=== PATIENT | female | born 1965 | race African-American/Black ===

== ENCOUNTER 2018-06-30 19:05 | Inpatient (IN) | payer MEDICARE, MEDICAID ==
[~2018-06-30] VITALS: Ht 162.6 cm; Wt 69.1 kg
[~2018-06-30 19:05] MED LIST: ADVAIR 250-501 EACH INH; ASPIR 8181 MG PO; BUPROPION XL300 MG PO; DIAZEPAM10 MG PO; DOCUSATE SODIU100 MG PO; FERROUS SULFAT325 MG ORAL; GABAPENTIN300 MG PO; LISINOPRIL10 MG ORAL; MILK OF MA400 MG/51 ORAL; NAPROXEN CR500 MG PO; PERCOCET 5-3251 EACH ORAL; PROAIR HFA8.5 GM INH; PROTONIX40 MG PO; QUETIAPINE FUM400 MG ORAL; RANITIDINE50 MG/2 ML IV; SAPHRIS5 MG SL; VICODIN ES 7.51 EACH ORAL
[2018-06-30] MEDS ORDERED: Solu-MEDROL 125mg Inj IVP ONE (19:30)
[2018-06-30] MEDS ORDERED: LAMOTRIGINE OD200 MG PO (19:34)
[2018-06-30] MEDS ORDERED: FOLIC ACID1 MG ORAL (19:34)
--- NOTE | 2018-06-30 19:38 | NUR ---
ED Nurse Note: PT WALKED IN TO ER TODAY FROM HOME. AOX4. PT C/O GENERALIZED WEAKNESS, LOSS OF APPETITE AND INTERMITTENT FACIAL SWELLING THAT STARTED AROUND EYES AND SPREADING DOWN FACE X 3 DAYS AGO. PT'S FACE DOES NOT APPEAR SWOLLEN ON ASSESSMENT. RR16 WITH O2SAT 100%. PT'S PERRLA. PT DOES NOT THINK IT IS AN ALLERGIC RXN. SHE STATES SHE HAS NOT DONE ANYTHING OUTSIDE NORMAL ROUTINE.
[2018-06-30 19:40] VITALS: BP 151/97
--- NOTE | 2018-06-30 19:47 | NUR ---
ED Nurse Note: REPORT GIVEN TO ARIANA LEE.
[2018-06-30 19:51] LABS: BASOPHILS % (AUTO) 2.1 % (0.0-2.0); EOSINOPHILS % (AUTO) 5.5 % (0.0-3.0); HEMATOCRIT 40.5 % (37.0-47.0); HEMOGLOBIN 13.1 G/DL (12.0-16.0); LYMPHOCYTES % (AUTO) 26.6 % (20.0-45.0); MEAN CORPUSCULAR VOLUME 91 FL (80-99); NEUTROPHILS % (AUTO) 57.9 % (45.0-75.0); PLATELET COUNT 313 K/UL (150-450); RED BLOOD COUNT 4.47 M/UL (4.20-5.40); RED CELL DISTRIBUTION WIDTH 11.4 % (11.6-14.8); WHITE BLOOD COUNT 8.5 K/UL (4.8-10.8)
--- NOTE | 2018-06-30 19:52 | Emergency Room Report ---
History of Present Illness General Chief Complaint: General Complaint Source: Patient Present Illness HPI 53-year-old female with history of asthma she is presenting with shortness of breath, cough, generalized weakness. Also says that she has not been eating for the last few days. Feels very dehydrated. Has been having body aches. No fever or chills. Says that she's also had dark urine, no dysuria. No chest pain. Allergies: Coded Allergies: PENICILLINS (Verified Allergy, Unknown, 10/09/12) Patient History Past Medical History: see triage record Past Surgical History: none Pertinent Family History: none Now: No Reviewed Nursing Documentation: PMH: Agreed; PSxH: Agreed Nursing Documentation-PMH Past Medical History: No History, Except For Hx Cardiac Problems: No - sickle cell , HTN Hx Hypertension: Yes Hx Pacemaker: No Hx Asthma: Yes Hx COPD: Yes Hx Diabetes: No Hx Cancer: No Hx Gastrointestinal Problems: No Hx Dialysis: No History Of Psychiatric Problem: Yes - Anxiety Hx Neurological Problems: No Hx Cerebrovascular Accident: No Hx Encephalitis: No Hx Seizures: No Review of Systems All Other Systems: negative except mentioned in HPI Physical Exam Vital Signs Date Time Temp Pulse Resp B/P (MAP) Pulse Ox O2 Delivery O2 Flow Rate FiO2 06/30/18 19:13 98.8 109 20 169/102 97 Room Air Sp02 EP Interpretation: reviewed, normal General Appearance: alert, GCS 15, non-toxic, mild distress Head: normocephalic, atraumatic Eyes: bilateral eye normal inspection, bilateral eye PERRL, bilateral eye EOMI ENT: normal ENT inspection, normal pharynx, normal voice, moist mucus membranes Neck: normal inspection, full range of motion, supple Respiratory: respiratory distress, speaking full sentences, wheezing Cardiovascular #1: normal inspection, regular rate, rhythm, no edema, normal capillary refill Cardiovascular #2: 2+ radial (R), 2+ radial (L) Gastrointestinal: normal inspection, non tender, soft, non-distended, no guarding Musculoskeletal: normal inspection, back normal, normal range of motion, non- tender Neurologic: normal inspection, alert, oriented x3, responsive, motor strength/ tone normal, sensory intact, normal gait, speech normal Psychiatric: normal inspection, judgement/insight normal, memory normal Skin: normal inspection, normal color, no rash, warm/dry, well hydrated, normal turgor Procedures Critical Care Time Critical Care Time 40 minutes of critical care time performed in order to assess and manage the high probability of imminent of lifethreatening deterioration secondary to resp function excludes all billable procedures Medical Decision Making Diagnostic Impression: Primary Impression: Asthma exacerbation Additional Impression: Dehydration ER Course 53-year-old female with history of asthma p/w SOB, generalized weakness DDX: Asthma exacerbation, pneumonia, upper respiratory infection/viral syndrome UTI Plan: Labs, Combivent nebulizer treatment x 3, steroids, EKG, CXR ER course: Patient given nebs and steroids nebs x 6 still wheezing also given fluid for dehydration Disposition: Patient is to be admitted DW Dr King Please note that this Emergency Department Report was dictated using [employer] 3Dta[employer] cutting machine operator technology software, occasionally this can lead to erroneous entry secondary to interpretation by the dictation equipment EKG Diagnostic Results EP Interpretation: Yes Rate: normal Rhythm: NSR ST Segments: No acute changes ASA given to patient: No Rhythm Strip EP Interpretation: Yes Rate: 70 Rhythm: NSR, no PVCs, no ectopy Chest X-ray CXR: Ordered: Yes 1 view Indication: Chest pain EP interpretation: Yes Interpretation: No consolidation, no effusion, no PTX, no acute cardiopulmonary disease Impression: No acute disease Electronically signed by Rock Raygoza MD Laboratory Tests Test 06/30/18 19:40 06/30/18 20:19 White Blood Count 8.5 K/UL (4.8-10.8) Red Blood Count 4.47 M/UL (4.20-5.40) Hemoglobin 13.1 G/DL (12.0-16.0) Hematocrit 40.5 % (37.0-47.0) Mean Corpuscular Volume 91 FL (80-99) Mean Corpuscular Hemoglobin 29.3 PG (27.0-31.0) Mean Corpuscular Hemoglobin Concent 32.4 G/DL (32.0-36.0) Red Cell Distribution Width 11.4 % (11.6-14.8) L Platelet Count 313 K/UL (150-450) Mean Platelet Volume 5.0 FL (6.5-10.1) L Neutrophils (%) (Auto) 57.9 % (45.0-75.0) Lymphocytes (%) (Auto) 26.6 % (20.0-45.0) Monocytes (%) (Auto) 8.0 % (1.0-10.0) Eosinophils (%) (Auto) 5.5 % (0.0-3.0) H Basophils (%) (Auto) 2.1 % (0.0-2.0) H Sodium Level 143 MMOL/L (136-145) Potassium Level 3.5 MMOL/L (3.5-5.1) Chloride Level 106 MMOL/L (98-107) Carbon Dioxide Level 29 MMOL/L (21-32) Anion Gap 8 mmol/L (5-15) Blood Urea Nitrogen 13 mg/dL (7-18) Creatinine 1.1 MG/DL (0.55-1.30) Estimate Glomerular Filtration Rate > 60 mL/min (>60) Glucose Level 77 MG/DL (74-106) Calcium Level 9.0 MG/DL (8.5-10.1) Total Bilirubin 0.1 MG/DL (0.2-1.0) L Aspartate Amino Transferase (AST) 18 U/L (15-37) Alanine Aminotransferase (ALT) 21 U/L (12-78) Alkaline Phosphatase 106 U/L (46-116) Troponin I 0.010 ng/mL (0.000-0.056) Pro-B-Type Natriuretic Peptide 37 pg/mL (0-125) Total Protein 6.8 G/DL (6.4-8.2) Albumin 3.5 G/DL (3.4-5.0) Globulin 3.3 g/dL Albumin/Globulin Ratio 1.1 (1.0-2.7) Urine Color Pale yellow Urine Appearance Clear Urine pH 6.5 (4.5-8.0) Urine Specific [place] 1.005 (1.005-1.035) Urine Protein Negative (NEGATIVE) Urine Glucose (UA) Negative (NEGATIVE) Urine Ketones Negative (NEGATIVE) Urine Blood Negative (NEGATIVE) Urine Nitrite Negative (NEGATIVE) Urine Bilirubin Negative (NEGATIVE) Urine Urobilinogen Normal MG/DL (0.0-1.0) Urine Leukocyte Esterase Negative (NEGATIVE) Microbiology Date/Time Source Procedure Growth Status 06/30/18 19:40 Nasal Nares Influenza Types A,B Antigen (ZACH) - Final Complete Last Vital Signs Date Time Temp Pulse Resp B/P (MAP) Pulse Ox O2 Delivery O2 Flow Rate FiO2 06/30/18 19:13 98.8 109 20 169/102 97 Room Air Scripts Nebulizer (Compact Compressor Nebulizer) 1 Each Each [facility], #1 Prov: Rock Raygoza M.D. 06/30/18 Albuterol Sulfate* (ALBUTEROL SULFATE HHN*) 2.5 Mg/3 Ml Vial.neb 2.5 MG HHN Q4H PRN for Shortness of Breath, #25 VIAL Prov: Rock Raygoza M.D. 06/30/18 Prednisone* (PREDNISONE*) 20 Mg Tablet 40 MG ORAL DAILY for 5 Days, #10 TAB Prov: Rock Raygoza M.D. 06/30/18 Rock Raygoza M.D. Jun 30, 2018 19:52
[2018-06-30] MEDS: Albuterol/Ipratropium 3ml neb HHN SCH ×5 (20:09→20:32)
[2018-06-30 20:18] LABS: ANION GAP 8 mmol/L (5-15); BLOOD UREA NITROGEN 13 mg/dL (7-18); CARBON DIOXIDE 29 MMOL/L (21-32); CHLORIDE 106 MMOL/L (98-107); CREATININE 1.1 MG/DL (0.55-1.30); POTASSIUM 3.5 MMOL/L (3.5-5.1); SODIUM 143 MMOL/L (136-145)
[2018-06-30 20:29] LABS: ALANINE AMINOTRANSFERASE 21 U/L (12-78); ALBUMIN 3.5 G/DL (3.4-5.0); ALBUMIN/GLOBULIN RATIO 1.1 (1.0-2.7); ALKALINE PHOSPHATASE 106 U/L (46-116); ASPARTATE AMINO TRANSFERASE 18 U/L (15-37); BILIRUBIN,TOTAL 0.1 MG/DL (0.2-1.0)
[2018-06-30 20:41] LABS: APPEARANCE,URINE CLEAR; BILIRUBIN, URINE NEGATIVE (NEGATIVE); COLOR,URINE PALE YELLOW; GLUCOSE, URINE (UA) NEGATIVE (NEGATIVE); KETONES,URINE NEGATIVE (NEGATIVE); LEUKOCYTE ESTERASE ,URINE NEGATIVE (NEGATIVE); NITRITE,URINE NEGATIVE (NEGATIVE); PH,URINE 6.5 (4.5-8.0); PROTEIN,URINE NEGATIVE (NEGATIVE); UROBILINOGEN,URINE NORMAL MG/DL (0.0-1.0)
[2018-06-30] MEDS ORDERED: COMPACT COMPRE1 EACH MC (20:46)
[2018-06-30] MEDS ORDERED: PREDNISONE20 MG ORAL (20:46)
[2018-06-30] MEDS ORDERED: ALBUTEROL2.5 MG/3 M HHN (20:46)
[2018-06-30] MEDS: Albuterol ud Inhalation HHN SCH ×4 (21:15→23:45)
[2018-06-30 21:30] VITALS: BP 140/95
[2018-06-30 22:56] VITALS: BP 139/91
--- NOTE | 2018-06-30 23:11 | NUR ---
ED Nurse Note: PT is transfered to MED SURG with RN BLADIMIR. pt status, condition and vital signs reported to receving RN and ERMD prior to DC. pt has been transfered with all belongings. pt is stable for transfer.
[2018-06-30 23:30] VITALS: BP 154/89
--- NOTE | 2018-06-30 23:49 | NUR ---
NURSE NOTES: Received telephone report from ARIANA Castillo. Patient brought to unit by tech. Belongings checked and validated. Patient on room air, no signs of distress. IV intact, patent, and saline locked. Charge nurse received orders from . Will continue to monitor patient.
--- NOTE | 2018-06-30 23:58 | Consultation ---
History of Present Illness General Chief Complaint: General Complaint Present Illness HPI 53-year-old female complaining of shortness of breath, coughing , weakness, and decreased appetite. the pt is bizarre and stated that she drank her urine. the pt was anxious and paranoid. the pt takes antipsychotics however stated that she was unsure of her mental disorder. Allergies: Coded Allergies: PENICILLINS (Verified Allergy, Unknown, 10/09/12) Medication History Scheduled Docusate Sodium* (Docusate Sodium*), 100 MG PO BID, (Reported) Ferrous Sulfate* (Ferrous Sulfate*), 325 MG ORAL DAILY, (Reported) Folic Acid* (Folic Acid*), 1 MG ORAL DAILY, (Reported) Gabapentin* (Gabapentin*), 300 MG PO TID, (Reported) Pantoprazole* (Protonix*), 40 MG PO DAILY Ranitidine Hcl* (Ranitidine Hcl*), 150 MG IV BID, (Reported) Discontinued Medications Albuterol Sulfate* (Proair Hfa*), 1 PUFF INH Q6H, (Reported) Discontinued Reason: MD discontinued med Albuterol Sulfate* (Albuterol Sulfate Hhn*), 2.5 MG HHN Q4H PRN for Shortness of Breath Discontinued Reason: MD discontinued med Asenapine Maleate (Saphris), 5 MG SL, (Reported) Discontinued Reason: MD discontinued med Aspirin* (Aspir 81*), 81 MG PO, (Reported) Discontinued Reason: MD discontinued med Bupropion Hcl* (Wellbutrin*), 300 MG PO DAILY, (Reported) Discontinued Reason: MD discontinued med Diazepam* (Diazepam*), 10 MG PO TID PRN, (Reported) Discontinued Reason: MD discontinued med Fluticasone/Salmeterol (Advair 250-50 Diskus), 1 PUFF INH EVERY 12 HOURS, ( Reported) Discontinued Reason: MD discontinued med Hydrocodone/Acetaminophen 7.5-750 (Vicodin Es 7.5-750), 1 TAB ORAL Q6H, ( Reported) Discontinued Reason: MD discontinued med Lamotrigine (Lamotrigine Odt), 200 MG PO, (Reported) Discontinued Reason: MD discontinued med Lisinopril* (Lisinopril*), 10 MG ORAL DAILY, (Reported) Discontinued Reason: MD discontinued med Magnesium Hydroxide* (Milk Of Magnesia*), 30 ML ORAL DAILY Discontinued Reason: MD discontinued med Naproxen Sodium (Naproxen Cr), 500 MG PO Q12HR Discontinued Reason: discontinued med Nebulizer (Compact Compressor Nebulizer), JANET KIM, (DME) Discontinued Reason: MD discontinued med Oxycodone/Acetaminophen 5-325* (Percocet 5-325 Mg Tablet*), 1 TAB ORAL Q6H PRN for For Pain Discontinued Reason: MD discontinued med Prednisone* (Prednisone*), 40 MG ORAL DAILY Discontinued Reason: MD discontinued med Quetiapine Fumarate* (Quetiapine Fumarate*), 400 MG ORAL DAILY, (Reported) Discontinued Reason: MD discontinued med Patient History History Provided By: Patient, Medical Record, PMD Healthcare decision maker Resuscitation status Advanced Directive on File Past Medical/Surgical History Past Medical/Surgical History: (1) Fibroid (2) Constipation (3) Pulmonary edema (4) Purulent bronchitis (5) Dehydration (6) Sickle cell disease (7) Anxiety (8) Edema (9) Rhabdomyolysis (10) Lumbar spondylosis (11) Left ankle swelling (12) COPD exacerbation (13) COPD exacerbation (14) Chronic back pain (15) Earache, right (16) Left ankle effusion (17) Edema of right lower extremity (18) Pain (19) Tachycardia with hypertension (20) Asthma exacerbation Review of Systems Psychiatric: Reports: prior hx, anxiety, depressed feelings, emotional problems Physical Exam General Appearance: no apparent distress, alert Neurologic: oriented x 3, responsive, depressed affect Last 24 Hour Vital Signs Date Time Temp Pulse Resp B/P (MAP) Pulse Ox O2 Delivery O2 Flow Rate FiO2 06/30/18 23:45 115 06/30/18 23:30 98.3 120 20 154/89 (110) 98 06/30/18 23:09 98.6 88 16 139/91 100 Room Air 21 06/30/18 22:56 98.6 88 16 139/91 100 Room Air 06/30/18 22:28 118 18 97 Room Air 06/30/18 22:18 118 20 95 Room Air 21 06/30/18 21:30 98.6 90 16 140/95 100 Room Air 06/30/18 20:50 110 20 100 Room Air 06/30/18 20:40 108 18 100 Room Air 21 06/30/18 20:40 102 18 100 Room Air 21 06/30/18 20:30 98 18 100 Room Air 21 06/30/18 20:30 98 18 100 Room Air 21 06/30/18 20:23 96 18 100 Room Air 21 06/30/18 20:23 94 20 100 Room Air 21 06/30/18 20:15 96 20 100 Room Air 21 06/30/18 20:15 94 20 100 Room Air 21 06/30/18 20:07 99 20 98 Room Air 21 06/30/18 20:06 99 20 Room Air 21 06/30/18 19:40 100 16 Room Air 06/30/18 19:40 98.6 100 16 151/97 100 Room Air 06/30/18 19:13 98.8 109 20 169/102 97 Room Air Laboratory Tests Test 06/30/18 19:40 06/30/18 20:19 White Blood Count 8.5 K/UL (4.8-10.8) Red Blood Count 4.47 M/UL (4.20-5.40) Hemoglobin 13.1 G/DL (12.0-16.0) Hematocrit 40.5 % (37.0-47.0) Mean Corpuscular Volume 91 FL (80-99) Mean Corpuscular Hemoglobin 29.3 PG (27.0-31.0) Mean Corpuscular Hemoglobin Concent 32.4 G/DL (32.0-36.0) Red Cell Distribution Width 11.4 % (11.6-14.8) L Platelet Count 313 K/UL (150-450) Mean Platelet Volume 5.0 FL (6.5-10.1) L Neutrophils (%) (Auto) 57.9 % (45.0-75.0) Lymphocytes (%) (Auto) 26.6 % (20.0-45.0) Monocytes (%) (Auto) 8.0 % (1.0-10.0) Eosinophils (%) (Auto) 5.5 % (0.0-3.0) H Basophils (%) (Auto) 2.1 % (0.0-2.0) H Sodium Level 143 MMOL/L (136-145) Potassium Level 3.5 MMOL/L (3.5-5.1) Chloride Level 106 MMOL/L (98-107) Carbon Dioxide Level 29 MMOL/L (21-32) Anion Gap 8 mmol/L (5-15) Blood Urea Nitrogen 13 mg/dL (7-18) Creatinine 1.1 MG/DL (0.55-1.30) Estimat Glomerular Filtration Rate > 60 mL/min (>60) Glucose Level 77 MG/DL (74-106) Calcium Level 9.0 MG/DL (8.5-10.1) Total Bilirubin 0.1 MG/DL (0.2-1.0) L Aspartate Amino Transf (AST/SGOT) 18 U/L (15-37) Alanine Aminotransferase (ALT/SGPT) 21 U/L (12-78) Alkaline Phosphatase 106 U/L (46-116) Troponin I 0.010 ng/mL (0.000-0.056) Pro-B-Type Natriuretic Peptide 37 pg/mL (0-125) Total Protein 6.8 G/DL (6.4-8.2) Albumin 3.5 G/DL (3.4-5.0) Globulin 3.3 g/dL Albumin/Globulin Ratio 1.1 (1.0-2.7) Urine Color Pale yellow Urine Appearance Clear Urine pH 6.5 (4.5-8.0) Urine Specific [place] 1.005 (1.005-1.035) Urine Protein Negative (NEGATIVE) Urine Glucose (UA) Negative (NEGATIVE) Urine Ketones Negative (NEGATIVE) Urine Blood Negative (NEGATIVE) Urine Nitrite Negative (NEGATIVE) Urine Bilirubin Negative (NEGATIVE) Urine Urobilinogen Normal MG/DL (0.0-1.0) Urine Leukocyte Esterase Negative (NEGATIVE) Microbiology Date/Time Source Procedure Growth Status 06/30/18 19:40 Nasal Nares Influenza Types A,B Antigen (ZACH) - Final Complete Height (Feet): 5 Height (Inches): 4.00 Weight (Pounds): 140 Medications Current Medications Medications (Trade) Dose Ordered Sig/Yadira Route PRN Reason Start Time Stop Time Status Last Admin Dose Admin Albuterol Sulfate (Proventil) 2.5 mg Q8HR HHN 06/30/18 23:45 07/05/18 23:44 Assessment/Plan Problem List: (1) Anxiety ICD Codes: F41.9 - Anxiety disorder, unspecified SNOMED: [id number] Assessment/Plan seroquel 400mg qhs welbutrin 150mg qam provided /Rolo Johnson MD Jun 30, 2018 23:58
[2018-07-01] MEDS ORDERED: Albuterol/Ipratropium 3ml neb HHN PRN (00:30)
[2018-07-01] MEDS: Norco 5mg/325mg tab ORAL PRN ×3 (00:34→08:50)
--- NOTE | 2018-07-01 00:46 | NUR ---
NURSE NOTES: Patient has fluctuating HR between 115-120s. Left voicemail for tower watchman concerning matter.
[2018-07-01] MEDS: dilTIAZem HCl 30mg tab ORAL SCH ×4 (01:13→17:12)
[2018-07-01] MEDS: Albuterol/Ipratropium 3ml neb HHN SCH ×6 (02:30→23:00)
[2018-07-01 04:00] VITALS: BP 143/74
--- NOTE | 2018-07-01 07:41 | NUR ---
NURSE NOTES: Patine alert x4, in room air, no sign of shortness of breath, no sign of distress and chest pain. Skin intact. IV RFA salin lock, flushes well. Patient had tachy ede last shift and connected to pulse sockes, will keep monitoring heart rate. Side rails up x2, bed at lowest position, breaks engaged. Will give pain med as order. 2Decho schedules for today, will follow up on that. Call light within reach. Will keep monitoring.
[2018-07-01] MEDS: Albuterol ud Inhalation HHN SCH (07:46)
[2018-07-01 08:00] VITALS: BP 105/69
[2018-07-01 08:06] LABS: HEMATOCRIT 36.2 % (37.0-47.0); HEMOGLOBIN 11.7 G/DL (12.0-16.0); MEAN CORPUSCULAR VOLUME 90 FL (80-99); PLATELET COUNT 328 K/UL (150-450); RED CELL DISTRIBUTION WIDTH 11.8 % (11.6-14.8); WHITE BLOOD COUNT 11.3 K/UL (4.8-10.8)
[2018-07-01 08:30] LABS: ALANINE AMINOTRANSFERASE 19 U/L (12-78); ALBUMIN 3.2 G/DL (3.4-5.0); ALKALINE PHOSPHATASE 96 U/L (46-116); ANION GAP 9 mmol/L (5-15); ASPARTATE AMINO TRANSFERASE 15 U/L (15-37); BILIRUBIN,TOTAL < 0.1 MG/DL (0.2-1.0); BLOOD UREA NITROGEN 13 mg/dL (7-18); CALCIUM 9.1 MG/DL (8.5-10.1); CARBON DIOXIDE 28 MMOL/L (21-32); CHLORIDE 107 MMOL/L (98-107); POTASSIUM 3.3 MMOL/L (3.5-5.1); SODIUM 144 MMOL/L (136-145)
--- NOTE | 2018-07-01 08:39 | NUR ---
HAND-OFF: Report given to ARIANA Marsh.
--- NOTE | 2018-07-01 08:48 | Consultation ---
History of Present Illness General Date patient seen: Jul 01, 2018 Time patient seen: 07:45 - am Chief Complaint: Body pain Referring physician: Dr. King Reason for Consultation: Pain Management consultation Present Illness HPI Patient was admitted to hospital under the care of due to asthma exacerbation. She has chronic lower back pain and right hip pain with h/o THR with SS disease. Was admitted on [place] 5/325mg tabs and at home has been in [place] 10/325mg tabs, at this time stating pain is severe and not tolerated we were consulted so patient has adequate pain control while here in the hospital. Allergies: Coded Allergies: PENICILLINS (Verified Allergy, Unknown, 10/09/12) Medication History Scheduled Docusate Sodium* (Docusate Sodium*), 100 MG PO BID, (Reported) Ferrous Sulfate* (Ferrous Sulfate*), 325 MG ORAL DAILY, (Reported) Folic Acid* (Folic Acid*), 1 MG ORAL DAILY, (Reported) Gabapentin* (Gabapentin*), 300 MG PO TID, (Reported) Pantoprazole* (Protonix*), 40 MG PO DAILY Ranitidine Hcl* (Ranitidine Hcl*), 150 MG IV BID, (Reported) Discontinued Medications Albuterol Sulfate* (Proair Hfa*), 1 PUFF INH Q6H, (Reported) Discontinued Reason: MD discontinued med Albuterol Sulfate* (Albuterol Sulfate Hhn*), 2.5 MG HHN Q4H PRN for Shortness of Breath Discontinued Reason: MD discontinued med Asenapine Maleate (Saphris), 5 MG SL, (Reported) Discontinued Reason: MD discontinued med Aspirin* (Aspir 81*), 81 MG PO, (Reported) Discontinued Reason: MD discontinued med Bupropion Hcl* (Wellbutrin*), 300 MG PO DAILY, (Reported) Discontinued Reason: MD discontinued med Diazepam* (Diazepam*), 10 MG PO TID PRN, (Reported) Discontinued Reason: MD discontinued med Fluticasone/Salmeterol (Advair 250-50 Diskus), 1 PUFF INH EVERY 12 HOURS, ( Reported) Discontinued Reason: MD discontinued med Hydrocodone/Acetaminophen 7.5-750 (Vicodin Es 7.5-750), 1 TAB ORAL Q6H, ( Reported) Discontinued Reason: MD discontinued med Lamotrigine (Lamotrigine Odt), 200 MG PO, (Reported) Discontinued Reason: MD discontinued med Lisinopril* (Lisinopril*), 10 MG ORAL DAILY, (Reported) Discontinued Reason: MD discontinued med Magnesium Hydroxide* (Milk Of Magnesia*), 30 ML ORAL DAILY Discontinued Reason: MD discontinued med Naproxen Sodium (Naproxen Cr), 500 MG PO Q12HR Discontinued Reason: MD discontinued med Nebulizer (Compact Compressor Nebulizer), JANET , (DME) Discontinued Reason: MD discontinued med Oxycodone/Acetaminophen 5-325* (Percocet 5-325 Mg Tablet*), 1 TAB ORAL Q6H PRN for For Pain Discontinued Reason: MD discontinued med Prednisone* (Prednisone*), 40 MG ORAL DAILY Discontinued Reason: MD discontinued med Quetiapine Fumarate* (Quetiapine Fumarate*), 400 MG ORAL DAILY, (Reported) Discontinued Reason: MD discontinued med Patient History Healthcare decision maker Resuscitation status Full Code Advanced Directive on File No Patient History Narrative Past Medical History: Hx Cardiac Problems: Yes - sickle cell , HTN Hx Hypertension: Yes Hx Asthma: Yes Hx COPD: Yes History Of Psychiatric Problem: Yes - Anxiety Review of Systems Constitutional: Reports: weakness Eye: Reports: no symptoms ENT: Reports: no symptoms Respiratory: Reports: shortness of breath Cardiovascular: Reports: no symptoms Gastrointestinal: Reports: no symptoms Genitourinary: Reports: no symptoms Musculoskeletal: Reports: back pain, joint pain Skin: Reports: no symptoms Psychiatric: Reports: no symptoms Neurological: Reports: no symptoms Endocrine: Reports: no symptoms Hematologic/Lymphatic: Reports: no symptoms Physical Exam General Appearance: no apparent distress, alert HEENT: PERRL, EOMI Neck: non-tender, normal alignment, supple Respiratory/Chest: decreased breath sounds Cardiovascular/Chest: normal rate, regular rhythm Abdomen: non tender, soft Extremities: non-tender Skin Exam: warm/dry Neurologic: alert, oriented x 3, responsive Last 24 Hour Vital Signs Date Time Temp Pulse Resp B/P (MAP) Pulse Ox O2 Delivery O2 Flow Rate FiO2 07/01/18 08:00 98.2 95 18 105/69 (81) 99 07/01/18 07:54 99 20 100 Room Air 21 07/01/18 07:46 94 18 99 Room Air 21 07/01/18 04:00 98.1 111 18 143/74 (97) 93 07/01/18 02:33 Room Air 07/01/18 02:31 Room Air 07/01/18 01:13 121 149/85 06/30/18 23:45 115 06/30/18 23:34 Room Air 06/30/18 23:30 98.3 120 20 154/89 (110) 98 06/30/18 23:09 98.6 88 16 139/91 100 Room Air 21 06/30/18 22:56 98.6 88 16 139/91 100 Room Air 06/30/18 22:30 120 18 98 Room Air 21 06/30/18 22:28 118 18 97 Room Air 21 06/30/18 22:18 118 20 95 Room Air 21 06/30/18 21:30 98.6 90 16 140/95 100 Room Air 06/30/18 20:50 110 20 100 Room Air 21 06/30/18 20:40 108 18 100 Room Air 21 06/30/18 20:40 102 18 100 Room Air 21 06/30/18 20:30 98 18 100 Room Air 21 06/30/18 20:30 98 18 100 Room Air 21 06/30/18 20:23 96 18 100 Room Air 21 06/30/18 20:23 94 20 100 Room Air 21 06/30/18 20:15 96 20 100 Room Air 21 06/30/18 20:15 94 20 100 Room Air 21 06/30/18 20:07 99 20 98 Room Air 21 06/30/18 20:06 99 20 Room Air 21 06/30/18 19:40 100 16 Room Air 06/30/18 19:40 98.6 100 16 151/97 100 Room Air 06/30/18 19:13 98.8 109 20 169/102 97 Room Air Laboratory Tests Test 06/30/18 19:40 06/30/18 20:19 07/01/18 07:38 White Blood Count 8.5 K/UL (4.8-10.8) 11.3 K/UL (4.8-10.8) H Red Blood Count 4.47 M/UL (4.20-5.40) 4.00 M/UL (4.20-5.40) L Hemoglobin 13.1 G/DL (12.0-16.0) 11.7 G/DL (12.0-16.0) L Hematocrit 40.5 % (37.0-47.0) 36.2 % (37.0-47.0) L Mean Corpuscular Volume 91 FL (80-99) 90 FL (80-99) Mean Corpuscular Hemoglobin 29.3 PG (27.0-31.0) 29.2 PG (27.0-31.0) Mean Corpuscular Hemoglobin Concent 32.4 G/DL (32.0-36.0) 32.3 G/DL (32.0-36.0) Red Cell Distribution Width 11.4 % (11.6-14.8) L 11.8 % (11.6-14.8) Platelet Count 313 K/UL (150-450) 328 K/UL (150-450) Mean Platelet Volume 5.0 FL (6.5-10.1) L 5.4 FL (6.5-10.1) L Neutrophils (%) (Auto) 57.9 % (45.0-75.0) % (45.0-75.0) Lymphocytes (%) (Auto) 26.6 % (20.0-45.0) % (20.0-45.0) Monocytes (%) (Auto) 8.0 % (1.0-10.0) % (1.0-10.0) Eosinophils (%) (Auto) 5.5 % (0.0-3.0) H % (0.0-3.0) Basophils (%) (Auto) 2.1 % (0.0-2.0) H % (0.0-2.0) Sodium Level 143 MMOL/L (136-145) 144 MMOL/L (136-145) Potassium Level 3.5 MMOL/L (3.5-5.1) 3.3 MMOL/L (3.5-5.1) L Chloride Level 106 MMOL/L (98-107) 107 MMOL/L (98-107) Carbon Dioxide Level 29 MMOL/L (21-32) 28 MMOL/L (21-32) Anion Gap 8 mmol/L (5-15) 9 mmol/L (5-15) Blood Urea Nitrogen 13 mg/dL (7-18) 13 mg/dL (7-18) Creatinine 1.1 MG/DL (0.55-1.30) 1.0 MG/DL (0.55-1.30) Estimat Glomerular Filtration Rate > 60 mL/min (>60) > 60 mL/min (>60) Glucose Level 77 MG/DL (74-106) 124 MG/DL (74-106) H Calcium Level 9.0 MG/DL (8.5-10.1) 9.1 MG/DL (8.5-10.1) Total Bilirubin 0.1 MG/DL (0.2-1.0) L < 0.1 MG/DL (0.2-1.0) L Aspartate Amino Transf (AST/SGOT) 18 U/L (15-37) 15 U/L (15-37) Alanine Aminotransferase (ALT/SGPT) 21 U/L (12-78) 19 U/L (12-78) Alkaline Phosphatase 106 U/L (46-116) 96 U/L (46-116) Troponin I 0.010 ng/mL (0.000-0.056) Pro-B-Type Natriuretic Peptide 37 pg/mL (0-125) Total Protein 6.8 G/DL (6.4-8.2) 6.5 G/DL (6.4-8.2) Albumin 3.5 G/DL (3.4-5.0) 3.2 G/DL (3.4-5.0) L Globulin 3.3 g/dL 3.3 g/dL Albumin/Globulin Ratio 1.1 (1.0-2.7) 1.0 (1.0-2.7) Urine Color Pale yellow Urine Appearance Clear Urine pH 6.5 (4.5-8.0) Urine Specific [place] 1.005 (1.005-1.035) Urine Protein Negative (NEGATIVE) Urine Glucose (UA) Negative (NEGATIVE) Urine Ketones Negative (NEGATIVE) Urine Blood Negative (NEGATIVE) Urine Nitrite Negative (NEGATIVE) Urine Bilirubin Negative (NEGATIVE) Urine Urobilinogen Normal MG/DL (0.0-1.0) Urine Leukocyte Esterase Negative (NEGATIVE) Neutrophils % (Manual) Pending Lymphocytes % (Manual) Pending Platelet Estimate Pending Platelet Morphology Pending Microbiology Date/Time Source Procedure Growth Status 06/30/18 19:40 Nasal Nares Influenza Types A,B Antigen (AZCH) - Final Complete Height (Feet): 5 Height (Inches): 4.00 Weight (Pounds): 152 Medications Current Medications Medications (Trade) Dose Ordered Sig/Yadira Route PRN Reason Start Time Stop Time Status Last Admin Dose Admin Acetaminophen (Tylenol) 650 mg Q4H PRN ORAL For Pain Level <=5 07/01/18 00:15 07/31/18 00:14 Acetaminophen/ Hydrocodone Bitart ([place] 5/325) 1 tab Q4H PRN ORAL Severe Pain (Pain Scale 7-10) 07/01/18 00:15 07/08/18 00:14 07/01/18 04:14 Albuterol Sulfate (Proventil) 2.5 mg Q8HR HHN 06/30/18 23:45 07/05/18 23:44 07/01/18 07:46 Albuterol/ Ipratropium (Albuterol/ Ipratropium) 3 ml Q4H PRN HHN shortness of breath/wheezing 07/01/18 00:30 07/06/18 00:29 Albuterol/ Ipratropium (Albuterol/ Ipratropium) 3 ml Q4HRT HHN 07/01/18 03:00 07/06/18 02:59 07/01/18 07:46 Bupropion HCl (Wellbutrin XL) 150 mg DAILY ORAL 07/01/18 09:00 07/31/18 08:59 Clonidine HCl (Catapres Tab) 0.1 mg EVERY 6 HOURS PRN ORAL For High Blood Pressure 07/01/18 00:15 07/31/18 00:14 Diltiazem HCl (Cardizem) 30 mg TID ORAL 07/01/18 01:00 07/31/18 00:59 07/01/18 01:13 Docusate Sodium (Colace) 100 mg BID ORAL 07/01/18 09:00 07/31/18 08:59 Ferrous Sulfate (Feosol) 325 mg DAILY ORAL 07/01/18 09:00 07/31/18 08:59 Folic Acid (Folate) 1 mg DAILY ORAL 07/01/18 09:00 07/31/18 08:59 Gabapentin (Neurontin) 300 mg TID ORAL 07/01/18 09:00 07/31/18 08:59 Pantoprazole (Protonix) 40 mg ACBREAKFAST ORAL 07/01/18 06:30 07/31/18 06:29 07/01/18 06:23 Quetiapine Fumarate (SEROquel) 400 mg BEDTIME ORAL 07/01/18 21:00 07/31/18 20:59 Assessment/Plan Assessment/Plan (1) Right hip pain (2) H/o Right THR (3) Right hip OA (4) Sickle cell disease (5) Lumbar DDD (6) Lumbar Spondylosis Patient will be increased to [place] 10/325mg PO 1 tab Q4H PRN D/w Dr. Hui and he concurred Thank you for the courtesy of this consultation Jose Martin Viramontes Jul 01, 2018 08:48
[2018-07-01] MEDS: BuPROPion XL 150mg tab ORAL SCH (08:49)
[2018-07-01] MEDS: Docusate 100mg cap ORAL SCH ×2 (08:49→17:12)
--- NOTE | 2018-07-01 10:39 | Diagnostic Imaging Report ---
Indication: Dyspnea Comparison: 02/17/2015 A single view chest radiograph was obtained. Findings: Cardiomediastinal appearance is within normal limits for age. The lungs are clear. Pulmonary vascularity is appropriate. The diaphragmatic contour is smooth and costophrenic angles are sharp. No pleural effusions are identified. The bones are unremarkable. Impression: No acute findings
[2018-07-01 12:00] VITALS: BP 121/77
[2018-07-01] MEDS: HYDROcodone/Acetamin 10/325 tab ORAL PRN ×3 (12:49→21:14)
--- NOTE | 2018-07-01 14:29 | Consultation ---
History of Present Illness General Date patient seen: Jul 01, 2018 Time patient seen: 14:20 Chief Complaint: Shortness of breath Referring physician: Dr. Jade Reason for Consultation: Asthma exacerbation Present Illness HPI 53 y/o w/ hx sickle cell trait, asthma with several weeks of increasing shortness of breath, cough, wheezing, tachycardia. Noted facial swelling. No discernable exposures. Has asthma which she does not use Advair due to cost. Smokes one cigarette a day. Noted feeling some fevers. Cough is dry. Given nebs and steroids in Ed. Feeling better. Feels heart rate comes down with breathing treatments. Allergies: Coded Allergies: PENICILLINS (Verified Allergy, Unknown, 10/09/12) Medication History Scheduled Docusate Sodium* (Docusate Sodium*), 100 MG PO BID, (Reported) Ferrous Sulfate* (Ferrous Sulfate*), 325 MG ORAL DAILY, (Reported) Folic Acid* (Folic Acid*), 1 MG ORAL DAILY, (Reported) Gabapentin* (Gabapentin*), 300 MG PO TID, (Reported) Pantoprazole* (Protonix*), 40 MG PO DAILY Ranitidine Hcl* (Ranitidine Hcl*), 150 MG IV BID, (Reported) Discontinued Medications Albuterol Sulfate* (Proair Hfa*), 1 PUFF INH Q6H, (Reported) Discontinued Reason: MD discontinued med Albuterol Sulfate* (Albuterol Sulfate Hhn*), 2.5 MG HHN Q4H PRN for Shortness of Breath Discontinued Reason: MD discontinued med Asenapine Maleate (Saphris), 5 MG SL, (Reported) Discontinued Reason: MD discontinued med Aspirin* (Aspir 81*), 81 MG PO, (Reported) Discontinued Reason: MD discontinued med Bupropion Hcl* (Wellbutrin*), 300 MG PO DAILY, (Reported) Discontinued Reason: MD discontinued med Diazepam* (Diazepam*), 10 MG PO TID PRN, (Reported) Discontinued Reason: MD discontinued med Fluticasone/Salmeterol (Advair 250-50 Diskus), 1 PUFF INH EVERY 12 HOURS, ( Reported) Discontinued Reason: MD discontinued med Hydrocodone/Acetaminophen 7.5-750 (Vicodin Es 7.5-750), 1 TAB ORAL Q6H, ( Reported) Discontinued Reason: MD discontinued med Lamotrigine (Lamotrigine Odt), 200 MG PO, (Reported) Discontinued Reason: MD discontinued med Lisinopril* (Lisinopril*), 10 MG ORAL DAILY, (Reported) Discontinued Reason: MD discontinued med Magnesium Hydroxide* (Milk Of Magnesia*), 30 ML ORAL DAILY Discontinued Reason: MD discontinued med Naproxen Sodium (Naproxen Cr), 500 MG PO Q12HR Discontinued Reason: MD discontinued med Nebulizer (Compact Compressor Nebulizer), EA , (DME) Discontinued Reason: MD discontinued med Oxycodone/Acetaminophen 5-325* (Percocet 5-325 Mg Tablet*), 1 TAB ORAL Q6H PRN for For Pain Discontinued Reason: MD discontinued med Prednisone* (Prednisone*), 40 MG ORAL DAILY Discontinued Reason: MD discontinued med Quetiapine Fumarate* (Quetiapine Fumarate*), 400 MG ORAL DAILY, (Reported) Discontinued Reason: MD discontinued med Patient History Healthcare decision maker Resuscitation status Full Code Advanced Directive on File No Past Medical/Surgical History Past Medical/Surgical History: (1) Asthma exacerbation Review of Systems Constitutional: Reports: chills, fever Eye: Reports: other - swelling ENT: Reports: nose congestion Respiratory: Reports: cough, shortness of breath, wheezing Cardiovascular: Reports: palpitations Genitourinary: Reports: no symptoms Musculoskeletal: Reports: no symptoms Skin: Reports: no symptoms Physical Exam General Appearance: no apparent distress Neck: supple Respiratory/Chest: expiratory wheezing Cardiovascular/Chest: tachycardia Abdomen: non tender, soft Extremities: no edema 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 grossly normal Last 24 Hour Vital Signs Date Time Temp Pulse Resp B/P (MAP) Pulse Ox O2 Delivery O2 Flow Rate FiO2 07/01/18 13:19 98.6 07/01/18 12:49 114 121/77 07/01/18 12:00 98.6 114 18 121/77 (92) 99 07/01/18 11:12 98 20 100 Room Air 21 07/01/18 11:01 93 18 97 Room Air 21 07/01/18 09:00 Room Air 07/01/18 08:49 95 105/69 07/01/18 08:00 98.2 95 18 105/69 (81) 99 07/01/18 07:54 99 20 100 Room Air 21 07/01/18 07:46 94 18 99 Room Air 21 07/01/18 04:00 98.1 111 18 143/74 (97) 93 07/01/18 02:33 Room Air 07/01/18 02:31 Room Air 07/01/18 01:13 121 149/85 06/30/18 23:45 115 06/30/18 23:34 Room Air 06/30/18 23:30 98.3 120 20 154/89 (110) 98 06/30/18 23:09 98.6 88 16 139/91 100 Room Air 21 06/30/18 22:56 98.6 88 16 139/91 100 Room Air 06/30/18 22:30 120 18 98 Room Air 21 06/30/18 22:28 118 18 97 Room Air 21 06/30/18 22:18 118 20 95 Room Air 21 06/30/18 21:30 98.6 90 16 140/95 100 Room Air 06/30/18 20:50 110 20 100 Room Air 21 06/30/18 20:40 108 18 100 Room Air 21 06/30/18 20:40 102 18 100 Room Air 21 06/30/18 20:30 98 18 100 Room Air 21 06/30/18 20:30 98 18 100 Room Air 21 06/30/18 20:23 96 18 100 Room Air 21 06/30/18 20:23 94 20 100 Room Air 21 06/30/18 20:15 96 20 100 Room Air 21 06/30/18 20:15 94 20 100 Room Air 21 06/30/18 20:07 99 20 98 Room Air 21 06/30/18 20:06 99 20 Room Air 21 06/30/18 19:40 100 16 Room Air 06/30/18 19:40 98.6 100 16 151/97 100 Room Air 06/30/18 19:13 98.8 109 20 169/102 97 Room Air Laboratory Tests Test 06/30/18 19:40 06/30/18 20:19 07/01/18 07:38 White Blood Count 8.5 K/UL (4.8-10.8) 11.3 K/UL (4.8-10.8) H Red Blood Count 4.47 M/UL (4.20-5.40) 4.00 M/UL (4.20-5.40) L Hemoglobin 13.1 G/DL (12.0-16.0) 11.7 G/DL (12.0-16.0) L Hematocrit 40.5 % (37.0-47.0) 36.2 % (37.0-47.0) L Mean Corpuscular Volume 91 FL (80-99) 90 FL (80-99) Mean Corpuscular Hemoglobin 29.3 PG (27.0-31.0) 29.2 PG (27.0-31.0) Mean Corpuscular Hemoglobin Concent 32.4 G/DL (32.0-36.0) 32.3 G/DL (32.0-36.0) Red Cell Distribution Width 11.4 % (11.6-14.8) L 11.8 % (11.6-14.8) Platelet Count 313 K/UL (150-450) 328 K/UL (150-450) Mean Platelet Volume 5.0 FL (6.5-10.1) L 5.4 FL (6.5-10.1) L Neutrophils (%) (Auto) 57.9 % (45.0-75.0) % (45.0-75.0) Lymphocytes (%) (Auto) 26.6 % (20.0-45.0) % (20.0-45.0) Monocytes (%) (Auto) 8.0 % (1.0-10.0) % (1.0-10.0) Eosinophils (%) (Auto) 5.5 % (0.0-3.0) H % (0.0-3.0) Basophils (%) (Auto) 2.1 % (0.0-2.0) H % (0.0-2.0) Sodium Level 143 MMOL/L (136-145) 144 MMOL/L (136-145) Potassium Level 3.5 MMOL/L (3.5-5.1) 3.3 MMOL/L (3.5-5.1) L Chloride Level 106 MMOL/L (98-107) 107 MMOL/L (98-107) Carbon Dioxide Level 29 MMOL/L (21-32) 28 MMOL/L (21-32) Anion Gap 8 mmol/L (5-15) 9 mmol/L (5-15) Blood Urea Nitrogen 13 mg/dL (7-18) 13 mg/dL (7-18) Creatinine 1.1 MG/DL (0.55-1.30) 1.0 MG/DL (0.55-1.30) Estimat Glomerular Filtration Rate > 60 mL/min (>60) > 60 mL/min (>60) Glucose Level 77 MG/DL (74-106) 124 MG/DL (74-106) H Calcium Level 9.0 MG/DL (8.5-10.1) 9.1 MG/DL (8.5-10.1) Total Bilirubin 0.1 MG/DL (0.2-1.0) L < 0.1 MG/DL (0.2-1.0) L Aspartate Amino Transf (AST/SGOT) 18 U/L (15-37) 15 U/L (15-37) Alanine Aminotransferase (ALT/SGPT) 21 U/L (12-78) 19 U/L (12-78) Alkaline Phosphatase 106 U/L (46-116) 96 U/L (46-116) Troponin I 0.010 ng/mL (0.000-0.056) Pro-B-Type Natriuretic Peptide 37 pg/mL (0-125) Total Protein 6.8 G/DL (6.4-8.2) 6.5 G/DL (6.4-8.2) Albumin 3.5 G/DL (3.4-5.0) 3.2 G/DL (3.4-5.0) L Globulin 3.3 g/dL 3.3 g/dL Albumin/Globulin Ratio 1.1 (1.0-2.7) 1.0 (1.0-2.7) Urine Color Pale yellow Urine Appearance Clear Urine pH 6.5 (4.5-8.0) Urine Specific [place] 1.005 (1.005-1.035) Urine Protein Negative (NEGATIVE) Urine Glucose (UA) Negative (NEGATIVE) Urine Ketones Negative (NEGATIVE) Urine Blood Negative (NEGATIVE) Urine Nitrite Negative (NEGATIVE) Urine Bilirubin Negative (NEGATIVE) Urine Urobilinogen Normal MG/DL (0.0-1.0) Urine Leukocyte Esterase Negative (NEGATIVE) Differential Total Cells Counted 100 Neutrophils % (Manual) 89 % (45-75) H Lymphocytes % (Manual) 7 % (20-45) L Monocytes % (Manual) 4 % (1-10) Eosinophils % (Manual) 0 % (0-3) Basophils % (Manual) 0 % (0-2) Band Neutrophils 0 % (0-8) Platelet Estimate Adequate Platelet Morphology Normal Red Blood Cell Morphology Normal Microbiology Date/Time Source Procedure Growth Status 06/30/18 19:40 Nasal Nares Influenza Types A,B Antigen (ZACH) - Final Complete Height (Feet): 5 Height (Inches): 4.00 Weight (Pounds): 152 Medications Current Medications Medications (Trade) Dose Ordered Sig/Yadira Route PRN Reason Start Time Stop Time Status Last Admin Dose Admin Acetaminophen (Tylenol) 650 mg Q4H PRN ORAL For Pain Level <=5 07/01/18 00:15 07/31/18 00:14 Acetaminophen/ Hydrocodone Bitart ([place] 10/325) 1 tab Q4H PRN ORAL Severe Pain (Pain Scale 7-10) 07/01/18 09:15 07/08/18 09:14 07/01/18 12:49 Albuterol Sulfate (Proventil) 2.5 mg Q8HR N 06/30/18 23:45 07/05/18 23:44 07/01/18 07:46 Albuterol/ Ipratropium (Albuterol/ Ipratropium) 3 ml Q4H PRN N shortness of breath/wheezing 07/01/18 00:30 07/06/18 00:29 Albuterol/ Ipratropium (Albuterol/ Ipratropium) 3 ml Q4HRT N 07/01/18 03:00 07/06/18 02:59 07/01/18 11:01 Bupropion HCl (Wellbutrin XL) 150 mg DAILY ORAL 07/01/18 09:00 07/31/18 08:59 07/01/18 08:49 Clonidine HCl (Catapres Tab) 0.1 mg EVERY 6 HOURS PRN ORAL For High Blood Pressure 07/01/18 00:15 07/31/18 00:14 Diltiazem HCl (Cardizem) 30 mg TID ORAL 07/01/18 01:00 07/31/18 00:59 07/01/18 12:49 Docusate Sodium (Colace) 100 mg BID ORAL 07/01/18 09:00 07/31/18 08:59 07/01/18 08:49 Ferrous Sulfate (Feosol) 325 mg DAILY ORAL 07/01/18 09:00 07/31/18 08:59 07/01/18 08:49 Folic Acid (Folate) 1 mg DAILY ORAL 07/01/18 09:00 07/31/18 08:59 07/01/18 08:49 Gabapentin (Neurontin) 300 mg TID ORAL 07/01/18 09:00 07/31/18 08:59 07/01/18 12:48 Pantoprazole (Protonix) 40 mg ACBREAKFAST ORAL 07/01/18 06:30 07/31/18 06:29 07/01/18 06:23 Quetiapine Fumarate (SEROquel) 400 mg BEDTIME ORAL 07/01/18 21:00 07/31/18 20:59 Objective Narrative CXR - clear lung watts Assessment/Plan Assessment/Plan 53 y/o female w/ asthma exacerbation, likely viral. Problem List: 1. Acute asthma exacerbation 2. Viral tracheobronchitis 3. Tachycardia 4. Sickle cell trait 5. Intermittent facial swelling Plan: -solumedrol 60 mg IV qday -HHN q4 -monitor tachycardia -monitor labs Riccardo Gonzalez MD Jul 01, 2018 14:29
[2018-07-01] MEDS ORDERED: Solu-MEDROL 125mg Inj IVP SCH (14:30)
[2018-07-01] MEDS ORDERED: Levofloxacin 500mg tab ORAL SCH (15:00)
--- NOTE | 2018-07-01 15:23 | NUR ---
CASE MANAGEMENT: REVIEW 53/F BIBA FROM HOME CC: SOB SI: ASTHMA EXACERBATION T 98.8 HR 109 RR 20 BP 169/102 SAT 97% ROOM AIR EOS 5.5 BASO 2.1 IS: NS IVF BOLUS X1 SOLU MEDROL IV X1 ALBUTEROL HHN X1 INTERQUAL CRITERIA MET: PATIENT ADMITTED TO MED/SURG UNIT 06/30/2018 DCP: PATIENT IS FROM HOME CASE MANAGEMENT: REVIEW SI: ASTHMA EXACERBATION T 98.6 HR 114 RR 18 BP 121/77 SAT 99% ROOM AIR WBC 11.3 H/H 11.7/36.2 IS: SOLU MEDROL IV QD LEVAQUIN PO QD CARDIZEM PO TID ALBUTEROL HHN Q8HR MED/SURG STATUS DCP: PATIENT IS FROM HOME
--- NOTE | 2018-07-01 15:50 | NUR ---
INSURANCE ALL CLINICALS AND REVIEW FAXED TO [facility] REPORTED TO: January#: PND LAB SCIENTIST: ROQUE F#: [phone] Addendum: 07/02/18 at 1020 by INA ELIZABETH CM SUSANA# [id number]
--- NOTE | 2018-07-01 15:59 | Cardiology Report ---
APPROVED REPORT EXAM: Two-dimensional and M-mode echocardiogram with Doppler and color Doppler. INDICATION Tachycardia M-Mode DIMENSIONS IVSd0.8 (0.7-1.1cm)Left Atrium (MM)3.1 (1.6-4.0cm) LVDd4.3 (3.5-5.6cm)Aortic Root3.4 (2.0-3.7cm) PWd1.2 (0.7-1.1cm)Aortic Cusp Exc.2.0 (1.5-2.0cm) LVDs2.7 (2.5-4.0cm) PWs1.2 cm Normal left ventricular chamber size, systolic function and wall motion. Left ventricular ejection fraction estimated to be 65-70 %. Mild left ventricular hypertrophy by 2-D. No evidence of pericardial effusion. All other cardiac chamber sizes are within normal limits. Mild focal aortic valve sclerosis with adequate cusp excursion. Mildly thickened mitral valve leaflets with normal excursion. Mild mitral annulus and aortic root calcification. Pulmonic valve not well visualized. Normal tricuspid valve structure. IVC at normal size with physiologic collapse. A color flow and spectral Doppler study was performed and revealed: Trace mitral regurgitation. Mitral diastolic velocities suggest reduced left ventricular relaxation c/w mild LV diastolic dysfunction (Grade I). Trace to mild tricuspid regurgitation. Tricuspid systolic velocities suggests peak right ventricular systolic pressure of 46 mmHg, consistent with borderline moderate pulmonary hypertension.
[2018-07-01 16:00] VITALS: BP 123/76
--- NOTE | 2018-07-01 16:14 | Cardiology Report ---
APPROVED REPORT EKG Measurement Heart [id number] Normal sinus rhythm Normal ECG
--- NOTE | 2018-07-01 17:00 | Consultation ---
DATE OF CONSULTATION: 07/01/2018 INFECTIOUS DISEASE CONSULTATION CONSULTING PHYSICIAN: Emeka Macario M.D. PRIMARY ATTENDING PHYSICIAN: Nahum King M.D. REASON FOR CONSULT: Asthma and COPD exacerbation. HISTORY OF PRESENT ILLNESS: The patient is a 53-year-old female admitted last night from home complaining of shortness of breath, coughing, weakness, and decreased appetite in the past few days. She has feeling of chest tightness. PAST MEDICAL HISTORY: Significant for asthma, likely COPD, anxiety, and hypertension. The patient has also sickle trait. PAST SURGICAL HISTORY: She has history of hip replacement. ALLERGIES: Allergic to penicillin. MEDICATIONS: Seroquel, methylprednisone, [place], Wellbutrin, Colace, ferrous sulfate, folate, gabapentin, Protonix, DuoNeb inhaler, Cardizem, Tylenol, clonidine, and albuterol. SOCIAL HISTORY: Single, has five kids. Smoker. The last time she smoked was three days ago. Denies alcohol abuse and drug abuse. VACCINATION HISTORY: no pneumonia and flu vaccination. REVIEW OF SYSTEMS: No fever. No chills. Some shortness of breath and chest tightness. No significant coughing. Has palpitation. States does have some facial swelling. No nausea. No vomiting. No problem passing urine. PHYSICAL EXAMINATION: VITAL SIGNS: Temperature 98.6, pulse 114, and blood pressure 121/77. GENERAL APPEARANCE: No acute distress. Seems to have normal weight. HEAD AND NECK: [place] conjunctivae. No oral lesion. HEART: S1, S2. Tachycardic. LUNGS: Prolonged expiration and wheezing on deep breathing. ABDOMEN: Soft, nontender. EXTREMITIES: No edema. NEUROLOGIC: She is awake, alert, and oriented. Somewhat anxious. LABORATORY AND DIAGNOSTIC DATA: Sodium 144, potassium 3.3, chloride 107, bicarbonate 28, BUN 13, and creatinine 1. Glucose is 124. WBC 11.3, hemoglobin 11.7, hematocrit 36.2, and platelets 328,000. UA was negative. Chest x-ray also showed no infiltrate. IMPRESSION: Chronic obstructive pulmonary disease and asthma exacerbation, tachycardia, anxiety, hypertension, and penicillin allergy. RECOMMENDATION: The patient may benefit from Levaquin for few days. At the end of my exam, I thank Dr. King for involving me in the care of this patient. Emeka Macario M.D. DR: NALLELY JOB#: [id number] CC: TARUN
--- NOTE | 2018-07-01 17:29 | NUR ---
NURSE NOTES: Ordered sandwich for patient, waiting for delivery.
--- NOTE | 2018-07-01 17:33 | NUR ---
NURSE NOTES: Oxygen delivered today by Fredi, from [facility]. Patient said, her career specialist wont be available tonight. Fredi, from [facility] wanna come and teach the care give when patient is ready for discharge. His contact number is [phone]. The delivered Oxygen is at patient's room, Charge nurse, Amaris is aware. I communicated Dr Francis regarding the delivered oxygen and patients refusal to be discharge today. Waiting for order.
--- NOTE | 2018-07-01 18:46 | NUR ---
NURSE NOTES: I communicated Dr King regarding patient's potassium, K 3.3. Also I ask Dr King, if he wanna discontinue one of the breathing treatments, Proventil Albuterol or Albuterol/Ipratropium. Waiting for order.
--- NOTE | 2018-07-01 19:34 | NUR ---
NURSE NOTES: I received order from Dr King, to continue with Doune Q4H PRN and to DC Albuterol UD Inhalation. Regarding the patient's potassium, Dr King refereed me to communicate Dr Hernandez, I left a voice message to Dr Hernandez. Waiting for order.
--- NOTE | 2018-07-01 19:38 | NUR ---
HAND-OFF: Report given to ARIANA Everett.
--- NOTE | 2018-07-01 19:45 | NUR ---
NURSE NOTES: Received pt lying in bed, A&OX4, denies pain at this time, no distress noted. Pt on continuous pulse ox O2 sat 94% on room air. Bed in low position and locked, side rails up x 2, call light within reach. Will continue to monitor.
[2018-07-01 20:00] VITALS: BP 144/85
--- NOTE | 2018-07-01 21:07 | General Progress Note ---
Assessment/Plan Problem List: (1) Anxiety ICD Codes: F41.9 - Anxiety disorder, unspecified SNOMED: 47731321 Status: stable, progressing Assessment/Plan seroquel 400mg qhs welbutrin 150mg qam provided ro/st Subjective Neurologic/Psychiatric: Reports: anxiety, depressed, emotional problems Allergies: Coded Allergies: PENICILLINS (Verified Allergy, Unknown, 10/09/12) Objective Last 24 Hour Vital Signs Date Time Temp Pulse Resp B/P (MAP) Pulse Ox O2 Delivery O2 Flow Rate FiO2 07/01/18 17:43 98.0 07/01/18 17:12 110 123/76 07/01/18 16:00 98.0 110 18 123/76 (92) 92 07/01/18 15:06 98 20 100 Room Air 21 07/01/18 14:56 91 18 98 Room Air 21 07/01/18 12:49 114 121/77 07/01/18 12:00 98.6 114 18 121/77 (92) 99 07/01/18 11:12 98 20 100 Room Air 21 07/01/18 11:01 93 18 97 Room Air 21 07/01/18 09:00 Room Air 07/01/18 08:49 95 105/69 07/01/18 08:00 98.2 95 18 105/69 (81) 99 07/01/18 07:54 99 20 100 Room Air 21 07/01/18 07:46 94 18 99 Room Air 21 07/01/18 04:00 98.1 111 18 143/74 (97) 93 07/01/18 02:33 Room Air 07/01/18 02:31 Room Air 07/01/18 01:13 121 149/85 06/30/18 23:45 115 06/30/18 23:34 Room Air 06/30/18 23:30 98.3 120 20 154/89 (110) 98 06/30/18 23:09 98.6 88 16 139/91 100 Room Air 21 06/30/18 22:56 98.6 88 16 139/91 100 Room Air 06/30/18 22:30 120 18 98 Room Air 21 06/30/18 22:28 118 18 97 Room Air 21 06/30/18 22:18 118 20 95 Room Air 21 06/30/18 21:30 98.6 90 16 140/95 100 Room Air Intake and Output 1/15/19 1/16/19 19:00 07:00 # Voids 2 Laboratory Tests 07/01/18 07:38: White Blood Count 11.3H, Red Blood Count 4.00L, Hemoglobin 11.7L, Hematocrit 36.2L, Mean Corpuscular Volume 90, Mean Corpuscular Hemoglobin 29.2, Mean Corpuscular Hemoglobin Concent 32.3, Red Cell Distribution Width 11.8, Platelet Count 328, Mean Platelet Volume 5.4L, Neutrophils (%) (Auto) , Lymphocytes (%) ( Auto) , Monocytes (%) (Auto) , Eosinophils (%) (Auto) , Basophils (%) (Auto) , Differential Total Cells Counted 100, Neutrophils % (Manual) 89H, Lymphocytes % (Manual) 7L, Monocytes % (Manual) 4, Eosinophils % (Manual) 0, Basophils % ( Manual) 0, Band Neutrophils 0, Platelet Estimate Adequate, Platelet Morphology Normal, Red Blood Cell Morphology Normal, Sodium Level 144, Potassium Level 3.3L , Chloride Level 107, Carbon Dioxide Level 28, Anion Gap 9, Blood Urea Nitrogen 13, Creatinine 1.0, Estimat Glomerular Filtration Rate > 60, Glucose Level 124H , Calcium Level 9.1, Total Bilirubin < 0.1L, Aspartate Amino Transf (AST/SGOT) 15, Alanine Aminotransferase (ALT/SGPT) 19, Alkaline Phosphatase 96, Total Protein 6.5, Albumin 3.2L, Globulin 3.3, Albumin/Globulin Ratio 1.0 Height (Feet): 5 Height (Inches): 4.00 Weight (Pounds): 152 General Appearance: no apparent distress, alert Neurologic: oriented x 3, responsive, depressed affect Rolo Hamilton MD Jul 01, 2018 21:07
[2018-07-02] VITALS: BP 118/72
[2018-07-02] MEDS: HYDROcodone/Acetamin 10/325 tab ORAL PRN ×6 (01:34→22:28)
[2018-07-02] MEDS: Albuterol/Ipratropium 3ml neb HHN SCH ×6 (03:11→23:14)
[2018-07-02 04:00] VITALS: BP 140/75
--- NOTE | 2018-07-02 07:31 | NUR ---
HAND-OFF: Report given to ARIANA Bustillo. pt in stable condition.
--- NOTE | 2018-07-02 07:48 | NUR ---
NURSE NOTES: Received report from Karlos Sadler RN. Rounding done with outgoing nurse. Patient a/o x4. Denies any pain at this time. No respiratory discomfort noted. Bed in lowest position and call light within reach. Will continue to monitor.
[2018-07-02 08:00] VITALS: BP 137/86
[2018-07-02] MEDS: Levofloxacin 500mg tab ORAL SCH (08:44)
[2018-07-02] MEDS: BuPROPion XL 150mg tab ORAL SCH (08:44)
[2018-07-02] MEDS: Docusate 100mg cap ORAL SCH ×2 (08:45→17:36)
[2018-07-02] MEDS: dilTIAZem HCl 30mg tab ORAL SCH ×3 (08:45→17:37)
[2018-07-02] MEDS: Solu-MEDROL 125mg Inj IVP SCH (08:45)
--- NOTE | 2018-07-02 09:59 | General Progress Note ---
Assessment/Plan Assessment/Plan (1) Right hip pain (2) H/o Right THR (3) Right hip OA (4) Sickle cell disease (5) Lumbar DDD (6) Lumbar Spondylosis Patient will be increased to [place] D/w Dr. Hui and he concurred Subjective Date patient seen: Jul 02, 2018 Time patient seen: 07:30 - am Constitutional: Reports: no symptoms HEENT: Reports: no symptoms Cardiovascular: Reports: no symptoms Respiratory: Reports: no symptoms Gastrointestinal/Abdominal: Reports: no symptoms Genitourinary: Reports: no symptoms Neurologic/Psychiatric: Reports: no symptoms Endocrine: Reports: no symptoms Hematologic/Lymphatic: Reports: no symptoms Allergies: Coded Allergies: PENICILLINS (Verified Allergy, Unknown, 10/09/12) Subjective Patient reports that she doing better pain is tolerated well on the 5 doses in the last 24h of [place] increase. She has no new complaints at this time. Objective Last 24 Hour Vital Signs Date Time Temp Pulse Resp B/P (MAP) Pulse Ox O2 Delivery O2 Flow Rate FiO2 07/02/18 08:45 97 137/86 07/02/18 08:02 79 18 99 Room Air 21 07/02/18 08:00 98.3 97 18 137/86 (103) 96 07/02/18 07:52 85 18 94 Room Air 21 07/02/18 04:00 97.9 98 18 140/75 (96) 94 07/02/18 03:20 85 20 99 Room Air 21 07/02/18 03:07 89 20 94 Room Air 21 07/02/18 00:00 98.6 102 18 118/72 (87) 96 07/02/18 00:00 Room Air 07/01/18 23:59 Room Air 07/01/18 21:30 109 20 99 Room Air 21 07/01/18 21:23 109 20 95 Room Air 21 07/01/18 21:00 Room Air 07/01/18 20:00 99.0 106 18 144/85 (104) 96 07/01/18 17:43 98.0 07/01/18 17:12 110 123/76 07/01/18 16:00 98.0 110 18 123/76 (92) 92 07/01/18 15:06 98 20 100 Room Air 21 07/01/18 14:56 91 18 98 Room Air 07/01/18 12:49 114 121/77 07/01/18 12:00 98.6 114 18 121/77 (92) 99 07/01/18 11:12 98 20 100 Room Air 21 07/01/18 11:01 93 18 97 Room Air 21 Intake and Output 07/01/18 07/02/18 18:59 06:59 Intake Total 1500 ml 400 ml Balance 1500 ml 400 ml Intake Oral 1500 ml 400 ml # Voids 3 2 Laboratory Tests 07/02/18 07:55: Magnesium Level 2.1 Height (Feet): 5 Height (Inches): 4.00 Weight (Pounds): 152 General Appearance: no apparent distress, alert EENT: PERRL/EOMI Neck: non-tender, normal alignment Cardiovascular: normal rate, regular rhythm Respiratory/Chest: decreased breath sounds Abdomen: non tender, soft Extremities: non-tender Edema: trace edema Neurologic: alert, oriented x 3 Skin: warm/dry Jose Martin Viramontes Jul 02, 2018 09:59
--- NOTE | 2018-07-02 11:06 | NUR ---
CASE MANAGEMENT: REVIEW SI: ASTHMA EXACERBATION T 98.3 HR 97 RR 18 BP 137/86 SAT 94% ROOM AIR IS: SOLU MEDROL IV QD LEVAQUIN PO QD CARDIZEM PO TID ALBUTEROL HHN Q8HR MED/SURG STATUS DCP: PATIENT IS FROM HOME
--- NOTE | 2018-07-02 11:16 | NUR ---
INSURANCE ALL CLINICALS AND REVIEW FAXED TO [facility] REJECT [employer]ENER AND FILLER: PND F#: [phone] TRK# [id number]
--- NOTE | 2018-07-02 11:30 | History and Physical Report ---
DATE OF ADMISSION: 06/30/2018 HISTORY OF PRESENT ILLNESS: The patient is admitted for asthma exacerbations. Also, has multiple from psychiatric medications. The patient reports wheezing, shortness of breath, and dry cough for one week. The patient denies history of asthma. So admitted for asthma exacerbation. Also has history of sickle cell. Denies nausea, vomiting, or diarrhea. Denies fever or chills. Denies cough. Denies leg edema. appears weak. PAST MEDICAL HISTORY: Significant for asthma, iron deficiency anemia, neuropathy, chronic pain syndrome, GERD, history of asthma, sickle cell, and anxiety. PAST SURGICAL HISTORY: Right total hip replacement and hernia repair. ALLERGIES: Penicillin. SOCIAL HISTORY: History of alcohol abuse. History of smoking and history of marijuana abuse. MEDICATIONS: for anxiety. FAMILY HISTORY: Noncontributory. REVIEW OF SYSTEMS: HEENT: Denies headaches. RESPIRATORY: Denies shortness of breath. palpitation for a week. CARDIOVASCULAR: Postop history of one week. . GASTROINTESTINAL: No nausea, vomiting, or diarrhea. EXTREMITIES: pain in the lower extremities. pain, which is chronic. NEUROLOGICAL: Denies change in speech pattern. Feels weak. PHYSICAL EXAMINATION: VITAL SIGNS: Temperature is 99, pulse is 106, and blood pressure 144/85. HEENT: PERRLA. NECK: Supple. No lymphadenopathy. CHEST: Has wheezing. CARDIOVASCULAR: Tachycardia . GASTROINTESTINAL: Abdomen is soft. Nontender and nondistended. No organomegaly. EXTREMITIES: No edema. Moves all four extremities. SENSORY: Intact to light touch. Reflexes are equal on both sides. Moves all four extremities. LABORATORY DATA: WBC 8.5, hemoglobin 13, and platelets of 330. Sodium 143, potassium 3.5, BUN of 13, and creatinine 1.1. ASSESSMENT AND PLAN: . I have asked Dr. Hui, Dr. Hamilton, Dr. Whyte, Dr. Emeka Macario, and Dr. Frias to see the patient to rule out bronchitis as well as . The patient also has borderline low potassium. Ali Antonietta King DR: ANGEL LUIS JOB#: [id number] CC:
[2018-07-02 12:00] VITALS: BP 150/85
--- NOTE | 2018-07-02 12:44 | Infectious Diseases Prog Note ---
Assessment/Plan Assessment/Plan A: Chronic obstructive pulmonary disease and asthma exacerbation, tachycardia resolving anxiety, hypertension, penicillin allergy. Sickle cell trait P: Continue Levaquin Subjective ROS Limited/Unobtainable: No Respiratory: Reports: dry cough Cardiovascular: Reports: palpitations Gastrointestinal/Abdominal: Reports: no symptoms Psychiatric: Reports: anxiety Allergies: Coded Allergies: PENICILLINS (Verified Allergy, Unknown, 10/09/12) Objective Vital Signs Last 24 Hour Vital Signs Date Time Temp Pulse Resp B/P (MAP) Pulse Ox O2 Delivery O2 Flow Rate FiO2 07/02/18 12:00 99.2 97 18 150/85 (106) 95 07/02/18 11:40 92 16 99 Room Air 21 07/02/18 11:23 94 20 95 Room Air 21 07/02/18 09:00 Room Air 07/02/18 08:45 97 137/86 07/02/18 08:02 79 18 99 Room Air 21 07/02/18 08:00 98.3 97 18 137/86 (103) 96 07/02/18 07:52 85 18 94 Room Air 21 07/02/18 04:00 97.9 98 18 140/75 (96) 94 07/02/18 03:20 85 20 99 Room Air 21 07/02/18 03:07 89 20 94 Room Air 21 07/02/18 00:00 98.6 102 18 118/72 (87) 96 07/02/18 00:00 Room Air 07/01/18 23:59 Room Air 07/01/18 21:30 109 20 99 Room Air 21 07/01/18 21:23 109 20 95 Room Air 21 07/01/18 21:00 Room Air 07/01/18 20:00 99.0 106 18 144/85 (104) 96 07/01/18 17:43 98.0 07/01/18 17:12 110 123/76 07/01/18 16:00 98.0 110 18 123/76 (92) 92 07/01/18 15:06 98 20 100 Room Air 21 07/01/18 14:56 91 18 98 Room Air 21 07/01/18 12:49 114 121/77 Height (Feet): 5 Height (Inches): 4.00 Weight (Pounds): 152 General Appearance: no acute distress HEENT: mucous membranes moist Respiratory/Chest: other - coarse sounds Cardiovascular: normal rate Abdomen: soft, non tender Extremities: no edema Neurologic/Psychiatric: alert, oriented x 3, responsive Microbiology Date/Time Source Procedure Growth Status 06/30/18 19:40 Nasal Nares Influenza Types A,B Antigen (ZACH) - Final Complete Laboratory Tests Test 07/02/18 07:55 Magnesium Level 2.1 MG/DL (1.8-2.4) Current Medications Medications (Trade) Dose Ordered Sig/Yadira Route PRN Reason Start Time Stop Time Status Last Admin Dose Admin Acetaminophen (Tylenol) 650 mg Q4H PRN ORAL For Pain Level <=5 07/01/18 00:15 07/31/18 00:14 Acetaminophen/ Hydrocodone Bitart ([place] 10/325) 1 tab Q4H PRN ORAL Severe Pain (Pain Scale 7-10) 07/01/18 09:15 07/08/18 09:14 07/02/18 09:58 Albuterol/ Ipratropium (Albuterol/ Ipratropium) 3 ml Q4H PRN HHN shortness of breath/wheezing 07/01/18 00:30 07/06/18 00:29 Albuterol/ Ipratropium (Albuterol/ Ipratropium) 3 ml Q4HRT HHN 07/01/18 03:00 07/06/18 02:59 07/02/18 11:23 Bupropion HCl (Wellbutrin XL) 150 mg DAILY ORAL 07/01/18 09:00 07/31/18 08:59 07/02/18 08:44 Clonidine HCl (Catapres Tab) 0.1 mg EVERY 6 HOURS PRN ORAL For High Blood Pressure 07/01/18 00:15 07/31/18 00:14 Diltiazem HCl (Cardizem) 30 mg TID ORAL 07/01/18 01:00 07/31/18 00:59 07/02/18 08:45 Docusate Sodium (Colace) 100 mg BID ORAL 07/01/18 09:00 07/31/18 08:59 07/02/18 08:45 Ferrous Sulfate (Feosol) 325 mg DAILY ORAL 07/01/18 09:00 07/31/18 08:59 07/02/18 08:44 Folic Acid (Folate) 1 mg DAILY ORAL 07/01/18 09:00 07/31/18 08:59 07/02/18 08:45 Gabapentin (Neurontin) 300 mg TID ORAL 07/01/18 09:00 07/31/18 08:59 07/02/18 08:44 Levofloxacin (Levaquin) 500 mg DAILY ORAL 07/02/18 09:00 07/09/18 08:59 07/02/18 08:44 Methylprednisolone Sodium Succinate (Solu-MEDROL) 60 mg DAILY IVP 07/02/18 09:00 08/01/18 08:59 07/02/18 08:45 Pantoprazole (Protonix) 40 mg ACBREAKFAST ORAL 07/01/18 06:30 07/31/18 06:29 07/02/18 05:42 Quetiapine Fumarate (SEROquel) 400 mg QHS ORAL 07/01/18 21:00 07/31/18 20:59 07/01/18 20:57 Emeka Macario MD Jul 02, 2018 12:44
--- NOTE | 2018-07-02 15:17 | Pulmonology Progress Note ---
Assessment/Plan Assessment/Plan 53 y/o female w/ asthma exacerbation, likely viral. Problem List: 1. Acute asthma exacerbation 2. Viral tracheobronchitis 3. Tachycardia 4. Sickle cell trait 5. Intermittent facial swelling Plan: -solumedrol 60 mg IV qday for now, drop to prednisone soon -abx per ID -HHN q4 -monitor tachycardia -monitor labs Subjective ROS Limited/Unobtainable: No Interval Events: Feels she is opening up but breathing still difficult Constitutional: Reports: no symptoms Respiratory: Reports: dry cough, shortness of breath, dyspnea at rest, wheezing Cardiovascular: Reports: no symptoms Gastrointestinal/Abdominal: Reports: no symptoms Genitourinary: Reports: no symptoms Neurologic: Reports: no symptoms Psychiatric: Reports: anxiety Allergies: Coded Allergies: PENICILLINS (Verified Allergy, Unknown, 10/09/12) Objective Last 24 Hour Vital Signs Date Time Temp Pulse Resp B/P (MAP) Pulse Ox O2 Delivery O2 Flow Rate FiO2 07/02/18 12:58 97 150/85 07/02/18 12:00 99.2 97 18 150/85 (106) 95 07/02/18 11:40 92 16 99 Room Air 21 07/02/18 11:23 94 20 95 Room Air 21 07/02/18 09:00 Room Air 07/02/18 08:45 97 137/86 07/02/18 08:02 79 18 99 Room Air 21 07/02/18 08:00 98.3 97 18 137/86 (103) 96 07/02/18 07:52 85 18 94 Room Air 21 07/02/18 04:00 97.9 98 18 140/75 (96) 94 07/02/18 03:20 85 20 99 Room Air 21 07/02/18 03:07 89 20 94 Room Air 21 07/02/18 00:00 98.6 102 18 118/72 (87) 96 07/02/18 00:00 Room Air 07/01/18 23:59 Room Air 07/01/18 21:30 109 20 99 Room Air 21 07/01/18 21:23 109 20 95 Room Air 21 07/01/18 21:00 Room Air 07/01/18 20:00 99.0 106 18 144/85 (104) 96 07/01/18 17:43 98.0 1/16/19 17:12 110 123/76 07/01/18 16:00 98.0 110 18 123/76 (92) 92 Intake and Output 07/01/18 07/02/18 19:00 07:00 Intake Total 1500 ml 400 ml Balance 1500 ml 400 ml Intake Oral 1500 ml 400 ml # Voids 3 2 General Appearance: no acute distress HEENT: normocephalic, atraumatic, anicteric Respiratory/Chest: other - Coarse expiratory wheeze, improved air movement Cardiovascular: normal rate, regular rhythm Abdomen: soft, non tender Extremities: no edema Microbiology Date/Time Source Procedure Growth Status 06/30/18 19:40 Nasal Nares Influenza Types A,B Antigen (ZACH) - Final Complete Laboratory Tests 07/02/18 07:55: Magnesium Level 2.1 Current Medications Medications (Trade) Dose Ordered Sig/Yadira Route PRN Reason Start Time Stop Time Status Last Admin Dose Admin Acetaminophen (Tylenol) 650 mg Q4H PRN ORAL For Pain Level <=5 07/01/18 00:15 07/31/18 00:14 Acetaminophen/ Hydrocodone Bitart ([place] 10/325) 1 tab Q4H PRN ORAL Severe Pain (Pain Scale 7-10) 07/01/18 09:15 07/08/18 09:14 07/02/18 14:20 Albuterol/ Ipratropium (Albuterol/ Ipratropium) 3 ml Q4H PRN HHN shortness of breath/wheezing 07/01/18 00:30 07/06/18 00:29 Albuterol/ Ipratropium (Albuterol/ Ipratropium) 3 ml Q4HRT HHN 07/01/18 03:00 07/06/18 02:59 07/02/18 11:23 Bupropion HCl (Wellbutrin XL) 150 mg DAILY ORAL 07/01/18 09:00 07/31/18 08:59 07/02/18 08:44 Clonidine HCl (Catapres Tab) 0.1 mg EVERY 6 HOURS PRN ORAL For High Blood Pressure 07/01/18 00:15 07/31/18 00:14 Diltiazem HCl (Cardizem) 30 mg TID ORAL 07/01/18 01:00 07/31/18 00:59 07/02/18 12:58 Docusate Sodium (Colace) 100 mg BID ORAL 07/01/18 09:00 07/31/18 08:59 07/02/18 08:45 Ferrous Sulfate (Feosol) 325 mg DAILY ORAL 07/01/18 09:00 07/31/18 08:59 07/02/18 08:44 Folic Acid (Folate) 1 mg DAILY ORAL 07/01/18 09:00 07/31/18 08:59 07/02/18 08:45 Gabapentin (Neurontin) 300 mg TID ORAL 07/01/18 09:00 07/31/18 08:59 07/02/18 12:58 Levofloxacin (Levaquin) 500 mg DAILY ORAL 07/02/18 09:00 07/09/18 08:59 07/02/18 08:44 Methylprednisolone Sodium Succinate (Solu-MEDROL) 60 mg DAILY IVP 07/02/18 09:00 08/01/18 08:59 07/02/18 08:45 Pantoprazole (Protonix) 40 mg ACBREAKFAST ORAL 07/01/18 06:30 07/31/18 06:29 07/02/18 05:42 Quetiapine Fumarate (SEROquel) 400 mg QHS ORAL 07/01/18 21:00 07/31/18 20:59 07/01/18 20:57 Riccardo Gonzalez MD Jul 02, 2018 15:17
[2018-07-02 16:00] VITALS: BP 150/83
--- NOTE | 2018-07-02 19:31 | NUR ---
HAND-OFF: Report given to Karlos Sadler RN.
--- NOTE | 2018-07-02 19:50 | NUR ---
NURSE NOTES: Received report from ARIANA Bustillo. Received pt lying in bed, A&OX4, talking on the phone, pain level 5/10 ache, pain medication not yet due, denies SOB, no distress noted. Bed in lowest position and locked, side rails up x 2, call light within reach. Will continue to monitor.
[2018-07-02 20:00] VITALS: BP 132/85
--- NOTE | 2018-07-02 20:47 | General Progress Note ---
Assessment/Plan Problem List: (1) Edema ICD Codes: R60.9 - Edema SNOMED: 054960265 (2) Dehydration ICD Codes: E86.0 - Dehydration SNOMED: 10429189 (3) Sickle cell disease ICD Codes: D57.1 - Sickle cell disease SNOMED: 800434875 (4) Asthma exacerbation ICD Codes: J45.901 - Unspecified asthma with (acute) exacerbation SNOMED: 251404653 (5) Constipation ICD Codes: K59.00 - Constipation, unspecified SNOMED: 41782003 (6) Pain ICD Codes: R52 - Pain SNOMED: 23038037 (7) COPD exacerbation ICD Codes: J44.1 - COPD exacerbation SNOMED: 968237387 Status: progressing Assessment/Plan asthma exacerbation is improving no wheezing no fever continue breathing treatments Subjective Respiratory: Reports: shortness of breath Gastrointestinal/Abdominal: Reports: no symptoms Allergies: Coded Allergies: PENICILLINS (Verified Allergy, Unknown, 10/09/12) Objective Last 24 Hour Vital Signs Date Time Temp Pulse Resp B/P (MAP) Pulse Ox O2 Delivery O2 Flow Rate FiO2 07/02/18 20:06 95 18 100 Room Air 21 07/02/18 20:00 98.7 94 18 132/85 (101) 94 07/02/18 19:56 96 18 97 Room Air 21 07/02/18 17:37 103 150/83 07/02/18 16:00 98.9 103 19 150/83 (105) 97 07/02/18 15:45 104 16 100 Room Air 21 07/02/18 15:31 104 18 94 Room Air 21 07/02/18 12:58 97 150/85 07/02/18 12:00 99.2 97 18 150/85 (106) 95 07/02/18 11:40 92 16 99 Room Air 21 07/02/18 11:23 94 20 95 Room Air 21 07/02/18 09:00 Room Air 07/02/18 08:45 97 137/86 07/02/18 08:02 79 18 99 Room Air 21 07/02/18 08:00 98.3 97 18 137/86 (103) 96 07/02/18 07:52 85 18 94 Room Air 21 07/02/18 04:00 97.9 98 18 140/75 (96) 94 07/02/18 03:20 85 20 99 Room Air 21 07/02/18 03:07 89 20 94 Room Air 21 07/02/18 00:00 98.6 102 18 118/72 (87) 96 07/02/18 00:00 Room Air 07/01/18 23:59 Room Air 07/01/18 21:30 109 20 99 Room Air 21 07/01/18 21:23 109 20 95 Room Air 21 07/01/18 21:00 Room Air Intake and Output 07/01/18 07/02/18 19:00 07:00 Intake Total 1500 ml 400 ml Balance 1500 ml 400 ml Intake Oral 1500 ml 400 ml # Voids 3 2 Laboratory Tests 07/02/18 07:55: Magnesium Level 2.1 Height (Feet): 5 Height (Inches): 4.00 Weight (Pounds): 152 Cardiovascular: normal rate Respiratory/Chest: lungs clear Abdomen: soft Nahum King MD Jul 02, 2018 20:47
--- NOTE | 2018-07-02 23:44 | Cardiology Progress Note ---
Assessment/Plan Assessment/Plan The patient is seen and examined, full consult note is dictated. Objective Last 24 Hour Vital Signs Date Time Temp Pulse Resp B/P (MAP) Pulse Ox O2 Delivery O2 Flow Rate FiO2 07/02/18 23:24 108 18 100 Room Air 21 07/02/18 23:14 98 18 97 Room Air 21 07/02/18 21:00 Room Air 07/02/18 20:06 95 18 100 Room Air 21 07/02/18 20:00 98.7 94 18 132/85 (101) 94 07/02/18 19:56 96 18 97 Room Air 21 07/02/18 17:37 103 150/83 07/02/18 16:00 98.9 103 19 150/83 (105) 97 07/02/18 15:45 104 16 100 Room Air 21 07/02/18 15:31 104 18 94 Room Air 21 07/02/18 12:58 97 150/85 07/02/18 12:00 99.2 97 18 150/85 (106) 95 07/02/18 11:40 92 16 99 Room Air 21 07/02/18 11:23 94 20 95 Room Air 21 07/02/18 09:00 Room Air 07/02/18 08:45 97 137/86 07/02/18 08:02 79 18 99 Room Air 21 07/02/18 08:00 98.3 97 18 137/86 (103) 96 07/02/18 07:52 85 18 94 Room Air 21 07/02/18 04:00 97.9 98 18 140/75 (96) 94 07/02/18 03:20 85 20 99 Room Air 21 07/02/18 03:07 89 20 94 Room Air 21 07/02/18 00:00 98.6 102 18 118/72 (87) 96 07/02/18 00:00 Room Air 07/01/18 23:59 Room Air Intake and Output 07/01/18 07/02/18 19:00 07:00 Intake Total 1500 ml 400 ml Balance 1500 ml 400 ml Intake Oral 1500 ml 400 ml # Voids 3 2 Laboratory Tests Test 07/02/18 07:55 Magnesium Level 2.1 MG/DL (1.8-2.4) Microbiology Date/Time Source Procedure Growth Status 06/30/18 19:40 Nasal Nares Influenza Types A,B Antigen (ZACH) - Final Complete Jase,Isac MD Jul 02, 2018 23:43
[2018-07-03] VITALS: BP 129/66
--- NOTE | 2018-07-03 00:12 | General Progress Note ---
Assessment/Plan Problem List: (1) Anxiety ICD Codes: F41.9 - Anxiety disorder, unspecified SNOMED: 97500293 Assessment/Plan seroquel 400mg qhs welbutrin 150mg qam provided ro/st Subjective Date patient seen: Jul 02, 2018 Neurologic/Psychiatric: Reports: anxiety, depressed, emotional problems Allergies: Coded Allergies: PENICILLINS (Verified Allergy, Unknown, 10/09/12) Objective Last 24 Hour Vital Signs Date Time Temp Pulse Resp B/P (MAP) Pulse Ox O2 Delivery O2 Flow Rate FiO2 07/02/18 23:24 108 18 100 Room Air 21 07/02/18 23:14 98 18 97 Room Air 21 07/02/18 21:00 Room Air 07/02/18 20:06 95 18 100 Room Air 21 07/02/18 20:00 98.7 94 18 132/85 (101) 94 07/02/18 19:56 96 18 97 Room Air 21 07/02/18 17:37 103 150/83 07/02/18 16:00 98.9 103 19 150/83 (105) 97 07/02/18 15:45 104 16 100 Room Air 21 07/02/18 15:31 104 18 94 Room Air 21 07/02/18 12:58 97 150/85 07/02/18 12:00 99.2 97 18 150/85 (106) 95 07/02/18 11:40 92 16 99 Room Air 21 07/02/18 11:23 94 20 95 Room Air 21 07/02/18 09:00 Room Air 07/02/18 08:45 97 137/86 07/02/18 08:02 79 18 99 Room Air 21 07/02/18 08:00 98.3 97 18 137/86 (103) 96 07/02/18 07:52 85 18 94 Room Air 21 07/02/18 04:00 97.9 98 18 140/75 (96) 94 07/02/18 03:20 85 20 99 Room Air 21 07/02/18 03:07 89 20 94 Room Air 21 Intake and Output 07/02/18 07/03/18 19:00 07:00 Intake Total 1400 ml Balance 1400 ml Intake Oral 1400 ml # Voids 4 Laboratory Tests 07/02/18 07:55: Magnesium Level 2.1 Height (Feet): 5 Height (Inches): 4.00 Weight (Pounds): 152 General Appearance: no apparent distress, alert Neurologic: oriented x 3, depressed affect Rolo Hamilton MD Jul 03, 2018 00:12
--- NOTE | 2018-07-03 01:30 | Consultation ---
DATE OF CONSULTATION: 07/02/2018 CARDIOLOGY CONSULTATION: CONSULTING PHYSICIAN: Isac Laguna M.D. REFERRING PHYSICIAN: Nahum King M.D. REASON FOR CONSULTATION: Management shortness of breath. HISTORY OF PRESENT ILLNESS: The patient is a very unfortunate 53-year-old female with past medical history of hypertension, asthma, sickle cell who presents to the hospital with complains of shortness of breath, cough, generalized weakness. The patient states that as a result of the above, she has not been able to eat for the past few days and feeling very dry and dehydrated. The patient also complains of generalized body weakness. Denies any fever or chills or chest pain. At the time of arrival to the hospital, blood pressure was 169/102, heart rate was 109, respirations 20. Initial workup in the emergency department showed normal chest x-ray. White count was within normal limits. Chemistry was significant for BUN and creatinine of 13 and 1.1 respectively. Troponin I was 0.01 and proBNP of 37. The patient was admitted to the hospital for further evaluation and management. Cardiology consultation was made at the request of Dr. King for evaluation of shortness of breath and tachycardia. Of note, 12-lead electrocardiogram at the time of arrival to the hospital shown sinus rhythm at a rate of [address] and T-wave abnormalities. QT interval was borderline at 464 milliseconds. ALLERGIES: Penicillin. PAST MEDICAL HISTORY: Asthma, hypertension, sickle cell anemia, anxiety. PAST SURGICAL HISTORY: None. FAMILY HISTORY: No premature coronary artery disease or arrhythmogenic in the first-degree relative. SOCIAL HISTORY: Denies any tobacco, alcohol, or illicit drug use. MEDICATIONS: List of medications at home Colace 100 mg p.o. twice daily, ferrous sulfate 325 mg p.o. daily, folic acid 1 mg p.o. daily, gabapentin 300 mg three times a day, Protonix 40 mg p.o. daily, and ranitidine 150 mg twice daily. REVIEW OF SYSTEMS: HEENT: Denies any headache, diplopia, or blurred vision. CONSTITUTIONAL: Denies any fever, chills, night sweats, weight loss. The patient also had some generalized weakness. CARDIOVASCULAR: Denies any chest pain, but she had some shortness of breath. No PND, orthopnea, or leg swelling. PULMONARY: Productive cough with shortness of breath. No hemoptysis. GASTROINTESTINAL: Denies any nausea, vomiting, diarrhea, constipation, or abdominal pain; however she has lost her appetite. GENITOURINARY: Denies any hematuria, dysuria, or incontinence. Complaining of dark urine. NEUROLOGY: Denies any motor dysfunction, sensory deficit, or altered speech. PHYSICAL EXAMINATION: VITAL SIGNS: Blood pressure is 169/102, pulse of 109, respirations 20, temperature 98.2 degrees Fahrenheit, and O2 saturation 97% on room air. GENERAL: This is a very pleasant 53-year-old lady, in no apparent respiratory distress. Alert and oriented x4. HEENT: Atraumatic, normocephalic. Anicteric. Pupils are equal, round, and reactive to light and accommodation. Extraocular muscles intact. NECK: JVP less than 5 cm. No carotid bruit. Carotid upstroke is 2+ bilaterally. CARDIOVASCULAR: Normal S1, S2. Tachycardic. No murmurs, gallops, or rubs. PMI is at fourth intercostal space at the midclavicular line. LUNGS: Bilateral rhonchi with prolonged expiratory phase. ABDOMEN: Soft, nontender, and nondistended. No hepatosplenomegaly. Positive bowel sounds. EXTREMITIES: No evidence of edema, clubbing, or cyanosis. LABORATORY FINDINGS: WBC is 8.5, hemoglobin 13.1, hematocrit 40.5%, and platelet count 313. Sodium 143, potassium is 3.5, chloride 102, bicarbonate 29, BUN was 13, creatinine 1.1, glucose 77, and calcium 9.0. Troponin I is 0.01. ProBNP of 37. DIAGNOSTIC DATA: Chest x-ray showed no acute cardiopulmonary disease. 2D echocardiography was significant for normal LV systolic function with LVEF was 65 to 70%, mild LVH, grade 1 LV diastolic dysfunction, and right ventricular systolic pressure measured at 46 mmHg consistent with moderate pulmonary hypertension. ASSESSMENT AND PLAN: 1. Dyspnea, most likely secondary to acute exacerbation of asthma. Pulmonary consultation, breathing treatment, pulmonary toilet, and possibly steroids are the mainstay of treatment. 2D echocardiography showed normal LV systolic function with LVEF estimated at 65 to 70%. 2. Moderate pulmonary hypertension. 3. History of asthma. 4. History of hypertension. 5. History of sickle cell trait. I would like to thank, Dr. King, for allowing me to participate in the care of this patient. Isac Laguna M.D. DR: DEVAN JOB#: [id number] CC:
[2018-07-03] MEDS: HYDROcodone/Acetamin 10/325 tab ORAL PRN ×6 (03:03→23:00)
[2018-07-03] MEDS: Albuterol/Ipratropium 3ml neb HHN SCH ×6 (03:09→23:31)
[2018-07-03 04:00] VITALS: BP 124/66
--- NOTE | 2018-07-03 07:26 | NUR ---
HAND-OFF: Report given to ARIANA Bustillo. Pt in stable condition.
--- NOTE | 2018-07-03 07:38 | NUR ---
NURSE NOTES: Received report from Karlos Sadler RN. Patient a/o x4 and having breakfast. Denies any pain at this time. Call light within reach and will continue to monitor.
[2018-07-03 08:00] VITALS: BP 127/85
[2018-07-03] MEDS: BuPROPion XL 150mg tab ORAL SCH (08:56)
[2018-07-03] MEDS: Levofloxacin 500mg tab ORAL SCH (08:56)
[2018-07-03] MEDS: Docusate 100mg cap ORAL SCH ×2 (08:56→18:15)
[2018-07-03] MEDS: dilTIAZem HCl 30mg tab ORAL SCH ×3 (08:57→18:15)
[2018-07-03] MEDS: Solu-MEDROL 125mg Inj IVP SCH (08:57)
--- NOTE | 2018-07-03 09:59 | General Progress Note ---
Assessment/Plan Problem List: (1) Asthma exacerbation ICD Codes: J45.901 - Unspecified asthma with (acute) exacerbation SNOMED: 643752019 (2) Sickle cell disease ICD Codes: D57.1 - Sickle cell disease SNOMED: 617925012 (3) Lumbar spondylosis ICD Codes: M47.816 - Spondylosis without myelopathy or radiculopathy, lumbar region SNOMED: 021156148 Status: doing well, stable Assessment/Plan Will continue [place]. Subjective Constitutional: Denies: no symptoms, chills, diaphoresis, fever, malaise, weakness, other HEENT: Denies: no symptoms, eye pain, blurred vision, tearing, double vision, ear pain, ear discharge, nose pain, nose congestion, throat pain, throat swelling, mouth pain, mouth swelling, other Cardiovascular: Denies: no symptoms, chest pain, edema, irregular heart rate, lightheadedness, palpitations, syncope, other Respiratory: Reports: cough, shortness of breath; Denies: no symptoms, orthopnea, SOB at rest, sputum, wheezing, other Gastrointestinal/Abdominal: Denies: no symptoms, abdomen distended, abdominal pain, black stools, tarry stools, blood in stool, constipated, diarrhea, difficulty swallowing, nausea, poor appetite, poor fluid intake, rectal bleeding , vomiting, other Genitourinary: Denies: no symptoms, burning, discharge, frequency, flank pain, hematuria, incontinence, pain, urgency, other Neurologic/Psychiatric: Denies: no symptoms, anxiety, depressed, emotional problems, headache, numbness, paresthesia, pre-existing deficit, seizure, tingling, tremors, weakness, other Allergies: Coded Allergies: PENICILLINS (Verified Allergy, Unknown, 10/09/12) Subjective Pt is stable on [place]. No complains. Objective Last 24 Hour Vital Signs Date Time Temp Pulse Resp B/P (MAP) Pulse Ox O2 Delivery O2 Flow Rate FiO2 07/03/18 08:57 97 127/85 07/03/18 08:33 97 18 100 Room Air 21 07/03/18 08:23 95 18 96 Room Air 21 07/03/18 08:00 97.9 101 18 127/85 (99) 96 07/03/18 04:00 98.0 89 18 124/66 (85) 95 07/03/18 03:19 93 18 100 Room Air 21 07/03/18 03:09 94 18 96 Room Air 21 07/03/18 00:00 98.4 97 18 129/66 (87) 96 07/02/18 23:24 108 18 100 Room Air 21 07/02/18 23:14 98 18 97 Room Air 21 07/02/18 21:00 Room Air 07/02/18 20:06 95 18 100 Room Air 21 07/02/18 20:00 98.7 94 18 132/85 (101) 94 07/02/18 19:56 96 18 97 Room Air 21 07/02/18 17:37 103 150/83 07/02/18 16:00 98.9 103 19 150/83 (105) 97 07/02/18 15:45 104 16 100 Room Air 21 07/02/18 15:31 104 18 94 Room Air 21 07/02/18 12:58 97 150/85 07/02/18 12:00 99.2 97 18 150/85 (106) 95 07/02/18 11:40 92 16 99 Room Air 21 07/02/18 11:23 94 20 95 Room Air 21 Intake and Output 07/02/18 07/03/18 19:00 07:00 Intake Total 1400 ml 480 ml Balance 1400 ml 480 ml Intake Oral 1400 ml 480 ml # Voids 4 2 Height (Feet): 5 Height (Inches): 4.00 Weight (Pounds): 152 General Appearance: WD/WN, alert EENT: PERRL/EOMI Neck: non-tender Cardiovascular: normal rate Respiratory/Chest: lungs clear Abdomen: non tender, soft Extremities: other - Tenderness at right hip Edema: no edema noted Arm (L), no edema noted Arm (R), no edema noted Leg (L), no edema noted Leg (R), no edema noted Pedal (L), no edema noted Pedal (R), no edema noted Generalized 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
--- NOTE | 2018-07-03 10:30 | Pulmonology Progress Note ---
Assessment/Plan Assessment/Plan 53 y/o female w/ asthma exacerbation, likely viral. Problem List: 1. Acute asthma exacerbation 2. Viral tracheobronchitis 3. Tachycardia 4. Sickle cell trait 5. Intermittent facial swelling Plan: -solumedrol 60 mg IV qday for now, drop to prednisone soon -abx per ID -HHN q4 -Advair 250/50 bid -mucinex 600 mg bid Subjective ROS Limited/Unobtainable: No Interval Events: still coughing and wheezing. No fevers. Clear sputum Constitutional: Reports: no symptoms HEENT: Repors: no symptoms Respiratory: Reports: productive cough, wheezing Cardiovascular: Reports: no symptoms Gastrointestinal/Abdominal: Reports: no symptoms Genitourinary: Reports: no symptoms Skin: Reports: no symptoms Endocrine: Reports: no symptoms Allergies: Coded Allergies: PENICILLINS (Verified Allergy, Unknown, 10/09/12) All Systems: reviewed and negative except above Objective Last 24 Hour Vital Signs Date Time Temp Pulse Resp B/P (MAP) Pulse Ox O2 Delivery O2 Flow Rate FiO2 07/03/18 09:00 Room Air 07/03/18 08:57 97 127/85 07/03/18 08:33 97 18 100 Room Air 21 07/03/18 08:23 95 18 96 Room Air 21 07/03/18 08:00 97.9 101 18 127/85 (99) 96 07/03/18 04:00 98.0 89 18 124/66 (85) 95 07/03/18 03:19 93 18 100 Room Air 21 07/03/18 03:09 94 18 96 Room Air 21 07/03/18 00:00 98.4 97 18 129/66 (87) 96 07/02/18 23:24 108 18 100 Room Air 21 07/02/18 23:14 98 18 97 Room Air 21 07/02/18 21:00 Room Air 07/02/18 20:06 95 18 100 Room Air 21 07/02/18 20:00 98.7 94 18 132/85 (101) 94 07/02/18 19:56 96 18 97 Room Air 21 07/02/18 17:37 103 150/83 07/02/18 16:00 98.9 103 19 150/83 (105) 97 07/02/18 15:45 104 16 100 Room Air 21 1/17/19 15:31 104 18 94 Room Air 21 07/02/18 12:58 97 150/85 07/02/18 12:00 99.2 97 18 150/85 (106) 95 07/02/18 11:40 92 16 99 Room Air 21 07/02/18 11:23 94 20 95 Room Air 21 Intake and Output 07/02/18 07/03/18 19:00 07:00 Intake Total 1400 ml 480 ml Balance 1400 ml 480 ml Intake Oral 1400 ml 480 ml # Voids 4 2 General Appearance: no acute distress HEENT: normocephalic, mucous membranes moist Respiratory/Chest: expiratory wheezing Cardiovascular: normal rate, regular rhythm Abdomen: soft, non tender Extremities: no edema Skin: no rash 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 Microbiology Date/Time Source Procedure Growth Status 06/30/18 19:40 Nasal Nares Influenza Types A,B Antigen (ZACH) - Final Complete Current Medications Medications (Trade) Dose Ordered Sig/Yadira Route PRN Reason Start Time Stop Time Status Last Admin Dose Admin Acetaminophen (Tylenol) 650 mg Q4H PRN ORAL For Pain Level <=5 07/01/18 00:15 07/31/18 00:14 Acetaminophen/ Hydrocodone Bitart ([place] 10/325) 1 tab Q4H PRN ORAL Severe Pain (Pain Scale 7-10) 07/01/18 09:15 07/08/18 09:14 07/03/18 07:13 Albuterol/ Ipratropium (Albuterol/ Ipratropium) 3 ml Q4H PRN HHN shortness of breath/wheezing 07/01/18 00:30 07/06/18 00:29 Albuterol/ Ipratropium (Albuterol/ Ipratropium) 3 ml Q4HRT HHN 07/01/18 03:00 07/06/18 02:59 07/03/18 08:23 Bupropion HCl (Wellbutrin XL) 150 mg DAILY ORAL 07/01/18 09:00 07/31/18 08:59 07/03/18 08:56 Clonidine HCl (Catapres Tab) 0.1 mg EVERY 6 HOURS PRN ORAL For High Blood Pressure 07/01/18 00:15 07/31/18 00:14 Diltiazem HCl (Cardizem) 30 mg TID ORAL 07/01/18 01:00 2/15/19 00:59 07/03/18 08:57 Docusate Sodium (Colace) 100 mg BID ORAL 07/01/18 09:00 07/31/18 08:59 07/03/18 08:56 Ferrous Sulfate (Feosol) 325 mg DAILY ORAL 07/01/18 09:00 07/31/18 08:59 07/03/18 08:56 Folic Acid (Folate) 1 mg DAILY ORAL 07/01/18 09:00 07/31/18 08:59 07/03/18 08:56 Gabapentin (Neurontin) 300 mg TID ORAL 07/01/18 09:00 07/31/18 08:59 07/03/18 08:56 Levofloxacin (Levaquin) 500 mg DAILY ORAL 07/02/18 09:00 07/09/18 08:59 07/03/18 08:56 Methylprednisolone Sodium Succinate (Solu-MEDROL) 60 mg DAILY IVP 07/02/18 09:00 08/01/18 08:59 07/03/18 08:57 Pantoprazole (Protonix) 40 mg ACBREAKFAST ORAL 07/01/18 06:30 07/31/18 06:29 07/03/18 05:47 Quetiapine Fumarate (SEROquel) 400 mg QHS ORAL 07/01/18 21:00 07/31/18 20:59 07/02/18 20:33 Riccardo Gonzalez MD Jul 03, 2018 10:30
--- NOTE | 2018-07-03 10:35 | Infectious Diseases Prog Note ---
Assessment/Plan Assessment/Plan A: Chronic obstructive pulmonary disease and asthma exacerbation, tachycardia resolving anxiety, hypertension, penicillin allergy. Sickle cell trait P: Continue Levaquin X 2 days Subjective ROS Limited/Unobtainable: No Constitutional: Reports: no symptoms, other - feels better Respiratory: Reports: dry cough Cardiovascular: Reports: no symptoms Gastrointestinal/Abdominal: Reports: no symptoms Genitourinary: Reports: no symptoms Allergies: Coded Allergies: PENICILLINS (Verified Allergy, Unknown, 10/09/12) Objective Vital Signs Last 24 Hour Vital Signs Date Time Temp Pulse Resp B/P (MAP) Pulse Ox O2 Delivery O2 Flow Rate FiO2 07/03/18 09:00 Room Air 07/03/18 08:57 97 127/85 07/03/18 08:33 97 18 100 Room Air 21 07/03/18 08:23 95 18 96 Room Air 21 07/03/18 08:00 97.9 101 18 127/85 (99) 96 07/03/18 04:00 98.0 89 18 124/66 (85) 95 07/03/18 03:19 93 18 100 Room Air 21 07/03/18 03:09 94 18 96 Room Air 21 07/03/18 00:00 98.4 97 18 129/66 (87) 96 07/02/18 23:24 108 18 100 Room Air 21 07/02/18 23:14 98 18 97 Room Air 21 07/02/18 21:00 Room Air 07/02/18 20:06 95 18 100 Room Air 21 07/02/18 20:00 98.7 94 18 132/85 (101) 94 07/02/18 19:56 96 18 97 Room Air 21 07/02/18 17:37 103 150/83 07/02/18 16:00 98.9 103 19 150/83 (105) 97 07/02/18 15:45 104 16 100 Room Air 21 07/02/18 15:31 104 18 94 Room Air 21 07/02/18 12:58 97 150/85 07/02/18 12:00 99.2 97 18 150/85 (106) 95 07/02/18 11:40 92 16 99 Room Air 21 07/02/18 11:23 94 20 95 Room Air 21 Height (Feet): 5 Height (Inches): 4.00 Weight (Pounds): 152 General Appearance: no acute distress HEENT: mucous membranes moist Respiratory/Chest: lungs clear Cardiovascular: normal rate Abdomen: soft, non tender Extremities: no edema Neurologic/Psychiatric: alert, oriented x 3, responsive Microbiology Date/Time Source Procedure Growth Status 06/30/18 19:40 Nasal Nares Influenza Types A,B Antigen (ZACH) - Final Complete Current Medications Medications (Trade) Dose Ordered Sig/Yadira Route PRN Reason Start Time Stop Time Status Last Admin Dose Admin Acetaminophen (Tylenol) 650 mg Q4H PRN ORAL For Pain Level <=5 07/01/18 00:15 07/31/18 00:14 Acetaminophen/ Hydrocodone Bitart ([place] 10/325) 1 tab Q4H PRN ORAL Severe Pain (Pain Scale 7-10) 07/01/18 09:15 07/08/18 09:14 07/03/18 07:13 Albuterol/ Ipratropium (Albuterol/ Ipratropium) 3 ml Q4H PRN HHN shortness of breath/wheezing 07/01/18 00:30 07/06/18 00:29 Albuterol/ Ipratropium (Albuterol/ Ipratropium) 3 ml Q4HRT HHN 07/01/18 03:00 07/06/18 02:59 07/03/18 08:23 Bupropion HCl (Wellbutrin XL) 150 mg DAILY ORAL 07/01/18 09:00 07/31/18 08:59 07/03/18 08:56 Clonidine HCl (Catapres Tab) 0.1 mg EVERY 6 HOURS PRN ORAL For High Blood Pressure 07/01/18 00:15 07/31/18 00:14 Diltiazem HCl (Cardizem) 30 mg TID ORAL 07/01/18 01:00 07/31/18 00:59 07/03/18 08:57 Docusate Sodium (Colace) 100 mg BID ORAL 07/01/18 09:00 07/31/18 08:59 07/03/18 08:56 Ferrous Sulfate (Feosol) 325 mg DAILY ORAL 07/01/18 09:00 07/31/18 08:59 07/03/18 08:56 Folic Acid (Folate) 1 mg DAILY ORAL 07/01/18 09:00 07/31/18 08:59 07/03/18 08:56 Gabapentin (Neurontin) 300 mg TID ORAL 07/01/18 09:00 07/31/18 08:59 07/03/18 08:56 Guaifenesin (Mucinex ER) 600 mg TWICE A DAY ORAL 07/03/18 18:00 08/02/18 17:59 Levofloxacin (Levaquin) 500 mg DAILY ORAL 07/02/18 09:00 07/09/18 08:59 07/03/18 08:56 Methylprednisolone Sodium Succinate (Solu-MEDROL) 60 mg DAILY IVP 07/02/18 09:00 08/01/18 08:59 07/03/18 08:57 Pantoprazole (Protonix) 40 mg ACBREAKFAST ORAL 07/01/18 06:30 07/31/18 06:29 07/03/18 05:47 Quetiapine Fumarate (SEROquel) 400 mg QHS ORAL 07/01/18 21:00 07/31/18 20:59 07/02/18 20:33 Salmeterol Xinafoate/ Fluticasone (Advair 250/50 Diskus) 1 puffs BID INH 07/03/18 18:00 08/02/18 17:59 Emeka Macario MD Jul 03, 2018 10:35
[2018-07-03 12:00] VITALS: BP 135/89
--- NOTE | 2018-07-03 12:57 | NUR ---
NURSE NOTES: Dr. Hamilton ordered. 1. Aspirin EC 81 mg po daily 2. Diazepam 8 mg po q8 prn for anxiety Noted and carried out.
--- NOTE | 2018-07-03 13:22 | General Progress Note ---
Assessment/Plan Problem List: (1) Anxiety ICD Codes: F41.9 - Anxiety disorder, unspecified SNOMED: 06113958 Status: stable, progressing Assessment/Plan seroquel 400mg qhs welbutrin 150mg qam provided ro/st valium prn Subjective Neurologic/Psychiatric: Reports: anxiety, depressed, emotional problems Allergies: Coded Allergies: PENICILLINS (Verified Allergy, Unknown, 10/09/12) Objective Last 24 Hour Vital Signs Date Time Temp Pulse Resp B/P (MAP) Pulse Ox O2 Delivery O2 Flow Rate FiO2 07/03/18 12:32 96 135/89 07/03/18 12:02 96 18 100 Room Air 21 07/03/18 12:00 98.5 97 20 135/89 (104) 97 07/03/18 11:52 93 18 96 Room Air 21 07/03/18 09:00 Room Air 07/03/18 08:57 97 127/85 07/03/18 08:33 97 18 100 Room Air 21 07/03/18 08:23 95 18 96 Room Air 21 07/03/18 08:00 97.9 101 18 127/85 (99) 96 07/03/18 04:00 98.0 89 18 124/66 (85) 95 07/03/18 03:19 93 18 100 Room Air 21 07/03/18 03:09 94 18 96 Room Air 21 07/03/18 00:00 98.4 97 18 129/66 (87) 96 07/02/18 23:24 108 18 100 Room Air 21 07/02/18 23:14 98 18 97 Room Air 21 07/02/18 21:00 Room Air 07/02/18 20:06 95 18 100 Room Air 21 07/02/18 20:00 98.7 94 18 132/85 (101) 94 07/02/18 19:56 96 18 97 Room Air 21 07/02/18 17:37 103 150/83 07/02/18 16:00 98.9 103 19 150/83 (105) 97 07/02/18 15:45 104 16 100 Room Air 21 07/02/18 15:31 104 18 94 Room Air 21 Intake and Output 07/02/18 07/03/18 18:59 06:59 Intake Total 1400 ml 480 ml Balance 1400 ml 480 ml Intake Oral 1400 ml 480 ml # Voids 4 2 Height (Feet): 5 Height (Inches): 4.00 Weight (Pounds): 152 General Appearance: alert Neurologic: oriented x 3, responsive, depressed affect Rolo Hamilton MD Jul 03, 2018 13:22
[2018-07-03 16:00] VITALS: BP 125/81
--- NOTE | 2018-07-03 18:00 | NUR ---
CASE MANAGEMENT: REVIEW SI: ASTHMA EXACERBATION T 97.7 HR 105 RR 20 BP 125/81 SAT 99% ROOM AIR IS: SOLU MEDROL IV QD LEVAQUIN PO QD CARDIZEM PO TID ALBUTEROL HHN Q8HR MED/SURG STATUS DCP: PATIENT IS FROM HOME
--- NOTE | 2018-07-03 18:01 | NUR ---
INSURANCE ALL CLINICALS AND REVIEW FAXED TO [facility] [employer] DRIVER: PND F#: [phone] TRK# [id number]
[2018-07-03] MEDS: guaiFENesin ER 600mg tab ORAL SCH (18:15)
--- NOTE | 2018-07-03 19:29 | NUR ---
HAND-OFF: Report given to EILEEN Hdz.
--- NOTE | 2018-07-03 19:29 | NUR ---
NURSE NOTES:Patient received A/A/AOX4 . Patient denies any pain at this time. no s/s of distress . RFA G #20 H/L Patent and intact . call light within reach . bed in low position at all times . will continue monitor.
[2018-07-03] MEDS: Advair 250/50 Inhaler - 14 dose INH SCH (19:51)
[2018-07-03 20:00] VITALS: BP 123/82
--- NOTE | 2018-07-03 21:37 | General Progress Note ---
Assessment/Plan Problem List: (1) Edema ICD Codes: R60.9 - Edema SNOMED: 492486816 (2) Dehydration ICD Codes: E86.0 - Dehydration SNOMED: 66104194 (3) Sickle cell disease ICD Codes: D57.1 - Sickle cell disease SNOMED: 177670896 (4) Asthma exacerbation ICD Codes: J45.901 - Unspecified asthma with (acute) exacerbation SNOMED: 184448207 (5) Constipation ICD Codes: K59.00 - Constipation, unspecified SNOMED: 61267298 (6) Pain ICD Codes: R52 - Pain SNOMED: 82185177 (7) COPD exacerbation ICD Codes: J44.1 - COPD exacerbation SNOMED: 260802584 Status: progressing Assessment/Plan asthma exacerbation is improving resp insuff constipation reviewed chart and labs afebrile Subjective ROS Limited/Unobtainable: Yes Allergies: Coded Allergies: PENICILLINS (Verified Allergy, Unknown, 10/09/12) Objective Last 24 Hour Vital Signs Date Time Temp Pulse Resp B/P (MAP) Pulse Ox O2 Delivery O2 Flow Rate FiO2 07/03/18 20:03 95 19 98 Room Air 21 07/03/18 20:00 98.6 102 20 123/82 (96) 99 07/03/18 19:51 96 16 98 Room Air 21 07/03/18 19:31 97.7 07/03/18 18:15 105 125/81 07/03/18 16:00 97.7 105 20 125/81 (96) 99 07/03/18 15:02 98 18 99 Room Air 21 07/03/18 14:54 96 18 97 Room Air 21 07/03/18 12:32 96 135/89 07/03/18 12:02 96 18 100 Room Air 21 07/03/18 12:00 98.5 97 20 135/89 (104) 97 07/03/18 11:52 93 18 96 Room Air 21 07/03/18 09:00 Room Air 07/03/18 08:57 97 127/85 07/03/18 08:33 97 18 100 Room Air 21 07/03/18 08:23 95 18 96 Room Air 21 07/03/18 08:00 97.9 101 18 127/85 (99) 96 07/03/18 04:00 98.0 89 18 124/66 (85) 95 07/03/18 03:19 93 18 100 Room Air 21 07/03/18 03:09 94 18 96 Room Air 21 07/03/18 00:00 98.4 97 18 129/66 (87) 96 07/02/18 23:24 108 18 100 Room Air 21 07/02/18 23:14 98 18 97 Room Air 21 Intake and Output 07/02/18 07/03/18 19:00 07:00 Intake Total 1400 ml 480 ml Balance 1400 ml 480 ml Intake Oral 1400 ml 480 ml # Voids 4 2 Height (Feet): 5 Height (Inches): 4.00 Weight (Pounds): 152 Neck: supple Cardiovascular: normal rate Respiratory/Chest: lungs clear Abdomen: soft Nahum King MD Jul 03, 2018 21:37
--- NOTE | 2018-07-03 23:53 | Cardiology Progress Note ---
Assessment/Plan Assessment/Plan 1. Dyspnea, most likely secondary to acute exacerbation of asthma. Continue IV ABx, breathing treatment, pulmonary toilet, and steroids,2D echocardiography showed normal LV systolic function with LVEF estimated at 65 to 70%. 2. Moderate pulmonary hypertension. 3. History of asthma. 4. History of hypertension. 5. History of sickle cell trait. Subjective Subjective Sinus tachycardia at rate of 105. Objective Last 24 Hour Vital Signs Date Time Temp Pulse Resp B/P (MAP) Pulse Ox O2 Delivery O2 Flow Rate FiO2 07/03/18 23:40 105 16 98 Room Air 21 07/03/18 23:31 106 18 98 Room Air 21 07/03/18 23:30 98.6 07/03/18 20:03 95 19 98 Room Air 21 07/03/18 20:00 98.6 102 20 123/82 (96) 99 07/03/18 19:51 96 16 98 Room Air 21 07/03/18 18:15 105 125/81 07/03/18 16:00 97.7 105 20 125/81 (96) 99 07/03/18 15:02 98 18 99 Room Air 21 07/03/18 14:54 96 18 97 Room Air 21 07/03/18 12:32 96 135/89 07/03/18 12:02 96 18 100 Room Air 21 07/03/18 12:00 98.5 97 20 135/89 (104) 97 07/03/18 11:52 93 18 96 Room Air 21 07/03/18 09:00 Room Air 07/03/18 08:57 97 127/85 07/03/18 08:33 97 18 100 Room Air 21 07/03/18 08:23 95 18 96 Room Air 21 07/03/18 08:00 97.9 101 18 127/85 (99) 96 07/03/18 04:00 98.0 89 18 124/66 (85) 95 07/03/18 03:19 93 18 100 Room Air 21 07/03/18 03:09 94 18 96 Room Air 21 07/03/18 00:00 98.4 97 18 129/66 (87) 96 Intake and Output 07/02/18 07/03/18 19:00 07:00 Intake Total 1400 ml 480 ml Balance 1400 ml 480 ml Intake Oral 1400 ml 480 ml # Voids 4 2 2D Echo: LVEF 65%, Mild LVH, RVSP 46 mmHg, Grade I LVDD Objective HEENT: Atraumatic, normocephalic. Anicteric. Pupils are equal, round, and reactive to light and accommodation. Extraocular muscles intact. NECK: JVP less than 5 cm. No carotid bruit. Carotid upstroke is 2+ bilaterally. CARDIOVASCULAR: Normal S1, S2. Tachycardic. No murmurs, gallops, or rubs. PMI is at fourth intercostal space at the midclavicular line. LUNGS: Bilateral rhonchi with prolonged expiratory phase. ABDOMEN: Soft, nontender, and nondistended. No hepatosplenomegaly. Positive bowel sounds. EXTREMITIES: No evidence of edema, clubbing, or cyanosis. Isac Laguna MD Jul 03, 2018 23:53
[2018-07-04] VITALS: BP 140/82
[2018-07-04] MEDS: HYDROcodone/Acetamin 10/325 tab ORAL PRN ×6 (03:07→23:28)
[2018-07-04] MEDS: Albuterol/Ipratropium 3ml neb HHN SCH ×6 (03:21→23:12)
[2018-07-04 04:00] VITALS: BP 127/82
--- NOTE | 2018-07-04 07:45 | NUR ---
NURSE NOTES: Received patient in bed,awake, alert and oriented x4. Not in respiratory/cardiac distress. SCD's on and IV intact, no s/s of infiltration.Bed is in lowest position and locked. Call light within reach.Will continue plan of care.
[2018-07-04 08:00] VITALS: BP 141/82
[2018-07-04] MEDS: Advair 250/50 Inhaler - 14 dose INH SCH ×2 (09:26→20:08)
[2018-07-04] MEDS: Docusate 100mg cap ORAL SCH ×2 (09:36→17:48)
[2018-07-04] MEDS: Levofloxacin 500mg tab ORAL SCH (09:36)
[2018-07-04] MEDS: BuPROPion XL 150mg tab ORAL SCH (09:36)
[2018-07-04] MEDS: Aspirin EC 81mg tab ORAL SCH (09:36)
[2018-07-04] MEDS: guaiFENesin ER 600mg tab ORAL SCH ×2 (09:36→17:49)
[2018-07-04] MEDS: Solu-MEDROL 125mg Inj IVP SCH (09:37)
[2018-07-04] MEDS: dilTIAZem HCl 30mg tab ORAL SCH ×3 (09:37→17:49)
--- NOTE | 2018-07-04 11:25 | NUR ---
CASE MANAGEMENT: REVIEW 07/04/2018 SI: ASTHMA EXACERBATION T 98.1 HR 86 RR 18 B/P 141/82 SATS 97% ON RA NO LABS TODAY IS:MUCINEX PO BID PROTONIX PO QAC ADVAIR INH BID WELLBUTRIN PO QD FEOSOL PO QD FOLATE PO QD SOLU MEDROL IV QD LEVAQUIN PO QD ASA PO QD SEROQUEL PO QHS GABAPENTIN PO TID CARDIZEM PO TID MED/SURG STATUS DCP: PATIENT IS FROM HOME
[2018-07-04 12:00] VITALS: BP 117/85
[2018-07-04 16:00] VITALS: BP 126/74
--- NOTE | 2018-07-04 17:14 | Cardiology Progress Note ---
Assessment/Plan Assessment/Plan 1. Dyspnea, most likely secondary to acute exacerbation of asthma. Continue IV ABx, breathing treatment, pulmonary toilet, and steroids,2D echocardiography showed normal LV systolic function with LVEF estimated at 65 to 70%. 2. Moderate pulmonary hypertension. 3. History of asthma. 4. History of hypertension. Subjective Subjective Sinus rhythm at rate of 91. Objective Last 24 Hour Vital Signs Date Time Temp Pulse Resp B/P (MAP) Pulse Ox O2 Delivery O2 Flow Rate FiO2 07/04/18 16:00 98.6 91 18 126/74 (91) 97 07/04/18 15:17 100 16 99 Room Air 21 07/04/18 15:10 105 18 95 Room Air 21 07/04/18 13:21 101 130/79 07/04/18 12:00 98.5 103 18 117/85 (96) 97 07/04/18 10:59 98 18 98 Room Air 21 07/04/18 10:55 103 16 96 Room Air 21 07/04/18 09:37 87 141/82 07/04/18 09:27 87 20 98 Room Air 21 07/04/18 09:27 85 22 97 Room Air 21 07/04/18 09:00 Room Air 07/04/18 08:00 98.1 86 18 141/82 (101) 97 07/04/18 07:49 98.0 07/04/18 07:11 75 16 99 Room Air 21 07/04/18 07:02 78 16 97 Room Air 21 07/04/18 04:00 98.0 86 20 127/82 (97) 97 07/04/18 03:31 89 16 98 Room Air 21 07/04/18 03:21 83 16 98 Room Air 21 07/04/18 00:00 98.7 101 20 140/82 (101) 98 07/03/18 23:40 105 16 98 Room Air 21 07/03/18 23:31 106 18 98 Room Air 21 07/03/18 21:00 Room Air 07/03/18 20:03 95 19 98 Room Air 21 07/03/18 20:00 98.6 102 20 123/82 (96) 99 07/03/18 19:51 96 16 98 Room Air 21 07/03/18 18:15 105 125/81 Intake and Output 07/03/18 07/04/18 18:59 06:59 Intake Total 960 ml 720 ml Balance 960 ml 720 ml Intake Oral 960 ml 720 ml # Voids 3 3 2D Echo: LVEF 65%, Mild LVH, RVSP 46 mmHg, Grade I LVDD Objective GENERAL: This is a very pleasant 53-year-old lady, in no apparent respiratory distress. Alert and oriented x4. HEENT: Atraumatic, normocephalic. Anicteric. Pupils are equal, round, and reactive to light and accommodation. Extraocular muscles intact. NECK: JVP less than 5 cm. No carotid bruit. Carotid upstroke is 2+ bilaterally. CARDIOVASCULAR: Normal S1, S2. No murmurs, gallops, or rubs. PMI is at fourth intercostal space at the midclavicular line. LUNGS: Bilateral rhonchi with prolonged expiratory phase. ABDOMEN: Soft, nontender, and nondistended. No hepatosplenomegaly. Positive bowel sounds. EXTREMITIES: No evidence of edema, clubbing, or cyanosis. Isac Laguna MD Jul 04, 2018 17:14
--- NOTE | 2018-07-04 17:32 | Pulmonology Progress Note ---
Assessment/Plan Assessment/Plan Pulmonary Progress Note Assessment/Plan Assessment/Plan 53 y/o female w/ asthma exacerbation, likely viral. Problem List: 1. Acute asthma exacerbation 2. Viral tracheobronchitis 3. Tachycardia 4. Sickle cell trait 5. Intermittent facial swelling Plan: -solumedrol 60 mg IV qday wean as tolerated -abx per ID -HHN q4 -Advair 250/50 bid -mucinex 600 mg bid Subjective ROS Limited/Unobtainable: No Interval Events: still coughing and wheezing. No fevers. Clear sputum Constitutional: Reports: no symptoms HEENT: Repors: no symptoms Respiratory: Reports: productive cough, wheezing Cardiovascular: Reports: no symptoms Gastrointestinal/Abdominal: Reports: no symptoms Genitourinary: Reports: no symptoms Skin: Reports: no symptoms Endocrine: Reports: no symptoms Allergies: Coded Allergies: PENICILLINS (Verified Allergy, Unknown, 10/09/12) All Systems: reviewed and negative except above Objective Vital Signs Noted General Appearance: no acute distress HEENT: normocephalic, mucous membranes moist Respiratory/Chest: expiratory wheezing Cardiovascular: normal rate, regular rhythm Abdomen: soft, non tender Extremities: no edema Skin: no rash 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 II-XII grossly normal Microbiology Date/Time Source Procedure Growth Status 06/30/18 19:40 Nasal Nares Influenza Types A,B Antigen (ZACH) - Final Complete Current Medications Medications (Trade) Dose Ordered Sig/Yadira Route PRN Reason Start Time Stop Time Status Last Admin Dose Admin Acetaminophen (Tylenol) 650 mg Q4H PRN ORAL For Pain Level <=5 07/01/18 00:15 07/31/18 00:14 Acetaminophen/ Hydrocodone Bitart ([place] 10/325) 1 tab Q4H PRN ORAL Severe Pain (Pain Scale 7-10) 07/01/18 09:15 07/08/18 09:14 07/03/18 07:13 Albuterol/ Ipratropium (Albuterol/ Ipratropium) 3 ml Q4H PRN HHN shortness of breath/wheezing 07/01/18 00:30 07/06/18 00:29 Albuterol/ Ipratropium (Albuterol/ Ipratropium) 3 ml Q4HRT HHN 07/01/18 03:00 07/06/18 02:59 07/03/18 08:23 Bupropion HCl (Wellbutrin XL) 150 mg DAILY ORAL 07/01/18 09:00 07/31/18 08:59 07/03/18 08:56 Clonidine HCl (Catapres Tab) 0.1 mg EVERY 6 HOURS PRN ORAL For High Blood Pressure 07/01/18 00:15 07/31/18 00:14 Diltiazem HCl (Cardizem) 30 mg TID ORAL 07/01/18 01:00 07/31/18 00:59 07/03/18 08:57 Docusate Sodium (Colace) 100 mg BID ORAL 07/01/18 09:00 07/31/18 08:59 07/03/18 08:56 Ferrous Sulfate (Feosol) 325 mg DAILY ORAL 07/01/18 09:00 07/31/18 08:59 07/03/18 08:56 Folic Acid (Folate) 1 mg DAILY ORAL 07/01/18 09:00 07/31/18 08:59 07/03/18 08:56 Gabapentin (Neurontin) 300 mg TID ORAL 07/01/18 09:00 07/31/18 08:59 07/03/18 08:56 Levofloxacin (Levaquin) 500 mg DAILY ORAL 07/02/18 09:00 07/09/18 08:59 07/03/18 08:56 Methylprednisolone Sodium Succinate (Solu-MEDROL) 60 mg DAILY IVP 07/02/18 09:00 08/01/18 08:59 07/03/18 08:57 Pantoprazole (Protonix) 40 mg ACBREAKFAST ORAL 07/01/18 06:30 07/31/18 06:29 07/03/18 05:47 Quetiapine Fumarate (SEROquel) 400 mg QHS ORAL 07/01/18 21:00 07/31/18 20:59 07/02/18 20:33 Subjective ROS Limited/Unobtainable: No Allergies: Coded Allergies: PENICILLINS (Verified Allergy, Unknown, 10/09/12) Objective Last 24 Hour Vital Signs Date Time Temp Pulse Resp B/P (MAP) Pulse Ox O2 Delivery O2 Flow Rate FiO2 07/04/18 16:00 98.6 91 18 126/74 (91) 97 07/04/18 15:17 100 16 99 Room Air 21 07/04/18 15:10 105 18 95 Room Air 21 07/04/18 13:21 101 130/79 07/04/18 12:00 98.5 103 18 117/85 (96) 97 07/04/18 10:59 98 18 98 Room Air 21 07/04/18 10:55 103 16 96 Room Air 21 07/04/18 09:37 87 141/82 07/04/18 09:27 87 20 98 Room Air 21 07/04/18 09:27 85 22 97 Room Air 21 07/04/18 09:00 Room Air 07/04/18 08:00 98.1 86 18 141/82 (101) 97 07/04/18 07:49 98.0 07/04/18 07:11 75 16 99 Room Air 21 07/04/18 07:02 78 16 97 Room Air 21 07/04/18 04:00 98.0 86 20 127/82 (97) 97 07/04/18 03:31 89 16 98 Room Air 21 07/04/18 03:21 83 16 98 Room Air 21 07/04/18 00:00 98.7 101 20 140/82 (101) 98 07/03/18 23:40 105 16 98 Room Air 21 07/03/18 23:31 106 18 98 Room Air 21 07/03/18 21:00 Room Air 07/03/18 20:03 95 19 98 Room Air 21 07/03/18 20:00 98.6 102 20 123/82 (96) 99 07/03/18 19:51 96 16 98 Room Air 21 07/03/18 18:15 105 125/81 Intake and Output 07/03/18 07/04/18 18:59 06:59 Intake Total 960 ml 720 ml Balance 960 ml 720 ml Intake Oral 960 ml 720 ml # Voids 3 3 Current Medications Medications (Trade) Dose Ordered Sig/Yadira Route PRN Reason Start Time Stop Time Status Last Admin Dose Admin Acetaminophen (Tylenol) 650 mg Q4H PRN ORAL For Pain Level <=5 07/01/18 00:15 07/31/18 00:14 Acetaminophen/ Hydrocodone Bitart ([place] 10/325) 1 tab Q4H PRN ORAL Severe Pain (Pain Scale 7-10) 07/01/18 09:15 07/08/18 09:14 07/04/18 15:18 Albuterol/ Ipratropium (Albuterol/ Ipratropium) 3 ml Q4H PRN HHN shortness of breath/wheezing 07/01/18 00:30 07/06/18 00:29 Albuterol/ Ipratropium (Albuterol/ Ipratropium) 3 ml Q4HRT HHN 07/01/18 03:00 07/06/18 02:59 07/04/18 15:17 Aspirin (Ecotrin) 81 mg DAILY ORAL 07/04/18 09:00 08/03/18 08:59 07/04/18 09:36 Bupropion HCl (Wellbutrin XL) 150 mg DAILY ORAL 07/01/18 09:00 07/31/18 08:59 07/04/18 09:36 Clonidine HCl (Catapres Tab) 0.1 mg EVERY 6 HOURS PRN ORAL For High Blood Pressure 07/01/18 00:15 07/31/18 00:14 Diazepam (Valium) 7.5 mg Q8H PRN ORAL For Anxiety 07/03/18 13:04 07/10/18 13:03 07/04/18 13:17 Diltiazem HCl (Cardizem) 30 mg TID ORAL 07/01/18 01:00 07/31/18 00:59 07/04/18 13:21 Docusate Sodium (Colace) 100 mg BID ORAL 07/01/18 09:00 07/31/18 08:59 07/04/18 09:36 Ferrous Sulfate (Feosol) 325 mg DAILY ORAL 07/01/18 09:00 07/31/18 08:59 07/04/18 09:36 Folic Acid (Folate) 1 mg DAILY ORAL 07/01/18 09:00 07/31/18 08:59 07/04/18 09:36 Gabapentin (Neurontin) 300 mg TID ORAL 07/01/18 09:00 07/31/18 08:59 07/04/18 13:17 Guaifenesin (Mucinex ER) 600 mg TWICE A DAY ORAL 07/03/18 18:00 08/02/18 17:59 07/04/18 09:36 Levofloxacin (Levaquin) 500 mg DAILY ORAL 07/02/18 09:00 07/06/18 23:59 07/04/18 09:36 Methylprednisolone Sodium Succinate (Solu-MEDROL) 60 mg DAILY IVP 07/02/18 09:00 08/01/18 08:59 07/04/18 09:37 Pantoprazole (Protonix) 40 mg ACBREAKFAST ORAL 07/01/18 06:30 07/31/18 06:29 07/04/18 06:10 Quetiapine Fumarate (SEROquel) 400 mg QHS ORAL 07/01/18 21:00 07/31/18 20:59 07/03/18 21:05 Salmeterol Xinafoate/ Fluticasone (Advair 250/50 Diskus) 1 puffs BID INH 07/03/18 18:00 08/02/18 17:59 07/04/18 09:26 Enzo Lombardo MD Jul 04, 2018 17:32
--- NOTE | 2018-07-04 18:36 | General Progress Note ---
Assessment/Plan Problem List: (1) Edema ICD Codes: R60.9 - Edema SNOMED: 238321279 (2) Dehydration ICD Codes: E86.0 - Dehydration SNOMED: 07947335 (3) Sickle cell disease ICD Codes: D57.1 - Sickle cell disease SNOMED: 000154250 (4) Asthma exacerbation ICD Codes: J45.901 - Unspecified asthma with (acute) exacerbation SNOMED: 580434086 (5) Constipation ICD Codes: K59.00 - Constipation, unspecified SNOMED: 80140503 (6) Pain ICD Codes: R52 - Pain SNOMED: 65574379 (7) COPD exacerbation ICD Codes: J44.1 - COPD exacerbation SNOMED: 631820921 Status: progressing Assessment/Plan asthma exacerbation is improving resp insuff constipation sickle cell no wheezing afebrile reviewed chart and labs Subjective ROS Limited/Unobtainable: Yes Allergies: Coded Allergies: PENICILLINS (Verified Allergy, Unknown, 10/09/12) Objective Last 24 Hour Vital Signs Date Time Temp Pulse Resp B/P (MAP) Pulse Ox O2 Delivery O2 Flow Rate FiO2 07/04/18 17:49 103 143/84 07/04/18 16:00 98.6 91 18 126/74 (91) 97 07/04/18 15:17 100 16 99 Room Air 21 07/04/18 15:10 105 18 95 Room Air 21 07/04/18 13:21 101 130/79 07/04/18 12:00 98.5 103 18 117/85 (96) 97 07/04/18 10:59 98 18 98 Room Air 21 07/04/18 10:55 103 16 96 Room Air 21 07/04/18 09:37 87 141/82 07/04/18 09:27 87 20 98 Room Air 21 07/04/18 09:27 85 22 97 Room Air 21 07/04/18 09:00 Room Air 07/04/18 08:00 98.1 86 18 141/82 (101) 97 07/04/18 07:49 98.0 07/04/18 07:11 75 16 99 Room Air 21 07/04/18 07:02 78 16 97 Room Air 21 07/04/18 04:00 98.0 86 20 127/82 (97) 97 07/04/18 03:31 89 16 98 Room Air 21 07/04/18 03:21 83 16 98 Room Air 21 07/04/18 00:00 98.7 101 20 140/82 (101) 98 07/03/18 23:40 105 16 98 Room Air 21 07/03/18 23:31 106 18 98 Room Air 21 07/03/18 21:00 Room Air 07/03/18 20:03 95 19 98 Room Air 21 07/03/18 20:00 98.6 102 20 123/82 (96) 99 07/03/18 19:51 96 16 98 Room Air 21 Intake and Output 07/03/18 07/04/18 18:59 06:59 Intake Total 960 ml 720 ml Balance 960 ml 720 ml Intake Oral 960 ml 720 ml # Voids 3 3 Height (Feet): 5 Height (Inches): 4.00 Weight (Pounds): 152 Cardiovascular: normal rate Respiratory/Chest: lungs clear Abdomen: soft Nahum King MD Jul 04, 2018 18:36
--- NOTE | 2018-07-04 19:29 | NUR ---
HAND-OFF: Report given to Sen.
--- NOTE | 2018-07-04 19:45 | NUR ---
NURSE NOTES: Pt lying in bed w/bed in lowest position and call light within reach. Pt A&Ox4, VSS, and in no apparent respiratory distress at this time. IV site intact/asymptomatic & H/L'd and skin intact. Will continue to monitor.
--- NOTE | 2018-07-04 19:46 | NUR ---
NURSE NOTES: Received order from Dr. Lombardo to decrease solu-medrol to 40mg IVP starting tomorrow.
[2018-07-04 20:00] VITALS: BP 106/60
--- NOTE | 2018-07-04 21:32 | General Progress Note ---
Assessment/Plan Problem List: (1) Anxiety ICD Codes: F41.9 - Anxiety disorder, unspecified SNOMED: 83931725 Status: stable, progressing Assessment/Plan seroquel 400mg qhs welbutrin 150mg qam valium prn provided ro/st valium prn Subjective Neurologic/Psychiatric: Reports: anxiety, depressed, emotional problems Allergies: Coded Allergies: PENICILLINS (Verified Allergy, Unknown, 10/09/12) Objective Last 24 Hour Vital Signs Date Time Temp Pulse Resp B/P (MAP) Pulse Ox O2 Delivery O2 Flow Rate FiO2 07/04/18 20:10 104 18 98 Room Air 21 07/04/18 20:08 104 18 99 Room Air 21 07/04/18 20:07 105 18 100 Room Air 21 07/04/18 20:00 98.0 101 18 106/60 (75) 97 07/04/18 19:55 102 16 98 Room Air 21 07/04/18 17:49 103 143/84 07/04/18 16:00 98.6 91 18 126/74 (91) 97 07/04/18 15:17 100 16 99 Room Air 21 07/04/18 15:10 105 18 95 Room Air 21 07/04/18 13:21 101 130/79 07/04/18 12:00 98.5 103 18 117/85 (96) 97 07/04/18 10:59 98 18 98 Room Air 21 07/04/18 10:55 103 16 96 Room Air 21 07/04/18 09:37 87 141/82 07/04/18 09:27 87 20 98 Room Air 21 07/04/18 09:27 85 22 97 Room Air 21 07/04/18 09:00 Room Air 07/04/18 08:00 98.1 86 18 141/82 (101) 97 07/04/18 07:49 98.0 07/04/18 07:11 75 16 99 Room Air 21 07/04/18 07:02 78 16 97 Room Air 21 07/04/18 04:00 98.0 86 20 127/82 (97) 97 07/04/18 03:31 89 16 98 Room Air 21 07/04/18 03:21 83 16 98 Room Air 21 07/04/18 00:00 98.7 101 20 140/82 (101) 98 07/03/18 23:40 105 16 98 Room Air 21 07/03/18 23:31 106 18 98 Room Air 21 Intake and Output 07/03/18 07/04/18 19:00 07:00 Intake Total 960 ml 720 ml Balance 960 ml 720 ml Intake Oral 960 ml 720 ml # Voids 3 3 Height (Feet): 5 Height (Inches): 4.00 Weight (Pounds): 152 General Appearance: alert, mild distress Neurologic: oriented x 3, responsive, depressed affect Rolo Hamilton MD Jul 04, 2018 21:32
[2018-07-05] VITALS: BP 107/65
[2018-07-05] MEDS: Albuterol/Ipratropium 3ml neb HHN SCH ×6 (03:22→23:00)
[2018-07-05 04:00] VITALS: BP 129/74
[2018-07-05] MEDS: HYDROcodone/Acetamin 10/325 tab ORAL PRN ×5 (04:02→21:18)
--- NOTE | 2018-07-05 07:15 | NUR ---
HAND-OFF: Report given to ARIANA Ellis.
[2018-07-05 08:00] VITALS: BP 130/78
--- NOTE | 2018-07-05 08:00 | NUR ---
NURSE NOTES: received patient in bed, awake, patient complains of pain but pain med is not due, nurse told patient she'll give her when it's due. Patient has RFA IV access, saline locked. Call light within easy reach, siderails up and bed locked at the lowest position possible. Will continue to monitor patient and follow up with the plan of care.
[2018-07-05] MEDS: BuPROPion XL 150mg tab ORAL SCH (08:43)
[2018-07-05] MEDS: Advair 250/50 Inhaler - 14 dose INH SCH ×2 (08:43→19:04)
[2018-07-05] MEDS: Aspirin EC 81mg tab ORAL SCH (08:43)
[2018-07-05] MEDS: dilTIAZem HCl 30mg tab ORAL SCH ×3 (08:43→17:08)
[2018-07-05] MEDS: Docusate 100mg cap ORAL SCH ×2 (08:44→17:08)
[2018-07-05] MEDS: Levofloxacin 500mg tab ORAL SCH (08:44)
[2018-07-05] MEDS: guaiFENesin ER 600mg tab ORAL SCH ×2 (08:44→17:08)
[2018-07-05] MEDS ORDERED: Solu-MEDROL 40mg Inj IVP SCH ×2 (09:00)
--- NOTE | 2018-07-05 11:08 | NUR ---
CASE MANAGEMENT: REVIEW 07/05/2018 SI: ASTHMA EXACERBATION T 997.8 HR 102 RR 20 B/P 130/78 SATS 97% ON RA NO LABS TODAY IS:MUCINEX PO BID PROTONIX PO QAC ADVAIR INH BID WELLBUTRIN PO QD FEOSOL PO QD FOLATE PO QD SOLU MEDROL IV QD LEVAQUIN PO QD ASA PO QD SEROQUEL PO QHS GABAPENTIN PO TID CARDIZEM PO TID MED/SURG STATUS DCP: PATIENT IS FROM HOME
[2018-07-05 12:00] VITALS: BP 128/79
--- NOTE | 2018-07-05 13:24 | Infectious Diseases Prog Note ---
Assessment/Plan Assessment/Plan A: Chronic obstructive pulmonary disease and asthma exacerbation, tachycardia resolving anxiety, hypertension, penicillin allergy. Sickle cell trait P: Continue Levaquin until tomorrow Subjective ROS Limited/Unobtainable: No Constitutional: Reports: no symptoms Respiratory: Reports: dry cough Cardiovascular: Reports: no symptoms Gastrointestinal/Abdominal: Reports: no symptoms Genitourinary: Reports: no symptoms Allergies: Coded Allergies: PENICILLINS (Verified Allergy, Unknown, 10/09/12) Objective Vital Signs Last 24 Hour Vital Signs Date Time Temp Pulse Resp B/P (MAP) Pulse Ox O2 Delivery O2 Flow Rate FiO2 07/05/18 12:48 97 128/79 07/05/18 12:00 98.6 97 18 128/79 (95) 99 07/05/18 11:29 100 18 99 Room Air 21 07/05/18 11:20 106 18 96 Room Air 21 07/05/18 09:15 97.8 07/05/18 09:15 97.8 07/05/18 09:00 Room Air 07/05/18 08:43 99 20 97 Room Air 21 07/05/18 08:43 102 18 96 Room Air 21 07/05/18 08:43 90 130/78 07/05/18 08:00 97.8 90 18 130/78 (95) 96 07/05/18 07:28 Room Air 21 07/05/18 07:28 Room Air 21 07/05/18 04:00 97.7 82 18 129/74 (92) 96 07/05/18 03:33 91 16 99 Room Air 21 07/05/18 03:22 78 16 98 Room Air 21 07/05/18 00:00 97.9 92 18 107/65 (79) 97 07/04/18 23:22 95 16 98 Room Air 21 07/04/18 23:12 98 16 98 Room Air 21 07/04/18 21:00 Room Air 07/04/18 20:10 104 18 98 Room Air 21 07/04/18 20:08 104 18 99 Room Air 21 07/04/18 20:07 105 18 100 Room Air 21 07/04/18 20:00 98.0 101 18 106/60 (75) 97 07/04/18 19:55 102 16 98 Room Air 21 07/04/18 17:49 103 143/84 07/04/18 16:00 98.6 91 18 126/74 (91) 97 07/04/18 15:17 100 16 99 Room Air 21 07/04/18 15:10 105 18 95 Room Air 21 07/04/18 13:21 101 130/79 Height (Feet): 5 Height (Inches): 4.00 Weight (Pounds): 152 General Appearance: no acute distress HEENT: mucous membranes moist Respiratory/Chest: lungs clear Cardiovascular: normal rate Abdomen: soft, non tender Extremities: no edema Neurologic/Psychiatric: alert, oriented x 3, responsive Current Medications Medications (Trade) Dose Ordered Sig/Yadira Route PRN Reason Start Time Stop Time Status Last Admin Dose Admin Acetaminophen (Tylenol) 650 mg Q4H PRN ORAL For Pain Level <=5 07/01/18 00:15 07/31/18 00:14 Acetaminophen/ Hydrocodone Bitart ([place] 10/325) 1 tab Q4H PRN ORAL Severe Pain (Pain Scale 7-10) 07/01/18 09:15 07/08/18 09:14 07/05/18 12:48 Albuterol/ Ipratropium (Albuterol/ Ipratropium) 3 ml Q4H PRN HHN shortness of breath/wheezing 07/01/18 00:30 07/06/18 00:29 Albuterol/ Ipratropium (Albuterol/ Ipratropium) 3 ml Q4HRT HHN 07/01/18 03:00 07/06/18 02:59 07/05/18 11:31 Aspirin (Ecotrin) 81 mg DAILY ORAL 07/04/18 09:00 08/03/18 08:59 07/05/18 08:43 Bupropion HCl (Wellbutrin XL) 150 mg DAILY ORAL 07/01/18 09:00 07/31/18 08:59 07/05/18 08:43 Clonidine HCl (Catapres Tab) 0.1 mg EVERY 6 HOURS PRN ORAL For High Blood Pressure 07/01/18 00:15 07/31/18 00:14 Diazepam (Valium) 7.5 mg Q8H PRN ORAL For Anxiety 07/03/18 13:04 07/10/18 13:03 07/04/18 13:17 Diltiazem HCl (Cardizem) 30 mg TID ORAL 07/01/18 01:00 07/31/18 00:59 07/05/18 12:48 Docusate Sodium (Colace) 100 mg BID ORAL 07/01/18 09:00 07/31/18 08:59 07/05/18 08:44 Ferrous Sulfate (Feosol) 325 mg DAILY ORAL 07/01/18 09:00 07/31/18 08:59 07/05/18 08:43 Folic Acid (Folate) 1 mg DAILY ORAL 07/01/18 09:00 07/31/18 08:59 07/05/18 08:43 Gabapentin (Neurontin) 300 mg TID ORAL 07/01/18 09:00 07/31/18 08:59 07/05/18 12:48 Guaifenesin (Mucinex ER) 600 mg TWICE A DAY ORAL 07/03/18 18:00 08/02/18 17:59 07/05/18 08:44 Levofloxacin (Levaquin) 500 mg DAILY ORAL 07/02/18 09:00 07/06/18 23:59 07/05/18 08:44 Methylprednisolone Sodium Succinate (Solu-MEDROL) 40 mg DAILY IVP 07/05/18 09:00 07/06/18 00:00 07/05/18 08:45 Pantoprazole (Protonix) 40 mg ACBREAKFAST ORAL 07/01/18 06:30 07/31/18 06:29 07/05/18 06:13 Prednisone (predniSONE) 40 mg DAILY ORAL 07/06/18 09:00 08/05/18 08:59 Quetiapine Fumarate (SEROquel) 400 mg QHS ORAL 07/01/18 21:00 07/31/18 20:59 07/04/18 20:16 Salmeterol Xinafoate/ Fluticasone (Advair 250/50 Diskus) 1 puffs BID INH 07/03/18 18:00 08/02/18 17:59 07/05/18 08:43 Emeka Macario MD Jul 05, 2018 13:24
--- NOTE | 2018-07-05 15:48 | NUR ---
HAND-OFF: Report given to EILEEN Everett.
[2018-07-05 16:00] VITALS: BP 129/97
--- NOTE | 2018-07-05 16:41 | Pulmonology Progress Note ---
Assessment/Plan Assessment/Plan Pulmonary Progress Note Assessment/Plan Assessment/Plan 53 y/o female w/ asthma exacerbation, likely viral. Problem List: 1. Acute asthma exacerbation 2. Viral tracheobronchitis 3. Tachycardia 4. Sickle cell trait 5. Intermittent facial swelling Plan: -solumedrol 60 mg IV qday wean as tolerated -abx per ID -HHN q4 -Advair 250/50 bid -mucinex 600 mg bid Subjective ROS Limited/Unobtainable: No Interval Events: still coughing and wheezing. No fevers. Clear sputum Constitutional: Reports: no symptoms HEENT: Repors: no symptoms Respiratory: Reports: productive cough, wheezing Cardiovascular: Reports: no symptoms Gastrointestinal/Abdominal: Reports: no symptoms Genitourinary: Reports: no symptoms Skin: Reports: no symptoms Endocrine: Reports: no symptoms Allergies: Coded Allergies: PENICILLINS (Verified Allergy, Unknown, 10/09/12) All Systems: reviewed and negative except above Objective Vital Signs Noted General Appearance: no acute distress HEENT: normocephalic, mucous membranes moist Respiratory/Chest: expiratory wheezing Cardiovascular: normal rate, regular rhythm Abdomen: soft, non tender Extremities: no edema Skin: no rash 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 II-XII grossly normal Microbiology Date/Time Source Procedure Growth Status 06/30/18 19:40 Nasal Nares Influenza Types A,B Antigen ([facility]ACH) - Final Complete Current Medications Medications (Trade) Dose Ordered Sig/Yadira Route PRN Reason Start Time Stop Time Status Last Admin Dose Admin Acetaminophen (Tylenol) 650 mg Q4H PRN ORAL For Pain Level <=5 07/01/18 00:15 07/31/18 00:14 Acetaminophen/ Hydrocodone Bitart ([place] 10/325) 1 tab Q4H PRN ORAL Severe Pain (Pain Scale 7-10) 07/01/18 09:15 07/08/18 09:14 07/03/18 07:13 Albuterol/ Ipratropium (Albuterol/ Ipratropium) 3 ml Q4H PRN HHN shortness of breath/wheezing 07/01/18 00:30 07/06/18 00:29 Albuterol/ Ipratropium (Albuterol/ Ipratropium) 3 ml Q4HRT HHN 07/01/18 03:00 07/06/18 02:59 07/03/18 08:23 Bupropion HCl (Wellbutrin XL) 150 mg DAILY ORAL 07/01/18 09:00 07/31/18 08:59 07/03/18 08:56 Clonidine HCl (Catapres Tab) 0.1 mg EVERY 6 HOURS PRN ORAL For High Blood Pressure 07/01/18 00:15 07/31/18 00:14 Diltiazem HCl (Cardizem) 30 mg TID ORAL 07/01/18 01:00 07/31/18 00:59 07/03/18 08:57 Docusate Sodium (Colace) 100 mg BID ORAL 07/01/18 09:00 07/31/18 08:59 07/03/18 08:56 Ferrous Sulfate (Feosol) 325 mg DAILY ORAL 07/01/18 09:00 07/31/18 08:59 07/03/18 08:56 Folic Acid (Folate) 1 mg DAILY ORAL 07/01/18 09:00 07/31/18 08:59 07/03/18 08:56 Gabapentin (Neurontin) 300 mg TID ORAL 07/01/18 09:00 07/31/18 08:59 07/03/18 08:56 Levofloxacin (Levaquin) 500 mg DAILY ORAL 07/02/18 09:00 07/09/18 08:59 07/03/18 08:56 Methylprednisolone Sodium Succinate (Solu-MEDROL) 60 mg DAILY IVP 07/02/18 09:00 08/01/18 08:59 07/03/18 08:57 Pantoprazole (Protonix) 40 mg ACBREAKFAST ORAL 07/01/18 06:30 07/31/18 06:29 07/03/18 05:47 Quetiapine Fumarate (SEROquel) 400 mg QHS ORAL 07/01/18 21:00 07/31/18 20:59 07/02/18 20:33 Subjective ROS Limited/Unobtainable: No Allergies: Coded Allergies: PENICILLINS (Verified Allergy, Unknown, 10/09/12) Objective Last 24 Hour Vital Signs Date Time Temp Pulse Resp B/P (MAP) Pulse Ox O2 Delivery O2 Flow Rate FiO2 07/05/18 16:00 98.4 113 18 129/97 (108) 98 07/05/18 15:14 99 16 97 Room Air 21 07/05/18 15:04 101 20 97 Room Air 21 07/05/18 13:18 98.6 07/05/18 12:48 97 128/79 07/05/18 12:00 98.6 97 18 128/79 (95) 99 07/05/18 11:29 100 18 99 Room Air 21 07/05/18 11:20 106 18 96 Room Air 21 07/05/18 09:15 97.8 07/05/18 09:00 Room Air 07/05/18 08:43 99 20 97 Room Air 21 07/05/18 08:43 102 18 96 Room Air 21 07/05/18 08:43 90 130/78 07/05/18 08:00 97.8 90 18 130/78 (95) 96 07/05/18 07:28 Room Air 21 07/05/18 07:28 Room Air 21 07/05/18 04:00 97.7 82 18 129/74 (92) 96 07/05/18 03:33 91 16 99 Room Air 21 07/05/18 03:22 78 16 98 Room Air 21 07/05/18 00:00 97.9 92 18 107/65 (79) 97 07/04/18 23:22 95 16 98 Room Air 21 07/04/18 23:12 98 16 98 Room Air 21 07/04/18 21:00 Room Air 07/04/18 20:10 104 18 98 Room Air 21 07/04/18 20:08 104 18 99 Room Air 21 07/04/18 20:07 105 18 100 Room Air 21 07/04/18 20:00 98.0 101 18 106/60 (75) 97 07/04/18 19:55 102 16 98 Room Air 21 07/04/18 17:49 103 143/84 Intake and Output 07/04/18 07/05/18 19:00 07:00 Intake Total 320 ml 240 ml Balance 320 ml 240 ml Intake Oral 320 ml 240 ml # Voids 3 2 # Bowel Movements 1 Current Medications Medications (Trade) Dose Ordered Sig/Yadira Route PRN Reason Start Time Stop Time Status Last Admin Dose Admin Acetaminophen (Tylenol) 650 mg Q4H PRN ORAL For Pain Level <=5 07/01/18 00:15 07/31/18 00:14 Acetaminophen/ Hydrocodone Bitart ([place] 10/325) 1 tab Q4H PRN ORAL Severe Pain (Pain Scale 7-10) 07/01/18 09:15 07/08/18 09:14 07/05/18 12:48 Albuterol/ Ipratropium (Albuterol/ Ipratropium) 3 ml Q4H PRN HHN shortness of breath/wheezing 07/01/18 00:30 07/06/18 00:29 Albuterol/ Ipratropium (Albuterol/ Ipratropium) 3 ml Q4HRT HHN 07/01/18 03:00 07/06/18 02:59 07/05/18 15:11 Aspirin (Ecotrin) 81 mg DAILY ORAL 07/04/18 09:00 08/03/18 08:59 07/05/18 08:43 Bupropion HCl (Wellbutrin XL) 150 mg DAILY ORAL 07/01/18 09:00 07/31/18 08:59 07/05/18 08:43 Clonidine HCl (Catapres Tab) 0.1 mg EVERY 6 HOURS PRN ORAL For High Blood Pressure 07/01/18 00:15 07/31/18 00:14 Diazepam (Valium) 7.5 mg Q8H PRN ORAL For Anxiety 07/03/18 13:04 07/10/18 13:03 07/05/18 14:04 Diltiazem HCl (Cardizem) 30 mg TID ORAL 07/01/18 01:00 07/31/18 00:59 07/05/18 12:48 Docusate Sodium (Colace) 100 mg BID ORAL 07/01/18 09:00 07/31/18 08:59 07/05/18 08:44 Ferrous Sulfate (Feosol) 325 mg DAILY ORAL 07/01/18 09:00 07/31/18 08:59 07/05/18 08:43 Folic Acid (Folate) 1 mg DAILY ORAL 07/01/18 09:00 07/31/18 08:59 07/05/18 08:43 Gabapentin (Neurontin) 300 mg TID ORAL 07/01/18 09:00 07/31/18 08:59 07/05/18 12:48 Guaifenesin (Mucinex ER) 600 mg TWICE A DAY ORAL 07/03/18 18:00 08/02/18 17:59 07/05/18 08:44 Levofloxacin (Levaquin) 500 mg DAILY ORAL 07/02/18 09:00 07/06/18 23:59 07/05/18 08:44 Methylprednisolone Sodium Succinate (Solu-MEDROL) 40 mg DAILY IVP 07/05/18 09:00 07/06/18 00:00 07/05/18 08:45 Pantoprazole (Protonix) 40 mg ACBREAKFAST ORAL 07/01/18 06:30 07/31/18 06:29 07/05/18 06:13 Prednisone (predniSONE) 40 mg DAILY ORAL 07/06/18 09:00 08/05/18 08:59 Quetiapine Fumarate (SEROquel) 400 mg QHS ORAL 07/01/18 21:00 07/31/18 20:59 07/04/18 20:16 Salmeterol Xinafoate/ Fluticasone (Advair 250/50 Diskus) 1 puffs BID INH 07/03/18 18:00 08/02/18 17:59 07/05/18 08:43 Enzo Lombardo MD Jul 05, 2018 16:41
--- NOTE | 2018-07-05 19:07 | NUR ---
HAND-OFF: Report given to SAW.
[2018-07-05 20:00] VITALS: BP 129/74
--- NOTE | 2018-07-05 20:08 | Cardiology Progress Note ---
Assessment/Plan Assessment/Plan 1. Dyspnea, most likely secondary to acute exacerbation of asthma. Continue IV ABx, breathing treatment, pulmonary toilet, and steroids,2D echocardiography showed normal LV systolic function with LVEF estimated at 65 to 70%. 2. Moderate pulmonary hypertension. 3. History of asthma. 4. History of hypertension. Subjective Subjective Not on the telemetry unit. No cardiac events noted. Objective Last 24 Hour Vital Signs Date Time Temp Pulse Resp B/P (MAP) Pulse Ox O2 Delivery O2 Flow Rate FiO2 07/05/18 19:24 103 18 99 Room Air 21 07/05/18 19:23 103 18 99 Room Air 21 07/05/18 19:23 103 18 100 Room Air 21 07/05/18 19:05 102 22 99 Room Air 21 07/05/18 17:38 98.4 07/05/18 17:08 113 129/97 07/05/18 16:00 98.4 113 18 129/97 (108) 98 07/05/18 15:14 99 16 97 Room Air 21 07/05/18 15:04 101 20 97 Room Air 21 07/05/18 12:48 97 128/79 07/05/18 12:00 98.6 97 18 128/79 (95) 99 07/05/18 11:29 100 18 99 Room Air 21 07/05/18 11:20 106 18 96 Room Air 21 07/05/18 09:15 97.8 07/05/18 09:00 Room Air 07/05/18 08:43 99 20 97 Room Air 21 07/05/18 08:43 102 18 96 Room Air 21 07/05/18 08:43 90 130/78 07/05/18 08:00 97.8 90 18 130/78 (95) 96 07/05/18 07:28 Room Air 21 07/05/18 07:28 Room Air 21 07/05/18 04:00 97.7 82 18 129/74 (92) 96 07/05/18 03:33 91 16 99 Room Air 21 07/05/18 03:22 78 16 98 Room Air 21 07/05/18 00:00 97.9 92 18 107/65 (79) 97 07/04/18 23:22 95 16 98 Room Air 21 07/04/18 23:12 98 16 98 Room Air 21 07/04/18 21:00 Room Air 07/04/18 20:10 104 18 98 Room Air 21 Intake and Output 07/04/18 07/05/18 18:59 06:59 Intake Total 320 ml 240 ml Balance 320 ml 240 ml Intake Oral 320 ml 240 ml # Voids 3 2 # Bowel Movements 1 2D Echo: LVEF 65%, Mild LVH, RVSP 46 mmHg, Grade I LVDD Objective GENERAL: This is a very pleasant 53-year-old lady, in no apparent respiratory distress. Alert and oriented x4. HEENT: Atraumatic, normocephalic. Anicteric. Pupils are equal, round, and reactive to light and accommodation. Extraocular muscles intact. NECK: JVP less than 5 cm. No carotid bruit. Carotid upstroke is 2+ bilaterally. CARDIOVASCULAR: Normal S1, S2. No murmurs, gallops, or rubs. PMI is at fourth intercostal space at the midclavicular line. LUNGS: Bilateral rhonchi with prolonged expiratory phase. ABDOMEN: Soft, nontender, and nondistended. No hepatosplenomegaly. Positive bowel sounds. EXTREMITIES: No evidence of edema, clubbing, or cyanosis. Isac Laguna MD Jul 05, 2018 20:08
--- NOTE | 2018-07-05 20:40 | General Progress Note ---
Assessment/Plan Problem List: (1) Edema ICD Codes: R60.9 - Edema SNOMED: 299982458 (2) Dehydration ICD Codes: E86.0 - Dehydration SNOMED: 16566606 (3) Sickle cell disease ICD Codes: D57.1 - Sickle cell disease SNOMED: 382377040 (4) Asthma exacerbation ICD Codes: J45.901 - Unspecified asthma with (acute) exacerbation SNOMED: 560335137 (5) Constipation ICD Codes: K59.00 - Constipation, unspecified SNOMED: 10099626 (6) Pain ICD Codes: R52 - Pain SNOMED: 35903921 (7) COPD exacerbation ICD Codes: J44.1 - COPD exacerbation SNOMED: 125864460 Status: progressing Assessment/Plan asthma exacerbation is improving resp insuff constipation sickle cell chronic pain dehyration improving constipation Subjective ROS Limited/Unobtainable: Yes Allergies: Coded Allergies: PENICILLINS (Verified Allergy, Unknown, 10/09/12) Objective Last 24 Hour Vital Signs Date Time Temp Pulse Resp B/P (MAP) Pulse Ox O2 Delivery O2 Flow Rate FiO2 07/05/18 19:24 103 18 99 Room Air 21 07/05/18 19:23 103 18 99 Room Air 21 07/05/18 19:23 103 18 100 Room Air 21 07/05/18 19:05 102 22 99 Room Air 21 07/05/18 17:38 98.4 07/05/18 17:08 113 129/97 07/05/18 16:00 98.4 113 18 129/97 (108) 98 07/05/18 15:14 99 16 97 Room Air 21 07/05/18 15:04 101 20 97 Room Air 21 07/05/18 12:48 97 128/79 07/05/18 12:00 98.6 97 18 128/79 (95) 99 07/05/18 11:29 100 18 99 Room Air 21 07/05/18 11:20 106 18 96 Room Air 21 07/05/18 09:15 97.8 07/05/18 09:00 Room Air 07/05/18 08:43 99 20 97 Room Air 21 07/05/18 08:43 102 18 96 Room Air 21 07/05/18 08:43 90 130/78 07/05/18 08:00 97.8 90 18 130/78 (95) 96 07/05/18 07:28 Room Air 21 07/05/18 07:28 Room Air 21 07/05/18 04:00 97.7 82 18 129/74 (92) 96 07/05/18 03:33 91 16 99 Room Air 21 07/05/18 03:22 78 16 98 Room Air 21 07/05/18 00:00 97.9 92 18 107/65 (79) 97 07/04/18 23:22 95 16 98 Room Air 21 07/04/18 23:12 98 16 98 Room Air 21 07/04/18 21:00 Room Air Intake and Output 07/04/18 07/05/18 18:59 06:59 Intake Total 320 ml 240 ml Balance 320 ml 240 ml Intake Oral 320 ml 240 ml # Voids 3 2 # Bowel Movements 1 Height (Feet): 5 Height (Inches): 4.00 Weight (Pounds): 152 Neck: normal alignment Cardiovascular: normal rate Respiratory/Chest: lungs clear Abdomen: soft Nahum King MD Jul 05, 2018 20:40
--- NOTE | 2018-07-05 23:18 | Cardiology Progress Note ---
Assessment/Plan Assessment/Plan 1. Dyspnea, most likely secondary to acute exacerbation of asthma. Continue IV ABx, breathing treatment, pulmonary toilet, and steroids,2D echocardiography showed normal LV systolic function with LVEF estimated at 65 to 70%. 2. Moderate pulmonary hypertension. 3. History of asthma. 4. History of hypertension. Subjective Subjective Not on the telemetry unit. No cardiac events noted. Objective Last 24 Hour Vital Signs Date Time Temp Pulse Resp B/P (MAP) Pulse Ox O2 Delivery O2 Flow Rate FiO2 07/05/18 23:00 93 22 96 Room Air 21 07/05/18 19:24 103 18 99 Room Air 21 07/05/18 19:23 103 18 99 Room Air 21 07/05/18 19:23 103 18 100 Room Air 21 07/05/18 19:05 102 22 99 Room Air 21 07/05/18 17:38 98.4 07/05/18 17:08 113 129/97 07/05/18 16:00 98.4 113 18 129/97 (108) 98 07/05/18 15:14 99 16 97 Room Air 21 07/05/18 15:04 101 20 97 Room Air 21 07/05/18 12:48 97 128/79 07/05/18 12:00 98.6 97 18 128/79 (95) 99 07/05/18 11:29 100 18 99 Room Air 21 07/05/18 11:20 106 18 96 Room Air 21 07/05/18 09:15 97.8 07/05/18 09:00 Room Air 07/05/18 08:43 99 20 97 Room Air 21 07/05/18 08:43 102 18 96 Room Air 21 07/05/18 08:43 90 130/78 07/05/18 08:00 97.8 90 18 130/78 (95) 96 07/05/18 07:28 Room Air 21 07/05/18 07:28 Room Air 21 07/05/18 04:00 97.7 82 18 129/74 (92) 96 07/05/18 03:33 91 16 99 Room Air 21 07/05/18 03:22 78 16 98 Room Air 21 07/05/18 00:00 97.9 92 18 107/65 (79) 97 07/04/18 23:22 95 16 98 Room Air 21 Intake and Output 07/04/18 07/05/18 18:59 06:59 Intake Total 320 ml 240 ml Balance 320 ml 240 ml Intake Oral 320 ml 240 ml # Voids 3 2 # Bowel Movements 1 Objective GENERAL: This is a very pleasant 53-year-old lady, in no apparent respiratory distress. Alert and oriented x4. HEENT: Atraumatic, normocephalic. Anicteric. Pupils are equal, round, and reactive to light and accommodation. Extraocular muscles intact. NECK: JVP less than 5 cm. No carotid bruit. Carotid upstroke is 2+ bilaterally. CARDIOVASCULAR: Normal S1, S2. No murmurs, gallops, or rubs. PMI is at fourth intercostal space at the midclavicular line. LUNGS: Bilateral rhonchi with prolonged expiratory phase. ABDOMEN: Soft, nontender, and nondistended. No hepatosplenomegaly. Positive bowel sounds. EXTREMITIES: No evidence of edema, clubbing, or cyanosis. Isac Laguna MD Jul 05, 2018 23:18
[2018-07-06] VITALS (8 sets, daily range): BP systolic 103–130; BP diastolic 62–89
[2018-07-06] MEDS: HYDROcodone/Acetamin 10/325 tab ORAL PRN ×5 (02:28→20:18)
--- NOTE | 2018-07-06 07:56 | NUR ---
NURSE NOTES: AWAKE/ALERT. NO SOB. PAIN SCALE 9/10. IN NO DISTRESS.
[2018-07-06] MEDS: Aspirin EC 81mg tab ORAL SCH (08:41)
[2018-07-06] MEDS: BuPROPion XL 150mg tab ORAL SCH (08:41)
[2018-07-06] MEDS: guaiFENesin ER 600mg tab ORAL SCH ×2 (08:42→17:29)
[2018-07-06] MEDS: Docusate 100mg cap ORAL SCH ×2 (08:42→17:30)
[2018-07-06] MEDS: Levofloxacin 500mg tab ORAL SCH (08:42)
[2018-07-06] MEDS: dilTIAZem HCl 30mg tab ORAL SCH ×3 (08:42→17:30)
[2018-07-06] MEDS: Advair 250/50 Inhaler - 14 dose INH SCH ×2 (09:43→20:46)
--- NOTE | 2018-07-06 10:40 | General Progress Note ---
Assessment/Plan Problem List: (1) Asthma exacerbation ICD Codes: J45.901 - Unspecified asthma with (acute) exacerbation SNOMED: 896310741 (2) Sickle cell disease ICD Codes: D57.1 - Sickle cell disease SNOMED: 246712742 (3) Lumbar spondylosis ICD Codes: M47.816 - Spondylosis without myelopathy or radiculopathy, lumbar region SNOMED: 414362886 Status: stable Assessment/Plan Will continue [place]. Subjective ROS Limited/Unobtainable: Yes Allergies: Coded Allergies: PENICILLINS (Verified Allergy, Unknown, 10/09/12) Subjective Pt is stable on [place]. Objective Last 24 Hour Vital Signs Date Time Temp Pulse Resp B/P (MAP) Pulse Ox O2 Delivery O2 Flow Rate FiO2 07/06/18 09:43 91 15 95 Room Air 21 07/06/18 09:43 91 15 95 Room Air 21 07/06/18 09:00 Room Air 07/06/18 08:42 86 120/74 07/06/18 08:00 97.9 86 19 120/74 (89) 97 07/06/18 06:57 97.7 07/06/18 04:00 98.7 102 18 103/66 (78) 97 07/06/18 00:00 97.7 96 18 117/67 (84) 97 07/05/18 23:21 105 18 100 Room Air 21 07/05/18 23:00 93 22 96 Room Air 21 07/05/18 21:00 Room Air 07/05/18 20:00 99.1 100 19 129/74 (92) 97 07/05/18 19:24 103 18 99 Room Air 21 07/05/18 19:23 103 18 99 Room Air 21 07/05/18 19:23 103 18 100 Room Air 21 07/05/18 19:05 102 22 99 Room Air 21 07/05/18 17:08 113 129/97 07/05/18 16:00 98.4 113 18 129/97 (108) 98 07/05/18 15:14 99 16 97 Room Air 21 07/05/18 15:04 101 20 97 Room Air 21 07/05/18 12:48 97 128/79 07/05/18 12:00 98.6 97 18 128/79 (95) 99 07/05/18 11:29 100 18 99 Room Air 21 07/05/18 11:20 106 18 96 Room Air 21 Intake and Output 07/05/18 07/06/18 19:00 07:00 Intake Total 1172 ml 480 ml Balance 1172 ml 480 ml Intake Oral 1172 ml 480 ml # Voids 3 Height (Feet): 5 Height (Inches): 4.00 Weight (Pounds): 152 General Appearance: WD/WN EENT: PERRL/EOMI Cardiovascular: normal rate Respiratory/Chest: lungs clear Abdomen: soft Edema: no edema noted Arm (L), no edema noted Arm (R), no edema noted Leg (L), no edema noted Leg (R), no edema noted Pedal (L), no edema noted Pedal (R), no edema noted Generalized Cadence Hui MD Jul 06, 2018 10:40
[2018-07-06 14:49] LABS: HEMATOCRIT 37.9 % (37.0-47.0); HEMOGLOBIN 12.1 G/DL (12.0-16.0); MEAN CORPUSCULAR VOLUME 91 FL (80-99); PLATELET COUNT 351 K/UL (150-450); RED BLOOD COUNT 4.16 M/UL (4.20-5.40); RED CELL DISTRIBUTION WIDTH 11.9 % (11.6-14.8)
--- NOTE | 2018-07-06 14:50 | NUR ---
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 98.7 HR 106 RR 20 B/P 121/71 RA 97% IS: PREDNISONE PO LEVAQUIN PO SEROQUEL PO PROTONIX PO CARDIZEM PO MED/SURG STATUS
[2018-07-06 15:00] LABS: ANION GAP 9 mmol/L (5-15); BLOOD UREA NITROGEN 22 mg/dL (7-18); CALCIUM 8.9 MG/DL (8.5-10.1); CARBON DIOXIDE 28 MMOL/L (21-32); CHLORIDE 104 MMOL/L (98-107); CREATININE 1.1 MG/DL (0.55-1.30); POTASSIUM 4.7 MMOL/L (3.5-5.1); SODIUM 141 MMOL/L (136-145)
--- NOTE | 2018-07-06 15:11 | Infectious Diseases Prog Note ---
Assessment/Plan Assessment/Plan A: Chronic obstructive pulmonary disease and asthma exacerbation, tachycardia resolving anxiety, hypertension, penicillin allergy. Sickle cell trait P: discontinue Levaquin Observe off antibiotic Subjective ROS Limited/Unobtainable: No Constitutional: Reports: no symptoms Respiratory: Reports: productive cough Cardiovascular: Reports: no symptoms Gastrointestinal/Abdominal: Reports: no symptoms Genitourinary: Reports: no symptoms Allergies: Coded Allergies: PENICILLINS (Verified Allergy, Unknown, 10/09/12) Objective Vital Signs Last 24 Hour Vital Signs Date Time Temp Pulse Resp B/P (MAP) Pulse Ox O2 Delivery O2 Flow Rate FiO2 07/06/18 12:39 106 121/74 07/06/18 12:20 97.9 07/06/18 12:00 98.7 106 20 121/74 (90) 97 07/06/18 09:43 91 15 95 Room Air 21 07/06/18 09:43 91 15 95 Room Air 21 07/06/18 09:00 Room Air 07/06/18 08:42 86 120/74 07/06/18 08:00 97.9 86 19 120/74 (89) 97 07/06/18 04:00 98.7 102 18 103/66 (78) 97 07/06/18 00:00 97.7 96 18 117/67 (84) 97 07/05/18 23:21 105 18 100 Room Air 21 07/05/18 23:00 93 22 96 Room Air 21 07/05/18 21:00 Room Air 07/05/18 20:00 99.1 100 19 129/74 (92) 97 07/05/18 19:24 103 18 99 Room Air 21 07/05/18 19:23 103 18 99 Room Air 21 07/05/18 19:23 103 18 100 Room Air 21 07/05/18 19:05 102 22 99 Room Air 21 07/05/18 17:08 113 129/97 07/05/18 16:00 98.4 113 18 129/97 (108) 98 07/05/18 15:14 99 16 97 Room Air 21 Height (Feet): 5 Height (Inches): 4.00 Weight (Pounds): 152 General Appearance: no acute distress HEENT: mucous membranes moist Respiratory/Chest: lungs clear Cardiovascular: tachycardia Abdomen: soft, non tender Extremities: no edema Neurologic/Psychiatric: alert, oriented x 3, responsive Laboratory Tests Test 07/06/18 14:20 White Blood Count 12.0 K/UL (4.8-10.8) H Red Blood Count 4.16 M/UL (4.20-5.40) L Hemoglobin 12.1 G/DL (12.0-16.0) Hematocrit 37.9 % (37.0-47.0) Mean Corpuscular Volume 91 FL (80-99) Mean Corpuscular Hemoglobin 29.1 PG (27.0-31.0) Mean Corpuscular Hemoglobin Concent 31.9 G/DL (32.0-36.0) L Red Cell Distribution Width 11.9 % (11.6-14.8) Platelet Count 351 K/UL (150-450) Mean Platelet Volume 5.3 FL (6.5-10.1) L Neutrophils (%) (Auto) % (45.0-75.0) Lymphocytes (%) (Auto) % (20.0-45.0) Monocytes (%) (Auto) % (1.0-10.0) Eosinophils (%) (Auto) % (0.0-3.0) Basophils (%) (Auto) % (0.0-2.0) Neutrophils % (Manual) Pending Lymphocytes % (Manual) Pending Platelet Estimate Pending Platelet Morphology Pending Sodium Level 141 MMOL/L (136-145) Potassium Level 4.7 MMOL/L (3.5-5.1) Chloride Level 104 MMOL/L (98-107) Carbon Dioxide Level 28 MMOL/L (21-32) Anion Gap 9 mmol/L (5-15) Blood Urea Nitrogen 22 mg/dL (7-18) H Creatinine 1.1 MG/DL (0.55-1.30) Estimat Glomerular Filtration Rate > 60 mL/min (>60) Glucose Level 157 MG/DL (74-106) H Calcium Level 8.9 MG/DL (8.5-10.1) Current Medications Medications (Trade) Dose Ordered Sig/Yadira Route PRN Reason Start Time Stop Time Status Last Admin Dose Admin Acetaminophen (Tylenol) 650 mg Q4H PRN ORAL For Pain Level <=5 07/01/18 00:15 07/31/18 00:14 Acetaminophen/ Hydrocodone Bitart ([place] 10/325) 1 tab Q4H PRN ORAL Severe Pain (Pain Scale 7-10) 07/01/18 09:15 07/08/18 09:14 07/06/18 11:50 Aspirin (Ecotrin) 81 mg DAILY ORAL 07/04/18 09:00 08/03/18 08:59 07/06/18 08:41 Bupropion HCl (Wellbutrin XL) 150 mg DAILY ORAL 07/01/18 09:00 07/31/18 08:59 07/06/18 08:41 Clonidine HCl (Catapres Tab) 0.1 mg EVERY 6 HOURS PRN ORAL For High Blood Pressure 07/01/18 00:15 07/31/18 00:14 Diazepam (Valium) 7.5 mg Q8H PRN ORAL For Anxiety 07/03/18 13:04 07/10/18 13:03 07/06/18 12:45 Diltiazem HCl (Cardizem) 30 mg TID ORAL 07/01/18 01:00 07/31/18 00:59 07/06/18 12:39 Docusate Sodium (Colace) 100 mg BID ORAL 07/01/18 09:00 07/31/18 08:59 07/06/18 08:42 Ferrous Sulfate (Feosol) 325 mg DAILY ORAL 07/01/18 09:00 07/31/18 08:59 07/06/18 08:41 Folic Acid (Folate) 1 mg DAILY ORAL 07/01/18 09:00 07/31/18 08:59 07/06/18 08:42 Gabapentin (Neurontin) 300 mg TID ORAL 07/01/18 09:00 07/31/18 08:59 07/06/18 12:39 Guaifenesin (Mucinex ER) 600 mg TWICE A DAY ORAL 07/03/18 18:00 08/02/18 17:59 07/06/18 08:42 Levofloxacin (Levaquin) 500 mg DAILY ORAL 07/02/18 09:00 07/06/18 23:59 07/06/18 08:42 Pantoprazole (Protonix) 40 mg ACBREAKFAST ORAL 07/01/18 06:30 07/31/18 06:29 07/06/18 06:27 Prednisone (predniSONE) 40 mg DAILY ORAL 07/06/18 09:00 08/05/18 08:59 07/06/18 09:00 Quetiapine Fumarate (SEROquel) 400 mg QHS ORAL 07/01/18 21:00 07/31/18 20:59 07/05/18 20:15 Salmeterol Xinafoate/ Fluticasone (Advair 250/50 Diskus) 1 puffs BID INH 07/03/18 18:00 08/02/18 17:59 07/06/18 09:43 Emeka Macario MD Jul 06, 2018 15:10
--- NOTE | 2018-07-06 15:37 | Pulmonology Progress Note ---
Assessment/Plan Assessment/Plan Pulmonary Progress Note Assessment/Plan Assessment/Plan 53 y/o female w/ asthma exacerbation, likely viral. Problem List: 1. Acute asthma exacerbation 2. Viral tracheobronchitis 3. Tachycardia 4. Sickle cell trait 5. Intermittent facial swelling Plan: -solumedrol 60 mg IV qday wean as tolerated -abx per ID -HHN q4 -Advair 250/50 bid -mucinex 600 mg bid Subjective ROS Limited/Unobtainable: No Interval Events: still coughing and wheezing. No fevers. Clear sputum Constitutional: Reports: no symptoms HEENT: Repors: no symptoms Respiratory: Reports: productive cough, wheezing Cardiovascular: Reports: no symptoms Gastrointestinal/Abdominal: Reports: no symptoms Genitourinary: Reports: no symptoms Skin: Reports: no symptoms Endocrine: Reports: no symptoms Allergies: Coded Allergies: PENICILLINS (Verified Allergy, Unknown, 10/09/12) All Systems: reviewed and negative except above Objective Vital Signs Noted General Appearance: no acute distress HEENT: normocephalic, mucous membranes moist Respiratory/Chest: expiratory wheezing Cardiovascular: normal rate, regular rhythm Abdomen: soft, non tender Extremities: no edema Skin: no rash Neurologic/Psychiatric: rn patient services II-XII grossly normal Microbiology Date/Time Source Procedure Growth Status 06/30/18 19:40 Nasal Nares Influenza Types A,B Antigen (ZACH) - Final Complete Current Medications Medications (Trade) Dose Ordered Sig/Yadira Route PRN Reason Start Time Stop Time Status Last Admin Dose Admin Acetaminophen (Tylenol) 650 mg Q4H PRN ORAL For Pain Level <=5 07/01/18 00:15 07/31/18 00:14 Acetaminophen/ Hydrocodone Bitart ([place] 10/325) 1 tab Q4H PRN ORAL Severe Pain (Pain Scale 7-10) 07/01/18 09:15 07/08/18 09:14 07/03/18 07:13 Albuterol/ Ipratropium (Albuterol/ Ipratropium) 3 ml Q4H PRN HHN shortness of breath/wheezing 07/01/18 00:30 07/06/18 00:29 Albuterol/ Ipratropium (Albuterol/ Ipratropium) 3 ml Q4HRT HHN 07/01/18 03:00 07/06/18 02:59 07/03/18 08:23 Bupropion HCl (Wellbutrin XL) 150 mg DAILY ORAL 07/01/18 09:00 07/31/18 08:59 07/03/18 08:56 Clonidine HCl (Catapres Tab) 0.1 mg EVERY 6 HOURS PRN ORAL For High Blood Pressure 07/01/18 00:15 07/31/18 00:14 Diltiazem HCl (Cardizem) 30 mg TID ORAL 07/01/18 01:00 07/31/18 00:59 07/03/18 08:57 Docusate Sodium (Colace) 100 mg BID ORAL 07/01/18 09:00 07/31/18 08:59 07/03/18 08:56 Ferrous Sulfate (Feosol) 325 mg DAILY ORAL 07/01/18 09:00 07/31/18 08:59 07/03/18 08:56 Folic Acid (Folate) 1 mg DAILY ORAL 07/01/18 09:00 07/31/18 08:59 07/03/18 08:56 Gabapentin (Neurontin) 300 mg TID ORAL 07/01/18 09:00 07/31/18 08:59 07/03/18 08:56 Levofloxacin (Levaquin) 500 mg DAILY ORAL 07/02/18 09:00 07/09/18 08:59 07/03/18 08:56 Methylprednisolone Sodium Succinate (Solu-MEDROL) 60 mg DAILY IVP 07/02/18 09:00 08/01/18 08:59 07/03/18 08:57 Pantoprazole (Protonix) 40 mg ACBREAKFAST ORAL 07/01/18 06:30 07/31/18 06:29 07/03/18 05:47 Quetiapine Fumarate (SEROquel) 400 mg QHS ORAL 07/01/18 21:00 07/31/18 20:59 07/02/18 20:33 Subjective ROS Limited/Unobtainable: No Allergies: Coded Allergies: PENICILLINS (Verified Allergy, Unknown, 10/09/12) Objective Last 24 Hour Vital Signs Date Time Temp Pulse Resp B/P (MAP) Pulse Ox O2 Delivery O2 Flow Rate FiO2 07/06/18 12:39 106 121/74 07/06/18 12:20 97.9 07/06/18 12:00 98.7 106 20 121/74 (90) 97 1/21/19 09:43 91 15 95 Room Air 21 07/06/18 09:43 91 15 95 Room Air 21 07/06/18 09:00 Room Air 07/06/18 08:42 86 120/74 07/06/18 08:00 97.9 86 19 120/74 (89) 97 07/06/18 04:00 98.7 102 18 103/66 (78) 97 07/06/18 00:00 97.7 96 18 117/67 (84) 97 07/05/18 23:21 105 18 100 Room Air 21 07/05/18 23:00 93 22 96 Room Air 21 07/05/18 21:00 Room Air 07/05/18 20:00 99.1 100 19 129/74 (92) 97 07/05/18 19:24 103 18 99 Room Air 21 07/05/18 19:23 103 18 99 Room Air 21 07/05/18 19:23 103 18 100 Room Air 21 07/05/18 19:05 102 22 99 Room Air 21 07/05/18 17:08 113 129/97 07/05/18 16:00 98.4 113 18 129/97 (108) 98 Intake and Output 07/05/18 07/06/18 19:00 07:00 Intake Total 1172 ml 480 ml Balance 1172 ml 480 ml Intake Oral 1172 ml 480 ml # Voids 3 Laboratory Tests 07/06/18 14:20: White Blood Count 12.0H, Red Blood Count 4.16L, Hemoglobin 12.1, Hematocrit 37.9 , Mean Corpuscular Volume 91, Mean Corpuscular Hemoglobin 29.1, Mean Corpuscular Hemoglobin Concent 31.9L, Red Cell Distribution Width 11.9, Platelet Count 351, Mean Platelet Volume 5.3L, Neutrophils (%) (Auto) , Lymphocytes (%) (Auto) , Monocytes (%) (Auto) , Eosinophils (%) (Auto) , Basophils (%) (Auto) , Differential Total Cells Counted 100, Neutrophils % ( Manual) 85H, Lymphocytes % (Manual) 9L, Monocytes % (Manual) 3, Eosinophils % ( Manual) 0, Basophils % (Manual) 1, Band Neutrophils 2, Platelet Estimate Adequate, Platelet Morphology Normal, Red Blood Cell Morphology Normal, Sodium Level 141, Potassium Level 4.7, Chloride Level 104, Carbon Dioxide Level 28, Anion Gap 9, Blood Urea Nitrogen 22H, Creatinine 1.1, Estimat Glomerular Filtration Rate > 60, Glucose Level 157H, Calcium Level 8.9 Current Medications Medications (Trade) Dose Ordered Sig/Yadira Route PRN Reason Start Time Stop Time Status Last Admin Dose Admin Acetaminophen (Tylenol) 650 mg Q4H PRN ORAL For Pain Level <=5 07/01/18 00:15 07/31/18 00:14 Acetaminophen/ Hydrocodone Bitart ([place] 10/325) 1 tab Q4H PRN ORAL Severe Pain (Pain Scale 7-10) 07/01/18 09:15 07/08/18 09:14 07/06/18 11:50 Aspirin (Ecotrin) 81 mg DAILY ORAL 07/04/18 09:00 08/03/18 08:59 07/06/18 08:41 Bupropion HCl (Wellbutrin XL) 150 mg DAILY ORAL 07/01/18 09:00 07/31/18 08:59 07/06/18 08:41 Clonidine HCl (Catapres Tab) 0.1 mg EVERY 6 HOURS PRN ORAL For High Blood Pressure 07/01/18 00:15 07/31/18 00:14 Diazepam (Valium) 7.5 mg Q8H PRN ORAL For Anxiety 07/03/18 13:04 07/10/18 13:03 07/06/18 12:45 Diltiazem HCl (Cardizem) 30 mg TID ORAL 07/01/18 01:00 07/31/18 00:59 07/06/18 12:39 Docusate Sodium (Colace) 100 mg BID ORAL 07/01/18 09:00 07/31/18 08:59 07/06/18 08:42 Ferrous Sulfate (Feosol) 325 mg DAILY ORAL 07/01/18 09:00 07/31/18 08:59 07/06/18 08:41 Folic Acid (Folate) 1 mg DAILY ORAL 07/01/18 09:00 07/31/18 08:59 07/06/18 08:42 Gabapentin (Neurontin) 300 mg TID ORAL 07/01/18 09:00 07/31/18 08:59 07/06/18 12:39 Guaifenesin (Mucinex ER) 600 mg TWICE A DAY ORAL 07/03/18 18:00 08/02/18 17:59 07/06/18 08:42 Pantoprazole (Protonix) 40 mg ACBREAKFAST ORAL 07/01/18 06:30 07/31/18 06:29 07/06/18 06:27 Prednisone (predniSONE) 40 mg DAILY ORAL 07/06/18 09:00 08/05/18 08:59 07/06/18 09:00 Quetiapine Fumarate (SEROquel) 400 mg QHS ORAL 07/01/18 21:00 07/31/18 20:59 07/05/18 20:15 Salmeterol Xinafoate/ Fluticasone (Advair 250/50 Diskus) 1 puffs BID INH 07/03/18 18:00 08/02/18 17:59 07/06/18 09:43 Enzo Lombardo MD Jul 06, 2018 15:37
--- NOTE | 2018-07-06 18:13 | NUR ---
NURSE NOTES: SPOKE WITH ADRIENNE ESPINOSA RE :PRE AND POST PEAK FLOW READING.
--- NOTE | 2018-07-06 19:01 | NUR ---
HAND-OFF: Report given to Louisa STEINER LVN.
--- NOTE | 2018-07-06 19:01 | NUR ---
NURSE NOTES: quiet in bed. in no apparent resp distress.
--- NOTE | 2018-07-06 19:01 | NUR ---
NURSE NOTES:Patient received from Lorraine Schroeder . Patient in bed A/A/OX4 . NO sob / no n/v noted at this time RFA g# 20 H/L Patent and intact . Bilateral lower extremities SCDS in placed . call light within reach .bed in low position at all times . will continue to monitor.
--- NOTE | 2018-07-06 21:11 | General Progress Note ---
Assessment/Plan Problem List: (1) Anxiety ICD Codes: F41.9 - Anxiety disorder, unspecified SNOMED: 56262082 Assessment/Plan seroquel 400mg qhs welbutrin 150mg qam valium prn provided ro/st valium prn Subjective Neurologic/Psychiatric: Reports: anxiety, depressed, emotional problems Allergies: Coded Allergies: PENICILLINS (Verified Allergy, Unknown, 10/09/12) Objective Last 24 Hour Vital Signs Date Time Temp Pulse Resp B/P (MAP) Pulse Ox O2 Delivery O2 Flow Rate FiO2 07/06/18 20:46 100 22 98 Room Air 21 07/06/18 20:46 100 22 98 Room Air 21 07/06/18 17:30 105 130/89 07/06/18 16:45 97.9 07/06/18 16:00 98.3 105 20 130/89 (103) 97 07/06/18 12:39 106 121/74 07/06/18 12:00 98.7 106 20 121/74 (90) 97 07/06/18 09:43 91 15 95 Room Air 21 07/06/18 09:43 91 15 95 Room Air 21 07/06/18 09:00 Room Air 07/06/18 08:42 86 120/74 07/06/18 08:00 97.9 86 19 120/74 (89) 97 07/06/18 04:00 98.7 102 18 103/66 (78) 97 07/06/18 00:00 97.7 96 18 117/67 (84) 97 07/05/18 23:21 105 18 100 Room Air 21 07/05/18 23:00 93 22 96 Room Air 21 Intake and Output 07/05/18 07/06/18 18:59 06:59 Intake Total 1172 ml 480 ml Balance 1172 ml 480 ml Intake Oral 1172 ml 480 ml # Voids 3 Laboratory Tests 07/06/18 14:20: White Blood Count 12.0H, Red Blood Count 4.16L, Hemoglobin 12.1, Hematocrit 37.9 , Mean Corpuscular Volume 91, Mean Corpuscular Hemoglobin 29.1, Mean Corpuscular Hemoglobin Concent 31.9L, Red Cell Distribution Width 11.9, Platelet Count 351, Mean Platelet Volume 5.3L, Neutrophils (%) (Auto) , Lymphocytes (%) (Auto) , Monocytes (%) (Auto) , Eosinophils (%) (Auto) , Basophils (%) (Auto) , Differential Total Cells Counted 100, Neutrophils % ( Manual) 85H, Lymphocytes % (Manual) 9L, Monocytes % (Manual) 3, Eosinophils % ( Manual) 0, Basophils % (Manual) 1, Band Neutrophils 2, Platelet Estimate Adequate, Platelet Morphology Normal, Red Blood Cell Morphology Normal, Sodium Level 141, Potassium Level 4.7, Chloride Level 104, Carbon Dioxide Level 28, Anion Gap 9, Blood Urea Nitrogen 22H, Creatinine 1.1, Estimat Glomerular Filtration Rate > 60, Glucose Level 157H, Calcium Level 8.9 Height (Feet): 5 Height (Inches): 4.00 Weight (Pounds): 152 General Appearance: WD/WN, no apparent distress, alert Neurologic: oriented x 3, responsive, depressed affect Rolo Hamilton MD Jul 06, 2018 21:11
--- NOTE | 2018-07-06 21:47 | General Progress Note ---
Assessment/Plan Problem List: (1) Edema ICD Codes: R60.9 - Edema SNOMED: 571261607 (2) Dehydration ICD Codes: E86.0 - Dehydration SNOMED: 13446050 (3) Sickle cell disease ICD Codes: D57.1 - Sickle cell disease SNOMED: 625527221 (4) Asthma exacerbation ICD Codes: J45.901 - Unspecified asthma with (acute) exacerbation SNOMED: 392175532 (5) Constipation ICD Codes: K59.00 - Constipation, unspecified SNOMED: 52147988 (6) Pain ICD Codes: R52 - Pain SNOMED: 00602070 (7) COPD exacerbation ICD Codes: J44.1 - COPD exacerbation SNOMED: 076635520 Status: progressing Assessment/Plan asthma exacerbation is improving resp insuff chronic pain dehyration improving no wheezing dc in am Subjective ROS Limited/Unobtainable: Yes Allergies: Coded Allergies: PENICILLINS (Verified Allergy, Unknown, 10/09/12) Objective Last 24 Hour Vital Signs Date Time Temp Pulse Resp B/P (MAP) Pulse Ox O2 Delivery O2 Flow Rate FiO2 07/06/18 21:00 Room Air 07/06/18 20:48 97.9 07/06/18 20:46 100 22 98 Room Air 21 07/06/18 20:46 100 22 98 Room Air 21 07/06/18 17:30 105 130/89 07/06/18 16:00 98.3 105 20 130/89 (103) 97 07/06/18 12:39 106 121/74 07/06/18 12:00 98.7 106 20 121/74 (90) 97 07/06/18 09:43 91 15 95 Room Air 21 07/06/18 09:43 91 15 95 Room Air 21 07/06/18 09:00 Room Air 07/06/18 08:42 86 120/74 07/06/18 08:00 97.9 86 19 120/74 (89) 97 07/06/18 04:00 98.7 102 18 103/66 (78) 97 07/06/18 00:00 97.7 96 18 117/67 (84) 97 07/05/18 23:21 105 18 100 Room Air 21 07/05/18 23:00 93 22 96 Room Air 21 Intake and Output 07/05/18 07/06/18 18:59 06:59 Intake Total 1172 ml 480 ml Balance 1172 ml 480 ml Intake Oral 1172 ml 480 ml # Voids 3 Laboratory Tests 07/06/18 14:20: White Blood Count 12.0H, Red Blood Count 4.16L, Hemoglobin 12.1, Hematocrit 37.9 , Mean Corpuscular Volume 91, Mean Corpuscular Hemoglobin 29.1, Mean Corpuscular Hemoglobin Concent 31.9L, Red Cell Distribution Width 11.9, Platelet Count 351, Mean Platelet Volume 5.3L, Neutrophils (%) (Auto) , Lymphocytes (%) (Auto) , Monocytes (%) (Auto) , Eosinophils (%) (Auto) , Basophils (%) (Auto) , Differential Total Cells Counted 100, Neutrophils % ( Manual) 85H, Lymphocytes % (Manual) 9L, Monocytes % (Manual) 3, Eosinophils % ( Manual) 0, Basophils % (Manual) 1, Band Neutrophils 2, Platelet Estimate Adequate, Platelet Morphology Normal, Red Blood Cell Morphology Normal, Sodium Level 141, Potassium Level 4.7, Chloride Level 104, Carbon Dioxide Level 28, Anion Gap 9, Blood Urea Nitrogen 22H, Creatinine 1.1, Estimat Glomerular Filtration Rate > 60, Glucose Level 157H, Calcium Level 8.9 Height (Feet): 5 Height (Inches): 4.00 Weight (Pounds): 152 Neck: supple Cardiovascular: normal rate Respiratory/Chest: lungs clear Abdomen: soft Nahum King MD Jul 06, 2018 21:47
--- NOTE | 2018-07-06 22:47 | Cardiology Progress Note ---
Assessment/Plan Assessment/Plan 1. Dyspnea, most likely secondary to acute exacerbation of asthma. Continue IV ABx, breathing treatment, pulmonary toilet, and steroids,2D echocardiography showed normal LV systolic function with LVEF estimated at 65 to 70%. 2. Moderate pulmonary hypertension. 3. History of asthma. 4. History of hypertension. Subjective Subjective Not on the telemetry unit. No cardiac events noted. Objective Last 24 Hour Vital Signs Date Time Temp Pulse Resp B/P (MAP) Pulse Ox O2 Delivery O2 Flow Rate FiO2 07/06/18 21:00 Room Air 07/06/18 20:48 97.9 07/06/18 20:46 100 22 98 Room Air 21 07/06/18 20:46 100 22 98 Room Air 21 07/06/18 20:00 99.0 96 20 108/62 (77) 96 07/06/18 17:30 105 130/89 07/06/18 16:00 98.3 105 20 130/89 (103) 97 07/06/18 12:39 106 121/74 07/06/18 12:00 98.7 106 20 121/74 (90) 97 07/06/18 09:43 91 15 95 Room Air 21 07/06/18 09:43 91 15 95 Room Air 21 07/06/18 09:00 Room Air 07/06/18 08:42 86 120/74 07/06/18 08:00 97.9 86 19 120/74 (89) 97 07/06/18 04:00 98.7 102 18 103/66 (78) 97 07/06/18 00:00 97.7 96 18 117/67 (84) 97 07/05/18 23:21 105 18 100 Room Air 21 07/05/18 23:00 93 22 96 Room Air 21 Intake and Output 07/05/18 07/06/18 18:59 06:59 Intake Total 1172 ml 480 ml Balance 1172 ml 480 ml Intake Oral 1172 ml 480 ml # Voids 3 2D Echo: LVEF 65%, Mild LVH, RVSP 46 mmHg, Grade I LVDD Laboratory Tests Test 07/06/18 14:20 White Blood Count 12.0 K/UL (4.8-10.8) H Red Blood Count 4.16 M/UL (4.20-5.40) L Hemoglobin 12.1 G/DL (12.0-16.0) Hematocrit 37.9 % (37.0-47.0) Mean Corpuscular Volume 91 FL (80-99) Mean Corpuscular Hemoglobin 29.1 PG (27.0-31.0) Mean Corpuscular Hemoglobin Concent 31.9 G/DL (32.0-36.0) L Red Cell Distribution Width 11.9 % (11.6-14.8) Platelet Count 351 K/UL (150-450) Mean Platelet Volume 5.3 FL (6.5-10.1) L Neutrophils (%) (Auto) % (45.0-75.0) Lymphocytes (%) (Auto) % (20.0-45.0) Monocytes (%) (Auto) % (1.0-10.0) Eosinophils (%) (Auto) % (0.0-3.0) Basophils (%) (Auto) % (0.0-2.0) Differential Total Cells Counted 100 Neutrophils % (Manual) 85 % (45-75) H Lymphocytes % (Manual) 9 % (20-45) L Monocytes % (Manual) 3 % (1-10) Eosinophils % (Manual) 0 % (0-3) Basophils % (Manual) 1 % (0-2) Band Neutrophils 2 % (0-8) Platelet Estimate Adequate Platelet Morphology Normal Red Blood Cell Morphology Normal Sodium Level 141 MMOL/L (136-145) Potassium Level 4.7 MMOL/L (3.5-5.1) Chloride Level 104 MMOL/L (98-107) Carbon Dioxide Level 28 MMOL/L (21-32) Anion Gap 9 mmol/L (5-15) Blood Urea Nitrogen 22 mg/dL (7-18) H Creatinine 1.1 MG/DL (0.55-1.30) Estimat Glomerular Filtration Rate > 60 mL/min (>60) Glucose Level 157 MG/DL (74-106) H Calcium Level 8.9 MG/DL (8.5-10.1) Objective GENERAL: This is a very pleasant 53-year-old lady, in no apparent respiratory distress. Alert and oriented x4. HEENT: Atraumatic, normocephalic. Anicteric. Pupils are equal, round, and reactive to light and accommodation. Extraocular muscles intact. NECK: JVP less than 5 cm. No carotid bruit. Carotid upstroke is 2+ bilaterally. CARDIOVASCULAR: Normal S1, S2. No murmurs, gallops, or rubs. PMI is at fourth intercostal space at the midclavicular line. LUNGS: Bilateral rhonchi with prolonged expiratory phase. ABDOMEN: Soft, nontender, and nondistended. No hepatosplenomegaly. Positive bowel sounds. EXTREMITIES: No evidence of edema, clubbing, or cyanosis. Isca Laguna MD Jul 06, 2018 22:47
[2018-07-07] MEDS: HYDROcodone/Acetamin 10/325 tab ORAL PRN ×6 (00:22→20:56)
[2018-07-07 03:50] VITALS: BP 121/74
--- NOTE | 2018-07-07 07:15 | NUR ---
HAND-OFF: Report given to CADY Schroeder Patient in stable conditions.
--- NOTE | 2018-07-07 07:54 | NUR ---
NURSE NOTES: Report received from ARIANA Hdz. Pt in bed, awaking, eating breakfast, A/Ox4, talkative, complaining of 10/10 pain in back and right hip, burning feeling, relieved by repositioning, guided imagery, and medication. Gilda due at 0829, discussed pain medication schedule with pt, will bring at scheduled time, bed in lowest position, call light within reach.
[2018-07-07 08:00] VITALS: BP 111/70
[2018-07-07] MEDS: Aspirin EC 81mg tab ORAL SCH (08:33)
[2018-07-07] MEDS: BuPROPion XL 150mg tab ORAL SCH (08:33)
[2018-07-07] MEDS: guaiFENesin ER 600mg tab ORAL SCH ×2 (08:34→17:14)
[2018-07-07] MEDS: Docusate 100mg cap ORAL SCH ×2 (08:34→17:14)
[2018-07-07] MEDS: dilTIAZem HCl 30mg tab ORAL SCH ×3 (08:34→17:14)
--- NOTE | 2018-07-07 10:23 | General Progress Note ---
Assessment/Plan Problem List: (1) Asthma exacerbation ICD Codes: J45.901 - Unspecified asthma with (acute) exacerbation SNOMED: 998355501 (2) Sickle cell disease ICD Codes: D57.1 - Sickle cell disease SNOMED: 121285805 (3) Lumbar spondylosis ICD Codes: M47.816 - Spondylosis without myelopathy or radiculopathy, lumbar region SNOMED: 526645137 Status: doing well, stable Assessment/Plan Will continue Alba. Subjective Constitutional: Denies: no symptoms, chills, diaphoresis, fever, malaise, weakness, other HEENT: Denies: no symptoms, eye pain, blurred vision, tearing, double vision, ear pain, ear discharge, nose pain, nose congestion, throat pain, throat swelling, mouth pain, mouth swelling, other Cardiovascular: Denies: no symptoms, chest pain, edema, irregular heart rate, lightheadedness, palpitations, syncope, other Respiratory: Denies: no symptoms, cough, orthopnea, shortness of breath, SOB with excertion, SOB at rest, sputum, stridor, wheezing, other Gastrointestinal/Abdominal: Denies: no symptoms, abdomen distended, abdominal pain, black stools, tarry stools, blood in stool, constipated, diarrhea, difficulty swallowing, nausea, poor appetite, poor fluid intake, rectal bleeding , vomiting, other Genitourinary: Denies: no symptoms, burning, discharge, frequency, flank pain, hematuria, incontinence, pain, urgency, other Neurologic/Psychiatric: Denies: no symptoms, anxiety, depressed, emotional problems, headache, numbness, paresthesia, pre-existing deficit, seizure, tingling, tremors, weakness, other Endocrine: Denies: no symptoms, excessive sweating, flushing, intolerance to cold, intolerance to heat, increased hunger, increased thirst, increased urine, unexplained weight gain, unexplained weight loss, other Hematologic/Lymphatic: Denies: no symptoms, anemia, easy bleeding, easy bruising, other Allergies: Coded Allergies: PENICILLINS (Verified Allergy, Unknown, 10/09/12) Subjective Pt complains of back pain, right hip pain and body aching but is ok on current regimen of Alba. She doesn't inquire anything else and is stable. Objective Last 24 Hour Vital Signs Date Time Temp Pulse Resp B/P (MAP) Pulse Ox O2 Delivery O2 Flow Rate FiO2 07/07/18 09:00 Room Air 07/07/18 08:34 93 111/70 07/07/18 08:00 98.3 93 18 111/70 (84) 97 07/07/18 04:59 97.2 07/07/18 04:59 97.2 07/07/18 03:50 97.2 97 18 121/74 (90) 99 07/06/18 23:59 99.0 99 18 103/66 (78) 100 07/06/18 21:00 Room Air 07/06/18 20:46 100 22 98 Room Air 21 07/06/18 20:46 100 22 98 Room Air 21 07/06/18 20:00 99.0 96 20 108/62 (77) 96 07/06/18 17:30 105 130/89 07/06/18 16:00 98.3 105 20 130/89 (103) 97 07/06/18 12:39 106 121/74 07/06/18 12:00 98.7 106 20 121/74 (90) 97 Intake and Output 07/06/18 07/07/18 19:00 07:00 Intake Total 1190 ml 1100 ml Balance 1190 ml 1100 ml Intake Oral 1190 ml 1100 ml # Voids 6 # Bowel Movements 1 Laboratory Tests 07/06/18 14:20: White Blood Count 12.0H, Red Blood Count 4.16L, Hemoglobin 12.1, Hematocrit 37.9 , Mean Corpuscular Volume 91, Mean Corpuscular Hemoglobin 29.1, Mean Corpuscular Hemoglobin Concent 31.9L, Red Cell Distribution Width 11.9, Platelet Count 351, Mean Platelet Volume 5.3L, Neutrophils (%) (Auto) , Lymphocytes (%) (Auto) , Monocytes (%) (Auto) , Eosinophils (%) (Auto) , Basophils (%) (Auto) , Differential Total Cells Counted 100, Neutrophils % ( Manual) 85H, Lymphocytes % (Manual) 9L, Monocytes % (Manual) 3, Eosinophils % ( Manual) 0, Basophils % (Manual) 1, Band Neutrophils 2, Platelet Estimate Adequate, Platelet Morphology Normal, Red Blood Cell Morphology Normal, Sodium Level 141, Potassium Level 4.7, Chloride Level 104, Carbon Dioxide Level 28, Anion Gap 9, Blood Urea Nitrogen 22H, Creatinine 1.1, Estimat Glomerular Filtration Rate > 60, Glucose Level 157H, Calcium Level 8.9 Height (Feet): 5 Height (Inches): 4.00 Weight (Pounds): 152 General Appearance: WD/WN EENT: PERRL/EOMI Neck: non-tender Cardiovascular: normal rate Respiratory/Chest: lungs clear Abdomen: non tender, soft Edema: no edema noted Arm (L), no edema noted Arm (R), no edema noted Leg (L), no edema noted Leg (R), no edema noted Pedal (L), no edema noted Pedal (R), no edema noted Generalized Neurologic: microfilmer II-XII grossly normal, no motor/sensory deficits, alert, oriented x 3 Cadence Hui MD Jul 07, 2018 10:23
[2018-07-07] MEDS: Advair 250/50 Inhaler - 14 dose INH SCH ×2 (11:37→19:40)
[2018-07-07 12:00] VITALS: BP 131/83
--- NOTE | 2018-07-07 12:20 | NUR ---
RD ASSESSMENT & RECOMMENDATIONS SEE CARE ACTIVITY FOR COMPLETE ASSESSMENT DAILY ESTIMATED NEEDS: Needs based on Pulmonary 63.6kg 25-30 kcals/kg 8105-1032 total kcals 1-1.5 g protein/kg 64-95 g total protein 25-30 mL/kg 5574-8408 total fluid mLs NUTRITION DIAGNOSIS: Altered nutrition related lab values r/t hyperglycemia as evidenced by pt on solumedrol, elev BG (124-157) CURRENT DIET: Regular PO DIET RECOMMENDATIONS: Maintain Regular diet ADDITIONAL RECOMMENDATIONS: - Rec SSI , accuchecks-> Diet change to CCHO LOW w/ elev BG - Obtain a standing weight as able for accurate CBW - Monitor for continued good po intake
--- NOTE | 2018-07-07 12:27 | General Progress Note ---
Assessment/Plan Problem List: (1) Anxiety ICD Codes: F41.9 - Anxiety disorder, unspecified SNOMED: 13948078 Assessment/Plan seroquel 400mg qhs welbutrin 150mg qam valium prn provided ro/st valium prn Subjective Neurologic/Psychiatric: Reports: anxiety, depressed, emotional problems Allergies: Coded Allergies: PENICILLINS (Verified Allergy, Unknown, 10/09/12) Objective Last 24 Hour Vital Signs Date Time Temp Pulse Resp B/P (MAP) Pulse Ox O2 Delivery O2 Flow Rate FiO2 07/07/18 12:00 98.6 99 18 131/83 (99) 96 07/07/18 11:37 98 20 96 Room Air 21 07/07/18 11:37 100 20 96 Room Air 21 07/07/18 09:00 Room Air 07/07/18 08:34 93 111/70 07/07/18 08:00 98.3 93 18 111/70 (84) 97 07/07/18 04:59 97.2 07/07/18 04:59 97.2 07/07/18 03:50 97.2 97 18 121/74 (90) 99 07/06/18 23:59 99.0 99 18 103/66 (78) 100 07/06/18 21:00 Room Air 07/06/18 20:46 100 22 98 Room Air 21 07/06/18 20:46 100 22 98 Room Air 21 07/06/18 20:00 99.0 96 20 108/62 (77) 96 07/06/18 17:30 105 130/89 07/06/18 16:00 98.3 105 20 130/89 (103) 97 07/06/18 12:39 106 121/74 Intake and Output 07/06/18 07/07/18 19:00 07:00 Intake Total 1190 ml 1100 ml Balance 1190 ml 1100 ml Intake Oral 1190 ml 1100 ml # Voids 6 # Bowel Movements 1 Laboratory Tests 07/06/18 14:20: White Blood Count 12.0H, Red Blood Count 4.16L, Hemoglobin 12.1, Hematocrit 37.9 , Mean Corpuscular Volume 91, Mean Corpuscular Hemoglobin 29.1, Mean Corpuscular Hemoglobin Concent 31.9L, Red Cell Distribution Width 11.9, Platelet Count 351, Mean Platelet Volume 5.3L, Neutrophils (%) (Auto) , Lymphocytes (%) (Auto) , Monocytes (%) (Auto) , Eosinophils (%) (Auto) , Basophils (%) (Auto) , Differential Total Cells Counted 100, Neutrophils % ( Manual) 85H, Lymphocytes % (Manual) 9L, Monocytes % (Manual) 3, Eosinophils % ( Manual) 0, Basophils % (Manual) 1, Band Neutrophils 2, Platelet Estimate Adequate, Platelet Morphology Normal, Red Blood Cell Morphology Normal, Sodium Level 141, Potassium Level 4.7, Chloride Level 104, Carbon Dioxide Level 28, Anion Gap 9, Blood Urea Nitrogen 22H, Creatinine 1.1, Estimat Glomerular Filtration Rate > 60, Glucose Level 157H, Calcium Level 8.9 Height (Feet): 5 Height (Inches): 4.00 Weight (Pounds): 152 General Appearance: no apparent distress, alert Neurologic: oriented x 3, depressed affect Rolo Hamilton MD Jul 07, 2018 12:27
--- NOTE | 2018-07-07 15:31 | Pulmonology Progress Note ---
Assessment/Plan Assessment/Plan Pulmonary Progress Note Assessment/Plan Assessment/Plan 53 y/o female w/ asthma exacerbation, likely viral. Problem List: 1. Acute asthma exacerbation 2. Viral tracheobronchitis 3. Tachycardia 4. Sickle cell trait 5. Intermittent facial swelling - not currently Less SOB Plan: -Pfrednisone 40mg qday wean as tolerated -abx per ID -HHN q4 -Advair 250/50 bid -mucinex 600 mg bid Subjective ROS Limited/Unobtainable: No Interval Events: still coughing and wheezing. No fevers. Clear sputum Constitutional: Reports: no symptoms HEENT: Repors: no symptoms Respiratory: Reports: productive cough, wheezing Cardiovascular: Reports: no symptoms Gastrointestinal/Abdominal: Reports: no symptoms Genitourinary: Reports: no symptoms Skin: Reports: no symptoms Endocrine: Reports: no symptoms Allergies: Coded Allergies: PENICILLINS (Verified Allergy, Unknown, 10/09/12) All Systems: reviewed and negative except above Objective Vital Signs Noted General Appearance: no acute distress HEENT: normocephalic, mucous membranes moist Respiratory/Chest: expiratory wheezing Cardiovascular: normal rate, regular rhythm Abdomen: soft, non tender Extremities: no edema Skin: no rash 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 Microbiology Date/Time Source Procedure Growth Status 06/30/18 19:40 Nasal Nares Influenza Types A,B Antigen (ZACH) - Final Complete Current Medications Medications (Trade) Dose Ordered Sig/Yadira Route PRN Reason Start Time Stop Time Status Last Admin Dose Admin Acetaminophen (Tylenol) 650 mg Q4H PRN ORAL For Pain Level <=5 07/01/18 00:15 07/31/18 00:14 Acetaminophen/ Hydrocodone Bitart ([place] 10/325) 1 tab Q4H PRN ORAL Severe Pain (Pain Scale 7-10) 07/01/18 09:15 07/08/18 09:14 07/03/18 07:13 Albuterol/ Ipratropium (Albuterol/ Ipratropium) 3 ml Q4H PRN HHN shortness of breath/wheezing 07/01/18 00:30 07/06/18 00:29 Albuterol/ Ipratropium (Albuterol/ Ipratropium) 3 ml Q4HRT HHN 07/01/18 03:00 07/06/18 02:59 07/03/18 08:23 Bupropion HCl (Wellbutrin XL) 150 mg DAILY ORAL 07/01/18 09:00 07/31/18 08:59 07/03/18 08:56 Clonidine HCl (Catapres Tab) 0.1 mg EVERY 6 HOURS PRN ORAL For High Blood Pressure 07/01/18 00:15 07/31/18 00:14 Diltiazem HCl (Cardizem) 30 mg TID ORAL 07/01/18 01:00 07/31/18 00:59 07/03/18 08:57 Docusate Sodium (Colace) 100 mg BID ORAL 07/01/18 09:00 07/31/18 08:59 07/03/18 08:56 Ferrous Sulfate (Feosol) 325 mg DAILY ORAL 07/01/18 09:00 07/31/18 08:59 07/03/18 08:56 Folic Acid (Folate) 1 mg DAILY ORAL 07/01/18 09:00 07/31/18 08:59 07/03/18 08:56 Gabapentin (Neurontin) 300 mg TID ORAL 07/01/18 09:00 07/31/18 08:59 07/03/18 08:56 Levofloxacin (Levaquin) 500 mg DAILY ORAL 07/02/18 09:00 07/09/18 08:59 07/03/18 08:56 Methylprednisolone Sodium Succinate (Solu-MEDROL) 60 mg DAILY IVP 07/02/18 09:00 08/01/18 08:59 07/03/18 08:57 Pantoprazole (Protonix) 40 mg ACBREAKFAST ORAL 07/01/18 06:30 07/31/18 06:29 07/03/18 05:47 Quetiapine Fumarate (SEROquel) 400 mg QHS ORAL 07/01/18 21:00 07/31/18 20:59 07/02/18 20:33 Subjective ROS Limited/Unobtainable: No Allergies: Coded Allergies: PENICILLINS (Verified Allergy, Unknown, 10/09/12) Objective Last 24 Hour Vital Signs Date Time Temp Pulse Resp B/P (MAP) Pulse Ox O2 Delivery O2 Flow Rate FiO2 07/07/18 13:04 98.6 07/07/18 12:34 99 131/83 07/07/18 12:00 98.6 99 18 131/83 (99) 96 07/07/18 11:37 98 20 96 Room Air 21 07/07/18 11:37 100 20 96 Room Air 21 07/07/18 09:00 Room Air 07/07/18 08:34 93 111/70 07/07/18 08:00 98.3 93 18 111/70 (84) 97 07/07/18 04:59 97.2 07/07/18 03:50 97.2 97 18 121/74 (90) 99 07/06/18 23:59 99.0 99 18 103/66 (78) 100 07/06/18 21:00 Room Air 07/06/18 20:46 100 22 98 Room Air 21 07/06/18 20:46 100 22 98 Room Air 21 07/06/18 20:00 99.0 96 20 108/62 (77) 96 07/06/18 17:30 105 130/89 07/06/18 16:00 98.3 105 20 130/89 (103) 97 Intake and Output 07/06/18 07/07/18 19:00 07:00 Intake Total 1190 ml 1100 ml Balance 1190 ml 1100 ml Intake Oral 1190 ml 1100 ml # Voids 6 # Bowel Movements 1 Current Medications Medications (Trade) Dose Ordered Sig/Yadira Route PRN Reason Start Time Stop Time Status Last Admin Dose Admin Acetaminophen (Tylenol) 650 mg Q4H PRN ORAL For Pain Level <=5 07/01/18 00:15 07/31/18 00:14 Acetaminophen/ Hydrocodone Bitart ([place] 10/325) 1 tab Q4H PRN ORAL Severe Pain (Pain Scale 7-10) 07/01/18 09:15 07/08/18 09:14 07/07/18 12:34 Aspirin (Ecotrin) 81 mg DAILY ORAL 07/04/18 09:00 08/03/18 08:59 07/07/18 08:33 Bupropion HCl (Wellbutrin XL) 150 mg DAILY ORAL 07/01/18 09:00 07/31/18 08:59 07/07/18 08:33 Clonidine HCl (Catapres Tab) 0.1 mg EVERY 6 HOURS PRN ORAL For High Blood Pressure 07/01/18 00:15 07/31/18 00:14 Diazepam (Valium) 7.5 mg Q8H PRN ORAL For Anxiety 07/03/18 13:04 07/10/18 13:03 07/07/18 13:15 Diltiazem HCl (Cardizem) 30 mg TID ORAL 07/01/18 01:00 07/31/18 00:59 07/07/18 12:34 Docusate Sodium (Colace) 100 mg BID ORAL 07/01/18 09:00 07/31/18 08:59 07/07/18 08:34 Ferrous Sulfate (Feosol) 325 mg DAILY ORAL 07/01/18 09:00 07/31/18 08:59 07/07/18 08:34 Folic Acid (Folate) 1 mg DAILY ORAL 07/01/18 09:00 07/31/18 08:59 07/07/18 08:34 Gabapentin (Neurontin) 300 mg TID ORAL 07/01/18 09:00 07/31/18 08:59 07/07/18 12:34 Guaifenesin (Mucinex ER) 600 mg TWICE A DAY ORAL 07/03/18 18:00 08/02/18 17:59 07/07/18 08:34 Pantoprazole (Protonix) 40 mg ACBREAKFAST ORAL 07/01/18 06:30 07/31/18 06:29 07/07/18 06:02 Prednisone (predniSONE) 40 mg DAILY ORAL 07/06/18 09:00 08/05/18 08:59 07/07/18 08:34 Quetiapine Fumarate (SEROquel) 400 mg QHS ORAL 07/01/18 21:00 07/31/18 20:59 07/06/18 20:23 Salmeterol Xinafoate/ Fluticasone (Advair 250/50 Diskus) 1 puffs BID INH 07/03/18 18:00 08/02/18 17:59 07/07/18 11:37 Enzo Lombardo MD Jul 07, 2018 15:31
[2018-07-07 16:00] VITALS: BP 128/83
--- NOTE | 2018-07-07 19:20 | NUR ---
HAND-OFF: Report given to ARIANA Hdz. Pt stable.
--- NOTE | 2018-07-07 19:20 | NUR ---
NURSE NOTES:Patient received from Walker R.N. Patient A/A/AOX4 . patient denies any pain at this time . no sob / no n/v noted . patient son scds in placed . RFA G #20 H/L patent and intact . patient ambulated to bathroom and assisted back to bed . patient instructed to use call light when needed. will continue to monitor.
[2018-07-07 20:00] VITALS: BP 112/68
--- NOTE | 2018-07-07 20:56 | NUR ---
NURSE NOTES: patient c/o @20:56 pm back and right hip burning feeling. [place] 10 /325 mg po was given to patient . .patient re assess with good relief . discussed to patient pain medications schedule with patient ,will be given on scheduled time. will continue to monitor patient .
--- NOTE | 2018-07-07 21:21 | General Progress Note ---
Assessment/Plan Problem List: (1) Edema ICD Codes: R60.9 - Edema SNOMED: 874572009 (2) Dehydration ICD Codes: E86.0 - Dehydration SNOMED: 73805187 (3) Sickle cell disease ICD Codes: D57.1 - Sickle cell disease SNOMED: 268258025 (4) Asthma exacerbation ICD Codes: J45.901 - Unspecified asthma with (acute) exacerbation SNOMED: 140734484 (5) Constipation ICD Codes: K59.00 - Constipation, unspecified SNOMED: 99895896 (6) Pain ICD Codes: R52 - Pain SNOMED: 31783505 (7) COPD exacerbation ICD Codes: J44.1 - COPD exacerbation SNOMED: 280070574 Status: progressing Assessment/Plan asthma exacerbation is improving sickle cell resp insuff chronic pain edema improving Subjective Respiratory: Reports: SOB with excertion Allergies: Coded Allergies: PENICILLINS (Verified Allergy, Unknown, 10/09/12) Objective Last 24 Hour Vital Signs Date Time Temp Pulse Resp B/P (MAP) Pulse Ox O2 Delivery O2 Flow Rate FiO2 07/07/18 19:40 97 22 95 Room Air 21 07/07/18 19:40 96 22 96 Room Air 21 07/07/18 17:14 103 128/83 07/07/18 17:04 98.7 07/07/18 16:00 98.7 103 18 128/83 (98) 97 07/07/18 12:34 99 131/83 07/07/18 12:00 98.6 99 18 131/83 (99) 96 07/07/18 11:37 98 20 96 Room Air 21 07/07/18 11:37 100 20 96 Room Air 21 07/07/18 09:00 Room Air 07/07/18 08:34 93 111/70 07/07/18 08:00 98.3 93 18 111/70 (84) 97 07/07/18 04:59 97.2 07/07/18 03:50 97.2 97 18 121/74 (90) 99 07/06/18 23:59 99.0 99 18 103/66 (78) 100 Intake and Output 07/06/18 07/07/18 19:00 07:00 Intake Total 1190 ml 1100 ml Balance 1190 ml 1100 ml Intake Oral 1190 ml 1100 ml # Voids 6 # Bowel Movements 1 Height (Feet): 5 Height (Inches): 4.00 Weight (Pounds): 152 Cardiovascular: normal rate Respiratory/Chest: lungs clear Abdomen: soft Nahum King MD Jul 07, 2018 21:21
--- NOTE | 2018-07-07 23:09 | Cardiology Progress Note ---
Assessment/Plan Assessment/Plan 1. Dyspnea, most likely secondary to acute exacerbation of asthma. Continue IV ABx, breathing treatment, pulmonary toilet, and steroids,2D echocardiography showed normal LV systolic function with LVEF estimated at 65 to 70%. 2. Moderate pulmonary hypertension. 3. History of asthma. 4. History of hypertension. Subjective Subjective No cardiac events noted. Objective Last 24 Hour Vital Signs Date Time Temp Pulse Resp B/P (MAP) Pulse Ox O2 Delivery O2 Flow Rate FiO2 07/07/18 21:26 98.7 07/07/18 21:00 Room Air 07/07/18 20:00 99.0 88 20 112/68 (83) 96 07/07/18 19:40 97 22 95 Room Air 21 07/07/18 19:40 96 22 96 Room Air 21 07/07/18 17:14 103 128/83 07/07/18 16:00 98.7 103 18 128/83 (98) 97 07/07/18 12:34 99 131/83 07/07/18 12:00 98.6 99 18 131/83 (99) 96 07/07/18 11:37 98 20 96 Room Air 21 07/07/18 11:37 100 20 96 Room Air 21 07/07/18 09:00 Room Air 07/07/18 08:34 93 111/70 07/07/18 08:00 98.3 93 18 111/70 (84) 97 07/07/18 04:59 97.2 07/07/18 03:50 97.2 97 18 121/74 (90) 99 07/06/18 23:59 99.0 99 18 103/66 (78) 100 Intake and Output 07/06/18 07/07/18 19:00 07:00 Intake Total 1190 ml 1100 ml Balance 1190 ml 1100 ml Intake Oral 1190 ml 1100 ml # Voids 6 # Bowel Movements 1 2D Echo: LVEF 65%, Mild LVH, RVSP 46 mmHg, Grade I LVDD Objective GENERAL: This is a very pleasant 53-year-old lady, in no apparent respiratory distress. Alert and oriented x4. HEENT: Atraumatic, normocephalic. Anicteric. Pupils are equal, round, and reactive to light and accommodation. Extraocular muscles intact. NECK: JVP less than 5 cm. No carotid bruit. Carotid upstroke is 2+ bilaterally. CARDIOVASCULAR: Normal S1, S2. No murmurs, gallops, or rubs. PMI is at fourth intercostal space at the midclavicular line. LUNGS: Bilateral rhonchi with prolonged expiratory phase. ABDOMEN: Soft, nontender, and nondistended. No hepatosplenomegaly. Positive bowel sounds. EXTREMITIES: No evidence of edema, clubbing, or cyanosis. Isac Laguna MD Jul 07, 2018 23:09
[2018-07-08] VITALS: BP 112/72
[2018-07-08] MEDS: HYDROcodone/Acetamin 10/325 tab ORAL PRN ×4 (01:07→13:32)
[2018-07-08 04:00] VITALS: BP 110/69
--- NOTE | 2018-07-08 07:52 | NUR ---
HAND-OFF: Report given to ELIZABETH galloway R.N. Patient in stable condition.
--- NOTE | 2018-07-08 07:52 | NUR ---
NURSE NOTES: RN RT SKY, AWARE OF DR FUENTES'S ORDER FOR PEAK FLOW BEFORE AND AFTER BREATHING TREATMENTS.
[2018-07-08 08:00] VITALS: BP 140/85
[2018-07-08] MEDS: Advair 250/50 Inhaler - 14 dose INH SCH (08:20)
--- NOTE | 2018-07-08 08:32 | General Progress Note ---
Assessment/Plan Assessment/Plan (1) Right hip pain (2) H/o Right THR (3) Right hip OA (4) Sickle cell disease (5) Lumbar DDD (6) Lumbar Spondylosis Patient will be continued on the [place] D/w Dr. Hui and he concurred Subjective Date patient seen: Jul 08, 2018 Time patient seen: 07:15 - am Allergies: Coded Allergies: PENICILLINS (Verified Allergy, Unknown, 10/09/12) Subjective Constitutional: Reports: no symptoms HEENT: Reports: no symptoms Cardiovascular: Reports: no symptoms Respiratory: Reports: no symptoms Gastrointestinal/Abdominal: Reports: no symptoms Genitourinary: Reports: no symptoms Neurologic/Psychiatric: Reports: no symptoms Endocrine: Reports: no symptoms Hematologic/Lymphatic: Reports: no symptoms Subjective Patient is doing well and pain is tolerated on the [place]. She has no new complaints at this time. Objective Last 24 Hour Vital Signs Date Time Temp Pulse Resp B/P (MAP) Pulse Ox O2 Delivery O2 Flow Rate FiO2 07/08/18 08:25 94 18 97 Room Air 21 07/08/18 08:20 94 18 97 Room Air 21 07/08/18 06:01 98.7 07/08/18 04:00 98.6 98 20 110/69 (83) 97 07/08/18 00:00 98.7 100 18 112/72 (85) 96 07/07/18 21:00 Room Air 07/07/18 20:00 99.0 88 20 112/68 (83) 96 07/07/18 19:40 97 22 95 Room Air 07/07/18 19:40 96 22 96 Room Air 21 07/07/18 17:14 103 128/83 07/07/18 16:00 98.7 103 18 128/83 (98) 97 07/07/18 12:34 99 131/83 07/07/18 12:00 98.6 99 18 131/83 (99) 96 07/07/18 11:37 98 20 96 Room Air 21 07/07/18 11:37 100 20 96 Room Air 21 07/07/18 09:00 Room Air 07/07/18 08:34 93 111/70 Intake and Output 07/07/18 07/08/18 19:00 07:00 Intake Total 1400 ml 1360 ml Balance 1400 ml 1360 ml Intake Oral 1400 ml 1360 ml # Voids 6 Height (Feet): 5 Height (Inches): 4.00 Weight (Pounds): 152 Objective General Appearance: no apparent distress, alert EENT: PERRL/EOMI Neck: non-tender, normal alignment Cardiovascular: normal rate, regular rhythm Respiratory/Chest: decreased breath sounds Abdomen: non tender, soft Extremities: non-tender Edema: trace edema Neurologic: alert, oriented x 3 Skin: warm/dry Jose Martin Viramontes Jul 08, 2018 08:32
[2018-07-08] MEDS: Docusate 100mg cap ORAL SCH (08:54)
[2018-07-08] MEDS: guaiFENesin ER 600mg tab ORAL SCH (08:55)
[2018-07-08] MEDS: Aspirin EC 81mg tab ORAL SCH (08:55)
[2018-07-08] MEDS: dilTIAZem HCl 30mg tab ORAL SCH ×2 (08:55→13:32)
[2018-07-08] MEDS: BuPROPion XL 150mg tab ORAL SCH (08:55)
--- NOTE | 2018-07-08 09:34 | NUR ---
NURSE NOTES: DR ANGEL WITH ORDER FOR DISCHARGE IF CLEARED BY PULMONOLOGY. RESUME HOME MEDS AND D/C HOSPITAL MEDS UPON DISCHARGE.
--- NOTE | 2018-07-08 09:50 | NUR ---
NURSE NOTES: PT MADE AWARE OF DISCHARGE HOME IF CLEARED BY PULMONOLOGY. PT VERBALIZED UNDERSTANDING. PT REQUESTS PRESCRIPTION FOR CARDIZEM AND ASKS IF PT IS OK TO GO WHEN STILL ON PREDNISONE 40MG. RN EDUCATED WITH PT THAT WILL BE DISCUSSED WITH PULMONOLOGY MD. RN SPOKE TO DR. FUENTES WHO STATES TO CALL DR MCNAIR SINCE HE WAS COVERING FOR DR MCNAIR FOR THE WEEKEND. RN SPOKE TO DR. MCNAIR WHO STATES PT CAN BE CLEARED BUT SPEAK TO DR. AYE HANSON FIRST. RN LEFT MESSAGE FOR DR. HANSON REGARDING CLEARANCE FOR DISCHARGE. DR HERNANDEZ'S NUMBER IS BUSY AND UNABLE TO CONNECT TO MD AT THIS TIME.
--- NOTE | 2018-07-08 09:58 | NUR ---
NURSE NOTES: RN LEFT MESSAGE AT DR. HERNANDEZ'S OFFICE.
--- NOTE | 2018-07-08 10:37 | NUR ---
NURSE NOTES: DR HERNANDEZ WITH CALL BACK. MADE AWARE NEED PRESCRIPTION FOR NEW CARDIZEM. PER DR. HERNANDEZ, HE HAS NOT SEEN PT YET AND WILL BE BY THIS AFTERNOON. WILL CONTINUE TO MONITOR.
--- NOTE | 2018-07-08 11:44 | General Progress Note ---
Assessment/Plan Problem List: (1) Anxiety ICD Codes: F41.9 - Anxiety disorder, unspecified SNOMED: 15464395 Assessment/Plan seroquel 400mg qhs welbutrin 150mg qam valium prn provided ro/st valium prn Subjective Neurologic/Psychiatric: Reports: anxiety, depressed, emotional problems Allergies: Coded Allergies: PENICILLINS (Verified Allergy, Unknown, 10/09/12) Subjective covered her mouth with mask afraid she might get "germ in air" Objective Last 24 Hour Vital Signs Date Time Temp Pulse Resp B/P (MAP) Pulse Ox O2 Delivery O2 Flow Rate FiO2 07/08/18 09:00 Room Air 07/08/18 08:55 94 140/85 07/08/18 08:25 94 18 97 Room Air 21 07/08/18 08:20 94 18 97 Room Air 21 07/08/18 08:00 98.0 86 18 140/85 (103) 94 07/08/18 06:01 98.7 07/08/18 04:00 98.6 98 20 110/69 (83) 97 07/08/18 00:00 98.7 100 18 112/72 (85) 96 07/07/18 21:00 Room Air 07/07/18 20:00 99.0 88 20 112/68 (83) 96 07/07/18 19:40 97 22 95 Room Air 21 07/07/18 19:40 96 22 96 Room Air 21 07/07/18 17:14 103 128/83 07/07/18 16:00 98.7 103 18 128/83 (98) 97 07/07/18 12:34 99 131/83 07/07/18 12:00 98.6 99 18 131/83 (99) 96 Intake and Output 07/07/18 07/08/18 19:00 07:00 Intake Total 1400 ml 1360 ml Balance 1400 ml 1360 ml Intake Oral 1400 ml 1360 ml # Voids 6 Height (Feet): 5 Height (Inches): 4.00 Weight (Pounds): 152 General Appearance: no apparent distress, alert Neurologic: oriented x 3, responsive, depressed affect Rolo Hamilton MD Jul 08, 2018 11:44
[2018-07-08 12:00] VITALS: BP 101/61
--- NOTE | 2018-07-08 12:34 | Infectious Diseases Prog Note ---
Assessment/Plan Assessment/Plan A: Chronic obstructive pulmonary disease and asthma exacerbation, tachycardia resolving anxiety, hypertension, penicillin allergy. Sickle cell trait P: discontinue Levaquin Observe off antibiotic Subjective ROS Limited/Unobtainable: No Constitutional: Reports: no symptoms Respiratory: Reports: shortness of breath, dry cough Cardiovascular: Reports: dyspnea on exertion Gastrointestinal/Abdominal: Reports: no symptoms Genitourinary: Reports: no symptoms Allergies: Coded Allergies: PENICILLINS (Verified Allergy, Unknown, 10/09/12) Objective Vital Signs Last 24 Hour Vital Signs Date Time Temp Pulse Resp B/P (MAP) Pulse Ox O2 Delivery O2 Flow Rate FiO2 07/08/18 12:00 98.4 91 18 101/61 (74) 96 07/08/18 09:00 Room Air 07/08/18 08:55 94 140/85 07/08/18 08:25 94 18 97 Room Air 21 07/08/18 08:20 94 18 97 Room Air 21 07/08/18 08:00 98.0 86 18 140/85 (103) 94 07/08/18 06:01 98.7 07/08/18 04:00 98.6 98 20 110/69 (83) 97 07/08/18 00:00 98.7 100 18 112/72 (85) 96 07/07/18 21:00 Room Air 07/07/18 20:00 99.0 88 20 112/68 (83) 96 07/07/18 19:40 97 22 95 Room Air 21 07/07/18 19:40 96 22 96 Room Air 21 07/07/18 17:14 103 128/83 07/07/18 16:00 98.7 103 18 128/83 (98) 97 07/07/18 12:34 99 131/83 Height (Feet): 5 Height (Inches): 4.00 Weight (Pounds): 152 General Appearance: no acute distress HEENT: mucous membranes moist Respiratory/Chest: lungs clear Cardiovascular: normal rate Abdomen: soft, non tender Extremities: no edema Neurologic/Psychiatric: alert, oriented x 3, responsive Current Medications Medications (Trade) Dose Ordered Sig/Yadira Route PRN Reason Start Time Stop Time Status Last Admin Dose Admin Acetaminophen (Tylenol) 650 mg Q4H PRN ORAL For Pain Level <=5 07/01/18 00:15 07/31/18 00:14 Acetaminophen/ Hydrocodone Bitart ([place] 10/325) 1 tab Q4H PRN ORAL Severe Pain (Pain Scale 7-10) 07/08/18 09:15 07/15/18 09:14 07/08/18 09:30 Aspirin (Ecotrin) 81 mg DAILY ORAL 07/04/18 09:00 08/03/18 08:59 07/08/18 08:55 Bupropion HCl (Wellbutrin XL) 150 mg DAILY ORAL 07/01/18 09:00 07/31/18 08:59 07/08/18 08:55 Clonidine HCl (Catapres Tab) 0.1 mg EVERY 6 HOURS PRN ORAL For High Blood Pressure 07/01/18 00:15 07/31/18 00:14 Diazepam (Valium) 7.5 mg Q8H PRN ORAL For Anxiety 07/03/18 13:04 07/10/18 13:03 07/07/18 13:15 Diltiazem HCl (Cardizem) 30 mg TID ORAL 07/01/18 01:00 07/31/18 00:59 07/08/18 08:55 Docusate Sodium (Colace) 100 mg BID ORAL 07/01/18 09:00 07/31/18 08:59 07/08/18 08:54 Ferrous Sulfate (Feosol) 325 mg DAILY ORAL 07/01/18 09:00 07/31/18 08:59 07/08/18 08:55 Folic Acid (Folate) 1 mg DAILY ORAL 07/01/18 09:00 07/31/18 08:59 07/08/18 08:55 Gabapentin (Neurontin) 300 mg TID ORAL 07/01/18 09:00 07/31/18 08:59 07/08/18 08:54 Guaifenesin (Mucinex ER) 600 mg TWICE A DAY ORAL 07/03/18 18:00 08/02/18 17:59 07/08/18 08:55 Pantoprazole (Protonix) 40 mg ACBREAKFAST ORAL 07/01/18 06:30 07/31/18 06:29 07/08/18 06:17 Prednisone (predniSONE) 40 mg DAILY ORAL 07/06/18 09:00 08/05/18 08:59 07/08/18 08:55 Quetiapine Fumarate (SEROquel) 400 mg QHS ORAL 07/01/18 21:00 07/31/18 20:59 07/07/18 20:55 Salmeterol Xinafoate/ Fluticasone (Advair 250/50 Diskus) 1 puffs BID INH 07/03/18 18:00 08/02/18 17:59 07/08/18 08:20 Emeka Macario MD Jul 08, 2018 12:34
[2018-07-08] MEDS ORDERED: CARDIZEM30 M1 PO (12:35)
[2018-07-08] MEDS ORDERED: ADVAIR 250-501 EACH INH (12:36)
[2018-07-08] MEDS ORDERED: BUPROPION XL300 MG ORAL (12:36)
[2018-07-08] MEDS ORDERED: ALBUTEROL SULF8.5 GM INH (12:37)
--- NOTE | 2018-07-08 12:37 | NUR ---
NURSE NOTES: DR ANGEL WITH WRITTEN PRESCRIPTIONS. PER DR ANGEL, PT TO OBTAIN PRESCRIPTION FOR PREDNISONE FROM PULMONARY MD. RN LEFT SECOND MESSAGE FOR DR HANSON REGARDING NEEDING PRESCRIPTION FOR PREDNISONE AND AWAITING CLEARANCE FROM [facility]ULMO.
--- NOTE | 2018-07-08 12:57 | NUR ---
NURSE NOTES: RN SPOKE TO TRICIA DE SANTIAGO, AND MADE AWARE RN LEFT [address] HANSON AND WAITING FOR PREDNISONE PRESCRIPTION. PER ANYI, DR HANSON WILL COME WITH PRESCRIPTION.
[2018-07-08 13:32] VITALS: BP 101/61
--- NOTE | 2018-07-08 15:01 | Pulmonology Progress Note ---
Assessment/Plan Assessment/Plan 53 y/o female w/ asthma exacerbation, likely viral. Problem List: 1. Acute asthma exacerbation 2. Viral tracheobronchitis 3. Tachycardia 4. Sickle cell trait 5. Intermittent facial swelling Plan: -prednisone 40 mg taper down by 10 mg daily to off -abx per ID -HHN q4 -Advair 250/50 bid -cont wellbutrin for smoking cessation d/c planning Subjective ROS Limited/Unobtainable: No Interval Events: Improved breathing, off oxygen, wants to go home. Constitutional: Reports: no symptoms HEENT: Repors: no symptoms Respiratory: Reports: wheezing Cardiovascular: Reports: no symptoms Gastrointestinal/Abdominal: Reports: no symptoms Genitourinary: Reports: no symptoms Neurologic: Reports: no symptoms Psychiatric: Reports: depression Skin: Reports: no symptoms Endocrine: Reports: no symptoms Allergies: Coded Allergies: PENICILLINS (Verified Allergy, Unknown, 10/09/12) Objective Last 24 Hour Vital Signs Date Time Temp Pulse Resp B/P (MAP) Pulse Ox O2 Delivery O2 Flow Rate FiO2 07/08/18 13:32 91 101/61 07/08/18 12:00 98.4 91 18 101/61 (74) 96 07/08/18 09:00 Room Air 07/08/18 08:55 94 140/85 07/08/18 08:25 94 18 97 Room Air 21 07/08/18 08:20 94 18 97 Room Air 21 07/08/18 08:00 98.0 86 18 140/85 (103) 94 07/08/18 06:01 98.7 07/08/18 04:00 98.6 98 20 110/69 (83) 97 07/08/18 00:00 98.7 100 18 112/72 (85) 96 07/07/18 21:00 Room Air 07/07/18 20:00 99.0 88 20 112/68 (83) 96 07/07/18 19:40 97 22 95 Room Air 21 07/07/18 19:40 96 22 96 Room Air 21 07/07/18 17:14 103 128/83 07/07/18 16:00 98.7 103 18 128/83 (98) 97 Intake and Output 07/07/18 07/08/18 19:00 07:00 Intake Total 1400 ml 1360 ml Balance 1400 ml 1360 ml Intake Oral 1400 ml 1360 ml # Voids 6 General Appearance: no acute distress HEENT: normocephalic, atraumatic, anicteric, mucous membranes moist Respiratory/Chest: chest wall non-tender, expiratory wheezing Cardiovascular: normal rate, regular rhythm Abdomen: soft, non tender, no organomegaly, non distended Extremities: no edema Skin: no rash 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 normal Current Medications Medications (Trade) Dose Ordered Sig/Yadira Route PRN Reason Start Time Stop Time Status Last Admin Dose Admin Acetaminophen (Tylenol) 650 mg Q4H PRN ORAL For Pain Level <=5 07/01/18 00:15 07/31/18 00:14 Acetaminophen/ Hydrocodone Bitart ([place] 10/325) 1 tab Q4H PRN ORAL Severe Pain (Pain Scale 7-10) 07/08/18 09:15 07/15/18 09:14 07/08/18 13:32 Aspirin (Ecotrin) 81 mg DAILY ORAL 07/04/18 09:00 08/03/18 08:59 07/08/18 08:55 Bupropion HCl (Wellbutrin XL) 150 mg DAILY ORAL 07/01/18 09:00 07/31/18 08:59 07/08/18 08:55 Clonidine HCl (Catapres Tab) 0.1 mg EVERY 6 HOURS PRN ORAL For High Blood Pressure 07/01/18 00:15 07/31/18 00:14 Diazepam (Valium) 7.5 mg Q8H PRN ORAL For Anxiety 07/03/18 13:04 07/10/18 13:03 07/07/18 13:15 Diltiazem HCl (Cardizem) 30 mg TID ORAL 07/01/18 01:00 07/31/18 00:59 07/08/18 08:55 Docusate Sodium (Colace) 100 mg BID ORAL 07/01/18 09:00 07/31/18 08:59 07/08/18 08:54 Ferrous Sulfate (Feosol) 325 mg DAILY ORAL 07/01/18 09:00 07/31/18 08:59 07/08/18 08:55 Folic Acid (Folate) 1 mg DAILY ORAL 07/01/18 09:00 07/31/18 08:59 07/08/18 08:55 Gabapentin (Neurontin) 300 mg TID ORAL 07/01/18 09:00 07/31/18 08:59 07/08/18 13:32 Guaifenesin (Mucinex ER) 600 mg TWICE A DAY ORAL 07/03/18 18:00 08/02/18 17:59 07/08/18 08:55 Pantoprazole (Protonix) 40 mg ACBREAKFAST ORAL 07/01/18 06:30 07/31/18 06:29 07/08/18 06:17 Prednisone (predniSONE) 40 mg DAILY ORAL 07/06/18 09:00 08/05/18 08:59 07/08/18 08:55 Quetiapine Fumarate (SEROquel) 400 mg QHS ORAL 07/01/18 21:00 07/31/18 20:59 07/07/18 20:55 Salmeterol Xinafoate/ Fluticasone (Advair 250/50 Diskus) 1 puffs BID INH 07/03/18 18:00 08/02/18 17:59 07/08/18 08:20 Riccardo Gonzalez MD Jul 08, 2018 15:01
[2018-07-08] MEDS ORDERED: PREDNISONE20 MG ORAL (15:04)
--- NOTE | 2018-07-08 16:15 | NUR ---
NURSE NOTES: PT RECEIVED PRESCRIPTIONS FROM DR ANGEL AND DR HANSON. PT EDUCATED ON DISCHARGE PACKET AND PT VERBALIZED UNDERSTANDING. BELONGINGS CHECKED AT BEDSIDE AND ALL BELONGINGS ACCOUNTED. PT TO BE PICKED UP BY PARTNER. PT WAS DISCHARGED IN STABLE CONDITION.
--- NOTE | 2018-07-09 12:09 | Discharge Summary ---
Discharge Summary Discharge Summary _ DATE OF ADMISSION: 06/30/2018 DATE OF DISCHARGE: 07/08/2018 DISCHARGED BY: Dr. Nahum Roland CONSULTANTS: [] BRIEF HOSPITAL COURSE: Patient is a 53-year-old female, with history of asthma, presented to ED with complaints of shortness of breath, cough and generalized weakness. Patient had not been eating for past few days. She felt dehydrated. She was complaining of generalized body aches. There was no fever or chills. No dysuria although she had dark urine. She denied chest pain. She has medical history significant for hypertension, sickle cell disease, asthma, COPD, and anxiety. On evaluation at ED, blood pressure was elevated to 169/102, pulse rate of 109. She was afebrile and was saturating well on room air. Blood work did not show any leukocytosis, hemoglobin and hematocrit were stable at troponin was negative. ProBNP 37. Urinalysis was unremarkable. EKG showed normal sinus rhythm with rate of 70. Chest x-ray showed no consolidation, no effusion no pneumothorax, no acute cardiopulmonary disease. She was given Combivent nebulizer treatment x6, she was started on IV steroids. She was given IV fluids for dehydration. She continued to have wheezing. Influenza screen was negative. She was then admitted for evaluation of asthma exacerbation and dehydration. She was given nebulizer treatment every 4 hours around the clock. She was continued on IV steroids. She was started on Levaquin. She complained of generalized body pain. She was given [place]. Dose was increased to 10/3 125 mg. Patient was bizarre and paranoid. She was diagnosed with anxiety disorder. She was given Seroquel and Wellbutrin. Cardiac evaluation was done. Echocardiogram showed normal LV systolic function with LVEF 65-70%, mild LVH, grade 1 LV diastolic dysfunction and right ventricular systolic pressure measured at 46 mmHg consistent with moderate pulmonary hypertension. Dyspnea was assessed to be secondary to acute exacerbation of asthma. He was continued on calcium blockers and aspirin. IV steroids were tapered. He was started on Advair and Mucinex twice daily. He was counseled on smoking cessation. He was eventually discharged home to continue tapering doses of prednisone. FINAL DIAGNOSES: Acute asthma exacerbation Acute Viral tracheobronchitis Sickle cell disease Intermittent facial swelling Anxiety Hypertension Lumbar disc disease Lumbar spondylosis Right hip osteoarthritis with history of right hip replacement Moderate pulmonary hypertension DISPOSITION: Patient was discharged home. DISCHARGE MEDICATIONS: Refer to Discharge Medication List. DISCHARGE INSTRUCTIONS: Follow-up in a week. I have been assigned to complete a discharge summary on this account, I was not involved with the patient's management. Patt Wallis NP Jul 09, 2018 12:09
== END 2018-07-08 16:11 | disposition home or self-care (01) | DRG 191 ==
LOC: EMR 19:35 → 3E 20:50 → EDBEDREQ 22:08
DX: J44.1 Chronic obstructive pulmonary disease with (acute) exacerbation (principal); J45.901 Unspecified asthma with (acute) exacerbation; J20.8 Acute bronchitis due to other specified organisms; R00.0 Tachycardia, unspecified; F41.9 Anxiety disorder, unspecified; D57.1 Sickle-cell disease without crisis
CPT/HCPCS: 36415; 71045; 80048; 80053; 81003; 83735; 83880; 84484; 85007; 85025; 86710; 93005; 93306; 94640; 94664; 96361; 96374; 99285; J7620

== ENCOUNTER 2018-08-27 19:50 | Inpatient (IN) | payer MEDICARE, MEDICAID ==
[~2018-08-27] VITALS: Ht 167.6 cm; Wt 73.9 kg
[~2018-08-27 19:50] MED LIST changes: +ALBUTEROL SULF8.5 GM INH; +ALBUTEROL2.5 MG/3 M HHN; +BUPROPION XL300 MG ORAL; +CARDIZEM30 M1 PO; +COMPACT COMPRE1 EACH MC; +FOLIC ACID1 MG ORAL; +LAMOTRIGINE OD200 MG PO; +PREDNISONE20 MG ORAL
[2018-08-27 20:00] VITALS: BP 96/50
--- NOTE | 2018-08-27 20:00 | NUR ---
ED Nurse Note: Pt BIBA after son called and noticing AMS for past two days. Son concerned pt may have overdose on pt's meds. Pt experiencing unsteady gait and twitching of body. Pt placed on 2L NC after O2 saturation noticed to be 88%. Pt now saturating at 97%. Personnel states pt hypotensive with SBP of 80's. Upon arrival SBP at 90's. Tachycardia noted @ 120's. Pt able to answer questions, very drowy, slurring of words noted and rambling.
[2018-08-27 21:48] LABS: HEMATOCRIT 39.9 % (37.0-47.0); HEMOGLOBIN 12.7 G/DL (12.0-16.0); MEAN CORPUSCULAR VOLUME 92 FL (80-99); PLATELET COUNT 308 K/UL (150-450); RED BLOOD COUNT 4.35 M/UL (4.20-5.40); RED CELL DISTRIBUTION WIDTH 11.7 % (11.6-14.8)
[2018-08-27 21:49] LABS: WHITE BLOOD COUNT 22.3 K/UL (4.8-10.8)
[2018-08-27] MEDS ORDERED: Cefepime HCl 2 GM in NS 110 ML IV STA (21:55)
--- NOTE | 2018-08-27 21:55 | Emergency Room Report ---
History of Present Illness General Chief Complaint: Overdose Source: Patient, EMS Present Illness HPI Patient was altered for 2 days. She's complaining about a cough. She feels like she's been hit by a truck. Paramedics suggests that she's taken multiple medications recently and might have overdosed. The patient denies any suicidal or homicidal ideation. She denies any nausea, vomiting or diarrhea. She denies dysuria. She does complain of a productive cough. She states she feels like she was hit by a truck. C/O total body pain but will not rate (initially denies pain with RNs). No NVD, dysuria,. Chronic hip pain. Patient denies any drug use or abuse. Not answering many questions. Patient last discharged 07/08/18 with these d/c diagnoses: Acute asthma exacerbation Acute Viral tracheobronchitis Sickle cell disease Intermittent facial swelling Anxiety Hypertension Lumbar disc disease Lumbar spondylosis Right hip osteoarthritis with history of right hip replacement Moderate pulmonary hypertension Allergies: Coded Allergies: PENICILLINS (Verified Allergy, Unknown, 10/09/12) Patient History Limited by: medical condition Past Medical History: see triage record, old chart reviewed Past Surgical History: other - L hip surgery Social History: Reports: smoking, drug use - opiates/benzodiazepines Social History Narrative lives with 3 sons Last Menstrual Period: Jul 16 2018 Now: No Reviewed Nursing Documentation: PMH: Agreed; PSxH: Agreed Nursing Documentation-PMH Hx Cardiac Problems: Yes Hx Hypertension: Yes Hx Pacemaker: No Hx Asthma: Yes Hx COPD: Yes Hx Diabetes: No Hx Cancer: No Hx Gastrointestinal Problems: No Hx Dialysis: No Hx Neurological Problems: No Hx Cerebrovascular Accident: No Hx Encephalitis: No Hx Seizures: No Review of Systems All Other Systems: limited Physical Exam Vital Signs Date Time Temp Pulse Resp B/P (MAP) Pulse Ox O2 Delivery O2 Flow Rate FiO2 08/27/18 19:53 99.7 134 18 96/50 97 Room Air Sp02 EP Interpretation: reviewed, normal General Appearance: no apparent distress, lethargic Head: normocephalic Eyes: bilateral eye normal inspection, bilateral eye PERRL, bilateral eye EOMI ENT: moist mucus membranes Neck: supple Respiratory: rales - right Cardiovascular #1: tachycardia Cardiovascular #2: 2+ radial (L) Gastrointestinal: normal inspection, non tender, non-distended, decreased bowel sounds Genitourinary: no CVA tenderness Musculoskeletal: back normal, normal range of motion, no calf tenderness Neurologic: alert, motor strength/tone normal, DTRs symmetric, sensory intact, oriented - X2 Psychiatric: depressed affect Skin: normal inspection, warm/dry Medical Decision Making Diagnostic Impression: Primary Impression: Right middle lobe pneumonia Qualified Codes: J18.1 - Lobar pneumonia, unspecified organism Additional Impressions: Sepsis Qualified Codes: A41.9 - Sepsis, unspecified organism Opiate and benzodiazepine use ER Course Patient presents with altered mentation for 2 days. There's allegation of drug use however the patient needs to be evaluated for other causes of altered mentation. Differential includes acute myocardial infarction, electrolyte imbalance, brain bleed, occult infection amongst others. Patient be evaluated with EKG, chest x-ray, CT the head and labs. The patient will be treated with IV hydration. EKG without injury however tachycardia. Chest x-ray with right-sided infiltrate. Labs with elevated white count. Lactic acid is elevated. CT the head without bleed or mass effect. Blood cultures obtained and patient begun on spectrum antibiotics. She received a bolus of fluids. There is a history of congestive heart failure and therefore we need to be circumspect about overloading her. Tylenol given for fever. Patient admitted telemetry as still tachypneic and tachycardic. Elevated lactic acid. Clinical picture = sepsis. Re-evaluation= improved mentation, good capillary fill, still with tachycardia - improving. Dyspnea improving also. Second bolus given (remainder of 30 ml/kg). Admit Dr. Madden. Laboratory Tests Test 08/27/18 21:20 08/27/18 21:50 08/27/18 22:30 08/27/18 22:45 White Blood Count 22.3 K/UL (4.8-10.8) *H Red Blood Count 4.35 M/UL (4.20-5.40) Hemoglobin 12.7 G/DL (12.0-16.0) Hematocrit 39.9 % (37.0-47.0) Mean Corpuscular Volume 92 FL (80-99) Mean Corpuscular Hemoglobin 29.2 PG (27.0-31.0) Mean Corpuscular Hemoglobin Concent 31.8 G/DL (32.0-36.0) L Red Cell Distribution Width 11.7 % (11.6-14.8) Platelet Count 308 K/UL (150-450) Mean Platelet Volume 5.7 FL (6.5-10.1) L Neutrophils (%) (Auto) % (45.0-75.0) Lymphocytes (%) (Auto) % (20.0-45.0) Monocytes (%) (Auto) % (1.0-10.0) Eosinophils (%) (Auto) % (0.0-3.0) Basophils (%) (Auto) % (0.0-2.0) Differential Total Cells Counted 100 Neutrophils % (Manual) 58 % (45-75) Lymphocytes % (Manual) 5 % (20-45) L Monocytes % (Manual) 10 % (1-10) Eosinophils % (Manual) 0 % (0-3) Basophils % (Manual) 0 % (0-2) Metamyelocytes % 2 % (0-0) H Band Neutrophils 25 % (0-8) H Platelet Estimate Adequate Platelet Morphology Normal Red Blood Cell Morphology Normal Sodium Level 137 MMOL/L (136-145) Potassium Level 3.4 MMOL/L (3.5-5.1) L Chloride Level 102 MMOL/L (98-107) Carbon Dioxide Level 25 MMOL/L (21-32) Anion Gap 10 mmol/L (5-15) Blood Urea Nitrogen 18 mg/dL (7-18) Creatinine 1.7 MG/DL (0.55-1.30) H Estimate Glomerular Filtration Rate 37.9 mL/min (>60) Glucose Level 82 MG/DL (74-106) Calcium Level 9.7 MG/DL (8.5-10.1) Total Bilirubin 0.4 MG/DL (0.2-1.0) Aspartate Amino Transferase (AST) 44 U/L (15-37) H Alanine Aminotransferase (ALT) 31 U/L (12-78) Alkaline Phosphatase 138 U/L (46-116) H Troponin I 0.022 ng/mL (0.000-0.056) Total Protein 7.1 G/DL (6.4-8.2) Albumin 3.0 G/DL (3.4-5.0) L Globulin 4.1 g/dL Albumin/Globulin Ratio 0.7 (1.0-2.7) L Salicylates Level 4.8 ug/mL (2.8-20) Acetaminophen Level < 2 MCG/ML (10-30) L Serum Alcohol < 3 mg/dL Pro-B-Type Natriuretic Peptide 955 pg/mL (0-125) H Lactic Acid Level 3.90 mmol/L (0.4-2.0) H Urine Color Pale yellow Urine Appearance Clear Urine pH 5 (4.5-8.0) Urine Specific [place] 1.010 (1.005-1.035) Urine Protein 2+ (NEGATIVE) H Urine Glucose (UA) Negative (NEGATIVE) Urine Ketones Negative (NEGATIVE) Urine Blood 4+ (NEGATIVE) H Urine Nitrite Negative (NEGATIVE) Urine Bilirubin Negative (NEGATIVE) Urine Urobilinogen Normal MG/DL (0.0-1.0) Urine Leukocyte Esterase 1+ (NEGATIVE) H Urine RBC 0-2 /HPF (0 - 2) Urine WBC 2-4 /HPF (0 - 2) Urine Squamous Epithelial Cells Moderate /LPF (NONE/OCC) H Urine Bacteria Few /HPF (NONE) Urine Opiates Screen Positive (NEGATIVE) H Urine Barbiturates Screen Negative (NEGATIVE) Phencyclidine (PCP) Screen Negative (NEGATIVE) Urine Amphetamines Screen Negative (NEGATIVE) Urine Benzodiazepines Screen Positive (NEGATIVE) H Urine Cocaine Screen Negative (NEGATIVE) Urine Marijuana (THC) Screen Negative (NEGATIVE) EKG Diagnostic Results Rate: tachycardiac Rhythm: NSR ST Segments: no acute changes Rhythm Strip Diag. Results EP Interpretation: yes Rhythm: no PVC's, no ectopy, other Chest X-Ray Diagnostic Results Chest X-Ray Diagnostic Results : Chest X-Ray Ordered: Yes # of Views/Limited/Complete: 1 View Indication: Other EP Interpretation: Yes Interpretation: no effusion, no pneumothorax, other - Right-sided infiltrate Impression: Other Electronically Signed by: Electronically signed by Enzo Grant MD Last Vital Signs Date Time Temp Pulse Resp B/P (MAP) Pulse Ox O2 Delivery O2 Flow Rate FiO2 08/28/18 02:07 Nasal Cannula 2.0 08/28/18 02:00 120 08/28/18 01:58 100.0 08/28/18 01:30 20 105/67 (80) 99 08/27/18 23:22 28 Status: improved Disposition: ADMITTED INPATIENT Condition: Serious Enzo Grant MD Aug 27, 2018 21:55
[2018-08-27 22:00] LABS: ANION GAP 10 mmol/L (5-15); BLOOD UREA NITROGEN 18 mg/dL (7-18); CALCIUM 9.7 MG/DL (8.5-10.1); CARBON DIOXIDE 25 MMOL/L (21-32); CHLORIDE 102 MMOL/L (98-107); CREATININE 1.7 MG/DL (0.55-1.30); POTASSIUM 3.4 MMOL/L (3.5-5.1); SODIUM 137 MMOL/L (136-145)
[2018-08-27] MEDS ORDERED: Acetaminophen 500mg (ES) tab ORAL ONE (22:00)
[2018-08-27 22:04] LABS: ALANINE AMINOTRANSFERASE 31 U/L (12-78); ALBUMIN/GLOBULIN RATIO 0.7 (1.0-2.7); ALKALINE PHOSPHATASE 138 U/L (46-116); ASPARTATE AMINO TRANSFERASE 44 U/L (15-37); BILIRUBIN,TOTAL 0.4 MG/DL (0.2-1.0)
[2018-08-27] MEDS ORDERED: Albuterol ud Inhalation HHN ONE (23:00)
[2018-08-27] MEDS ORDERED: Ipratropium 0.02% Inh Soln 2.5ml UD HHN ONE (23:00)
[2018-08-27 23:01] LABS: APPEARANCE,URINE CLEAR; BILIRUBIN, URINE NEGATIVE (NEGATIVE); COLOR,URINE PALE YELLOW; GLUCOSE, URINE (UA) NEGATIVE (NEGATIVE); KETONES,URINE NEGATIVE (NEGATIVE); LEUKOCYTE ESTERASE ,URINE 1+ (NEGATIVE); NITRITE,URINE NEGATIVE (NEGATIVE); PH,URINE 5 (4.5-8.0); PROTEIN,URINE 2+ (NEGATIVE); UROBILINOGEN,URINE NORMAL MG/DL (0.0-1.0)
[2018-08-27] MEDS ORDERED: LISINOPRIL20 MG ORAL (23:26)
[2018-08-27] MEDS ORDERED: QUETIAPINE FUM300 MG ORAL (23:26)
[2018-08-27] MEDS ORDERED: BUSPAR10 MG ORAL (23:26)
[2018-08-27] MEDS ORDERED: ASPIR 8181 MG ORAL (23:26)
--- NOTE | 2018-08-27 23:47 | NUR ---
ED Nurse Note: Pt taken to telemetry unit for admission. Report given to ARIANA vazquez. Pt A/Ox3, confused but improved. VSS aside from tachycardia. All belongings taken along with patient upstairs.
[2018-08-28] MEDS ORDERED: METHOCARBAMOL500 MG ORAL (00:24)
[2018-08-28] MEDS ORDERED: LAMOTRIGINE100 M1 PO (00:24)
[2018-08-28] MEDS ORDERED: VITAMIN E400 UNI5 PO (00:24)
[2018-08-28 01:30] VITALS: BP 105/67
[2018-08-28] MEDS ORDERED: HYDROcodone/Acetamin 5/325 tab ORAL PRN ×3 (01:45→16:45)
--- NOTE | 2018-08-28 02:00 | NUR ---
NURSE NOTES: Pt arrived on unit from ER by Ani. Initial Assessment done. VSS. Pt A+Ox2-3, but reoriented. Pt denies any pain. No s/s of distress noted. Pt resting in bed comfortably. Per report pt is weak and has unsteady gait. Per report pt on 2L O2 and desats when on room air. Bed in low and locked position, call light within reach, bedside table within reach. Continue to monitor. Dr. Chano william for orders Orders given and placed. Continue to monitor. Addendum: 08/28/18 at 0608 by Ashish Skaggs RN Per report pt runs tachycardia(low 100s)
[2018-08-28 04:00] VITALS: BP 108/61
[2018-08-28 06:59] LABS: ANION GAP 6 mmol/L (5-15); BLOOD UREA NITROGEN 19 mg/dL (7-18); CALCIUM 8.8 MG/DL (8.5-10.1); CARBON DIOXIDE 26 MMOL/L (21-32); CHLORIDE 108 MMOL/L (98-107); CREATININE 1.4 MG/DL (0.55-1.30); PHOSPHORUS 3.9 MG/DL (2.5-4.9); POTASSIUM 3.7 MMOL/L (3.5-5.1); SODIUM 140 MMOL/L (136-145)
[2018-08-28 07:09] LABS: HEMATOCRIT 33.7 % (37.0-47.0); HEMOGLOBIN 11.1 G/DL (12.0-16.0); MEAN CORPUSCULAR VOLUME 91 FL (80-99); PLATELET COUNT 261 K/UL (150-450); RED BLOOD COUNT 3.72 M/UL (4.20-5.40); RED CELL DISTRIBUTION WIDTH 11.9 % (11.6-14.8); WHITE BLOOD COUNT 21.5 K/UL (4.8-10.8)
--- NOTE | 2018-08-28 07:30 | NUR ---
HAND-OFF: Report given to Emma LANE. endorsed plan of care.
--- NOTE | 2018-08-28 07:50 | NUR ---
NURSE NOTES: Pt AOx3 confused just woke uip. Pt in no acute distress at this time. 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 IV access on R FA wrist 24g intact s/l . Bed locked and in lowest position. Call light within reach. Will continue to monitor.
--- NOTE | 2018-08-28 08:25 | Diagnostic Imaging Report ---
Indication: Altered mental status Technique: Continuous helical CT scanning of the head was performed without intravenous contrast material. Axial and coronal 5 mm sections were generated. Radiation dose was minimized using automated exposure control Dose: Total Dose Length Product - DLP 1428.[address] Dose Index - CTDIvol(s) 70.38 mGy. Comparison: none Findings: The ventricular system is normal in size and configuration. There is no shift of midline structures. No abnormal extra-axial fluid collections are noted. There is no evidence of intracerebral bleeding. No other abnormal high or low density areas are noted within the brain. Intact calvarium. Visualized orbits and sinuses are unremarkable. The mastoids are clear Impression: Normal CT scan of the head without contrast material. This agrees with the preliminary interpretation provided overnight by Dr. Jarrell The CT scanner at [facility] is accredited by the [employer] and the scans are performed using protocols designed to limit radiation exposure to as low as reasonably achievable to attain images of sufficient resolution adequate for diagnostic evaluation.
--- NOTE | 2018-08-28 09:07 | NUR ---
*-* NO INSURANCE INFORMATION TO SEND CLINICALS OR REVIEWS *-*
--- NOTE | 2018-08-28 10:22 | NUR ---
*-* INSURANCE *-* AVAILABLE CLINICALS FAXED TO: [facility] CONTACT:SHWETHA P:[phone] F:[phone] [facility]# [id number]
[2018-08-28] MEDS ORDERED: Methocarbamol 500mg tab ORAL PRN ×2 (11:30→17:30)
[2018-08-28] MEDS ORDERED: Albuterol/Ipratropium 3ml neb HHN PRN ×2 (11:30→15:30)
[2018-08-28] MEDS ORDERED: Promethazine/Codeine 5ml UD ORAL PRN ×2 (11:30→17:30)
[2018-08-28] MEDS ORDERED: Nitroglycerin Subl 0.4mg tab SL PRN ×2 (11:30→13:00)
[2018-08-28] MEDS ORDERED: LORazepam Inj 2mg/ml 1ml IV PRN ×2 (11:30→15:30)
[2018-08-28] MEDS ORDERED: Morphine Sulfate 2mg/ml Inj(IV/IM USE ONLY) IVP PRN ×2 (11:30→15:30)
[2018-08-28] MEDS ORDERED: Ketorolac 30mg Inj IV PRN ×2 (11:30→19:30)
--- NOTE | 2018-08-28 11:35 | NUR ---
CASE MANAGEMENT:REVIEW 53 YR OLD FEMALE BIBA FROM HOME CC: OVERDOSE. CONFUSED X2 DAYS SI: SEPSIS. PNEUMONIA 99.7 134 18 96/50 97% ON RA WBC+22.3 CR+1.7 IS: 1L NS BOLUS IV CEFEPIME IV LEVAQUIN TYLENOL PO CXR CT HEAD : TELEMETRY STATUS INTERQUAL CRITERIA MET
[2018-08-28] MEDS ORDERED: Solu-MEDROL 125mg Inj IV SCH (12:00)
--- NOTE | 2018-08-28 12:00 | Consultation ---
History of Present Illness General Date patient seen: Aug 28, 2018 Chief Complaint: Overdose Present Illness HPI 53 year old female with hx COPD, psychosis, sickle cell disease brought in by paramedics with CC of being altered for 2 days. She's complaining about a cough. Paramedics suggests that she's taken multiple medications recently and might have overdosed. The patient denies any suicidal or homicidal ideation. She denies any nausea, vomiting or diarrhea. She denies dysuria. She does complain of a productive cough. Her CXR showed extensive RML infiltrate. she is admitted to telemetry for further work up. Allergies: Coded Allergies: PENICILLINS (Verified Allergy, Unknown, 10/09/12) Medication History Scheduled Aspirin* (Aspir 81*), 81 MG ORAL DAILY, (Reported) Bupropion Hcl* (Wellbutrin*), 150 MG ORAL DAILY, (Reported) Buspirone Hcl* (Buspar*), 10 MG ORAL THREE TIMES A DAY, (Reported) Diltiazem Hcl* (Cardizem*), 30 MG PO TID, (Reported) Docusate Sodium* (Docusate Sodium*), 100 MG PO BID, (Reported) Ferrous Sulfate* (Ferrous Sulfate*), 325 MG ORAL DAILY, (Reported) Fluticasone/Salmeterol (Advair 250-50 Diskus), 1 PUFF INH EVERY 12 HOURS, ( Reported) Folic Acid* (Folic Acid*), 1 MG ORAL DAILY, (Reported) Gabapentin* (Gabapentin*), 300 MG PO TID, (Reported) Lisinopril (Lisinopril*), 20 MG ORAL DAILY, (Reported) Pantoprazole* (Protonix*), 40 MG PO DAILY Prednisone* (Prednisone*), 40 MG ORAL DAILY, (Reported) Quetiapine Fumarate (Quetiapine Fumarate), 300 MG ORAL DAILY, (Reported) Ranitidine Hcl* (Ranitidine Hcl*), 150 MG IV BID, (Reported) Scheduled PRN Albuterol Sulfate* (Albuterol Sulfate Mdi*), 2 PUFF INH Q4H PRN for Shortness of Breath, (Reported) Methocarbamol* (Methocarbamol*), 500 MG ORAL QID PRN for For Pain, (Reported) Miscellaneous Medications Lamotrigine (Lamotrigine), 100 MG PO, (Reported) Vitamin E Mixed (Vitamin E), 400 UNIT PO, (Reported) Patient History Healthcare decision maker Resuscitation status Advanced Directive on File Past Medical/Surgical History Past Medical/Surgical History: (1) Hip osteoarthritis (2) Lumbar spondylosis (3) Anxiety (4) Sickle cell disease Review of Systems All Other Systems: negative except mentioned in HPI Physical Exam General Appearance: WD/WN Lines, tubes and drains: peripheral HEENT: normocephalic, atraumatic Neck: non-tender, normal alignment Respiratory/Chest: chest wall non-tender, lungs clear Breasts: no masses Cardiovascular/Chest: normal peripheral pulses, normal rate Abdomen: normal bowel sounds, non tender Extremities: normal range of motion Skin Exam: normal pigmentation Last 24 Hour Vital Signs Date Time Temp Pulse Resp B/P (MAP) Pulse Ox O2 Delivery O2 Flow Rate FiO2 08/28/18 09:00 Room Air 08/28/18 08:00 127 08/28/18 06:34 110 08/28/18 04:00 117 08/28/18 04:00 97.6 100 20 108/61 (77) 98 08/28/18 03:00 100 08/28/18 03:00 99.0 08/28/18 02:52 100.0 08/28/18 02:07 Nasal Cannula 2.0 08/28/18 02:00 120 08/28/18 01:58 100.0 08/28/18 01:31 100 08/28/18 01:30 100.0 20 105/67 (80) 99 08/27/18 23:47 98.7 113 24 110/61 96 Nasal Cannula 2.0 08/27/18 23:22 128 19 99 Nasal Cannula 2.0 28 08/27/18 23:00 120 21 Nasal Cannula 2.0 28 08/27/18 23:00 120 21 97 Nasal Cannula 2.0 28 08/27/18 20:00 134 18 Nasal Cannula 2.0 08/27/18 20:00 100.5 125 18 96/50 97 Room Air 08/27/18 19:53 99.7 134 18 96/50 97 Room Air Laboratory Tests Test 08/27/18 21:20 08/27/18 21:50 08/27/18 22:30 08/27/18 22:45 White Blood Count 22.3 K/UL (4.8-10.8) *H Red Blood Count 4.35 M/UL (4.20-5.40) Hemoglobin 12.7 G/DL (12.0-16.0) Hematocrit 39.9 % (37.0-47.0) Mean Corpuscular Volume 92 FL (80-99) Mean Corpuscular Hemoglobin 29.2 PG (27.0-31.0) Mean Corpuscular Hemoglobin Concent 31.8 G/DL (32.0-36.0) L Red Cell Distribution Width 11.7 % (11.6-14.8) Platelet Count 308 K/UL (150-450) Mean Platelet Volume 5.7 FL (6.5-10.1) L Neutrophils (%) (Auto) % (45.0-75.0) Lymphocytes (%) (Auto) % (20.0-45.0) Monocytes (%) (Auto) % (1.0-10.0) Eosinophils (%) (Auto) % (0.0-3.0) Basophils (%) (Auto) % (0.0-2.0) Differential Total Cells Counted 100 Neutrophils % (Manual) 58 % (45-75) Lymphocytes % (Manual) 5 % (20-45) L Monocytes % (Manual) 10 % (1-10) Eosinophils % (Manual) 0 % (0-3) Basophils % (Manual) 0 % (0-2) Metamyelocytes % 2 % (0-0) H Band Neutrophils 25 % (0-8) H Platelet Estimate Adequate Platelet Morphology Normal Red Blood Cell Morphology Normal Sodium Level 137 MMOL/L (136-145) Potassium Level 3.4 MMOL/L (3.5-5.1) L Chloride Level 102 MMOL/L (98-107) Carbon Dioxide Level 25 MMOL/L (21-32) Anion Gap 10 mmol/L (5-15) Blood Urea Nitrogen 18 mg/dL (7-18) Creatinine 1.7 MG/DL (0.55-1.30) H Estimat Glomerular Filtration Rate 37.9 mL/min (>60) Glucose Level 82 MG/DL (74-106) Calcium Level 9.7 MG/DL (8.5-10.1) Total Bilirubin 0.4 MG/DL (0.2-1.0) Aspartate Amino Transf (AST/SGOT) 44 U/L (15-37) H Alanine Aminotransferase (ALT/SGPT) 31 U/L (12-78) Alkaline Phosphatase 138 U/L (46-116) H Troponin I 0.022 ng/mL (0.000-0.056) Total Protein 7.1 G/DL (6.4-8.2) Albumin 3.0 G/DL (3.4-5.0) L Globulin 4.1 g/dL Albumin/Globulin Ratio 0.7 (1.0-2.7) L Salicylates Level 4.8 ug/mL (2.8-20) Acetaminophen Level < 2 MCG/ML (10-30) L Serum Alcohol < 3 mg/dL Pro-B-Type Natriuretic Peptide 955 pg/mL (0-125) H Lactic Acid Level 3.90 mmol/L (0.4-2.0) H Urine Color Pale yellow Urine Appearance Clear Urine pH 5 (4.5-8.0) Urine Specific [place] 1.010 (1.005-1.035) Urine Protein 2+ (NEGATIVE) H Urine Glucose (UA) Negative (NEGATIVE) Urine Ketones Negative (NEGATIVE) Urine Blood 4+ (NEGATIVE) H Urine Nitrite Negative (NEGATIVE) Urine Bilirubin Negative (NEGATIVE) Urine Urobilinogen Normal MG/DL (0.0-1.0) Urine Leukocyte Esterase 1+ (NEGATIVE) H Urine RBC 0-2 /HPF (0 - 2) Urine WBC 2-4 /HPF (0 - 2) Urine Squamous Epithelial Cells Moderate /LPF (NONE/OCC) H Urine Bacteria Few /HPF (NONE) Urine Opiates Screen Positive (NEGATIVE) H Urine Barbiturates Screen Negative (NEGATIVE) Phencyclidine (PCP) Screen Negative (NEGATIVE) Urine Amphetamines Screen Negative (NEGATIVE) Urine Benzodiazepines Screen Positive (NEGATIVE) H Urine Cocaine Screen Negative (NEGATIVE) Urine Marijuana (THC) Screen Negative (NEGATIVE) Test 08/28/18 05:10 White Blood Count 21.5 K/UL (4.8-10.8) H Red Blood Count 3.72 M/UL (4.20-5.40) L Hemoglobin 11.1 G/DL (12.0-16.0) L Hematocrit 33.7 % (37.0-47.0) L Mean Corpuscular Volume 91 FL (80-99) Mean Corpuscular Hemoglobin 29.8 PG (27.0-31.0) Mean Corpuscular Hemoglobin Concent 32.8 G/DL (32.0-36.0) Red Cell Distribution Width 11.9 % (11.6-14.8) Platelet Count 261 K/UL (150-450) Mean Platelet Volume 6.2 FL (6.5-10.1) L Neutrophils (%) (Auto) % (45.0-75.0) Lymphocytes (%) (Auto) % (20.0-45.0) Monocytes (%) (Auto) % (1.0-10.0) Eosinophils (%) (Auto) % (0.0-3.0) Basophils (%) (Auto) % (0.0-2.0) Differential Total Cells Counted 100 Neutrophils % (Manual) 40 % (45-75) L Lymphocytes % (Manual) 3 % (20-45) L Monocytes % (Manual) 9 % (1-10) Eosinophils % (Manual) 1 % (0-3) Basophils % (Manual) 0 % (0-2) Band Neutrophils 47 % (0-8) H Platelet Estimate Adequate Platelet Morphology Normal Red Blood Cell Morphology Normal Sodium Level 140 MMOL/L (136-145) Potassium Level 3.7 MMOL/L (3.5-5.1) Chloride Level 108 MMOL/L (98-107) H Carbon Dioxide Level 26 MMOL/L (21-32) Anion Gap 6 mmol/L (5-15) Blood Urea Nitrogen 19 mg/dL (7-18) H Creatinine 1.4 MG/DL (0.55-1.30) H Estimat Glomerular Filtration Rate 47.5 mL/min (>60) Glucose Level 77 MG/DL (74-106) Lactic Acid Level 2.20 mmol/L (0.66-2.22) Calcium Level 8.8 MG/DL (8.5-10.1) Phosphorus Level 3.9 MG/DL (2.5-4.9) Magnesium Level 1.7 MG/DL (1.8-2.4) L Height (Feet): 5 Height (Inches): 6.00 Weight (Pounds): 175 Medications Current Medications Medications (Trade) Dose Ordered Sig/Yadira Route PRN Reason Start Time Stop Time Status Last Admin Dose Admin Acetaminophen/ Hydrocodone Bitart ([place] 5/325) 1 tab Q6H PRN ORAL Moderate Pain (Pain Scale 4-6) 08/28/18 11:45 09/04/18 01:44 Albuterol/ Ipratropium (Albuterol/ Ipratropium) 3 ml Q4H PRN HHN dyspnea 08/28/18 11:30 09/02/18 11:29 Bupropion HCl (Wellbutrin XL) 150 mg DAILY ORAL 08/29/18 09:00 09/28/18 08:59 Dextrose (Dextrose 50%) 25 ml Q30M PRN IV Hypoglycemia 08/28/18 11:30 09/27/18 11:29 Dextrose (Dextrose 50%) 50 ml Q30M PRN IV Hypoglycemia 08/28/18 11:30 09/27/18 11:29 Diltiazem HCl (Cardizem) 30 mg Q8HR ORAL 08/28/18 14:00 09/27/18 13:59 Gabapentin (Neurontin) 300 mg Q8HR ORAL 08/28/18 14:00 09/27/18 13:59 Heparin Sodium (Porcine) (Heparin 5000 units/ml) 5,000 units EVERY 12 HOURS SUBQ 08/28/18 21:00 09/27/18 20:59 Ketorolac Tromethamine (Toradol 30mg) 30 mg Q8H PRN IV BREAKTHROUGH PAIN 08/28/18 11:30 09/02/18 11:29 Lamotrigine (LaMICtal) 100 mg DAILY ORAL 08/29/18 09:00 09/28/18 08:59 Lisinopril (Prinivil) 20 mg DAILY ORAL 08/29/18 09:00 09/28/18 08:59 Lorazepam (Ativan 2mg/ml 1ml) 0.5 mg Q4H PRN IV For Anxiety 08/28/18 11:30 09/04/18 11:29 Methocarbamol (Robaxin) 500 mg Q6H PRN ORAL Muscle spasms 08/28/18 11:30 09/27/18 11:29 Methylprednisolone Sodium Succinate (Solu-MEDROL) 60 mg EVERY 6 HOURS IV 08/28/18 12:00 09/27/18 11:59 Morphine Sulfate (Morphine Sulfate) 2 mg Q4H PRN IVP Severe Pain (Pain Scale 7-10) 08/28/18 11:30 09/04/18 11:29 Nitroglycerin (Ntg) 0.4 mg Q5MIN X 3 DOSES PRN SL Prn Chest Pain 08/28/18 11:30 09/27/18 11:29 Ondansetron HCl (Zofran) 4 mg Q4H PRN IVP Nausea & Vomiting 08/28/18 01:45 09/27/18 01:44 08/28/18 05:14 Pantoprazole (Protonix) 40 mg DAILY ORAL 08/29/18 09:00 09/28/18 08:59 Promethazine HCl/ Codeine (Phenergan with Codeine) 5 ml Q6H PRN ORAL cough 08/28/18 11:30 09/27/18 11:29 Temazepam (Restoril) 15 mg HSPRN PRN ORAL Insomnia 08/28/18 21:00 09/04/18 20:59 Theophylline (Papito-Dur) 100 mg EVERY 12 HOURS ORAL 08/28/18 21:00 09/27/18 20:59 Assessment/Plan Problem List: (1) Right middle lobe pneumonia ICD Codes: J18.1 - Lobar pneumonia, unspecified organism SNOMED: 946706386 Qualifiers: Qualified Codes: J18.1 - Lobar pneumonia, unspecified organism (2) Sepsis ICD Codes: A41.9 - Sepsis, unspecified organism SNOMED: 30294313 Qualifiers: Qualified Codes: A41.9 - Sepsis, unspecified organism (3) COPD (chronic obstructive pulmonary disease) ICD Codes: J44.9 - Chronic obstructive pulmonary disease, unspecified SNOMED: 15525039 (4) Sickle cell disease ICD Codes: D57.1 - Sickle cell disease SNOMED: 200609989 (5) Hip osteoarthritis ICD Codes: M16.9 - Osteoarthritis of hip, unspecified SNOMED: 922130071 Assessment/Plan check sputum iv abx chest pt titrate fio2 to sat of 92%^ pain management dvt prophylaxis. Mila Almonte MD Aug 28, 2018 12:00
--- NOTE | 2018-08-28 12:10 | Diagnostic Imaging Report ---
Indication: Shortness of breath Technique: One view of the chest Comparison: 06/30/2018 Findings: Dense consolidation is seen throughout the right lung but is especially prominent in the perihilar region. There is less dense consolidation in the left perihilar region. These are new findings since the prior study. The pleural spaces are clear. The heart size is normal. Impression: Bilateral right greater than left perihilar consolidation. Most likely representing pneumonia. Pulmonary edema also a possibility
[2018-08-28] MEDS ORDERED: dilTIAZem HCl 30mg tab ORAL SCH (14:00)
--- NOTE | 2018-08-28 14:19 | NUR ---
Social Work This Sw received a consult from Cara, Mechanical Engineering Advisor regarding possible mental health concerns. This Sw met with patient who admitted she has been taking pain medication for her back. This Sw addressed any possible pain medication addiction concerns with patient. Patient explains she plans to follow up a pain specialist as needed. Patient denied any other substance abuse. Patient also denied depression, suicidal ideations. Patient lives with her two sons, Aravind ([phone]) and Joe who can assist, as needed upon discharge. Patient explained she uses a walker at times, does not have any other DME needed. Patient also explains her two daughters, Adam and Alan are available to assist as well. No other needs or concerns identified at this time.
[2018-08-28] MEDS: dilTIAZem HCl 30mg tab ORAL SCH ×2 (14:39→22:34)
--- NOTE | 2018-08-28 16:50 | History & Physical ---
History and Physical History & Physicial Carlos Madden MD Aug 28, 2018 16:50
[2018-08-28] MEDS: HYDROcodone/Acetamin 5/325 tab ORAL PRN (17:36)
--- NOTE | 2018-08-28 18:43 | NUR ---
NURSE NOTES: Patients daughter Elia Henry requested to know what is going on with the patient. Patient is more alert now and gave us permission to speak to her daughter about her condition. Explained to the daughter why she came to the hospital. I also explained that the patient has been extremely confused all day. Pt stated that we have not changed her or cleaned her all day. Patient has been changed and a gown has been provided with each change. Pt strips out of gown each time. Daughter was informed of this.
--- NOTE | 2018-08-28 19:50 | NUR ---
HAND-OFF: Report given to ARIANA Frazier. Plan of care endorsed.
--- NOTE | 2018-08-28 19:51 | NUR ---
NURSE NOTES: Received report from Sol LANE. Pt was resting in the bed w.o any acute distress noted. Pt is AO x3 and [employer] monitor is on. Rails up x3 and call light is within reach. Will continue to follow the plan of care.
[2018-08-28] MEDS ORDERED: Theophylline ER 100mg ORAL SCH (21:00)
[2018-08-28] MEDS ORDERED: Heparin 5000 units/ml inj SUBQ SCH (21:00)
[2018-08-28] MEDS: Theophylline ER 100mg ORAL SCH (21:06)
[2018-08-28] MEDS: Heparin 5000 units/ml inj SUBQ SCH (21:09)
[2018-08-28 22:28] VITALS: BP 127/84
--- NOTE | 2018-08-28 23:15 | History and Physical Report ---
DATE OF ADMISSION: 08/27/2018 CHIEF COMPLAINT: Shortness of breath and cough. HISTORY OF PRESENT ILLNESS: This is a 53-year-old female with past medical history significant for asthma; history of sickle cell disease; anxiety; hypertension; lumbar disk disease with lumbar spondylosis as well as right hip osteoarthritis, status post right hip arthroplasty; and moderate pulmonary hypertension, who was presented to the hospital complaining about cough and chest congestion over the past two days, progressively worsening. She said that it has been going on for a while and she might have overdosed on her medication. She denies any history of suicidal or homicidal ideation. She denies any nausea, vomiting, or diarrhea; however, she feels very weak, tired, and generalized weakness. Denies any dysuria. Complaining of productive cough. Shortly after initial evaluation in the emergency room, the patient was confirmed to have lobar pneumonia on the chest x-ray and subsequently the patient was admitted to the hospital for IV antibiotic therapy. PAST MEDICAL HISTORY AND PAST SURGICAL HISTORY: As above history of asthma; sickle cell disease; anxiety; hypertension; lumbar disk disease; lumbar spondylosis; right hip osteoarthritis, status post right hip replacement; and moderate pulmonary hypertension. MEDICATIONS: Medications at home are significant for aspirin, , BuSpar, diltiazem, , iron sulfate, Advair, folic acid, gabapentin, lisinopril, Protonix, prednisone, Seroquel, and ranitidine. ALLERGIES: Penicillin. SOCIAL HISTORY: The patient denies any substance abuse. However, prior records show the patient has history of benzodiazepine as well as opiate abuse and smoking. She lives with her three sons. FAMILY HISTORY: Noncontributory. REVIEW OF SYSTEMS: Mostly as above. Denies any dysuria or frequency. PHYSICAL EXAMINATION: VITAL SIGNS: On admission, temperature 99.7, pulse of 134, respirations 18, and blood pressure 96/50. GENERAL: The patient is awake and responsive, in no acute distress, but feeling weak and tired. HEAD AND NECK: Pupils are reactive to light. Extraocular movements intact. NECK: Supple. No JVD. LUNGS: Good air entry. Occasional crackles in the bases. No wheeze or rhonchi. HEART: S1 and S2. Tachycardic. No murmurs or gallops. ABDOMEN: Soft, nondistended, and nontender. Positive bowel sounds. EXTREMITIES: No cyanosis, clubbing, or edema. NEUROLOGIC: Cranial nerves II through XII grossly intact. Motor is 5/5 in all extremities. Gait is intact. RECTAL/GENITOURINARY: Refused and deferred. PSYCHIATRIC: Mood and affect are anxious. LABORATORY AND DIAGNOSTIC DATA: On admission, sodium 137, potassium 3.4, chloride 102, bicarbonate 25, BUN 18, creatinine 1.7, and glucose is 82. Total bilirubin of 0.4. AST of 44, ALT of 31, and alkaline phosphatase of 138. Albumin is 3.0. WBC of 22.3, hemoglobin of 12, hematocrit 39, and platelets are 308,000. The patient has 5% lymphocytes and 25% bands. Urine drug screen positive for opioids and benzodiazepines. Negative acetaminophen. Negative alcohol level. Urinalysis - +2 protein, +4 blood, and moderate squamous epithelial. Chest x-ray noted. The patient has bilateral right greater than left perihilar consolidation, most likely representing pneumonia and pulmonary edema also possible. The patient had a CT of the head done, which noted abnormal CT of the head without contrast. ASSESSMENT: 1. Acute pneumonia. 2. History of asthma. 3. COPD. 4. Sepsis with bandemia. 5. Sickle cell disease. 6. History of severe hip osteoarthritis, status post arthroplasty. 7. Spinal spondylolisthesis. 8. Question of lumbar spine spondylosis. 9. Hypertension. 10. Anemia. PLAN: 1. Admit the patient to monitored unit. 2. We will follow up with the laboratory. 3. Aggressive IV hydration. 4. Broad-spectrum antibiotics. 5. The patient has penicillin allergy. 6. Started the patient on cefepime and Levaquin. 7. Code status is Full Code. 8. DVT prophylaxis, heparin subcutaneous. 9. We will follow up with Dr. Almonte. 10. Pulmonary Critical Care consultation and recommendation. Carlos Madden M.D. DR: ROSA MARIA JOB#: [id number] CC:
[2018-08-29] VITALS: BP 127/79
--- NOTE | 2018-08-29 00:07 | NUR ---
NURSE NOTES: Called MD Madden and talked about the clinical findings: temp 101.1 and continues coughing. NO order at this time per MD Madden.
[2018-08-29] MEDS: HYDROcodone/Acetamin 5/325 tab ORAL PRN (00:36)
--- NOTE | 2018-08-29 01:00 | NUR ---
NURSE NOTES: Notified the Charge Nurse and Nursing warehouse packaging supervisor about the Temp and MD CALL.
--- NOTE | 2018-08-29 01:15 | NUR ---
NURSE NOTES: Cooling measures started. Ice packs placed under the armpits air condition turned on.
[2018-08-29 04:00] VITALS: BP 117/72
[2018-08-29] MEDS: dilTIAZem HCl 30mg tab ORAL SCH ×3 (06:14→21:32)
--- NOTE | 2018-08-29 07:51 | NUR ---
HAND-OFF: Report given to Dwayne LANE
--- NOTE | 2018-08-29 07:52 | NUR ---
NURSE NOTES: Report received from ARIANA Frazier. Pt is resting in bed, in semi- marino position. Patient in stable condition and ready to eat her breakfast. No signs and symptoms of acute distress at this time. IV sites intact and running at RX dose. Bed is in lowest position with brake engaged, side rails up x2. Bed alarm om, call light and side table placed within reach. Will continue to monitor.
[2018-08-29 08:00] VITALS: BP 121/73
[2018-08-29] MEDS: Theophylline ER 100mg ORAL SCH ×2 (08:42→20:45)
[2018-08-29] MEDS: Heparin 5000 units/ml inj SUBQ SCH ×2 (08:50→20:48)
--- NOTE | 2018-08-29 08:58 | NUR ---
NURSE NOTES: Text to report Dr. Almonte for the result of blood culture, Gram Pos Cocci in cluster.
[2018-08-29] MEDS ORDERED: Lisinopril 20mg tab ORAL SCH ×2 (09:00)
[2018-08-29] MEDS ORDERED: Solu-MEDROL 125mg Inj IV SCH ×2 (09:00)
[2018-08-29] MEDS ORDERED: BuPROPion XL 150mg tab ORAL SCH ×2 (09:00)
--- NOTE | 2018-08-29 10:34 | Diagnostic Imaging Report ---
EXAM: XR Chest, 1 View CLINICAL HISTORY: Shortness of breath TECHNIQUE: Frontal view of the chest. COMPARISON: Chest x-ray dated 08/27/18 FINDINGS: Lungs: No significant interval change in the interstitial and airspace opacities throughout the right lung. Left lung appears clear. Pleural space: Unremarkable. The costophrenic angles are sharp. No visible pneumothorax. Heart: Unremarkable. No cardiomegaly. Mediastinum: Unremarkable. Bones/joints: Unremarkable. Tubes, lines and devices: Telemetry leads overlie the thorax. IMPRESSION: 1. No significant interval change in the interstitial and airspace opacities throughout the right lung. 2. Left lung appears clear.
--- NOTE | 2018-08-29 11:23 | Consultation ---
History of Present Illness General Date patient seen: Aug 29, 2018 Chief Complaint: Overdose Present Illness HPI 53 y/o F with hx of COPD, psychosis, anxiety, moderate pHTN, lumbar disc disease /spondylosis, R hip OA s/p R hip replacement, HTN, sickle cell disease presents to ED 08/27 with cough, congestion, total body pain and AMS. EMS suggested that she had taken multiple medications recently and might have overdose. CXR showed RML infiltrate. Denies n/v/d, dysuria, SI or HI. Of note, recently admitted on 06/2018 for COPD exacerbation and treated with Levaquin. Allergies: Coded Allergies: PENICILLINS (Verified Allergy, Unknown, 10/09/12) Medication History Scheduled Aspirin* (Aspir 81*), 81 MG ORAL DAILY, (Reported) Bupropion Hcl* (Wellbutrin*), 150 MG ORAL DAILY, (Reported) Buspirone Hcl* (Buspar*), 10 MG ORAL THREE TIMES A DAY, (Reported) Diltiazem Hcl* (Cardizem*), 30 MG PO TID, (Reported) Docusate Sodium* (Docusate Sodium*), 100 MG PO BID, (Reported) Ferrous Sulfate* (Ferrous Sulfate*), 325 MG ORAL DAILY, (Reported) Fluticasone/Salmeterol (Advair 250-50 Diskus), 1 PUFF INH EVERY 12 HOURS, ( Reported) Folic Acid* (Folic Acid*), 1 MG ORAL DAILY, (Reported) Gabapentin* (Gabapentin*), 300 MG PO TID, (Reported) Lisinopril (Lisinopril*), 20 MG ORAL DAILY, (Reported) Pantoprazole* (Protonix*), 40 MG PO DAILY Prednisone* (Prednisone*), 40 MG ORAL DAILY, (Reported) Quetiapine Fumarate (Quetiapine Fumarate), 300 MG ORAL DAILY, (Reported) Ranitidine Hcl* (Ranitidine Hcl*), 150 MG IV BID, (Reported) Scheduled PRN Albuterol Sulfate* (Albuterol Sulfate Mdi*), 2 PUFF INH Q4H PRN for Shortness of Breath, (Reported) Methocarbamol* (Methocarbamol*), 500 MG ORAL QID PRN for For Pain, (Reported) Miscellaneous Medications Lamotrigine (Lamotrigine), 100 MG PO, (Reported) Vitamin E Mixed (Vitamin E), 400 UNIT PO, (Reported) Patient History Healthcare decision maker Resuscitation status Advanced Directive on File Patient History Narrative Pmhx: as above Shx: Patient denies any drug use or abuse. However, prior records show the patient has history of benzodiazepine as well as opiateabuse and smoking. She lives with her three sons. Fhx: non contributory Review of Systems All Other Systems: negative except mentioned in HPI Physical Exam Physical Exam Narrative GENERAL: The patient is awake and responsive, in no acute distress, but feeling weak and tired. HEAD AND NECK: Pupils are reactive to light. Extraocular movements intact. NECK: Supple. No JVD. LUNGS: Good air entry. Occasional crackles in the bases. No wheeze or rhonchi. HEART: S1 and S2. Tachycardic. No murmurs or gallops. ABDOMEN: Soft, nondistended, and nontender. Positive bowel sounds. EXTREMITIES: No cyanosis, clubbing, or edema. NEUROLOGIC: Cranial nerves II through XII grossly intact. Motor is 5/5 in all extremities. Gait is intact. RECTAL/GENITOURINARY: Refused and deferred. PSYCHIATRIC: Mood and affect are anxious. Last 24 Hour Vital Signs Date Time Temp Pulse Resp B/P (MAP) Pulse Ox O2 Delivery O2 Flow Rate FiO2 08/29/18 09:00 Room Air 08/29/18 08:43 121/73 08/29/18 08:00 99.2 113 20 121/73 (89) 99 08/29/18 08:00 105 08/29/18 07:35 114 22 Nasal Cannula 2.0 28 08/29/18 06:14 103 117/72 08/29/18 04:00 99 08/29/18 04:00 99.5 103 19 117/72 (87) 97 08/29/18 00:00 101.0 121 18 127/79 (95) 92 08/29/18 00:00 117 08/28/18 22:34 121 127/84 08/28/18 22:28 98.8 121 20 127/84 (98) 97 08/28/18 21:03 119 20 Room Air 21 08/28/18 21:00 Room Air 08/28/18 20:00 119 08/28/18 18:06 97.6 08/28/18 15:51 118 08/28/18 14:39 120 129/70 08/28/18 12:00 124 Intake and Output 08/28/18 08/29/18 19:00 07:00 Intake Total 240 ml Balance 240 ml Intake Oral 240 ml # Voids 4 Height (Feet): 5 Height (Inches): 6.00 Weight (Pounds): 175 Medications Current Medications Medications (Trade) Dose Ordered Sig/Yadira Route PRN Reason Start Time Stop Time Status Last Admin Dose Admin Acetaminophen (Tylenol) 650 mg Q6H PRN ORAL Mild Pain/Temp > 100.5 08/29/18 07:15 09/28/18 07:14 Acetaminophen/ Hydrocodone Bitart ([place] 5/325) 1 tab Q6H PRN ORAL Moderate Pain (Pain Scale 4-6) 08/28/18 17:45 09/04/18 01:44 08/29/18 00:36 Albuterol/ Ipratropium (Albuterol/ Ipratropium) 3 ml Q4H PRN HHN dyspnea 08/28/18 15:30 09/02/18 11:29 Bupropion HCl (Wellbutrin XL) 150 mg DAILY ORAL 08/29/18 09:00 09/28/18 08:59 08/29/18 08:42 Dextrose (Dextrose 50%) 25 ml Q30M PRN IV Hypoglycemia 08/28/18 13:30 09/27/18 11:29 Dextrose (Dextrose 50%) 50 ml Q30M PRN IV Hypoglycemia 08/28/18 13:30 09/27/18 11:29 Diltiazem HCl (Cardizem) 30 mg Q8HR ORAL 08/28/18 14:00 09/27/18 13:59 08/29/18 06:14 Gabapentin (Neurontin) 300 mg Q8HR ORAL 08/28/18 14:00 09/27/18 13:59 08/29/18 06:13 Heparin Sodium (Porcine) (Heparin 5000 units/ml) 5,000 units EVERY 12 HOURS SUBQ 08/28/18 21:00 09/27/18 20:59 08/29/18 08:50 Ketorolac Tromethamine (Toradol 30mg) 30 mg Q8H PRN IV BREAKTHROUGH PAIN 08/28/18 19:30 09/02/18 11:29 Lamotrigine (LaMICtal) 100 mg DAILY ORAL 08/29/18 09:00 09/28/18 08:59 08/29/18 08:43 Lisinopril (Prinivil) 20 mg DAILY ORAL 08/29/18 09:00 09/28/18 08:59 08/29/18 08:43 Lorazepam (Ativan 2mg/ml 1ml) 0.5 mg Q4H PRN IV For Anxiety 08/28/18 15:30 09/04/18 11:29 Methocarbamol (Robaxin) 500 mg Q6H PRN ORAL Muscle spasms 08/28/18 17:30 09/27/18 11:29 Methylprednisolone Sodium Succinate (Solu-MEDROL) 60 mg DAILY IV 08/29/18 09:00 09/27/18 11:59 08/29/18 08:42 Morphine Sulfate (Morphine Sulfate) 2 mg Q4H PRN IVP Severe Pain (Pain Scale 7-10) 08/28/18 15:30 09/04/18 11:29 Nitroglycerin (Ntg) 0.4 mg Q5MIN X 3 DOSES PRN SL Prn Chest Pain 08/28/18 13:00 09/27/18 11:29 Ondansetron HCl (Zofran) 4 mg Q4H PRN IVP Nausea & Vomiting 08/28/18 13:45 09/27/18 01:44 Pantoprazole (Protonix) 40 mg DAILY ORAL 08/29/18 09:00 09/28/18 08:59 08/29/18 08:42 Promethazine HCl/ Codeine (Phenergan with Codeine) 5 ml Q6H PRN ORAL cough 08/28/18 17:30 09/27/18 11:29 08/28/18 22:41 Temazepam (Restoril) 15 mg HSPRN PRN ORAL Insomnia 08/28/18 21:00 09/04/18 20:59 Theophylline (Papito-Dur) 100 mg EVERY 12 HOURS ORAL 08/28/18 21:00 09/27/18 20:59 08/29/18 08:42 Assessment/Plan Assessment/Plan Abx: Cefepime x1 08/27 Levaquin x1 08/27 Assessment: Sepsis 2ry to PNA, possibly aspiration- r/o Flu -CXR: : Bilateral right greater than left perihilar consolidation. Most likely representing pneumonia. Pulmonary edema also a possibility Gram positive bacteremia- real vs contaminant -08/27 Bcx 2/ GPC clusters Fever Leukocytosis, improving -u/a neg COPD psychosis anxiety moderate pHTN lumbar disc disease/spondylosis R hip OA s/p R hip replacement HTN sickle cell disease Plan: -Start empiric IV Vancomycin, Aztreonam and LEvaquin for PNA pending sputum culture -Add empiric Tamiflu pending test -sp cx, legionella ag urine, Influenza sc -f/u cx -Monitor CBC/CMP, temperatures -aspiration precautions Thank you for this consultation. Will continue to follow along with you. Discussed with Angela Lindsey M.D. Aug 29, 2018 11:23
[2018-08-29 12:00] VITALS: BP 130/81
[2018-08-29] MEDS ORDERED: Levofloxacin 750mg tab ORAL SCH (12:00)
[2018-08-29 13:26] LABS: HEMATOCRIT 34.3 % (37.0-47.0); MEAN CORPUSCULAR VOLUME 90 FL (80-99); PLATELET COUNT 334 K/UL (150-450); RED BLOOD COUNT 3.82 M/UL (4.20-5.40); RED CELL DISTRIBUTION WIDTH 11.6 % (11.6-14.8)
[2018-08-29 13:28] LABS: WHITE BLOOD COUNT 25.9 K/UL (4.8-10.8)
--- NOTE | 2018-08-29 13:36 | NUR ---
NURSE NOTES: text and report abnormal WBC value to Dr. Eller.
--- NOTE | 2018-08-29 13:55 | Internal Med Progress Note ---
Subjective Physician Name Carlos Madden Attending Physician Carlos Madden MD Current Medications Medications (Trade) Dose Ordered Sig/Yadira Route PRN Reason Start Time Stop Time Status Last Admin Dose Admin Acetaminophen (Tylenol) 650 mg Q6H PRN ORAL Mild Pain/Temp > 100.5 08/29/18 07:15 09/28/18 07:14 Acetaminophen/ Hydrocodone Bitart ([place] 5/325) 1 tab Q6H PRN ORAL Moderate Pain (Pain Scale 4-6) 08/28/18 17:45 09/04/18 01:44 08/29/18 00:36 Albuterol/ Ipratropium (Albuterol/ Ipratropium) 3 ml Q4H PRN HHN dyspnea 08/28/18 15:30 09/02/18 11:29 Aztreonam 1 gm/ Dextrose 55 ml @ 110 mls/hr Q8HR IVPB 08/29/18 14:00 09/05/18 13:59 Bupropion HCl (Wellbutrin XL) 150 mg DAILY ORAL 08/29/18 09:00 09/28/18 08:59 08/29/18 08:42 Dextrose (Dextrose 50%) 25 ml Q30M PRN IV Hypoglycemia 08/28/18 13:30 09/27/18 11:29 Dextrose (Dextrose 50%) 50 ml Q30M PRN IV Hypoglycemia 08/28/18 13:30 09/27/18 11:29 Diltiazem HCl (Cardizem) 30 mg Q8HR ORAL 08/28/18 14:00 09/27/18 13:59 08/29/18 06:14 Gabapentin (Neurontin) 300 mg Q8HR ORAL 08/28/18 14:00 09/27/18 13:59 08/29/18 06:13 Heparin Sodium (Porcine) (Heparin 5000 units/ml) 5,000 units EVERY 12 HOURS SUBQ 08/28/18 21:00 09/27/18 20:59 08/29/18 08:50 Ketorolac Tromethamine (Toradol 30mg) 30 mg Q8H PRN IV BREAKTHROUGH PAIN 08/28/18 19:30 09/02/18 11:29 Lamotrigine (LaMICtal) 100 mg DAILY ORAL 08/29/18 09:00 09/28/18 08:59 08/29/18 08:43 Levofloxacin (Levaquin) 750 mg DAILY ORAL 08/29/18 12:00 09/05/18 11:59 08/29/18 12:14 Lisinopril (Prinivil) 20 mg DAILY ORAL 08/29/18 09:00 09/28/18 08:59 08/29/18 08:43 Lorazepam (Ativan 2mg/ml 1ml) 0.5 mg Q4H PRN IV For Anxiety 08/28/18 15:30 09/04/18 11:29 Methocarbamol (Robaxin) 500 mg Q6H PRN ORAL Muscle spasms 08/28/18 17:30 09/27/18 11:29 Methylprednisolone Sodium Succinate (Solu-MEDROL) 60 mg DAILY IV 08/29/18 09:00 09/27/18 11:59 08/29/18 08:42 Morphine Sulfate (Morphine Sulfate) 2 mg Q4H PRN IVP Severe Pain (Pain Scale 7-10) 08/28/18 15:30 09/04/18 11:29 Nitroglycerin (Ntg) 0.4 mg Q5MIN X 3 DOSES PRN SL Prn Chest Pain 08/28/18 13:00 09/27/18 11:29 Ondansetron HCl (Zofran) 4 mg Q4H PRN IVP Nausea & Vomiting 08/28/18 13:45 09/27/18 01:44 Oseltamivir Phosphate (Tamiflu) 30 mg Q12HR ORAL 08/29/18 12:00 09/03/18 11:59 08/29/18 12:19 Pantoprazole (Protonix) 40 mg DAILY ORAL 08/29/18 09:00 09/28/18 08:59 08/29/18 08:42 Promethazine HCl/ Codeine (Phenergan with Codeine) 5 ml Q6H PRN ORAL cough 08/28/18 17:30 09/27/18 11:29 08/28/18 22:41 Temazepam (Restoril) 15 mg HSPRN PRN ORAL Insomnia 08/28/18 21:00 09/04/18 20:59 Theophylline (Papito-Dur) 100 mg EVERY 12 HOURS ORAL 08/28/18 21:00 09/27/18 20:59 08/29/18 08:42 Vancomycin HCl (Vanco rx to dose) 1 ea DAILY PRN MISC Per rx protocol 08/29/18 11:30 09/28/18 11:29 Vancomycin HCl/ Dextrose 275 ml @ 183.333 mls/hr Q24H IVPB 08/29/18 15:00 09/03/18 14:59 Allergies: Coded Allergies: PENICILLINS (Verified Allergy, Unknown, 10/09/12) Subjective awake, alert, responsive, NAD, C/O back pain , less SOB or coughing, WBC: 25.9 Objective Last Vital Signs Date Time Temp Pulse Resp B/P (MAP) Pulse Ox O2 Delivery O2 Flow Rate FiO2 08/29/18 12:00 98.5 105 20 130/81 (97) 98 08/29/18 09:00 Room Air 08/29/18 07:35 2.0 28 Laboratory Tests Test 08/29/18 12:20 White Blood Count 25.9 K/UL (4.8-10.8) *H Red Blood Count 3.82 M/UL (4.20-5.40) L Hemoglobin 11.0 G/DL (12.0-16.0) L Hematocrit 34.3 % (37.0-47.0) L Mean Corpuscular Volume 90 FL (80-99) Mean Corpuscular Hemoglobin 28.8 PG (27.0-31.0) Mean Corpuscular Hemoglobin Concent 32.1 G/DL (32.0-36.0) Red Cell Distribution Width 11.6 % (11.6-14.8) Platelet Count 334 K/UL (150-450) Mean Platelet Volume 5.5 FL (6.5-10.1) L Neutrophils (%) (Auto) % (45.0-75.0) Lymphocytes (%) (Auto) % (20.0-45.0) Monocytes (%) (Auto) % (1.0-10.0) Eosinophils (%) (Auto) % (0.0-3.0) Basophils (%) (Auto) % (0.0-2.0) Neutrophils % (Manual) Pending Lymphocytes % (Manual) Pending Platelet Estimate Pending Platelet Morphology Pending Sodium Level Pending Potassium Level Pending Chloride Level Pending Carbon Dioxide Level Pending Blood Urea Nitrogen Pending Creatinine Pending Estimat Glomerular Filtration Rate Pending Glucose Level Pending Calcium Level Pending Phosphorus Level Pending Magnesium Level Pending Total Bilirubin Pending Aspartate Amino Transf (AST/SGOT) Pending Alanine Aminotransferase (ALT/SGPT) Pending Alkaline Phosphatase Pending Total Protein Pending Albumin Pending Globulin Pending Microbiology Date/Time Source Procedure Growth Status 08/27/18 23:45 Blood Blood Culture - Preliminary NO GROWTH AFTER 24 HOURS Resulted 08/27/18 23:40 Blood Blood Culture - Preliminary Resulted Intake and Output 08/28/18 08/29/18 19:00 07:00 Intake Total 240 ml Balance 240 ml Intake Oral 240 ml # Voids 4 Objective GENERAL: The patient is awake and responsive, in no acute distress. HEAD AND NECK: Pupils are reactive to light. Extraocular movements intact. NECK: Supple. No JVD. LUNGS: Good air entry. Occasional crackles in the bases. No wheeze or rhonchi. HEART: S1 and S2. Tachycardic. No murmurs or gallops. ABDOMEN: Soft, nondistended, and nontender. Positive bowel sounds. EXTREMITIES: No cyanosis, clubbing, or edema. NEUROLOGIC: Cranial nerves II through XII grossly intact. Motor is 5/5 in all extremities. Gait is intact. PSYCHIATRIC: Mood and affect are anxious. Assessment/Plan Assessment/Plan ASSESSMENT: 1. Acute pneumonia. 2. History of asthma. 3. COPD. 4. Sepsis with bandemia / GPC Bacteremia. 5. Sickle cell disease. 6. History of severe hip osteoarthritis, status post arthroplasty. 7. Spinal spondylolisthesis. 8. Question of lumbar spine spondylosis. 9. Hypertension. 10. Anemia. PLAN: 1. DC monitored unit. 2. We will follow up with the laboratory and cultures. 3. IV hydration. 4. Transfer to Medical Unit 5. The patient has penicillin allergy. 6. Vanco, Aztreonam , Levaquin. 7. Code status is Full Code. 8. DVT prophylaxis, heparin subcutaneous. 9. We will follow up with Dr. Almonte for Pulmonary Critical Care consultation and DR. Lott for ID consultation. Carlos Madden M.D. Carlos Madden MD Aug 29, 2018 13:55
[2018-08-29 14:00] LABS: ALANINE AMINOTRANSFERASE 25 U/L (12-78); ALBUMIN 2.4 G/DL (3.4-5.0); ALBUMIN/GLOBULIN RATIO 0.5 (1.0-2.7); ALKALINE PHOSPHATASE 222 U/L (46-116); ANION GAP 4 mmol/L (5-15); ASPARTATE AMINO TRANSFERASE 27 U/L (15-37); BILIRUBIN,TOTAL 0.2 MG/DL (0.2-1.0); BLOOD UREA NITROGEN 14 mg/dL (7-18); CARBON DIOXIDE 31 MMOL/L (21-32); CHLORIDE 106 MMOL/L (98-107); CREATININE 0.8 MG/DL (0.55-1.30); PHOSPHORUS 1.9 MG/DL (2.5-4.9); POTASSIUM 3.7 MMOL/L (3.5-5.1); SODIUM 141 MMOL/L (136-145)
[2018-08-29] MEDS ORDERED: Aztreonam Inj 1 GM in D5W 55 ML IVPB SCH (14:00)
[2018-08-29] MEDS ORDERED: HYDROcodone/Acetamin 10/325 tab ORAL PRN ×2 (14:00→19:07)
[2018-08-29] MEDS ORDERED: Vancomycin 1.25gm Premix q24h IVPB SCH (15:00)
--- NOTE | 2018-08-29 15:34 | Pulmonology Progress Note ---
Assessment/Plan Problems: (1) Multilobar lung infiltrate (2) Bacteremia (3) Sepsis (4) COPD (chronic obstructive pulmonary disease) (5) Sickle cell disease (6) Hip osteoarthritis Assessment/Plan check cultures check Blood cultures, so far positive for GPC Heart rate better, check sputum continue abx titrate fio2 to sat of 92% med/surg Subjective ROS Limited/Unobtainable: No Interval Events: less short of breath Allergies: Coded Allergies: PENICILLINS (Verified Allergy, Unknown, 10/09/12) Objective Last 24 Hour Vital Signs Date Time Temp Pulse Resp B/P (MAP) Pulse Ox O2 Delivery O2 Flow Rate FiO2 08/29/18 14:18 105 130/81 08/29/18 12:00 98.5 105 20 130/81 (97) 98 08/29/18 09:00 Room Air 08/29/18 08:43 121/73 08/29/18 08:00 99.2 113 20 121/73 (89) 99 08/29/18 08:00 105 08/29/18 07:35 114 22 Nasal Cannula 2.0 28 08/29/18 06:14 103 117/72 08/29/18 04:00 99 08/29/18 04:00 99.5 103 19 117/72 (87) 97 08/29/18 00:00 101.0 121 18 127/79 (95) 92 08/29/18 00:00 117 08/28/18 22:34 121 127/84 08/28/18 22:28 98.8 121 20 127/84 (98) 97 08/28/18 21:03 119 20 Room Air 21 08/28/18 21:00 Room Air 08/28/18 20:00 119 08/28/18 18:06 97.6 08/28/18 15:51 118 Intake and Output 08/28/18 08/29/18 19:00 07:00 Intake Total 240 ml Balance 240 ml Intake Oral 240 ml # Voids 4 General Appearance: WD/WN HEENT: normocephalic, atraumatic Respiratory/Chest: chest wall non-tender, normal breath sounds Cardiovascular: normal peripheral pulses, normal rate, regularly irregular Abdomen: normal bowel sounds, soft, non tender Extremities: no cyanosis Skin: no rash, no ulcers Neurologic/Psychiatric: plastic sheeting cutter II-XII grossly normal Lymphatic: no neck adenopathy Musculoskeletal: normal muscle bulk Microbiology Date/Time Source Procedure Growth Status 08/27/18 23:45 Blood Blood Culture - Preliminary NO GROWTH AFTER 24 HOURS Resulted 08/27/18 23:40 Blood Blood Culture - Preliminary Resulted Laboratory Tests 08/29/18 12:20: White Blood Count 25.9*H, Red Blood Count 3.82L, Hemoglobin 11.0L, Hematocrit 34.3L, Mean Corpuscular Volume 90, Mean Corpuscular Hemoglobin 28.8, Mean Corpuscular Hemoglobin Concent 32.1, Red Cell Distribution Width 11.6, Platelet Count 334, Mean Platelet Volume 5.5L, Neutrophils (%) (Auto) , Lymphocytes (%) ( Auto) , Monocytes (%) (Auto) , Eosinophils (%) (Auto) , Basophils (%) (Auto) , Differential Total Cells Counted 100, Neutrophils % (Manual) 94H, Lymphocytes % (Manual) 4L, Monocytes % (Manual) 2, Eosinophils % (Manual) 0, Basophils % ( Manual) 0, Band Neutrophils 0, Platelet Estimate Adequate, Platelet Morphology Normal, Red Blood Cell Morphology Normal, Sodium Level 141, Potassium Level 3.7 , Chloride Level 106, Carbon Dioxide Level 31, Anion Gap 4L, Blood Urea Nitrogen 14, Creatinine 0.8, Estimat Glomerular Filtration Rate > 60, Glucose Level 118H, Calcium Level 10.0, Phosphorus Level 1.9L, Magnesium Level 2.2, Total Bilirubin 0.2, Aspartate Amino Transf (AST/SGOT) 27, Alanine Aminotransferase (ALT/SGPT) 25, Alkaline Phosphatase 222H, Total Protein 6.9, Albumin 2.4L, Globulin 4.5, Albumin/Globulin Ratio 0.5L Current Medications Medications (Trade) Dose Ordered Sig/Yadira Route PRN Reason Start Time Stop Time Status Last Admin Dose Admin Acetaminophen (Tylenol) 650 mg Q6H PRN ORAL Mild Pain/Temp > 100.5 08/29/18 07:15 09/28/18 07:14 Acetaminophen/ Hydrocodone Bitart ([place] 10/325) 1 tab Q6H PRN ORAL Pain Scale (6-10) 08/29/18 14:00 09/05/18 13:59 08/29/18 14:24 Acetaminophen/ Hydrocodone Bitart ([place] 5/325) 1 tab Q6H PRN ORAL Moderate Pain (Pain Scale 4-6) 08/28/18 17:45 09/04/18 01:44 08/29/18 00:36 Albuterol/ Ipratropium (Albuterol/ Ipratropium) 3 ml Q4H PRN HHN dyspnea 08/28/18 15:30 09/02/18 11:29 Aztreonam 1 gm/ Dextrose 55 ml @ 110 mls/hr Q8HR IVPB 08/29/18 14:00 09/05/18 13:59 08/29/18 14:18 Bupropion HCl (Wellbutrin XL) 150 mg DAILY ORAL 08/29/18 09:00 09/28/18 08:59 08/29/18 08:42 Dextrose (Dextrose 50%) 25 ml Q30M PRN IV Hypoglycemia 08/28/18 13:30 09/27/18 11:29 Dextrose (Dextrose 50%) 50 ml Q30M PRN IV Hypoglycemia 08/28/18 13:30 09/27/18 11:29 Diltiazem HCl (Cardizem) 30 mg Q8HR ORAL 08/28/18 14:00 09/27/18 13:59 08/29/18 14:18 Gabapentin (Neurontin) 300 mg Q8HR ORAL 08/28/18 14:00 09/27/18 13:59 08/29/18 14:18 Heparin Sodium (Porcine) (Heparin 5000 units/ml) 5,000 units EVERY 12 HOURS SUBQ 08/28/18 21:00 09/27/18 20:59 08/29/18 08:50 Ketorolac Tromethamine (Toradol 30mg) 30 mg Q8H PRN IV BREAKTHROUGH PAIN 08/28/18 19:30 09/02/18 11:29 Lamotrigine (LaMICtal) 100 mg DAILY ORAL 08/29/18 09:00 09/28/18 08:59 08/29/18 08:43 Levofloxacin (Levaquin) 750 mg DAILY ORAL 08/29/18 12:00 09/05/18 11:59 08/29/18 12:14 Lisinopril (Prinivil) 20 mg DAILY ORAL 08/29/18 09:00 09/28/18 08:59 08/29/18 08:43 Lorazepam (Ativan 2mg/ml 1ml) 0.5 mg Q4H PRN IV For Anxiety 08/28/18 15:30 09/04/18 11:29 Methocarbamol (Robaxin) 500 mg Q6H PRN ORAL Muscle spasms 08/28/18 17:30 09/27/18 11:29 Methylprednisolone Sodium Succinate (Solu-MEDROL) 60 mg DAILY IV 08/29/18 09:00 09/27/18 11:59 08/29/18 08:42 Nitroglycerin (Ntg) 0.4 mg Q5MIN X 3 DOSES PRN SL Prn Chest Pain 08/28/18 13:00 09/27/18 11:29 Ondansetron HCl (Zofran) 4 mg Q4H PRN IVP Nausea & Vomiting 08/28/18 13:45 09/27/18 01:44 Oseltamivir Phosphate (Tamiflu) 30 mg Q12HR ORAL 08/29/18 12:00 09/03/18 11:59 08/29/18 12:19 Pantoprazole (Protonix) 40 mg DAILY ORAL 08/29/18 09:00 09/28/18 08:59 08/29/18 08:42 Promethazine HCl/ Codeine (Phenergan with Codeine) 5 ml Q6H PRN ORAL cough 08/28/18 17:30 09/27/18 11:29 08/28/18 22:41 Temazepam (Restoril) 15 mg HSPRN PRN ORAL Insomnia 08/28/18 21:00 09/04/18 20:59 Theophylline (Papito-Dur) 100 mg EVERY 12 HOURS ORAL 08/28/18 21:00 09/27/18 20:59 08/29/18 08:42 Vancomycin HCl (Vanco rx to dose) 1 ea DAILY PRN MISC Per rx protocol 08/29/18 11:30 09/28/18 11:29 Vancomycin HCl/ Dextrose 275 ml @ 183.333 mls/hr Q24H IVPB 08/29/18 15:00 09/03/18 14:59 Mila Almonte MD Aug 29, 2018 15:34
[2018-08-29 16:00] VITALS: BP 124/81
[2018-08-29] MEDS ORDERED: Nitroglycerin Subl 0.4mg tab SL PRN (19:00)
--- NOTE | 2018-08-29 19:00 | NUR ---
NURSE NOTES: Received pt from ARIANA MCKEON. Pt is forgetful and orient x3. pt has NC 2LMP. pt is coughing and has yellowish phlegm. Pt has intact iv access LH 22g SL. All belongings are with pt. all needs attended, bed is locked and is in the lowest position. call light within easy reach. will continue to monitor.
--- NOTE | 2018-08-29 19:00 | NUR ---
TRANSFER TO FLOOR: Patient transferred to Med-Surg, per Dr. Madden's order. Report given to ARIANA Milligan. Belongings given to ARIANA Milligan. Family and or S/O informed of transfer. Patient transferred in stable condition.
[2018-08-29] MEDS ORDERED: HYDROcodone/Acetamin 5/325 tab ORAL PRN (19:07)
[2018-08-29] MEDS ORDERED: Methocarbamol 500mg tab ORAL PRN (19:08)
[2018-08-29] MEDS ORDERED: Albuterol/Ipratropium 3ml neb HHN PRN (19:30)
[2018-08-29] MEDS ORDERED: LORazepam Inj 2mg/ml 1ml IV PRN (19:30)
--- NOTE | 2018-08-29 19:43 | NUR ---
HAND-OFF: Report given to ARIANA GOMEZ.
--- NOTE | 2018-08-29 19:45 | NUR ---
CASE MANAGEMENT: REVIEW SI: PNA . SEPSIS . COPD T 99.2 HR 113 RR 22 BP 121/73 SAT 98% NC/2L IS: PREDNISONE PO QD LEVOFLOXACIN PO QD AZACTAM IV Q8HR THEOPHYLLINE PO Q12HR MED/SURG STATUS DCP: PATIENT IS FROM HOME
--- NOTE | 2018-08-29 19:45 | NUR ---
NURSE NOTES: Received report & pt from ARIANA Milligan. Pt lying in bed, a&ox3 & forgetful, on O2 via NC @ 2LPM. No s/s of acute distress & c/o 03/25 pain. Will give PRN pain med when due & pt verbalized understanding. Bed side commode placed for safety. IV site intact & S/L'd. Bed in lowest position, call light within reach. Will continue to monitor.
[2018-08-29 20:00] VITALS: BP 129/82
[2018-08-29] MEDS: Promethazine/Codeine 5ml UD ORAL PRN (20:46)
[2018-08-29] MEDS: HYDROcodone/Acetamin 10/325 tab ORAL PRN (20:46)
[2018-08-29] MEDS: Aztreonam Inj 1 GM in D5W 55 ML IVPB SCH (21:33)
[2018-08-30] VITALS: BP 118/72
[2018-08-30] MEDS: Ketorolac 30mg Inj IV PRN ×3 (00:28→20:19)
[2018-08-30] MEDS: HYDROcodone/Acetamin 10/325 tab ORAL PRN ×4 (02:48→22:24)
[2018-08-30 04:00] VITALS: BP 112/68
[2018-08-30] MEDS: Aztreonam Inj 1 GM in D5W 55 ML IVPB SCH ×3 (05:57→22:23)
[2018-08-30] MEDS: dilTIAZem HCl 30mg tab ORAL SCH ×3 (06:01→22:24)
--- NOTE | 2018-08-30 07:16 | NUR ---
HAND-OFF: Report given to ARIANA Sanchez.
[2018-08-30 08:00] VITALS: BP 117/72
--- NOTE | 2018-08-30 08:00 | NUR ---
NURSE NOTES: Received report from Danica LANE. pt a/a/o laying in bed, sleeping with no signs of distress or other issues at this time. pt is on O2 at 2L via n/c. IV on the Left MARS gauge#22. pt is able to ambulate to the restroom with steady gait but with staff supervision. call light within reach. bed in lowest position. side rales up x2. I will f/u as needed.
[2018-08-30 08:12] LABS: HEMATOCRIT 30.8 % (37.0-47.0); HEMOGLOBIN 9.8 G/DL (12.0-16.0); MEAN CORPUSCULAR VOLUME 90 FL (80-99); PLATELET COUNT 321 K/UL (150-450); RED BLOOD COUNT 3.43 M/UL (4.20-5.40); RED CELL DISTRIBUTION WIDTH 11.7 % (11.6-14.8)
[2018-08-30 08:14] LABS: WHITE BLOOD COUNT 31.3 K/UL (4.8-10.8)
[2018-08-30 08:30] LABS: ALANINE AMINOTRANSFERASE 22 U/L (12-78); ALBUMIN 2.2 G/DL (3.4-5.0); ALBUMIN/GLOBULIN RATIO 0.5 (1.0-2.7); ALKALINE PHOSPHATASE 215 U/L (46-116); ANION GAP 6 mmol/L (5-15); ASPARTATE AMINO TRANSFERASE 20 U/L (15-37); BLOOD UREA NITROGEN 22 mg/dL (7-18); CARBON DIOXIDE 31 MMOL/L (21-32); CHLORIDE 104 MMOL/L (98-107); PHOSPHORUS 3.1 MG/DL (2.5-4.9); POTASSIUM 3.4 MMOL/L (3.5-5.1); SODIUM 141 MMOL/L (136-145)
[2018-08-30] MEDS: Promethazine/Codeine 5ml UD ORAL PRN ×2 (08:59→14:58)
[2018-08-30] MEDS: Theophylline ER 100mg ORAL SCH ×2 (08:59→20:16)
[2018-08-30] MEDS: BuPROPion XL 150mg tab ORAL SCH (08:59)
[2018-08-30] MEDS: Lisinopril 20mg tab ORAL SCH (09:00)
[2018-08-30] MEDS ORDERED: Solu-MEDROL 125mg Inj IV SCH (09:00)
[2018-08-30 09:02] LABS: BILIRUBIN,TOTAL 0.2 MG/DL (0.2-1.0)
[2018-08-30] MEDS: Heparin 5000 units/ml inj SUBQ SCH ×2 (09:02→20:18)
[2018-08-30 12:00] VITALS: BP 130/81
--- NOTE | 2018-08-30 14:16 | Internal Med Progress Note ---
Subjective Physician Name Carlos Madden Attending Physician Carlos Madden MD Current Medications Medications (Trade) Dose Ordered Sig/Yadira Route PRN Reason Start Time Stop Time Status Last Admin Dose Admin Acetaminophen (Tylenol) 650 mg Q6H PRN ORAL Mild Pain/Temp > 100.5 08/29/18 19:15 09/28/18 07:14 Acetaminophen/ Hydrocodone Bitart ([place] 10/325) 1 tab Q6H PRN ORAL Pain Scale (7-10) 08/29/18 19:15 09/05/18 19:06 08/30/18 09:22 Acetaminophen/ Hydrocodone Bitart ([place] 5/325) 1 tab Q6H PRN ORAL Moderate Pain (Pain Scale 4-6) 08/29/18 19:07 09/04/18 19:06 Albuterol/ Ipratropium (Albuterol/ Ipratropium) 3 ml Q4H PRN HHN dyspnea 08/29/18 19:30 09/02/18 11:29 Aztreonam 1 gm/ Dextrose 55 ml @ 110 mls/hr Q8HR IVPB 08/29/18 22:00 09/05/18 13:59 08/30/18 05:57 Bupropion HCl (Wellbutrin XL) 150 mg DAILY ORAL 08/30/18 09:00 09/28/18 08:59 08/30/18 08:59 Dextrose (Dextrose 50%) 25 ml Q30M PRN IV Hypoglycemia 08/29/18 19:30 09/27/18 11:29 Dextrose (Dextrose 50%) 50 ml Q30M PRN IV Hypoglycemia 08/29/18 19:30 09/27/18 11:29 Diltiazem HCl (Cardizem) 30 mg Q8HR ORAL 08/29/18 22:00 09/27/18 13:59 08/30/18 06:01 Gabapentin (Neurontin) 300 mg Q8HR ORAL 08/29/18 22:00 09/27/18 13:59 08/30/18 05:56 Heparin Sodium (Porcine) (Heparin 5000 units/ml) 5,000 units EVERY 12 HOURS SUBQ 08/29/18 21:00 09/27/18 20:59 08/30/18 09:02 Ketorolac Tromethamine (Toradol 30mg) 30 mg Q8H PRN IV BREAKTHROUGH PAIN 08/29/18 19:07 09/02/18 19:06 08/30/18 12:12 Lamotrigine (LaMICtal) 100 mg DAILY ORAL 08/30/18 09:00 09/28/18 08:59 08/30/18 08:59 Levofloxacin (Levaquin) 750 mg DAILY ORAL 08/30/18 09:00 09/05/18 11:59 08/30/18 08:59 Lisinopril (Prinivil) 20 mg DAILY ORAL 08/30/18 09:00 09/28/18 08:59 08/30/18 09:00 Lorazepam (Ativan 2mg/ml 1ml) 0.5 mg Q4H PRN IV For Anxiety 08/29/18 19:30 09/04/18 11:29 Methocarbamol (Robaxin) 500 mg Q6H PRN ORAL Muscle spasms 08/29/18 19:08 09/27/18 19:07 Nitroglycerin (Ntg) 0.4 mg Q5MIN X 3 DOSES PRN SL Prn Chest Pain 08/29/18 19:00 09/27/18 11:29 Ondansetron HCl (Zofran) 4 mg Q4H PRN IVP Nausea & Vomiting 08/29/18 19:08 09/27/18 19:07 Oseltamivir Phosphate (Tamiflu) 30 mg Q12HR ORAL 08/29/18 21:00 09/03/18 11:59 08/30/18 09:00 Pantoprazole (Protonix) 40 mg DAILY ORAL 08/30/18 09:00 09/28/18 08:59 08/30/18 08:59 Promethazine HCl/ Codeine (Phenergan with Codeine) 5 ml Q6H PRN ORAL cough 08/29/18 19:08 09/27/18 19:07 08/30/18 08:59 Temazepam (Restoril) 15 mg HSPRN PRN ORAL Insomnia 08/29/18 21:00 09/04/18 20:59 Theophylline (Paptio-Dur) 100 mg EVERY 12 HOURS ORAL 08/29/18 21:00 09/27/18 20:59 08/30/18 08:59 Vancomycin HCl (Vanco rx to dose) 1 ea DAILY PRN MISC Per rx protocol 08/30/18 09:00 09/28/18 11:29 Vancomycin HCl/ Dextrose 275 ml @ 183.333 mls/hr Q24H IVPB 08/30/18 15:00 09/03/18 14:59 Allergies: Coded Allergies: PENICILLINS (Verified Allergy, Unknown, 10/09/12) Subjective awake, alert, responsive, NAD, C/O less back pain , less SOB or coughing, WBC: 31.3 Objective Last Vital Signs Date Time Temp Pulse Resp B/P (MAP) Pulse Ox O2 Delivery O2 Flow Rate FiO2 08/30/18 12:42 98.2 08/30/18 09:00 117/72 08/30/18 09:00 Nasal Cannula 2.0 08/30/18 08:00 91 18 95 08/30/18 07:30 32 Laboratory Tests Test 08/30/18 07:24 White Blood Count 31.3 K/UL (4.8-10.8) *H Red Blood Count 3.43 M/UL (4.20-5.40) L Hemoglobin 9.8 G/DL (12.0-16.0) L Hematocrit 30.8 % (37.0-47.0) L Mean Corpuscular Volume 90 FL (80-99) Mean Corpuscular Hemoglobin 28.6 PG (27.0-31.0) Mean Corpuscular Hemoglobin Concent 31.8 G/DL (32.0-36.0) L Red Cell Distribution Width 11.7 % (11.6-14.8) Platelet Count 321 K/UL (150-450) Mean Platelet Volume 5.7 FL (6.5-10.1) L Neutrophils (%) (Auto) % (45.0-75.0) Lymphocytes (%) (Auto) % (20.0-45.0) Monocytes (%) (Auto) % (1.0-10.0) Eosinophils (%) (Auto) % (0.0-3.0) Basophils (%) (Auto) % (0.0-2.0) Differential Total Cells Counted 100 Neutrophils % (Manual) 82 % (45-75) H Lymphocytes % (Manual) 6 % (20-45) L Monocytes % (Manual) 8 % (1-10) Eosinophils % (Manual) 0 % (0-3) Basophils % (Manual) 0 % (0-2) Band Neutrophils 4 % (0-8) Platelet Estimate Adequate Platelet Morphology Normal Red Blood Cell Morphology Normal Erythrocyte Sedimentation Rate 107 MM/HR (0-30) H Sodium Level 141 MMOL/L (136-145) Potassium Level 3.4 MMOL/L (3.5-5.1) L Chloride Level 104 MMOL/L (98-107) Carbon Dioxide Level 31 MMOL/L (21-32) Anion Gap 6 mmol/L (5-15) Blood Urea Nitrogen 22 mg/dL (7-18) H Creatinine 1.0 MG/DL (0.55-1.30) Estimat Glomerular Filtration Rate > 60 mL/min (>60) Glucose Level 108 MG/DL (74-106) H Calcium Level 10.0 MG/DL (8.5-10.1) Phosphorus Level 3.1 MG/DL (2.5-4.9) Magnesium Level 2.2 MG/DL (1.8-2.4) Total Bilirubin 0.2 MG/DL (0.2-1.0) Aspartate Amino Transf (AST/SGOT) 20 U/L (15-37) Alanine Aminotransferase (ALT/SGPT) 22 U/L (12-78) Alkaline Phosphatase 215 U/L (46-116) H C-Reactive Protein, Quantitative 21.3 mg/dL (0.00-0.90) H Total Protein 6.5 G/DL (6.4-8.2) Albumin 2.2 G/DL (3.4-5.0) L Globulin 4.3 g/dL Albumin/Globulin Ratio 0.5 (1.0-2.7) L Microbiology Date/Time Source Procedure Growth Status 08/27/18 23:45 Blood Blood Culture - Preliminary NO GROWTH AFTER 48 HOURS Resulted 08/27/18 23:40 Blood Blood Culture - Preliminary Staphylococcus Sp Coag Neg Resulted 08/29/18 14:55 Nasopharynx Influenza Types A,B Antigen (ZACH) - Final Complete Intake and Output 08/29/18 08/30/18 19:00 07:00 Intake Total 240 ml 300 ml Output Total 600 ml Balance -360 ml 300 ml Intake Oral 240 ml 300 ml Output Urine Total 600 ml # Voids 2 Objective GENERAL: The patient is awake and responsive, in no acute distress. HEAD AND NECK: Pupils are reactive to light. Extraocular movements intact. NECK: Supple. No JVD. LUNGS: Good air entry. Occasional crackles in the bases. Expiratory wheeze, No rhonchi. HEART: S1 and S2. RR No murmurs or gallops. ABDOMEN: Soft, nondistended, and nontender. Positive bowel sounds. EXTREMITIES: No cyanosis, clubbing, or edema. NEUROLOGIC: Cranial nerves II through XII grossly intact. Motor is 5/5 in all extremities. Gait is intact. PSYCHIATRIC: Mood and affect are anxious. Assessment/Plan Assessment/Plan ASSESSMENT: 1. Acute pneumonia. 2. History of asthma. 3. COPD. 4. Sepsis with bandemia / GPC Bacteremia. 5. Sickle cell disease. 6. History of severe hip osteoarthritis, status post arthroplasty. 7. Spinal spondylolisthesis. 8. Question of lumbar spine spondylosis. 9. Hypertension. 10. Anemia. PLAN: 1. in Medical floor. 2. We will follow up with the laboratory and cultures. 3. IV hydration. 4. switch Solumedral to prednisone 40mg 5. The patient has penicillin allergy. 6. Vanco, Aztreonam , Levaquin. 7. Code status is Full Code. 8. DVT prophylaxis, heparin subcutaneous. 9. We will follow up with Dr. Almonte for Pulmonary Critical Care consultation and DR. Lott for ID consultation. 10. DC home on Friday. Carlos Madden M.D. Carlos Madden MD Aug 30, 2018 14:16
[2018-08-30 16:00] VITALS: BP 114/73
[2018-08-30] MEDS: Vancomycin 1.25gm Premix 275 ML IVPB SCH (16:20)
--- NOTE | 2018-08-30 16:57 | Pulmonology Progress Note ---
Assessment/Plan Problems: (1) Multilobar lung infiltrate (2) Bacteremia (3) Sepsis (4) COPD (chronic obstructive pulmonary disease) (5) Sickle cell disease (6) Hip osteoarthritis Assessment/Plan wbc still high check cxr in a few days check cultures, sputum pending check Blood cultures, so far positive for GPC Heart rate better, check sputum continue abx titrate fio2 to sat of 92% med/surg Subjective ROS Limited/Unobtainable: No Interval Events: still coughing Constitutional: Reports: no symptoms HEENT: Repors: no symptoms Respiratory: Reports: no symptoms Allergies: Coded Allergies: PENICILLINS (Verified Allergy, Unknown, 10/09/12) Objective Last 24 Hour Vital Signs Date Time Temp Pulse Resp B/P (MAP) Pulse Ox O2 Delivery O2 Flow Rate FiO2 08/30/18 14:59 99 130/81 08/30/18 12:42 98.2 08/30/18 12:00 98.5 99 18 130/81 (97) 96 08/30/18 09:52 98.2 08/30/18 09:00 117/72 08/30/18 09:00 Nasal Cannula 2.0 08/30/18 08:00 98.2 91 18 117/72 (87) 95 08/30/18 07:30 Nasal Cannula 3.0 32 08/30/18 07:30 97 Nasal Cannula 3.0 32 08/30/18 06:01 87 112/68 08/30/18 04:00 98.0 86 16 112/68 (83) 95 08/30/18 00:00 97.7 97 17 118/72 (87) 96 08/29/18 21:32 104 129/82 08/29/18 21:02 Nasal Cannula 3.0 32 08/29/18 21:02 96 Nasal Cannula 3.0 32 08/29/18 21:00 Nasal Cannula 2.0 08/29/18 20:00 98.4 104 18 129/82 (98) 92 Intake and Output 08/29/18 08/30/18 19:00 07:00 Intake Total 240 ml 300 ml Output Total 600 ml Balance -360 ml 300 ml Intake Oral 240 ml 300 ml Output Urine Total 600 ml # Voids 2 General Appearance: cachetic HEENT: normocephalic, atraumatic Respiratory/Chest: chest wall non-tender, lungs clear Breasts: no masses Cardiovascular: normal peripheral pulses Abdomen: normal bowel sounds, non distended Genitourinary: normal external genitalia Skin: no lesions Microbiology Date/Time Source Procedure Growth Status 08/27/18 23:45 Blood Blood Culture - Preliminary NO GROWTH AFTER 48 HOURS Resulted 08/27/18 23:40 Blood Blood Culture - Preliminary Staphylococcus Sp Coag Neg Resulted 08/29/18 14:55 Nasopharynx Influenza Types A,B Antigen (ZACH) - Final Complete Laboratory Tests 08/30/18 07:24: White Blood Count 31.3*H, Red Blood Count 3.43L, Hemoglobin 9.8L, Hematocrit 30.8L, Mean Corpuscular Volume 90, Mean Corpuscular Hemoglobin 28.6, Mean Corpuscular Hemoglobin Concent 31.8L, Red Cell Distribution Width 11.7, Platelet Count 321, Mean Platelet Volume 5.7L, Neutrophils (%) (Auto) , Lymphocytes (%) (Auto) , Monocytes (%) (Auto) , Eosinophils (%) (Auto) , Basophils (%) (Auto) , Differential Total Cells Counted 100, Neutrophils % ( Manual) 82H, Lymphocytes % (Manual) 6L, Monocytes % (Manual) 8, Eosinophils % ( Manual) 0, Basophils % (Manual) 0, Band Neutrophils 4, Platelet Estimate Adequate, Platelet Morphology Normal, Red Blood Cell Morphology Normal, Erythrocyte Sedimentation Rate 107H, Sodium Level 141, Potassium Level 3.4L, Chloride Level 104, Carbon Dioxide Level 31, Anion Gap 6, Blood Urea Nitrogen 22H, Creatinine 1.0, Estimat Glomerular Filtration Rate > 60, Glucose Level 108H , Calcium Level 10.0, Phosphorus Level 3.1, Magnesium Level 2.2, Total Bilirubin 0.2, Aspartate Amino Transf (AST/SGOT) 20, Alanine Aminotransferase ( ALT/SGPT) 22, Alkaline Phosphatase 215H, C-Reactive Protein, Quantitative 21.3H , Total Protein 6.5, Albumin 2.2L, Globulin 4.3, Albumin/Globulin Ratio 0.5L Current Medications Medications (Trade) Dose Ordered Sig/Yadira Route PRN Reason Start Time Stop Time Status Last Admin Dose Admin Acetaminophen (Tylenol) 650 mg Q6H PRN ORAL Mild Pain/Temp > 100.5 08/29/18 19:15 09/28/18 07:14 Acetaminophen/ Hydrocodone Bitart ([place] 10/325) 1 tab Q6H PRN ORAL Pain Scale (7-10) 08/29/18 19:15 09/05/18 19:06 08/30/18 16:20 Acetaminophen/ Hydrocodone Bitart ([place] 5/325) 1 tab Q6H PRN ORAL Moderate Pain (Pain Scale 4-6) 08/29/18 19:07 09/04/18 19:06 Albuterol/ Ipratropium (Albuterol/ Ipratropium) 3 ml Q4H PRN HHN dyspnea 08/29/18 19:30 09/02/18 11:29 Aztreonam 1 gm/ Dextrose 55 ml @ 110 mls/hr Q8HR IVPB 08/29/18 22:00 09/05/18 13:59 08/30/18 15:00 Bupropion HCl (Wellbutrin XL) 150 mg DAILY ORAL 08/30/18 09:00 09/28/18 08:59 08/30/18 08:59 Dextrose (Dextrose 50%) 25 ml Q30M PRN IV Hypoglycemia 08/29/18 19:30 09/27/18 11:29 Dextrose (Dextrose 50%) 50 ml Q30M PRN IV Hypoglycemia 08/29/18 19:30 09/27/18 11:29 Diltiazem HCl (Cardizem) 30 mg Q8HR ORAL 08/29/18 22:00 09/27/18 13:59 08/30/18 14:59 Gabapentin (Neurontin) 300 mg Q8HR ORAL 08/29/18 22:00 09/27/18 13:59 08/30/18 14:59 Heparin Sodium (Porcine) (Heparin 5000 units/ml) 5,000 units EVERY 12 HOURS SUBQ 08/29/18 21:00 09/27/18 20:59 08/30/18 09:02 Ketorolac Tromethamine (Toradol 30mg) 30 mg Q8H PRN IV BREAKTHROUGH PAIN 08/29/18 19:07 09/02/18 19:06 08/30/18 12:12 Lamotrigine (LaMICtal) 100 mg DAILY ORAL 08/30/18 09:00 09/28/18 08:59 08/30/18 08:59 Levofloxacin (Levaquin) 750 mg DAILY ORAL 08/30/18 09:00 09/05/18 11:59 08/30/18 08:59 Lisinopril (Prinivil) 20 mg DAILY ORAL 08/30/18 09:00 09/28/18 08:59 08/30/18 09:00 Lorazepam (Ativan 2mg/ml 1ml) 0.5 mg Q4H PRN IV For Anxiety 08/29/18 19:30 09/04/18 11:29 Methocarbamol (Robaxin) 500 mg Q6H PRN ORAL Muscle spasms 08/29/18 19:08 09/27/18 19:07 Nitroglycerin (Ntg) 0.4 mg Q5MIN X 3 DOSES PRN SL Prn Chest Pain 08/29/18 19:00 09/27/18 11:29 Ondansetron HCl (Zofran) 4 mg Q4H PRN IVP Nausea & Vomiting 08/29/18 19:08 09/27/18 19:07 Oseltamivir Phosphate (Tamiflu) 30 mg Q12HR ORAL 08/29/18 21:00 09/03/18 11:59 08/30/18 09:00 Pantoprazole (Protonix) 40 mg DAILY ORAL 08/30/18 09:00 09/28/18 08:59 08/30/18 08:59 Prednisone (predniSONE) 40 mg DAILY ORAL 08/30/18 14:15 09/29/18 14:14 08/30/18 14:58 Promethazine HCl/ Codeine (Phenergan with Codeine) 5 ml Q6H PRN ORAL cough 08/29/18 19:08 09/27/18 19:07 08/30/18 14:58 Temazepam (Restoril) 15 mg HSPRN PRN ORAL Insomnia 08/29/18 21:00 09/04/18 20:59 Theophylline (Papito-Dur) 100 mg EVERY 12 HOURS ORAL 08/29/18 21:00 09/27/18 20:59 08/30/18 08:59 Vancomycin HCl (Vanco rx to dose) 1 ea DAILY PRN MISC Per rx protocol 08/30/18 09:00 09/28/18 11:29 Vancomycin HCl/ Dextrose 275 ml @ 183.333 mls/hr Q24H IVPB 08/30/18 15:00 09/03/18 14:59 08/30/18 16:20 Mila Almonte MD Aug 30, 2018 16:57
[2018-08-30] MEDS ORDERED: NS 500ML ONE (19:04)
[2018-08-30] MEDS ORDERED: Tubing IV Secondary IV ONE (19:04)
--- NOTE | 2018-08-30 19:13 | NUR ---
HAND-OFF: Report given to Danica LANE pt a/a/o x4 laying in bed with so signs of distress or other issues at this time. plan to d/c home Friday09/01/18.
--- NOTE | 2018-08-30 19:15 | NUR ---
NURSE NOTES: Received report & pt from ARIANA Sanchez. Pt lying in bed, a&ox3 & forgetful, on O2 via NC @ 2LPM. No s/s of acute distress & c/o 03/25 pain. Will give PRN pain med when due & pt verbalized understanding. IV site intact & S/L'd. Bed in lowest position, call light within reach. Will continue to monitor.
--- NOTE | 2018-08-30 19:42 | NUR ---
CASE MANAGEMENT: REVIEW SI: PNA . SEPSIS . COPD T 98.1 HR 105 RR 18 BP 114/73 SAT 96% NC/3L WBC 31.3 H/H 9.8/30.8 IS: PREDNISONE PO QD LEVOFLOXACIN PO QD AZACTAM IV Q8HR THEOPHYLLINE PO Q12HR MED/SURG STATUS DCP: PATIENT IS FROM HOME
[2018-08-30 19:59] VITALS: BP 125/79
[2018-08-31] VITALS (7 sets, daily range): BP systolic 125–152; BP diastolic 72–95
[2018-08-31] MEDS: Promethazine/Codeine 5ml UD ORAL PRN ×2 (01:18→23:42)
[2018-08-31] MEDS: Aztreonam Inj 1 GM in D5W 55 ML IVPB SCH ×3 (06:30→21:04)
[2018-08-31] MEDS: Ketorolac 30mg Inj IV PRN ×3 (06:30→22:14)
[2018-08-31] MEDS: dilTIAZem HCl 30mg tab ORAL SCH ×3 (06:30→21:47)
--- NOTE | 2018-08-31 07:28 | NUR ---
HAND-OFF: Report given to Sandhya Hernandez RN. Pt in stable condition.
--- NOTE | 2018-08-31 07:30 | NUR ---
NURSE NOTES: Patient is in bed asleep but arousable to verbal stimuli. Patient denies pain at this time. No facial grimacing or moaning noted. Patient is stable with no s/s acute distress. Patient encouraged to use call light for assistance. Patient in bed with call light within reach. Will continue to monitor.
[2018-08-31] MEDS: Lisinopril 20mg tab ORAL SCH (08:37)
[2018-08-31] MEDS: HYDROcodone/Acetamin 10/325 tab ORAL PRN ×3 (08:37→23:39)
[2018-08-31] MEDS: BuPROPion XL 150mg tab ORAL SCH (08:38)
[2018-08-31] MEDS: Theophylline ER 100mg ORAL SCH ×2 (08:38→20:38)
[2018-08-31] MEDS: Heparin 5000 units/ml inj SUBQ SCH ×2 (08:43→20:44)
--- NOTE | 2018-08-31 12:38 | Pulmonology Progress Note ---
Assessment/Plan Problems: (1) Multilobar lung infiltrate (2) Bacteremia (3) Sepsis (4) COPD (chronic obstructive pulmonary disease) (5) Sickle cell disease (6) Hip osteoarthritis Assessment/Plan dc oxygen if tolerated wbc still high check cxr in a few days check cultures, sputum pending check Blood cultures, so far positive for GPC Heart rate better, check sputum continue abx titrate fio2 to sat of 92% med/surg Subjective ROS Limited/Unobtainable: No Constitutional: Reports: no symptoms HEENT: Repors: no symptoms Respiratory: Reports: no symptoms Allergies: Coded Allergies: PENICILLINS (Verified Allergy, Unknown, 10/09/12) Objective Last 24 Hour Vital Signs Date Time Temp Pulse Resp B/P (MAP) Pulse Ox O2 Delivery O2 Flow Rate FiO2 08/31/18 12:00 98.7 103 19 152/95 (114) 95 08/31/18 09:00 Nasal Cannula 2.0 08/31/18 08:37 136/80 08/31/18 08:35 98.6 91 19 136/80 (98) 99 08/31/18 08:20 Nasal Cannula 2.0 28 08/31/18 08:20 100 Nasal Cannula 2.0 28 08/31/18 06:30 94 125/74 08/31/18 04:00 98.6 94 17 125/74 (91) 96 08/30/18 22:24 93 125/79 08/30/18 20:03 Nasal Cannula 2.0 08/30/18 20:00 100 Nasal Cannula 2.0 28 08/30/18 20:00 Nasal Cannula 2.0 28 08/30/18 19:59 98.9 93 18 125/79 (94) 100 08/30/18 16:50 98.2 08/30/18 16:00 98.1 105 18 114/73 (87) 96 08/30/18 14:59 99 130/81 08/30/18 12:42 98.2 Intake and Output 08/30/18 08/31/18 19:00 07:00 Intake Total 500 ml 960 ml Balance 500 ml 960 ml Intake Oral 500 ml 960 ml # Voids 3 3 General Appearance: WD/WN HEENT: normocephalic, atraumatic Respiratory/Chest: chest wall non-tender, lungs clear Cardiovascular: normal rate Abdomen: normal bowel sounds, soft, non tender Genitourinary: normal external genitalia Extremities: no cyanosis Skin: no rash Microbiology Date/Time Source Procedure Growth Status 08/29/18 12:20 Blood Blood Culture - Preliminary NO GROWTH AFTER 24 HOURS Resulted 08/29/18 12:20 Blood Blood Culture - Preliminary NO GROWTH AFTER 24 HOURS Resulted 08/29/18 14:55 Sputum Gram Stain Pending Resulted 08/29/18 14:55 Sputum Sputum Culture - Preliminary NORMAL UPPER RESPIRATORY EFFIE AT 24 ... Resulted 08/29/18 14:55 Nasopharynx Influenza Types A,B Antigen (ZACH) - Final Complete Current Medications Medications (Trade) Dose Ordered Sig/Yadira Route PRN Reason Start Time Stop Time Status Last Admin Dose Admin Acetaminophen (Tylenol) 650 mg Q6H PRN ORAL Mild Pain/Temp > 100.5 08/29/18 19:15 09/28/18 07:14 Acetaminophen/ Hydrocodone Bitart ([place] 10/325) 1 tab Q6H PRN ORAL Pain Scale (7-10) 08/29/18 19:15 09/05/18 19:06 08/31/18 08:37 Acetaminophen/ Hydrocodone Bitart ([place] 5/325) 1 tab Q6H PRN ORAL Moderate Pain (Pain Scale 4-6) 08/29/18 19:07 09/04/18 19:06 08/31/18 02:35 Albuterol/ Ipratropium (Albuterol/ Ipratropium) 3 ml Q4H PRN HHN dyspnea 08/29/18 19:30 09/02/18 11:29 Aztreonam 1 gm/ Dextrose 55 ml @ 110 mls/hr Q8HR IVPB 08/29/18 22:00 09/05/18 13:59 08/31/18 06:30 Bupropion HCl (Wellbutrin XL) 150 mg DAILY ORAL 08/30/18 09:00 09/28/18 08:59 08/31/18 08:38 Dextrose (Dextrose 50%) 25 ml Q30M PRN IV Hypoglycemia 08/29/18 19:30 09/27/18 11:29 Dextrose (Dextrose 50%) 50 ml Q30M PRN IV Hypoglycemia 08/29/18 19:30 09/27/18 11:29 Diltiazem HCl (Cardizem) 30 mg Q8HR ORAL 08/29/18 22:00 09/27/18 13:59 08/31/18 06:30 Gabapentin (Neurontin) 300 mg Q8HR ORAL 08/29/18 22:00 09/27/18 13:59 08/31/18 06:30 Heparin Sodium (Porcine) (Heparin 5000 units/ml) 5,000 units EVERY 12 HOURS SUBQ 08/29/18 21:00 09/27/18 20:59 08/31/18 08:43 Ketorolac Tromethamine (Toradol 30mg) 30 mg Q8H PRN IV BREAKTHROUGH PAIN 08/29/18 19:07 09/02/18 19:06 08/31/18 06:30 Lamotrigine (LaMICtal) 100 mg DAILY ORAL 08/30/18 09:00 09/28/18 08:59 08/31/18 08:38 Levofloxacin (Levaquin) 750 mg DAILY ORAL 08/30/18 09:00 09/05/18 11:59 08/31/18 08:37 Lisinopril (Prinivil) 20 mg DAILY ORAL 08/30/18 09:00 09/28/18 08:59 08/31/18 08:37 Lorazepam (Ativan 2mg/ml 1ml) 0.5 mg Q4H PRN IV For Anxiety 08/29/18 19:30 09/04/18 11:29 Methocarbamol (Robaxin) 500 mg Q6H PRN ORAL Muscle spasms 08/29/18 19:08 09/27/18 19:07 Nitroglycerin (Ntg) 0.4 mg Q5MIN X 3 DOSES PRN SL Prn Chest Pain 08/29/18 19:00 09/27/18 11:29 Ondansetron HCl (Zofran) 4 mg Q4H PRN IVP Nausea & Vomiting 08/29/18 19:08 09/27/18 19:07 Oseltamivir Phosphate (Tamiflu) 30 mg Q12HR ORAL 08/29/18 21:00 09/03/18 11:59 08/31/18 08:43 Pantoprazole (Protonix) 40 mg DAILY ORAL 08/30/18 09:00 09/28/18 08:59 08/31/18 08:38 Prednisone (predniSONE) 40 mg DAILY ORAL 08/30/18 14:15 09/29/18 14:14 08/31/18 08:38 Promethazine HCl/ Codeine (Phenergan with Codeine) 5 ml Q6H PRN ORAL cough 08/29/18 19:08 09/27/18 19:07 08/31/18 01:18 Temazepam (Restoril) 15 mg HSPRN PRN ORAL Insomnia 08/29/18 21:00 09/04/18 20:59 Theophylline (Papito-Dur) 100 mg EVERY 12 HOURS ORAL 08/29/18 21:00 09/27/18 20:59 08/31/18 08:38 Vancomycin HCl (Vanco rx to dose) 1 ea DAILY PRN MISC Per rx protocol 08/30/18 09:00 09/28/18 11:29 Vancomycin HCl/ Dextrose 275 ml @ 183.333 mls/hr Q24H IVPB 08/30/18 15:00 09/03/18 14:59 08/30/18 16:20 Mila Almonte MD Aug 31, 2018 12:38
[2018-08-31] MEDS: Vancomycin 1.25gm Premix 275 ML IVPB SCH ×2 (15:00→16:41)
--- NOTE | 2018-08-31 15:11 | Infectious Diseases Prog Note ---
Assessment/Plan Assessment/Plan Abx: Cefepime x1 08/27 Levaquin x1 08/27 Assessment: Sepsis 2ry to PNA, possibly aspiration- r/o Flu -CXR: : Bilateral right greater than left perihilar consolidation. Most likely representing pneumonia. Pulmonary edema also a possibility -influenza sc neg -sp cx normal resp harriet to date CONS bacteremia- likely contaminant -08/27 Bcx 1/4 GPC CONS; 08/28 Bcx NTD Fever, improving Leukocytosis, increasing- monitor for sickle cell crisis -u/a neg COPD psychosis anxiety moderate pHTN lumbar disc disease/spondylosis R hip OA s/p R hip replacement HTN sickle cell disease Plan: -Cont empiric IV Vancomycin, Aztreonam and LEvaquin #3 for PNA pending sputum culture -D/c empiric Tamiflu #3 -08/27 SP IV Vancomycin and CEfepime x1 -CT C/Abd/p w/ given persistent leukocytosis -f/u sp cx, legionella ag urine -f/u cx -Monitor CBC/CMP, temperatures -aspiration precautions -Cdiff if diarrhea Thank you for this consultation. Will continue to follow along with you. Discussed with RN. Subjective Allergies: Coded Allergies: PENICILLINS (Verified Allergy, Unknown, 10/09/12) Subjective afebrile >48hrs wbc increased to 21 at 2l NC repeat Bcx NTD Objective Vital Signs Last 24 Hour Vital Signs Date Time Temp Pulse Resp B/P (MAP) Pulse Ox O2 Delivery O2 Flow Rate FiO2 08/31/18 14:07 113 153/95 08/31/18 12:00 98.7 103 19 152/95 (114) 95 08/31/18 09:00 Nasal Cannula 2.0 08/31/18 08:37 136/80 08/31/18 08:35 98.6 91 19 136/80 (98) 99 08/31/18 08:20 Nasal Cannula 2.0 28 08/31/18 08:20 100 Nasal Cannula 2.0 28 08/31/18 06:30 94 125/74 08/31/18 04:00 98.6 94 17 125/74 (91) 96 08/30/18 22:24 93 125/79 08/30/18 20:03 Nasal Cannula 2.0 08/30/18 20:00 100 Nasal Cannula 2.0 28 08/30/18 20:00 Nasal Cannula 2.0 28 08/30/18 19:59 98.9 93 18 125/79 (94) 100 08/30/18 16:50 98.2 08/30/18 16:00 98.1 105 18 114/73 (87) 96 Height (Feet): 5 Height (Inches): 6.00 Weight (Pounds): 175 Objective GENERAL: The patient is awake and responsive, in no acute distress, but feeling weak and tired. HEAD AND NECK: Pupils are reactive to light. Extraocular movements intact. NECK: Supple. No JVD. LUNGS: Good air entry. Occasional crackles in the bases. No wheeze or rhonchi. HEART: S1 and S2. Tachycardic. No murmurs or gallops. ABDOMEN: Soft, nondistended, and nontender. Positive bowel sounds. EXTREMITIES: No cyanosis, clubbing, or edema. NEUROLOGIC: Cranial nerves II through XII grossly intact. Motor is 5/5 in all extremities. Gait is intact. RECTAL/GENITOURINARY: Refused and deferred. PSYCHIATRIC: Mood and affect are anxious. Microbiology Date/Time Source Procedure Growth Status 08/29/18 12:20 Blood Blood Culture - Preliminary NO GROWTH AFTER 24 HOURS Resulted 08/29/18 12:20 Blood Blood Culture - Preliminary NO GROWTH AFTER 24 HOURS Resulted 08/29/18 14:55 Sputum Gram Stain Pending Resulted 08/29/18 14:55 Sputum Sputum Culture - Preliminary NORMAL UPPER RESPIRATORY HARRIET AT 24 ... Resulted 08/29/18 14:55 Nasopharynx Influenza Types A,B Antigen (ZACH) - Final Complete Laboratory Tests Test 08/31/18 14:15 Vancomycin Level Trough Pending Current Medications Medications (Trade) Dose Ordered Sig/Yadira Route PRN Reason Start Time Stop Time Status Last Admin Dose Admin Acetaminophen (Tylenol) 650 mg Q6H PRN ORAL Mild Pain/Temp > 100.5 08/29/18 19:15 09/28/18 07:14 Acetaminophen/ Hydrocodone Bitart ([place] 10/325) 1 tab Q6H PRN ORAL Pain Scale (7-10) 08/29/18 19:15 09/05/18 19:06 08/31/18 08:37 Acetaminophen/ Hydrocodone Bitart ([place] 5/325) 1 tab Q6H PRN ORAL Moderate Pain (Pain Scale 4-6) 08/29/18 19:07 09/04/18 19:06 08/31/18 02:35 Albuterol/ Ipratropium (Albuterol/ Ipratropium) 3 ml Q4H PRN HHN dyspnea 08/29/18 19:30 09/02/18 11:29 Aztreonam 1 gm/ Dextrose 55 ml @ 110 mls/hr Q8HR IVPB 08/29/18 22:00 09/05/18 13:59 08/31/18 14:07 Bupropion HCl (Wellbutrin XL) 150 mg DAILY ORAL 08/30/18 09:00 09/28/18 08:59 08/31/18 08:38 Dextrose (Dextrose 50%) 25 ml Q30M PRN IV Hypoglycemia 08/29/18 19:30 09/27/18 11:29 Dextrose (Dextrose 50%) 50 ml Q30M PRN IV Hypoglycemia 08/29/18 19:30 09/27/18 11:29 Diltiazem HCl (Cardizem) 30 mg Q8HR ORAL 08/29/18 22:00 09/27/18 13:59 08/31/18 14:07 Gabapentin (Neurontin) 300 mg Q8HR ORAL 08/29/18 22:00 09/27/18 13:59 08/31/18 14:07 Heparin Sodium (Porcine) (Heparin 5000 units/ml) 5,000 units EVERY 12 HOURS SUBQ 08/29/18 21:00 09/27/18 20:59 08/31/18 08:43 Ketorolac Tromethamine (Toradol 30mg) 30 mg Q8H PRN IV BREAKTHROUGH PAIN 08/29/18 19:07 09/02/18 19:06 08/31/18 14:07 Lamotrigine (LaMICtal) 100 mg DAILY ORAL 08/30/18 09:00 09/28/18 08:59 08/31/18 08:38 Levofloxacin (Levaquin) 750 mg DAILY ORAL 08/30/18 09:00 09/05/18 11:59 08/31/18 08:37 Lisinopril (Prinivil) 20 mg DAILY ORAL 08/30/18 09:00 09/28/18 08:59 08/31/18 08:37 Lorazepam (Ativan 2mg/ml 1ml) 0.5 mg Q4H PRN IV For Anxiety 08/29/18 19:30 09/04/18 11:29 Methocarbamol (Robaxin) 500 mg Q6H PRN ORAL Muscle spasms 08/29/18 19:08 09/27/18 19:07 Nitroglycerin (Ntg) 0.4 mg Q5MIN X 3 DOSES PRN SL Prn Chest Pain 08/29/18 19:00 09/27/18 11:29 Ondansetron HCl (Zofran) 4 mg Q4H PRN IVP Nausea & Vomiting 08/29/18 19:08 09/27/18 19:07 Oseltamivir Phosphate (Tamiflu) 30 mg Q12HR ORAL 08/29/18 21:00 09/03/18 11:59 08/31/18 08:43 Pantoprazole (Protonix) 40 mg DAILY ORAL 08/30/18 09:00 09/28/18 08:59 08/31/18 08:38 Prednisone (predniSONE) 40 mg DAILY ORAL 08/30/18 14:15 09/29/18 14:14 08/31/18 08:38 Promethazine HCl/ Codeine (Phenergan with Codeine) 5 ml Q6H PRN ORAL cough 08/29/18 19:08 09/27/18 19:07 08/31/18 01:18 Temazepam (Restoril) 15 mg HSPRN PRN ORAL Insomnia 08/29/18 21:00 09/04/18 20:59 Theophylline (Papito-Dur) 100 mg EVERY 12 HOURS ORAL 08/29/18 21:00 09/27/18 20:59 08/31/18 08:38 Vancomycin HCl (Vanco rx to dose) 1 ea DAILY PRN MISC Per rx protocol 08/30/18 09:00 09/28/18 11:29 Vancomycin HCl/ Dextrose 275 ml @ 183.333 mls/hr Q24H IVPB 08/30/18 15:00 09/03/18 14:59 08/30/18 16:20 Angela Lott M.D. Aug 31, 2018 15:11
[2018-08-31] MEDS ORDERED: Isovue-300 100ml vial INJ PRN (15:15)
--- NOTE | 2018-08-31 17:33 | Internal Med Progress Note ---
Subjective Physician Name Carlos Madden Attending Physician Carlos Madden MD Current Medications Medications (Trade) Dose Ordered Sig/Yadira Route PRN Reason Start Time Stop Time Status Last Admin Dose Admin Acetaminophen (Tylenol) 650 mg Q6H PRN ORAL Mild Pain/Temp > 100.5 08/29/18 19:15 09/28/18 07:14 Acetaminophen/ Hydrocodone Bitart ([place] 10/325) 1 tab Q6H PRN ORAL Pain Scale (7-10) 08/29/18 19:15 09/05/18 19:06 08/31/18 16:41 Acetaminophen/ Hydrocodone Bitart ([place] 5/325) 1 tab Q6H PRN ORAL Moderate Pain (Pain Scale 4-6) 08/29/18 19:07 09/04/18 19:06 08/31/18 02:35 Albuterol/ Ipratropium (Albuterol/ Ipratropium) 3 ml Q4H PRN HHN dyspnea 08/29/18 19:30 09/02/18 11:29 Aztreonam 1 gm/ Dextrose 55 ml @ 110 mls/hr Q8HR IVPB 08/29/18 22:00 09/05/18 13:59 08/31/18 14:07 Barium Sulfate (Readi-Cat 2) 450 ml NOW PRN ORAL Radiology Procedure 08/31/18 15:15 09/02/18 15:11 Bupropion HCl (Wellbutrin XL) 150 mg DAILY ORAL 08/30/18 09:00 09/28/18 08:59 08/31/18 08:38 Dextrose (Dextrose 50%) 25 ml Q30M PRN IV Hypoglycemia 08/29/18 19:30 09/27/18 11:29 Dextrose (Dextrose 50%) 50 ml Q30M PRN IV Hypoglycemia 08/29/18 19:30 09/27/18 11:29 Diltiazem HCl (Cardizem) 30 mg Q8HR ORAL 08/29/18 22:00 09/27/18 13:59 08/31/18 14:07 Gabapentin (Neurontin) 300 mg Q8HR ORAL 08/29/18 22:00 09/27/18 13:59 08/31/18 14:07 Heparin Sodium (Porcine) (Heparin 5000 units/ml) 5,000 units EVERY 12 HOURS SUBQ 08/29/18 21:00 09/27/18 20:59 08/31/18 08:43 Iopamidol (Isovue-300 100ml) 100 ml NOW PRN INJ Radiology Procedure 08/31/18 15:15 09/02/18 23:59 Ketorolac Tromethamine (Toradol 30mg) 30 mg Q8H PRN IV BREAKTHROUGH PAIN 08/29/18 19:07 09/02/18 19:06 08/31/18 14:07 Lamotrigine (LaMICtal) 100 mg DAILY ORAL 08/30/18 09:00 09/28/18 08:59 08/31/18 08:38 Levofloxacin (Levaquin) 750 mg DAILY ORAL 08/30/18 09:00 09/05/18 11:59 08/31/18 08:37 Lisinopril (Prinivil) 20 mg DAILY ORAL 08/30/18 09:00 09/28/18 08:59 08/31/18 08:37 Lorazepam (Ativan 2mg/ml 1ml) 0.5 mg Q4H PRN IV For Anxiety 08/29/18 19:30 09/04/18 11:29 Methocarbamol (Robaxin) 500 mg Q6H PRN ORAL Muscle spasms 08/29/18 19:08 09/27/18 19:07 Nitroglycerin (Ntg) 0.4 mg Q5MIN X 3 DOSES PRN SL Prn Chest Pain 08/29/18 19:00 09/27/18 11:29 Ondansetron HCl (Zofran) 4 mg Q4H PRN IVP Nausea & Vomiting 08/29/18 19:08 09/27/18 19:07 Pantoprazole (Protonix) 40 mg DAILY ORAL 08/30/18 09:00 09/28/18 08:59 08/31/18 08:38 Prednisone (predniSONE) 40 mg DAILY ORAL 08/30/18 14:15 09/29/18 14:14 08/31/18 08:38 Promethazine HCl/ Codeine (Phenergan with Codeine) 5 ml Q6H PRN ORAL cough 08/29/18 19:08 09/27/18 19:07 08/31/18 01:18 Temazepam (Restoril) 15 mg HSPRN PRN ORAL Insomnia 08/29/18 21:00 09/04/18 20:59 Theophylline (Papito-Dur) 100 mg EVERY 12 HOURS ORAL 08/29/18 21:00 09/27/18 20:59 08/31/18 08:38 Vancomycin HCl (Vanco rx to dose) 1 ea DAILY PRN MISC Per rx protocol 08/30/18 09:00 09/28/18 11:29 Vancomycin HCl/ Dextrose 275 ml @ 183.333 mls/hr Q12HR@0600,1800 IVPB 08/31/18 16:30 09/05/18 16:29 08/31/18 16:41 Allergies: Coded Allergies: PENICILLINS (Verified Allergy, Unknown, 10/09/12) Subjective awake, alert, responsive, NAD, C/O less back pain , No SOB or coughing, feeling better. Objective Last Vital Signs Date Time Temp Pulse Resp B/P (MAP) Pulse Ox O2 Delivery O2 Flow Rate FiO2 08/31/18 14:07 113 153/95 08/31/18 12:00 98.7 19 95 08/31/18 09:00 Nasal Cannula 2.0 08/31/18 08:20 28 Laboratory Tests Test 08/31/18 14:15 Vancomycin Level Trough 5.1 ug/mL (5.0-12.0) Microbiology Date/Time Source Procedure Growth Status 08/29/18 12:20 Blood Blood Culture - Preliminary NO GROWTH AFTER 24 HOURS Resulted 08/29/18 12:20 Blood Blood Culture - Preliminary NO GROWTH AFTER 24 HOURS Resulted 08/29/18 14:55 Sputum Gram Stain Pending Resulted 08/29/18 14:55 Sputum Sputum Culture - Preliminary NORMAL UPPER RESPIRATORY EFFIE AT 24 ... Resulted 08/29/18 14:55 Nasopharynx Influenza Types A,B Antigen (ZACH) - Final Complete Intake and Output 08/30/18 08/31/18 19:00 07:00 Intake Total 500 ml 960 ml Balance 500 ml 960 ml Intake Oral 500 ml 960 ml # Voids 3 3 Objective GENERAL: The patient is awake and responsive, in no acute distress. HEAD AND NECK: Pupils are reactive to light. Extraocular movements intact. NECK: Supple. No JVD. LUNGS: Good air entry. Less crackles in the bases. Less Expiratory wheeze, No rhonchi. HEART: S1 and S2. RR No murmurs or gallops. ABDOMEN: Soft, nondistended, and nontender. Positive bowel sounds. EXTREMITIES: No cyanosis, clubbing, or edema. NEUROLOGIC: Cranial nerves II through XII grossly intact. Motor is 5/5 in all extremities. Gait is intact. PSYCHIATRIC: Mood and affect are anxious. Assessment/Plan Assessment/Plan ASSESSMENT: 1. Acute pneumonia. 2. History of asthma. 3. COPD. 4. Sepsis with bandemia / Bacteremia. 5. Sickle cell disease. 6. History of severe hip osteoarthritis, status post arthroplasty. 7. Spinal spondylolisthesis. 8. Question of lumbar spine spondylosis. 9. Hypertension. 10. Anemia. PLAN: 1. in Medical floor. 2. We will follow up with the laboratory and cultures. 3. IV hydration. 4. decrease prednisone 20mg 5. The patient has penicillin allergy. 6. Vanco, Aztreonam , Levaquin. 7. Code status is Full Code. 8. DVT prophylaxis, heparin subcutaneous. 9. We will follow up with Dr. Almonte for Pulmonary Critical Care consultation and DR. Lott for ID consultation. 10. DC home in AM. Carlos Madden M.D. Carlos Madden MD Aug 31, 2018 17:33
--- NOTE | 2018-08-31 19:36 | NUR ---
CASE MANAGEMENT: REVIEW SI: PNA . SEPSIS w/BACTEREMIA . T 98.7 HR 113 RR 19 BP 153/95 SAT 95% 2L/NC IS: PREDNISONE PO QD VANCO IV Q12HR LEVOFLOXACIN PO QD AZACTAM IV Q8HR THEOPHYLLINE PO Q12HR MED/SURG STATUS DCP: PATIENT IS FROM HOME PLAN: CT CHEST R/O ABSCESS
--- NOTE | 2018-08-31 19:45 | NUR ---
NURSE NOTES:Patient received from Sandhya Schroeder Patient A/A/OX4 . Patient denies any pain at this time . no s/s of distress noted . LH g#22 H/L Patent and intact , patient instructed to uses call light when needed . Bed in low position at all times will continue to monitor.
[2018-09-01] VITALS: BP 134/90
[2018-09-01 04:00] VITALS: BP 134/91
[2018-09-01] MEDS: dilTIAZem HCl 30mg tab ORAL SCH ×3 (05:44→21:31)
[2018-09-01] MEDS: HYDROcodone/Acetamin 10/325 tab ORAL PRN ×3 (05:45→18:15)
[2018-09-01] MEDS: Ketorolac 30mg Inj IV PRN ×4 (07:06→23:10)
[2018-09-01] MEDS: Aztreonam Inj 1 GM in D5W 55 ML IVPB SCH ×3 (07:06→21:31)
[2018-09-01 07:27] LABS: HEMOGLOBIN 10.4 G/DL (12.0-16.0); MEAN CORPUSCULAR VOLUME 89 FL (80-99); PLATELET COUNT 399 K/UL (150-450); RED BLOOD COUNT 3.58 M/UL (4.20-5.40)
[2018-09-01 07:36] LABS: WHITE BLOOD COUNT 26.4 K/UL (4.8-10.8)
--- NOTE | 2018-09-01 07:50 | NUR ---
HAND-OFF: Report given to Yogesh Schroeder Patient in stable condition
[2018-09-01 07:54] LABS: ALANINE AMINOTRANSFERASE 42 U/L (12-78); ALBUMIN 2.1 G/DL (3.4-5.0); ALBUMIN/GLOBULIN RATIO 0.5 (1.0-2.7); ALKALINE PHOSPHATASE 241 U/L (46-116); ANION GAP 9 mmol/L (5-15); ASPARTATE AMINO TRANSFERASE 41 U/L (15-37); BILIRUBIN,TOTAL 0.2 MG/DL (0.2-1.0); BLOOD UREA NITROGEN 22 mg/dL (7-18); CALCIUM 9.5 MG/DL (8.5-10.1); CARBON DIOXIDE 30 MMOL/L (21-32); CHLORIDE 102 MMOL/L (98-107); POTASSIUM 3.3 MMOL/L (3.5-5.1); SODIUM 141 MMOL/L (136-145)
[2018-09-01] MEDS: Vancomycin 1.25gm Premix 275 ML IVPB SCH (07:56)
[2018-09-01 08:00] VITALS: BP 137/88
--- NOTE | 2018-09-01 08:58 | NUR ---
RADIOLOGY DEPT., CHEST X-RAY DONE.-P.DYE
[2018-09-01] MEDS: Theophylline ER 100mg ORAL SCH ×2 (09:16→21:31)
[2018-09-01] MEDS: BuPROPion XL 150mg tab ORAL SCH (09:16)
[2018-09-01] MEDS: Lisinopril 20mg tab ORAL SCH (09:17)
[2018-09-01] MEDS: Heparin 5000 units/ml inj SUBQ SCH ×2 (09:18→21:33)
--- NOTE | 2018-09-01 11:18 | Pulmonology Progress Note ---
Assessment/Plan Problems: (1) Multilobar lung infiltrate (2) Bacteremia (3) Sepsis (4) COPD (chronic obstructive pulmonary disease) (5) Sickle cell disease (6) Hip osteoarthritis Assessment/Plan afebrile now wbc still high check cxr reviewed check cultures, sputum pending check Blood cultures, so far positive for GPC Heart rate better, check sputum continue abx titrate fio2 to sat of 92% med/surg Subjective ROS Limited/Unobtainable: No Constitutional: Reports: no symptoms HEENT: Repors: no symptoms Respiratory: Reports: no symptoms Allergies: Coded Allergies: PENICILLINS (Verified Allergy, Unknown, 10/09/12) Objective Last 24 Hour Vital Signs Date Time Temp Pulse Resp B/P (MAP) Pulse Ox O2 Delivery O2 Flow Rate FiO2 09/01/18 09:17 134/91 09/01/18 08:12 95 Room Air 21 09/01/18 08:12 Room Air 21 09/01/18 06:15 98.9 09/01/18 06:15 98.9 09/01/18 05:44 106 134/91 09/01/18 04:00 98.9 106 18 134/91 (105) 95 09/01/18 00:00 98.7 105 18 134/90 (105) 95 08/31/18 21:47 106 151/95 08/31/18 21:41 98.0 106 18 151/95 (113) 96 08/31/18 21:00 Room Air 08/31/18 20:00 98.6 111 18 138/88 (105) 95 08/31/18 19:38 Room Air 21 08/31/18 19:38 94 Room Air 21 08/31/18 16:00 98.7 108 18 149/72 (97) 96 08/31/18 14:07 113 153/95 08/31/18 12:00 98.7 103 19 152/95 (114) 95 Intake and Output 08/31/18 09/01/18 18:59 06:59 Intake Total 800 ml 1315 ml Balance 800 ml 1315 ml Intake Oral 800 ml 1260 ml IV Total 55 ml # Voids 5 General Appearance: cachetic HEENT: normocephalic, atraumatic Respiratory/Chest: chest wall non-tender, lungs clear Cardiovascular: normal rate Abdomen: normal bowel sounds, non distended Extremities: no cyanosis Skin: no rash Microbiology Date/Time Source Procedure Growth Status 08/29/18 12:20 Blood Blood Culture - Preliminary NO GROWTH AFTER 48 HOURS Resulted 08/29/18 12:20 Blood Blood Culture - Preliminary NO GROWTH AFTER 48 HOURS Resulted 08/29/18 14:55 Sputum Gram Stain - Final Complete 08/29/18 14:55 Sputum Culture - Final Tameka Albicans Usual Respiratory Kalpana Complete 08/29/18 14:55 Nasopharynx Influenza Types A,B Antigen (ZACH) - Final Complete Laboratory Tests 08/31/18 14:15: Vancomycin Level Trough 5.1 09/01/18 06:46: White Blood Count 26.4*H, Red Blood Count 3.58L, Hemoglobin 10.4L, Hematocrit 32.0L, Mean Corpuscular Volume 89, Mean Corpuscular Hemoglobin 29.2, Mean Corpuscular Hemoglobin Concent 32.6, Red Cell Distribution Width 12.0, Platelet Count 399, Mean Platelet Volume 5.7L, Neutrophils (%) (Auto) , Lymphocytes (%) ( Auto) , Monocytes (%) (Auto) , Eosinophils (%) (Auto) , Basophils (%) (Auto) , Neutrophils % (Manual) [Pending], Lymphocytes % (Manual) [Pending], Platelet Estimate [Pending], Platelet Morphology [Pending], Reticulocyte Count [Pending] , Sodium Level 141, Potassium Level 3.3L, Chloride Level 102, Carbon Dioxide Level 30, Anion Gap 9, Blood Urea Nitrogen 22H, Creatinine 1.0, Estimat Glomerular Filtration Rate > 60, Glucose Level 86, Calcium Level 9.5, Total Bilirubin 0.2, Aspartate Amino Transf (AST/SGOT) 41H, Alanine Aminotransferase ( ALT/SGPT) 42, Alkaline Phosphatase 241H, Pro-B-Type Natriuretic Peptide 1160H, Total Protein 6.5, Albumin 2.1L, Globulin 4.4, Albumin/Globulin Ratio 0.5L Current Medications Medications (Trade) Dose Ordered Sig/Yadira Route PRN Reason Start Time Stop Time Status Last Admin Dose Admin Acetaminophen (Tylenol) 650 mg Q6H PRN ORAL Mild Pain/Temp > 100.5 08/29/18 19:15 09/28/18 07:14 Acetaminophen/ Hydrocodone Bitart ([place] 10/325) 1 tab Q6H PRN ORAL Pain Scale (7-10) 3/16/19 19:15 09/05/18 19:06 09/01/18 05:45 Acetaminophen/ Hydrocodone Bitart ([place] 5/325) 1 tab Q6H PRN ORAL Moderate Pain (Pain Scale 4-6) 08/29/18 19:07 09/04/18 19:06 08/31/18 02:35 Albuterol/ Ipratropium (Albuterol/ Ipratropium) 3 ml Q4H PRN HHN dyspnea 08/29/18 19:30 09/02/18 11:29 Aztreonam 1 gm/ Dextrose 55 ml @ 110 mls/hr Q8HR IVPB 08/29/18 22:00 09/05/18 13:59 09/01/18 07:06 Barium Sulfate (Readi-Cat 2) 450 ml NOW PRN ORAL Radiology Procedure 08/31/18 15:15 09/02/18 15:11 Bupropion HCl (Wellbutrin XL) 150 mg DAILY ORAL 08/30/18 09:00 09/28/18 08:59 09/01/18 09:16 Dextrose (Dextrose 50%) 25 ml Q30M PRN IV Hypoglycemia 08/29/18 19:30 09/27/18 11:29 Dextrose (Dextrose 50%) 50 ml Q30M PRN IV Hypoglycemia 08/29/18 19:30 09/27/18 11:29 Diltiazem HCl (Cardizem) 30 mg Q8HR ORAL 08/29/18 22:00 09/27/18 13:59 09/01/18 05:44 Gabapentin (Neurontin) 300 mg Q8HR ORAL 08/29/18 22:00 09/27/18 13:59 09/01/18 05:44 Heparin Sodium (Porcine) (Heparin 5000 units/ml) 5,000 units EVERY 12 HOURS SUBQ 08/29/18 21:00 09/27/18 20:59 09/01/18 09:18 Iopamidol (Isovue-300 100ml) 100 ml NOW PRN INJ Radiology Procedure 08/31/18 15:15 09/02/18 23:59 Ketorolac Tromethamine (Toradol 30mg) 30 mg Q8H PRN IV BREAKTHROUGH PAIN 08/29/18 19:07 09/02/18 19:06 09/01/18 07:06 Lamotrigine (LaMICtal) 100 mg DAILY ORAL 08/30/18 09:00 09/28/18 08:59 09/01/18 09:17 Levofloxacin (Levaquin) 750 mg DAILY ORAL 08/30/18 09:00 09/05/18 11:59 09/01/18 09:16 Lisinopril (Prinivil) 20 mg DAILY ORAL 08/30/18 09:00 09/28/18 08:59 09/01/18 09:17 Lorazepam (Ativan 2mg/ml 1ml) 0.5 mg Q4H PRN IV For Anxiety 08/29/18 19:30 09/04/18 11:29 Methocarbamol (Robaxin) 500 mg Q6H PRN ORAL Muscle spasms 08/29/18 19:08 09/27/18 19:07 Nitroglycerin (Ntg) 0.4 mg Q5MIN X 3 DOSES PRN SL Prn Chest Pain 08/29/18 19:00 09/27/18 11:29 Ondansetron HCl (Zofran) 4 mg Q4H PRN IVP Nausea & Vomiting 08/29/18 19:08 09/27/18 19:07 Pantoprazole (Protonix) 40 mg DAILY ORAL 08/30/18 09:00 09/28/18 08:59 09/01/18 09:17 Prednisone (predniSONE) 20 mg DAILY ORAL 09/01/18 09:00 09/29/18 14:14 09/01/18 09:17 Promethazine HCl/ Codeine (Phenergan with Codeine) 5 ml Q6H PRN ORAL cough 08/29/18 19:08 09/27/18 19:07 08/31/18 23:42 Temazepam (Restoril) 15 mg HSPRN PRN ORAL Insomnia 08/29/18 21:00 09/04/18 20:59 Theophylline (Papito-Dur) 100 mg EVERY 12 HOURS ORAL 08/29/18 21:00 09/27/18 20:59 09/01/18 09:16 Vancomycin HCl (Vanco rx to dose) 1 ea DAILY PRN MISC Per rx protocol 08/30/18 09:00 09/28/18 11:29 Vancomycin HCl/ Dextrose 275 ml @ 183.333 mls/hr Q12HR@0600,1800 IVPB 08/31/18 16:30 09/05/18 16:29 09/01/18 07:56 Mila Almonte MD Sep 01, 2018 11:18
--- NOTE | 2018-09-01 11:48 | NUR ---
CASE MANAGEMENT:REVIEW 09/01/18 SI: SEPSIS. BACTEREMIA. COPD PNEUMONIA. SICKLE CELL DISEASE 98.9 106 18 134/91 95% ON RA WBC+26.4 K-3.3 IS: PREDNISONE PO QD IV VANCOMYCIN Q12 IV AZACTAM Q8HRS WELLBUTRIN PO QD LAMICTAL PO QD LEVAQUIN PO QD LISINOPRIL PO QD CARDIZEM PO Q8HRS THEOPHYLLINE PO Q12 IV TORADOL Q8HRS PRN : MED/SURG STATUS 3 EAST DCP: FROM HOME PLAN: CHEST ULTRASOUND FOR TODAY CT CHEST/ABD/PELVIS
[2018-09-01 12:00] VITALS: BP 147/91
--- NOTE | 2018-09-01 12:11 | Infectious Diseases Prog Note ---
Assessment/Plan Assessment/Plan Assessment: Sepsis 2ry to PNA, possibly aspiration- -CXR: : Bilateral right greater than left perihilar consolidation. Most likely representing pneumonia. Pulmonary edema also a possibility -influenza sc neg -sp cx normal resp harriet CONS bacteremia- likely contaminant -08/27 Bcx 1/4 GPC CONS; 08/28 Bcx NTD Fever, SP Leukocytosis, increased, now improving (multifactorial, PNA, streoids) -u/a neg COPD psychosis anxiety moderate pHTN lumbar disc disease/spondylosis R hip OA s/p R hip replacement HTN sickle cell disease Plan: -D/c empiric IV Vancomycin #4 -Continue Aztreonam and LEvaquin #4 for PNA -if CT abd/p not concerning for infection; can then be discharged on oral levaquin 750mg qd for 4 more days -08/31 SP Tamiflu #3 -08/27 SP IV Vancomycin and CEfepime x1 -f/u CT C/Abd/p w/ given persistent leukocytosis -f/u legionella ag urine -f/u cx -Monitor CBC/CMP, temperatures -aspiration precautions -Cdiff if diarrhea Thank you for this consultation. Will continue to follow along with you. Discussed with RN. Subjective Allergies: Coded Allergies: PENICILLINS (Verified Allergy, Unknown, 10/09/12) Subjective afebrile >72hrs wbc improving at RA now improved repeat Bcx NTD Objective Vital Signs Last 24 Hour Vital Signs Date Time Temp Pulse Resp B/P (MAP) Pulse Ox O2 Delivery O2 Flow Rate FiO2 09/01/18 09:17 134/91 09/01/18 08:12 95 Room Air 21 09/01/18 08:12 Room Air 21 09/01/18 06:15 98.9 09/01/18 06:15 98.9 09/01/18 05:44 106 134/91 09/01/18 04:00 98.9 106 18 134/91 (105) 95 09/01/18 00:00 98.7 105 18 134/90 (105) 95 08/31/18 21:47 106 151/95 08/31/18 21:41 98.0 106 18 151/95 (113) 96 08/31/18 21:00 Room Air 08/31/18 20:00 98.6 111 18 138/88 (105) 95 08/31/18 19:38 Room Air 21 08/31/18 19:38 94 Room Air 21 08/31/18 16:00 98.7 108 18 149/72 (97) 96 08/31/18 14:07 113 153/95 Height (Feet): 5 Height (Inches): 6.00 Weight (Pounds): 175 Objective GENERAL: The patient is awake and responsive, in no acute distress, but feeling weak and tired. HEAD AND NECK: Pupils are reactive to light. Extraocular movements intact. NECK: Supple. No JVD. LUNGS: Good air entry. Occasional crackles in the bases. No wheeze or rhonchi. HEART: S1 and S2. Tachycardic. No murmurs or gallops. ABDOMEN: Soft, nondistended, and nontender. Positive bowel sounds. EXTREMITIES: No cyanosis, clubbing, or edema. NEUROLOGIC: Cranial nerves II through XII grossly intact. Motor is 5/5 in all extremities. Gait is intact. RECTAL/GENITOURINARY: Refused and deferred. PSYCHIATRIC: Mood and affect are anxious. Microbiology Date/Time Source Procedure Growth Status 08/29/18 12:20 Blood Blood Culture - Preliminary NO GROWTH AFTER 48 HOURS Resulted 08/29/18 12:20 Blood Blood Culture - Preliminary NO GROWTH AFTER 48 HOURS Resulted 08/29/18 14:55 Sputum Gram Stain - Final Complete 08/29/18 14:55 Sputum Culture - Final Tameka Albicans Usual Respiratory Harriet Complete 08/29/18 14:55 Nasopharynx Influenza Types A,B Antigen (ZACH) - Final Complete Laboratory Tests Test 08/31/18 14:15 09/01/18 06:46 Vancomycin Level Trough 5.1 ug/mL (5.0-12.0) White Blood Count 26.4 K/UL (4.8-10.8) *H Red Blood Count 3.58 M/UL (4.20-5.40) L Hemoglobin 10.4 G/DL (12.0-16.0) L Hematocrit 32.0 % (37.0-47.0) L Mean Corpuscular Volume 89 FL (80-99) Mean Corpuscular Hemoglobin 29.2 PG (27.0-31.0) Mean Corpuscular Hemoglobin Concent 32.6 G/DL (32.0-36.0) Red Cell Distribution Width 12.0 % (11.6-14.8) Platelet Count 399 K/UL (150-450) Mean Platelet Volume 5.7 FL (6.5-10.1) L Neutrophils (%) (Auto) % (45.0-75.0) Lymphocytes (%) (Auto) % (20.0-45.0) Monocytes (%) (Auto) % (1.0-10.0) Eosinophils (%) (Auto) % (0.0-3.0) Basophils (%) (Auto) % (0.0-2.0) Differential Total Cells Counted 100 Neutrophils % (Manual) 66 % (45-75) Lymphocytes % (Manual) 18 % (20-45) L Monocytes % (Manual) 13 % (1-10) H Eosinophils % (Manual) 0 % (0-3) Basophils % (Manual) 0 % (0-2) Band Neutrophils 3 % (0-8) Platelet Estimate Adequate Platelet Morphology Normal Hypochromasia 1+ Reticulocyte Count Pending Sodium Level 141 MMOL/L (136-145) Potassium Level 3.3 MMOL/L (3.5-5.1) L Chloride Level 102 MMOL/L (98-107) Carbon Dioxide Level 30 MMOL/L (21-32) Anion Gap 9 mmol/L (5-15) Blood Urea Nitrogen 22 mg/dL (7-18) H Creatinine 1.0 MG/DL (0.55-1.30) Estimat Glomerular Filtration Rate > 60 mL/min (>60) Glucose Level 86 MG/DL (74-106) Calcium Level 9.5 MG/DL (8.5-10.1) Total Bilirubin 0.2 MG/DL (0.2-1.0) Aspartate Amino Transf (AST/SGOT) 41 U/L (15-37) H Alanine Aminotransferase (ALT/SGPT) 42 U/L (12-78) Alkaline Phosphatase 241 U/L (46-116) H Pro-B-Type Natriuretic Peptide 1160 pg/mL (0-125) H Total Protein 6.5 G/DL (6.4-8.2) Albumin 2.1 G/DL (3.4-5.0) L Globulin 4.4 g/dL Albumin/Globulin Ratio 0.5 (1.0-2.7) L Current Medications Medications (Trade) Dose Ordered Sig/Yadira Route PRN Reason Start Time Stop Time Status Last Admin Dose Admin Acetaminophen (Tylenol) 650 mg Q6H PRN ORAL Mild Pain/Temp > 100.5 08/29/18 19:15 09/28/18 07:14 Acetaminophen/ Hydrocodone Bitart ([place] 10/325) 1 tab Q6H PRN ORAL Pain Scale (7-10) 08/29/18 19:15 09/05/18 19:06 09/01/18 11:53 Acetaminophen/ Hydrocodone Bitart ([place] 5/325) 1 tab Q6H PRN ORAL Moderate Pain (Pain Scale 4-6) 08/29/18 19:07 09/04/18 19:06 08/31/18 02:35 Albuterol/ Ipratropium (Albuterol/ Ipratropium) 3 ml Q4H PRN HHN dyspnea 08/29/18 19:30 09/02/18 11:29 Aztreonam 1 gm/ Dextrose 55 ml @ 110 mls/hr Q8HR IVPB 08/29/18 22:00 09/05/18 13:59 09/01/18 07:06 Barium Sulfate (Readi-Cat 2) 450 ml NOW PRN ORAL Radiology Procedure 08/31/18 15:15 09/02/18 15:11 Bupropion HCl (Wellbutrin XL) 150 mg DAILY ORAL 08/30/18 09:00 09/28/18 08:59 09/01/18 09:16 Dextrose (Dextrose 50%) 25 ml Q30M PRN IV Hypoglycemia 08/29/18 19:30 09/27/18 11:29 Dextrose (Dextrose 50%) 50 ml Q30M PRN IV Hypoglycemia 08/29/18 19:30 09/27/18 11:29 Diltiazem HCl (Cardizem) 30 mg Q8HR ORAL 08/29/18 22:00 09/27/18 13:59 09/01/18 05:44 Gabapentin (Neurontin) 300 mg Q8HR ORAL 08/29/18 22:00 09/27/18 13:59 09/01/18 05:44 Heparin Sodium (Porcine) (Heparin 5000 units/ml) 5,000 units EVERY 12 HOURS SUBQ 08/29/18 21:00 09/27/18 20:59 09/01/18 09:18 Iopamidol (Isovue-300 100ml) 100 ml NOW PRN INJ Radiology Procedure 08/31/18 15:15 09/02/18 23:59 Ketorolac Tromethamine (Toradol 30mg) 30 mg Q8H PRN IV BREAKTHROUGH PAIN 08/29/18 19:07 09/02/18 19:06 09/01/18 07:06 Lamotrigine (LaMICtal) 100 mg DAILY ORAL 08/30/18 09:00 09/28/18 08:59 09/01/18 09:17 Levofloxacin (Levaquin) 750 mg DAILY ORAL 08/30/18 09:00 09/05/18 11:59 09/01/18 09:16 Lisinopril (Prinivil) 20 mg DAILY ORAL 08/30/18 09:00 09/28/18 08:59 09/01/18 09:17 Lorazepam (Ativan 2mg/ml 1ml) 0.5 mg Q4H PRN IV For Anxiety 08/29/18 19:30 09/04/18 11:29 Methocarbamol (Robaxin) 500 mg Q6H PRN ORAL Muscle spasms 08/29/18 19:08 09/27/18 19:07 Nitroglycerin (Ntg) 0.4 mg Q5MIN X 3 DOSES PRN SL Prn Chest Pain 08/29/18 19:00 09/27/18 11:29 Ondansetron HCl (Zofran) 4 mg Q4H PRN IVP Nausea & Vomiting 08/29/18 19:08 09/27/18 19:07 Pantoprazole (Protonix) 40 mg DAILY ORAL 08/30/18 09:00 09/28/18 08:59 09/01/18 09:17 Prednisone (predniSONE) 20 mg DAILY ORAL 09/01/18 09:00 09/29/18 14:14 09/01/18 09:17 Promethazine HCl/ Codeine (Phenergan with Codeine) 5 ml Q6H PRN ORAL cough 08/29/18 19:08 09/27/18 19:07 08/31/18 23:42 Temazepam (Restoril) 15 mg HSPRN PRN ORAL Insomnia 08/29/18 21:00 09/04/18 20:59 Theophylline (Papito-Dur) 100 mg EVERY 12 HOURS ORAL 08/29/18 21:00 09/27/18 20:59 09/01/18 09:16 Vancomycin HCl (Vanco rx to dose) 1 ea DAILY PRN MISC Per rx protocol 08/30/18 09:00 09/28/18 11:29 Vancomycin HCl/ Dextrose 275 ml @ 183.333 mls/hr Q12HR@0600,1800 IVPB 08/31/18 16:30 09/05/18 16:29 09/01/18 07:56 Angela Lott M.D. Sep 01, 2018 12:11
--- NOTE | 2018-09-01 12:47 | Diagnostic Imaging Report ---
Indication: Dyspnea Comparison: 08/29/2018 A single view chest radiograph was obtained. Findings: Extensive right pulmonary infiltrate again demonstrated without change. Cardiomegaly is stable. IMPRESSION: Right pulmonary infiltrate/pneumonia
--- NOTE | 2018-09-01 14:33 | Diagnostic Imaging Report ---
Indication:pleural effusion Technique: Grayscale and duplex Doppler imaging of the chest performed. Comparison: None Findings: There is no pleural effusion on either side. IMPRESSION: No pleural effusion
--- NOTE | 2018-09-01 15:29 | Diagnostic Imaging Report ---
Indication: Shortness of breath, cough, chest pain and abdominal pain. Sepsis. Technique: Continuous helical transaxial imaging of the chest, abdomen and pelvis was obtained from the lung bases to the pubic symphysis during intravenous contrast administration. Multiple phases of enhancement obtained. Coronal 2-D reformats were also obtained. Study obtained in a Siemens sensation [address] Automatic Exposure Control was utilized. Total Dose length Product (DLP): 1293.[address] Dose Index Volume (CTDIvol): 14.25,14.55 mGy Comparison: None Findings: CT CHEST: There is extensive airspace disease demonstrated within portions of the right upper and lower lung watts with predominant involvement of the upper lobe and middle lobe. This is characterized by groundglass and ill-defined densities and some reticular densities, air bronchograms. There is no pleural effusion. There is minimal infiltrate in the lingula also. No adenopathy is appreciated. Trace pericardial fluid noted. CT abdomen pelvis: The liver is enlarged measuring 20 cm. There is a 4.3 cm lesion in the lateral segment of the left lobe showing early enhancement and washout by portal venous phase. Suggest follow-up triphasic liver CT and/or ultrasound for further evaluation. Accessory spleen noted. The liver and spleen are unremarkable. Hiatal hernia noted. The gallbladder is unremarkable. Small amount of free fluid noted in the pelvis. Uterus noted. Urinary bladder is unremarkable. The appendix is not definitely seen. There are no secondary signs of acute appendicitis. No evidence of bowel obstruction. There is a right total hip arthroplasty with resultant streak artifact. Impression: Extensive infiltrate within the right lung as described above. Finding likely due to pneumonia. Please correlate clinically. Hepatomegaly. 4.3 cm liver lesion, nonspecific on this examination. Recommend ultrasound correlation. Follow-up triphasic CT may be needed. Hiatal hernia Status post right total hip replacement. Accessory spleen Mild free fluid within the pelvis nonspecific Atherosclerotic disease The CT scanner at [facility] is accredited by the [employer] and the scans are performed using dose optimization techniques as appropriate to a performed exam including Automatic Exposure control.
--- NOTE | 2018-09-01 15:32 | NUR ---
*-* INSURANCE *-* AVAILABLE CLINICALS FAXED TO: [facility] CONTACT:SHWETHA P:[phone] F:[phone] [facility]# [id number]
--- NOTE | 2018-09-01 16:14 | NUR ---
CHARGE NURSE NOTE: K3.3. notified.
[2018-09-01 16:48] VITALS: BP 137/88
--- NOTE | 2018-09-01 19:30 | NUR ---
NURSE NOTES: Received a report from ARIANA Zuñiga. Pt is in stable condition. AAOX4. Able to make needs known. No respiratory distress noted. No c/o pain/discomfort. IV site is patent and intact. Bed in lowest position. Call light within reach. Will continue to monitor.
--- NOTE | 2018-09-01 19:34 | Internal Med Progress Note ---
Subjective Physician Name Carlos Madden Attending Physician Carlos Madden MD Current Medications Medications (Trade) Dose Ordered Sig/Yadira Route PRN Reason Start Time Stop Time Status Last Admin Dose Admin Acetaminophen (Tylenol) 650 mg Q6H PRN ORAL Mild Pain/Temp > 100.5 08/29/18 19:15 09/28/18 07:14 Acetaminophen/ Hydrocodone Bitart ([place] 10/325) 1 tab Q6H PRN ORAL Pain Scale (7-10) 08/29/18 19:15 09/05/18 19:06 09/01/18 18:15 Acetaminophen/ Hydrocodone Bitart ([place] 5/325) 1 tab Q6H PRN ORAL Moderate Pain (Pain Scale 4-6) 08/29/18 19:07 09/04/18 19:06 08/31/18 02:35 Albuterol/ Ipratropium (Albuterol/ Ipratropium) 3 ml Q4H PRN HHN dyspnea 08/29/18 19:30 09/02/18 11:29 Aztreonam 1 gm/ Dextrose 55 ml @ 110 mls/hr Q8HR IVPB 08/29/18 22:00 09/05/18 13:59 09/01/18 13:45 Barium Sulfate (Readi-Cat 2) 450 ml NOW PRN ORAL Radiology Procedure 08/31/18 15:15 09/02/18 15:11 Bupropion HCl (Wellbutrin XL) 150 mg DAILY ORAL 08/30/18 09:00 09/28/18 08:59 09/01/18 09:16 Dextrose (Dextrose 50%) 25 ml Q30M PRN IV Hypoglycemia 08/29/18 19:30 09/27/18 11:29 Dextrose (Dextrose 50%) 50 ml Q30M PRN IV Hypoglycemia 08/29/18 19:30 09/27/18 11:29 Diltiazem HCl (Cardizem) 30 mg Q8HR ORAL 08/29/18 22:00 09/27/18 13:59 09/01/18 13:44 Gabapentin (Neurontin) 300 mg Q8HR ORAL 08/29/18 22:00 09/27/18 13:59 09/01/18 13:44 Heparin Sodium (Porcine) (Heparin 5000 units/ml) 5,000 units EVERY 12 HOURS SUBQ 08/29/18 21:00 09/27/18 20:59 09/01/18 09:18 Iopamidol (Isovue-300 100ml) 100 ml NOW PRN INJ Radiology Procedure 08/31/18 15:15 09/02/18 23:59 Ketorolac Tromethamine (Toradol 30mg) 30 mg Q8H PRN IV BREAKTHROUGH PAIN 08/29/18 19:07 09/02/18 19:06 09/01/18 15:00 Lamotrigine (LaMICtal) 100 mg DAILY ORAL 08/30/18 09:00 09/28/18 08:59 09/01/18 09:17 Levofloxacin (Levaquin) 750 mg DAILY ORAL 08/30/18 09:00 09/05/18 11:59 09/01/18 09:16 Lisinopril (Prinivil) 20 mg DAILY ORAL 08/30/18 09:00 09/28/18 08:59 09/01/18 09:17 Lorazepam (Ativan 2mg/ml 1ml) 0.5 mg Q4H PRN IV For Anxiety 08/29/18 19:30 09/04/18 11:29 Methocarbamol (Robaxin) 500 mg Q6H PRN ORAL Muscle spasms 08/29/18 19:08 09/27/18 19:07 Nitroglycerin (Ntg) 0.4 mg Q5MIN X 3 DOSES PRN SL Prn Chest Pain 08/29/18 19:00 09/27/18 11:29 Ondansetron HCl (Zofran) 4 mg Q4H PRN IVP Nausea & Vomiting 08/29/18 19:08 09/27/18 19:07 Pantoprazole (Protonix) 40 mg DAILY ORAL 08/30/18 09:00 09/28/18 08:59 09/01/18 09:17 Prednisone (predniSONE) 20 mg DAILY ORAL 09/01/18 09:00 09/29/18 14:14 09/01/18 09:17 Promethazine HCl/ Codeine (Phenergan with Codeine) 5 ml Q6H PRN ORAL cough 08/29/18 19:08 09/27/18 19:07 08/31/18 23:42 Temazepam (Restoril) 15 mg HSPRN PRN ORAL Insomnia 08/29/18 21:00 09/04/18 20:59 Theophylline (Papito-Dur) 100 mg EVERY 12 HOURS ORAL 08/29/18 21:00 09/27/18 20:59 09/01/18 09:16 Allergies: Coded Allergies: PENICILLINS (Verified Allergy, Unknown, 10/09/12) Subjective awake, alert, responsive, NAD, No SOB, Less coughing, feeling Okay. Objective Last Vital Signs Date Time Temp Pulse Resp B/P (MAP) Pulse Ox O2 Delivery O2 Flow Rate FiO2 09/01/18 18:47 99.2 09/01/18 16:48 105 21 137/88 (104) 97 09/01/18 09:00 Room Air 09/01/18 08:12 21 08/31/18 09:00 2.0 Laboratory Tests Test 09/01/18 06:46 White Blood Count 26.4 K/UL (4.8-10.8) *H Red Blood Count 3.58 M/UL (4.20-5.40) L Hemoglobin 10.4 G/DL (12.0-16.0) L Hematocrit 32.0 % (37.0-47.0) L Mean Corpuscular Volume 89 FL (80-99) Mean Corpuscular Hemoglobin 29.2 PG (27.0-31.0) Mean Corpuscular Hemoglobin Concent 32.6 G/DL (32.0-36.0) Red Cell Distribution Width 12.0 % (11.6-14.8) Platelet Count 399 K/UL (150-450) Mean Platelet Volume 5.7 FL (6.5-10.1) L Neutrophils (%) (Auto) % (45.0-75.0) Lymphocytes (%) (Auto) % (20.0-45.0) Monocytes (%) (Auto) % (1.0-10.0) Eosinophils (%) (Auto) % (0.0-3.0) Basophils (%) (Auto) % (0.0-2.0) Differential Total Cells Counted 100 Neutrophils % (Manual) 66 % (45-75) Lymphocytes % (Manual) 18 % (20-45) L Monocytes % (Manual) 13 % (1-10) H Eosinophils % (Manual) 0 % (0-3) Basophils % (Manual) 0 % (0-2) Band Neutrophils 3 % (0-8) Platelet Estimate Adequate Platelet Morphology Normal Hypochromasia 1+ Reticulocyte Count 0.4 % (0.0-2.0) Sodium Level 141 MMOL/L (136-145) Potassium Level 3.3 MMOL/L (3.5-5.1) L Chloride Level 102 MMOL/L (98-107) Carbon Dioxide Level 30 MMOL/L (21-32) Anion Gap 9 mmol/L (5-15) Blood Urea Nitrogen 22 mg/dL (7-18) H Creatinine 1.0 MG/DL (0.55-1.30) Estimat Glomerular Filtration Rate > 60 mL/min (>60) Glucose Level 86 MG/DL (74-106) Calcium Level 9.5 MG/DL (8.5-10.1) Total Bilirubin 0.2 MG/DL (0.2-1.0) Aspartate Amino Transf (AST/SGOT) 41 U/L (15-37) H Alanine Aminotransferase (ALT/SGPT) 42 U/L (12-78) Alkaline Phosphatase 241 U/L (46-116) H Pro-B-Type Natriuretic Peptide 1160 pg/mL (0-125) H Total Protein 6.5 G/DL (6.4-8.2) Albumin 2.1 G/DL (3.4-5.0) L Globulin 4.4 g/dL Albumin/Globulin Ratio 0.5 (1.0-2.7) L Intake and Output 08/31/18 09/01/18 19:00 07:00 Intake Total 800 ml 1315 ml Balance 800 ml 1315 ml Intake Oral 800 ml 1260 ml IV Total 55 ml # Voids 5 Objective GENERAL: The patient is awake and responsive, in no acute distress. HEAD AND NECK: Pupils are reactive to light. Extraocular movements intact. NECK: Supple. No JVD. LUNGS: Good air entry. Less crackles in the bases. No Expiratory wheeze, No rhonchi. HEART: S1 and S2. RR No murmurs or gallops. ABDOMEN: Soft, nondistended, and nontender. Positive bowel sounds. EXTREMITIES: No cyanosis, clubbing, or edema. NEUROLOGIC: Cranial nerves II through XII grossly intact. Motor is 5/5 in all extremities. Gait is intact. PSYCHIATRIC: Mood and affect are anxious. Assessment/Plan Assessment/Plan ASSESSMENT: 1. Acute pneumonia. 2. History of asthma. 3. COPD. 4. Sepsis with bandemia / Bacteremia. 5. Sickle cell disease. 6. History of severe hip osteoarthritis, status post arthroplasty. 7. Spinal spondylolisthesis. 8. Question of lumbar spine spondylosis. 9. Hypertension. 10. Anemia. PLAN: 1. in Medical floor. 2. We will follow up with the laboratory and cultures. 3. DC IV hydration. 4. Prednisone 20mg 5. The patient has penicillin allergy. 6. Aztreonam , Levaquin. 7. Code status is Full Code. 8. DVT prophylaxis, heparin subcutaneous. 9. We will follow up with Dr. Almonte for Pulmonary Critical Care consultation and DR. Lott for ID consultation. 10. DC home soon. CT scan of the abdomen/chest/pelvic: Extensive infiltrate within the right lung as described above. Finding likely due to pneumonia. Please correlate clinically. Hepatomegaly. 4.3 cm liver lesion, nonspecific on this examination. Recommend ultrasound correlation. Follow-up triphasic CT may be needed. Hiatal hernia Status post right total hip replacement. Accessory spleen Mild free fluid within the pelvis nonspecific Atherosclerotic disease. Carlos Madden M.D. Carlos Madden MD Sep 01, 2018 19:34
--- NOTE | 2018-09-01 19:39 | NUR ---
HAND-OFF: Report given to: ARIANA Gotti patient awake stable.
[2018-09-01 20:00] VITALS: BP 144/103
[2018-09-02] VITALS (7 sets, daily range): BP systolic 112–165; BP diastolic 70–107
[2018-09-02] MEDS: HYDROcodone/Acetamin 10/325 tab ORAL PRN ×4 (00:29→18:28)
[2018-09-02] MEDS: dilTIAZem HCl 30mg tab ORAL SCH ×3 (05:09→21:49)
[2018-09-02] MEDS: Aztreonam Inj 1 GM in D5W 55 ML IVPB SCH ×3 (05:09→21:50)
[2018-09-02] MEDS: Ketorolac 30mg Inj IV PRN ×3 (07:15→23:17)
--- NOTE | 2018-09-02 07:15 | NUR ---
HAND-OFF: Report given to ARIANA Zuñiga.
--- NOTE | 2018-09-02 07:26 | NUR ---
NURSE NOTES: During shift change patient alert awake with out no distress call light with in reach bed locked and lowest position. reported pain and medication given. will continue to monitor.
[2018-09-02] MEDS: Theophylline ER 100mg ORAL SCH ×2 (08:04→21:09)
[2018-09-02] MEDS: BuPROPion XL 150mg tab ORAL SCH (08:04)
[2018-09-02] MEDS: Lisinopril 20mg tab ORAL SCH (08:04)
[2018-09-02] MEDS: Heparin 5000 units/ml inj SUBQ SCH ×2 (08:06→21:12)
--- NOTE | 2018-09-02 11:43 | Pulmonology Progress Note ---
Assessment/Plan Problems: (1) Multilobar lung infiltrate (2) Bacteremia (3) Sepsis (4) COPD (chronic obstructive pulmonary disease) (5) Sickle cell disease (6) Hip osteoarthritis Assessment/Plan afebrile now wbc still high HIV testing ordered CT chest reviewed, extensive infiltrate check cultures, sputum pending check Blood cultures, so far positive for GPC Heart rate better, check sputum continue abx titrate fio2 to sat of 92% med/surg Subjective Interval Events: still coughing Allergies: Coded Allergies: PENICILLINS (Verified Allergy, Unknown, 10/09/12) Objective Last 24 Hour Vital Signs Date Time Temp Pulse Resp B/P (MAP) Pulse Ox O2 Delivery O2 Flow Rate FiO2 09/02/18 09:39 Room Air 09/02/18 08:04 155/90 09/02/18 08:00 99.1 103 20 155/90 (111) 94 09/02/18 07:58 94 Room Air 21 09/02/18 07:58 Room Air 21 09/02/18 07:48 99.0 09/02/18 05:09 96 139/96 09/02/18 04:00 99.0 96 18 139/96 (110) 94 09/02/18 00:59 99.5 09/02/18 00:00 99.5 105 21 139/88 (105) 95 09/01/18 23:13 96 18 90 Room Air 21 09/01/18 21:31 112 144/103 09/01/18 21:00 Room Air 09/01/18 20:00 98.4 112 19 144/103 (117) 96 09/01/18 19:00 92 Room Air 21 09/01/18 19:00 Room Air 21 09/01/18 16:48 99.2 105 21 137/88 (104) 97 09/01/18 13:44 106 134/91 09/01/18 12:00 99.1 104 20 147/91 (109) 97 Intake and Output 09/01/18 09/02/18 18:59 06:59 Intake Total 640 ml 590 ml Balance 640 ml 590 ml Intake Oral 640 ml 480 ml IV Total 110 ml # Voids 4 2 General Appearance: cachetic HEENT: normocephalic, atraumatic Respiratory/Chest: chest wall non-tender, lungs clear Breasts: no masses Cardiovascular: normal rate Abdomen: normal bowel sounds, soft, non tender Extremities: no cyanosis, no clubbing Skin: no rash Current Medications Medications (Trade) Dose Ordered Sig/Yadira Route PRN Reason Start Time Stop Time Status Last Admin Dose Admin Acetaminophen (Tylenol) 650 mg Q6H PRN ORAL Mild Pain/Temp > 100.5 08/29/18 19:15 09/28/18 07:14 Acetaminophen/ Hydrocodone Bitart ([place] 10/325) 1 tab Q6H PRN ORAL Pain Scale (7-10) 08/29/18 19:15 09/05/18 19:06 09/02/18 06:31 Acetaminophen/ Hydrocodone Bitart ([place] 5/325) 1 tab Q6H PRN ORAL Moderate Pain (Pain Scale 4-6) 08/29/18 19:07 09/04/18 19:06 08/31/18 02:35 Aztreonam 1 gm/ Dextrose 55 ml @ 110 mls/hr Q8HR IVPB 08/29/18 22:00 09/05/18 13:59 09/02/18 05:09 Barium Sulfate (Readi-Cat 2) 450 ml NOW PRN ORAL Radiology Procedure 08/31/18 15:15 09/02/18 15:11 Bupropion HCl (Wellbutrin XL) 150 mg DAILY ORAL 08/30/18 09:00 09/28/18 08:59 09/02/18 08:04 Dextrose (Dextrose 50%) 25 ml Q30M PRN IV Hypoglycemia 08/29/18 19:30 09/27/18 11:29 Dextrose (Dextrose 50%) 50 ml Q30M PRN IV Hypoglycemia 08/29/18 19:30 09/27/18 11:29 Diltiazem HCl (Cardizem) 30 mg Q8HR ORAL 08/29/18 22:00 09/27/18 13:59 09/02/18 05:09 Gabapentin (Neurontin) 300 mg Q8HR ORAL 08/29/18 22:00 09/27/18 13:59 09/02/18 05:09 Heparin Sodium (Porcine) (Heparin 5000 units/ml) 5,000 units EVERY 12 HOURS SUBQ 08/29/18 21:00 09/27/18 20:59 09/02/18 08:06 Iopamidol (Isovue-300 100ml) 100 ml NOW PRN INJ Radiology Procedure 08/31/18 15:15 09/02/18 23:59 Ketorolac Tromethamine (Toradol 30mg) 30 mg Q8H PRN IV BREAKTHROUGH PAIN 08/29/18 19:07 09/02/18 19:06 09/02/18 07:15 Lamotrigine (LaMICtal) 100 mg DAILY ORAL 08/30/18 09:00 09/28/18 08:59 09/02/18 08:05 Levofloxacin (Levaquin) 750 mg DAILY ORAL 08/30/18 09:00 09/05/18 11:59 09/02/18 08:05 Lisinopril (Prinivil) 20 mg DAILY ORAL 08/30/18 09:00 09/28/18 08:59 09/02/18 08:04 Lorazepam (Ativan 2mg/ml 1ml) 0.5 mg Q4H PRN IV For Anxiety 08/29/18 19:30 09/04/18 11:29 Methocarbamol (Robaxin) 500 mg Q6H PRN ORAL Muscle spasms 08/29/18 19:08 09/27/18 19:07 Nitroglycerin (Ntg) 0.4 mg Q5MIN X 3 DOSES PRN SL Prn Chest Pain 08/29/18 19:00 09/27/18 11:29 Ondansetron HCl (Zofran) 4 mg Q4H PRN IVP Nausea & Vomiting 08/29/18 19:08 09/27/18 19:07 Pantoprazole (Protonix) 40 mg DAILY ORAL 08/30/18 09:00 09/28/18 08:59 09/02/18 08:04 Prednisone (predniSONE) 20 mg DAILY ORAL 09/01/18 09:00 09/29/18 14:14 09/02/18 08:05 Promethazine HCl/ Codeine (Phenergan with Codeine) 5 ml Q6H PRN ORAL cough 08/29/18 19:08 09/27/18 19:07 08/31/18 23:42 Temazepam (Restoril) 15 mg HSPRN PRN ORAL Insomnia 08/29/18 21:00 09/04/18 20:59 Theophylline (Papito-Dur) 100 mg EVERY 12 HOURS ORAL 08/29/18 21:00 09/27/18 20:59 09/02/18 08:04 Mila Almonte MD Sep 02, 2018 11:43
--- NOTE | 2018-09-02 13:59 | Infectious Diseases Prog Note ---
Assessment/Plan Assessment/Plan Assessment: Sepsis 2ry to PNA, ?atypical vs viral (ie INfluenza, M. pna) Extensive R lung ground glass opacities -CT abd/p: Extensive infiltrate within the right lung as described above. Finding likely due to pneumonia. Please correlate clinically. Hepatomegaly. 4.3 cm liver lesion, nonspecific on this examination. Recommend ultrasound correlation. Follow-up triphasic CT may be needed. Hiatal hernia. Status post right total hip replacement. Accessory spleen. Mild free fluid within the pelvis nonspecific. Atherosclerotic disease -CXR: : Bilateral right greater than left perihilar consolidation. Most likely representing pneumonia. Pulmonary edema also a possibility -influenza sc neg -sp cx normal resp harriet -HIV ab sc neg CONS bacteremia- likely contaminant -08/27 Bcx / GPC CONS; 08/28 Bcx NTD Fever, SP Leukocytosis, increased, now improving (multifactorial, PNA, streoids); no cbc today -u/a neg Liver lesion COPD psychosis anxiety moderate pHTN lumbar disc disease/spondylosis R hip OA s/p R hip replacement HTN sickle cell disease Plan: -D/c Aztreonam #5 -Continue LEvaquin #/ for PNA , concern for atypical infection -Resume Tamiflu abx d #09/20 ; concern for viral infection given CT (despite neg influenza sc test; did had symptoms suggestive ofit) -09/01 SP IV Vancomycin #4 -08/31 SP Tamiflu #3 -08/27 SP IV Vancomycin and CEfepime x1 -abd us -f/u legionella ag urine (re-ordered) -f/u cx -Monitor CBC/CMP, temperatures -aspiration precautions -Cdiff if diarrhea -Cocci ab, CrAg, M. pna ab am -Consider Repeat CT chest in 6 months Thank you for this consultation. Will continue to follow along with you. Discussed with RN and with Dr Almonte Subjective Allergies: Coded Allergies: PENICILLINS (Verified Allergy, Unknown, 10/09/12) Subjective afebrile wbc improved; no cbc today at improved repeat Bcx NTD Objective Vital Signs Last 24 Hour Vital Signs Date Time Temp Pulse Resp B/P (MAP) Pulse Ox O2 Delivery O2 Flow Rate FiO2 09/02/18 12:56 98.4 09/02/18 12:42 98.4 104 18 165/107 (126) 95 09/02/18 12:26 165/107 09/02/18 09:39 Room Air 09/02/18 08:04 155/90 09/02/18 08:00 99.1 103 20 155/90 (111) 94 09/02/18 07:58 94 Room Air 21 09/02/18 07:58 Room Air 21 09/02/18 07:48 99.0 09/02/18 05:09 96 139/96 09/02/18 04:00 99.0 96 18 139/96 (110) 94 09/02/18 00:00 99.5 105 21 139/88 (105) 95 09/01/18 23:13 96 18 90 Room Air 21 09/01/18 21:31 112 144/103 09/01/18 21:00 Room Air 09/01/18 20:00 98.4 112 19 144/103 (117) 96 09/01/18 19:00 92 Room Air 21 09/01/18 19:00 Room Air 09/01/18 16:48 99.2 105 21 137/88 (104) 97 09/01/18 13:44 106 134/91 Height (Feet): 5 Height (Inches): 6.00 Weight (Pounds): 163 Objective GENERAL: The patient is awake and responsive, in no acute distress, but feeling weak and tired. HEAD AND NECK: Pupils are reactive to light. Extraocular movements intact. NECK: Supple. No JVD. LUNGS: Good air entry. Occasional crackles in the bases. No wheeze or rhonchi. HEART: S1 and S2. Tachycardic. No murmurs or gallops. ABDOMEN: Soft, nondistended, and nontender. Positive bowel sounds. EXTREMITIES: No cyanosis, clubbing, or edema. NEUROLOGIC: Cranial nerves II through XII grossly intact. Motor is 5/5 in all extremities. Gait is intact. RECTAL/GENITOURINARY: Refused and deferred. PSYCHIATRIC: Mood and affect are anxious. Laboratory Tests Test 09/02/18 12:50 HIV (1&2) Antibody Rapid Negative (NEGATIVE) Current Medications Medications (Trade) Dose Ordered Sig/Yadira Route PRN Reason Start Time Stop Time Status Last Admin Dose Admin Acetaminophen (Tylenol) 650 mg Q6H PRN ORAL Mild Pain/Temp > 100.5 08/29/18 19:15 09/28/18 07:14 Acetaminophen/ Hydrocodone Bitart ([place] 10/325) 1 tab Q6H PRN ORAL Pain Scale (7-10) 08/29/18 19:15 09/05/18 19:06 09/02/18 12:26 Acetaminophen/ Hydrocodone Bitart ([place] 5/325) 1 tab Q6H PRN ORAL Moderate Pain (Pain Scale 4-6) 08/29/18 19:07 09/04/18 19:06 08/31/18 02:35 Aztreonam 1 gm/ Dextrose 55 ml @ 110 mls/hr Q8HR IVPB 08/29/18 22:00 09/05/18 13:59 09/02/18 05:09 Barium Sulfate (Readi-Cat 2) 450 ml NOW PRN ORAL Radiology Procedure 08/31/18 15:15 09/02/18 15:11 Bupropion HCl (Wellbutrin XL) 150 mg DAILY ORAL 08/30/18 09:00 09/28/18 08:59 09/02/18 08:04 Clonidine HCl (Catapres Tab) 0.1 mg Q6H PRN ORAL For High Blood Pressure 09/02/18 11:45 10/02/18 11:44 09/02/18 12:26 Dextrose (Dextrose 50%) 25 ml Q30M PRN IV Hypoglycemia 08/29/18 19:30 09/27/18 11:29 Dextrose (Dextrose 50%) 50 ml Q30M PRN IV Hypoglycemia 08/29/18 19:30 09/27/18 11:29 Diltiazem HCl (Cardizem) 30 mg Q8HR ORAL 08/29/18 22:00 09/27/18 13:59 09/02/18 05:09 Gabapentin (Neurontin) 300 mg Q8HR ORAL 08/29/18 22:00 09/27/18 13:59 09/02/18 05:09 Heparin Sodium (Porcine) (Heparin 5000 units/ml) 5,000 units EVERY 12 HOURS SUBQ 08/29/18 21:00 09/27/18 20:59 09/02/18 08:06 Iopamidol (Isovue-300 100ml) 100 ml NOW PRN INJ Radiology Procedure 08/31/18 15:15 09/02/18 23:59 Ketorolac Tromethamine (Toradol 30mg) 30 mg Q8H PRN IV BREAKTHROUGH PAIN 08/29/18 19:07 09/02/18 19:06 09/02/18 07:15 Lamotrigine (LaMICtal) 100 mg DAILY ORAL 08/30/18 09:00 09/28/18 08:59 09/02/18 08:05 Levofloxacin (Levaquin) 750 mg DAILY ORAL 08/30/18 09:00 09/05/18 11:59 09/02/18 08:05 Lisinopril (Prinivil) 20 mg DAILY ORAL 08/30/18 09:00 09/28/18 08:59 09/02/18 08:04 Lorazepam (Ativan 2mg/ml 1ml) 0.5 mg Q4H PRN IV For Anxiety 08/29/18 19:30 09/04/18 11:29 Methocarbamol (Robaxin) 500 mg Q6H PRN ORAL Muscle spasms 08/29/18 19:08 09/27/18 19:07 Nitroglycerin (Ntg) 0.4 mg Q5MIN X 3 DOSES PRN SL Prn Chest Pain 08/29/18 19:00 09/27/18 11:29 Ondansetron HCl (Zofran) 4 mg Q4H PRN IVP Nausea & Vomiting 08/29/18 19:08 09/27/18 19:07 Pantoprazole (Protonix) 40 mg DAILY ORAL 08/30/18 09:00 09/28/18 08:59 09/02/18 08:04 Prednisone (predniSONE) 20 mg DAILY ORAL 09/01/18 09:00 09/29/18 14:14 09/02/18 08:05 Promethazine HCl/ Codeine (Phenergan with Codeine) 5 ml Q6H PRN ORAL cough 08/29/18 19:08 09/27/18 19:07 08/31/18 23:42 Temazepam (Restoril) 15 mg HSPRN PRN ORAL Insomnia 08/29/18 21:00 09/04/18 20:59 Theophylline (Papito-Dur) 100 mg EVERY 12 HOURS ORAL 08/29/18 21:00 09/27/18 20:59 09/02/18 08:04 Angela Lott M.D. Sep 02, 2018 13:59
--- NOTE | 2018-09-02 14:32 | NUR ---
CASE MANAGEMENT:REVIEW 09/02/18 SI: SEPSIS. PNA. BACTEREMIA. COPD 99.1 103 20 155/90 94 % ON RA NO LABS FOR TODAY IS: IV AZACTAM Q8HRS TAMIFLU PO BID CLONIDINE PO Q6HRS PRN PREDNISONE PO QD LEVAQUIN PO QD LAMICTAL PO QD CARDIZEM PO Q8HRS HEPARIN SQ Q12 THEOPHYLLINE PO Q12 : MED/SURG STATUS 3 EAST DCP: FROM HOME
[2018-09-02] MEDS: Oseltamivir 75mg cap ORAL SCH (15:24)
--- NOTE | 2018-09-02 17:56 | Internal Med Progress Note ---
Subjective Physician Name Carlos Madden Attending Physician Carlos Madden MD Current Medications Medications (Trade) Dose Ordered Sig/Yadira Route PRN Reason Start Time Stop Time Status Last Admin Dose Admin Acetaminophen (Tylenol) 650 mg Q6H PRN ORAL Mild Pain/Temp > 100.5 08/29/18 19:15 09/28/18 07:14 Acetaminophen/ Hydrocodone Bitart ([place] 10/325) 1 tab Q6H PRN ORAL Pain Scale (7-10) 08/29/18 19:15 09/05/18 19:06 09/02/18 12:26 Acetaminophen/ Hydrocodone Bitart ([place] 5/325) 1 tab Q6H PRN ORAL Moderate Pain (Pain Scale 4-6) 08/29/18 19:07 09/04/18 19:06 08/31/18 02:35 Aztreonam 1 gm/ Dextrose 55 ml @ 110 mls/hr Q8HR IVPB 08/29/18 22:00 09/05/18 13:59 09/02/18 14:55 Bupropion HCl (Wellbutrin XL) 150 mg DAILY ORAL 08/30/18 09:00 09/28/18 08:59 09/02/18 08:04 Clonidine HCl (Catapres Tab) 0.1 mg Q6H PRN ORAL For High Blood Pressure 09/02/18 11:45 10/02/18 11:44 09/02/18 12:26 Dextrose (Dextrose 50%) 25 ml Q30M PRN IV Hypoglycemia 08/29/18 19:30 09/27/18 11:29 Dextrose (Dextrose 50%) 50 ml Q30M PRN IV Hypoglycemia 08/29/18 19:30 09/27/18 11:29 Diltiazem HCl (Cardizem) 30 mg Q8HR ORAL 08/29/18 22:00 09/27/18 13:59 09/02/18 14:56 Gabapentin (Neurontin) 300 mg Q8HR ORAL 08/29/18 22:00 09/27/18 13:59 09/02/18 14:56 Heparin Sodium (Porcine) (Heparin 5000 units/ml) 5,000 units EVERY 12 HOURS SUBQ 08/29/18 21:00 09/27/18 20:59 09/02/18 08:06 Iopamidol (Isovue-300 100ml) 100 ml NOW PRN INJ Radiology Procedure 08/31/18 15:15 09/02/18 23:59 Ketorolac Tromethamine (Toradol 30mg) 30 mg Q8H PRN IV BREAKTHROUGH PAIN 08/29/18 19:07 09/02/18 19:06 09/02/18 15:09 Lamotrigine (LaMICtal) 100 mg DAILY ORAL 08/30/18 09:00 09/28/18 08:59 09/02/18 08:05 Levofloxacin (Levaquin) 750 mg DAILY ORAL 08/30/18 09:00 09/05/18 11:59 09/02/18 08:05 Lisinopril (Prinivil) 20 mg DAILY ORAL 08/30/18 09:00 09/28/18 08:59 09/02/18 08:04 Lorazepam (Ativan 2mg/ml 1ml) 0.5 mg Q4H PRN IV For Anxiety 08/29/18 19:30 09/04/18 11:29 Methocarbamol (Robaxin) 500 mg Q6H PRN ORAL Muscle spasms 08/29/18 19:08 09/27/18 19:07 Nitroglycerin (Ntg) 0.4 mg Q5MIN X 3 DOSES PRN SL Prn Chest Pain 08/29/18 19:00 09/27/18 11:29 Ondansetron HCl (Zofran) 4 mg Q4H PRN IVP Nausea & Vomiting 08/29/18 19:08 09/27/18 19:07 Oseltamivir Phosphate (Tamiflu) 75 mg TWICE A DAY ORAL 09/02/18 15:00 09/07/18 14:59 09/02/18 15:24 Pantoprazole (Protonix) 40 mg DAILY ORAL 08/30/18 09:00 09/28/18 08:59 09/02/18 08:04 Prednisone (predniSONE) 20 mg DAILY ORAL 09/01/18 09:00 09/29/18 14:14 09/02/18 08:05 Promethazine HCl/ Codeine (Phenergan with Codeine) 5 ml Q6H PRN ORAL cough 08/29/18 19:08 09/27/18 19:07 08/31/18 23:42 Temazepam (Restoril) 15 mg HSPRN PRN ORAL Insomnia 08/29/18 21:00 09/04/18 20:59 Theophylline (Papito-Dur) 100 mg EVERY 12 HOURS ORAL 08/29/18 21:00 09/27/18 20:59 09/02/18 08:04 Allergies: Coded Allergies: PENICILLINS (Verified Allergy, Unknown, 10/09/12) Subjective awake, alert, responsive, NAD, No SOB, minimal coughing, feeling Okay. Objective Last Vital Signs Date Time Temp Pulse Resp B/P (MAP) Pulse Ox O2 Delivery O2 Flow Rate FiO2 09/02/18 16:19 98.2 91 18 131/77 (95) 95 09/02/18 09:39 Room Air 09/02/18 07:58 21 08/31/18 09:00 2.0 Laboratory Tests Test 09/02/18 12:50 HIV (1&2) Antibody Rapid Negative (NEGATIVE) Intake and Output 09/01/18 09/02/18 19:00 07:00 Intake Total 640 ml 590 ml Balance 640 ml 590 ml Intake Oral 640 ml 480 ml IV Total 110 ml # Voids 4 2 Objective GENERAL: The patient is awake and responsive, in no acute distress. HEAD AND NECK: Pupils are reactive to light. Extraocular movements intact. NECK: Supple. No JVD. LUNGS: Good air entry. Less crackles in the bases. No Expiratory wheeze, No rhonchi. HEART: S1 and S2. RR No murmurs or gallops. ABDOMEN: Soft, nondistended, and nontender. Positive bowel sounds. EXTREMITIES: No cyanosis, clubbing, or edema. NEUROLOGIC: Cranial nerves II through XII grossly intact. Motor is 5/5 in all extremities. Gait is intact. PSYCHIATRIC: Mood and affect are anxious. Assessment/Plan Assessment/Plan ASSESSMENT: 1. Acute pneumonia. 2. History of asthma. 3. COPD. 4. Sepsis with bandemia / Bacteremia. 5. Sickle cell disease. 6. History of severe hip osteoarthritis, status post arthroplasty. 7. Spinal spondylolisthesis. 8. Question of lumbar spine spondylosis. 9. Hypertension. 10. Anemia. 11. 4.3 cm liver lesion. PLAN: 1. in Medical floor. 2. We will follow up with the laboratory and cultures. 3. DC IV hydration. 4. Prednisone 20mg 5. The patient has penicillin allergy. 6. Levaquin. 7. Code status is Full Code. 8. DVT prophylaxis, heparin subcutaneous. 9. We will follow up with Dr. Almonte for Pulmonary Critical Care consultation and DR. Lott for ID consultation. 10. DC home soon. CT scan of the abdomen/chest/pelvic: Extensive infiltrate within the right lung as described above. Finding likely due to pneumonia. Please correlate clinically. Hepatomegaly. 4.3 cm liver lesion, nonspecific on this examination. Recommend ultrasound correlation. Follow-up triphasic CT may be needed. Hiatal hernia Status post right total hip replacement. Accessory spleen Mild free fluid within the pelvis nonspecific Atherosclerotic disease. Carlos Madden M.D. Carlos Madden MD Sep 02, 2018 17:56
--- NOTE | 2018-09-02 19:30 | NUR ---
NURSE NOTES: Received report from ARIANA Aden. Received patient in bed, AOX4, denies pain at this time, no distress noted. IV R wrist # 22 patent and intact. Bed in lowest position and locked, side rails up x 2, call light within reach. Will continue to monitor.
--- NOTE | 2018-09-02 19:42 | NUR ---
HAND-OFF: Report given to Karlos Sadler RN patient stable condition.
--- NOTE | 2018-09-02 19:50 | NUR ---
NURSE NOTES: Urine collected for legionella and sent to lab.
[2018-09-02] MEDS ORDERED: Albuterol/Ipratropium 3ml neb HHN PRN (20:15)
[2018-09-03] VITALS: BP 131/90
[2018-09-03] MEDS: HYDROcodone/Acetamin 10/325 tab ORAL PRN ×4 (00:28→19:05)
[2018-09-03 04:00] VITALS: BP 131/80
[2018-09-03] MEDS: Aztreonam Inj 1 GM in D5W 55 ML IVPB SCH (05:43)
[2018-09-03] MEDS: dilTIAZem HCl 30mg tab ORAL SCH ×3 (05:44→21:11)
--- NOTE | 2018-09-03 07:16 | NUR ---
HAND-OFF: Report given to ARIANA Duffy. Pt in stable condition.
--- NOTE | 2018-09-03 07:25 | NUR ---
NURSE NOTES: Report received from outgoing RN, rounds made. Patient alert, oriented x4, calm. Requesting pain medication for generalized body pain 01/23, will medicate as ordered. Right wrist heplock intact, site asymptomatic. Patient denies SOB on RA, NV. Encouraged CDB, patient has on and off productive cough. Reinforced NPO status for pending US of Abdomen, patient verbalized understanding. Call light in reach, bed in lowest position. Will continue to monitor.
[2018-09-03] MEDS: Ketorolac 30mg Inj IV PRN ×2 (07:40→16:51)
[2018-09-03 07:47] LABS: HEMATOCRIT 29.9 % (37.0-47.0); HEMOGLOBIN 9.7 G/DL (12.0-16.0); MEAN CORPUSCULAR VOLUME 90 FL (80-99); PLATELET COUNT 382 K/UL (150-450); RED BLOOD COUNT 3.32 M/UL (4.20-5.40); RED CELL DISTRIBUTION WIDTH 11.5 % (11.6-14.8)
[2018-09-03 07:56] LABS: ALANINE AMINOTRANSFERASE 60 U/L (12-78); ALBUMIN 2.1 G/DL (3.4-5.0); ALBUMIN/GLOBULIN RATIO 0.5 (1.0-2.7); ALKALINE PHOSPHATASE 231 U/L (46-116); ANION GAP 8 mmol/L (5-15); ASPARTATE AMINO TRANSFERASE 47 U/L (15-37); BILIRUBIN,TOTAL 0.3 MG/DL (0.2-1.0); BLOOD UREA NITROGEN 17 mg/dL (7-18); CALCIUM 9.5 MG/DL (8.5-10.1); CARBON DIOXIDE 31 MMOL/L (21-32); CHLORIDE 100 MMOL/L (98-107); PHOSPHORUS 2.6 MG/DL (2.5-4.9); POTASSIUM 3.7 MMOL/L (3.5-5.1); SODIUM 139 MMOL/L (136-145)
[2018-09-03 07:59] LABS: WHITE BLOOD COUNT 27.4 K/UL (4.8-10.8)
[2018-09-03 08:00] VITALS: BP 133/72
--- NOTE | 2018-09-03 08:15 | NUR ---
NURSE NOTES: Critical value notification received from Kanika in laboratory. Charge nurse Kati RN, notified bedside RN of call. Dr. Madden called with WBC 27.4 critical lab value. Waiting web content director back.
--- NOTE | 2018-09-03 08:35 | NUR ---
NURSE NOTES: Received call back from Dr. Madden regarding critical lab value, WBC 27.4. No further orders received at this time.
--- NOTE | 2018-09-03 09:30 | NUR ---
NURSE NOTES: Ultrasound of abdomen completed at this time. Done at bedside. Regular diet resumed.
[2018-09-03] MEDS: Heparin 5000 units/ml inj SUBQ SCH ×2 (09:37→20:52)
[2018-09-03] MEDS: Lisinopril 20mg tab ORAL SCH (09:41)
[2018-09-03] MEDS: Theophylline ER 100mg ORAL SCH ×2 (09:42→20:49)
[2018-09-03] MEDS: BuPROPion XL 150mg tab ORAL SCH (09:42)
[2018-09-03] MEDS: Oseltamivir 75mg cap ORAL SCH ×2 (09:42→17:04)
--- NOTE | 2018-09-03 10:44 | NUR ---
*-* INSURANCE *-* CLINICALS AND REVIEWS HAVE JOAN FAXED TO: [facility] CONTACT:SHWETHA P:[phone] F:[phone] [facility]# [id number]
[2018-09-03 12:00] VITALS: BP 136/93
--- NOTE | 2018-09-03 12:08 | Pulmonology Progress Note ---
Assessment/Plan Problems: (1) Multilobar lung infiltrate (2) Bacteremia (3) Sepsis (4) COPD (chronic obstructive pulmonary disease) (5) Sickle cell disease (6) Hip osteoarthritis Assessment/Plan d/w pathologist, will send to flow cytometry afebrile now wbc still high HIV testing negative CT chest reviewed, extensive infiltrate check Blood cultures, so far positive for GPC Heart rate better, check sputum continue abx titrate fio2 to sat of 92% med/surg Subjective ROS Limited/Unobtainable: No Allergies: Coded Allergies: PENICILLINS (Verified Allergy, Unknown, 10/09/12) Objective Last 24 Hour Vital Signs Date Time Temp Pulse Resp B/P (MAP) Pulse Ox O2 Delivery O2 Flow Rate FiO2 09/03/18 09:41 133/72 09/03/18 09:00 Room Air 09/03/18 08:06 Room Air 21 09/03/18 08:06 98 Room Air 21 09/03/18 08:00 98.8 96 20 133/72 (92) 95 09/03/18 05:44 84 131/80 09/03/18 04:00 98.8 82 20 131/80 (97) 95 09/03/18 00:00 98.1 90 20 131/90 (104) 95 09/02/18 21:49 89 139/84 09/02/18 21:00 Room Air 09/02/18 20:36 95 Room Air 21 09/02/18 20:36 Room Air 21 09/02/18 20:00 98.4 95 20 112/70 (84) 95 09/02/18 19:06 98.2 09/02/18 16:19 98.2 91 18 131/77 (95) 95 09/02/18 16:08 98.4 09/02/18 14:56 104 165/107 09/02/18 14:00 98.4 91 18 129/78 (95) 97 09/02/18 12:42 98.4 104 18 165/107 (126) 95 09/02/18 12:26 165/107 Intake and Output 09/02/18 09/03/18 18:59 06:59 Intake Total 200 ml 165 ml Balance 200 ml 165 ml Intake Oral 200 ml IV Total 165 ml # Voids 2 2 Objective General Appearance: WD/WN HEENT: normocephalic, anicteric Respiratory/Chest: chest wall non-tender, rhonchi Breasts: no masses Cardiovascular: normal rate Abdomen: soft, non tender, non distended Extremities: no clubbing Skin: no rash Neurologic/Psychiatric: in home caregiver II-XII grossly normal Lymphatic: no neck adenopathy Laboratory Tests 09/02/18 12:50: HIV (1&2) Antibody Rapid Negative 09/02/18 21:03: Urine Legionella Antigen [Pending] 09/03/18 06:36: White Blood Count 27.4*H, Red Blood Count 3.32L, Hemoglobin 9.7L, Hematocrit 29.9L, Mean Corpuscular Volume 90, Mean Corpuscular Hemoglobin 29.3, Mean Corpuscular Hemoglobin Concent 32.5, Red Cell Distribution Width 11.5L, Platelet Count 382, Mean Platelet Volume 5.1L, Neutrophils (%) (Auto) , Lymphocytes (%) (Auto) , Monocytes (%) (Auto) , Eosinophils (%) (Auto) , Basophils (%) (Auto) , Differential Total Cells Counted 100, Neutrophils % ( Manual) 62, Lymphocytes % (Manual) 19L, Monocytes % (Manual) 1, Eosinophils % ( Manual) 1, Basophils % (Manual) 0, Metamyelocytes % 7H, Myelocytes % 8H, Band Neutrophils 2, Platelet Estimate Adequate, Platelet Morphology Normal, Target Cells 1+, Erythrocyte Sedimentation Rate 82H, Sodium Level 139, Potassium Level 3.7, Chloride Level 100, Carbon Dioxide Level 31, Anion Gap 8, Blood Urea Nitrogen 17, Creatinine 1.0, Estimat Glomerular Filtration Rate > 60, Glucose Level 89, Calcium Level 9.5, Phosphorus Level 2.6, Magnesium Level 1.8, Total Bilirubin 0.3, Aspartate Amino Transf (AST/SGOT) 47H, Alanine Aminotransferase ( ALT/SGPT) 60, Alkaline Phosphatase 231H, C-Reactive Protein, Quantitative 33.0H , Total Protein 6.5, Albumin 2.1L, Globulin 4.4, Albumin/Globulin Ratio 0.5L, Coccidioides Antibody (Comp Fix) [Pending], Cryptococcus Antigen [Pending], Mycoplasma pneumoniae IgG Antibody [Pending], Mycoplasma pneumoniae IgM Ab Titer [Pending] Current Medications Medications (Trade) Dose Ordered Sig/Yadira Route PRN Reason Start Time Stop Time Status Last Admin Dose Admin Acetaminophen (Tylenol) 650 mg Q6H PRN ORAL Mild Pain/Temp > 100.5 08/29/18 19:15 09/28/18 07:14 Acetaminophen/ Hydrocodone Bitart ([place] 10/325) 1 tab Q6H PRN ORAL Pain Scale (7-10) 08/29/18 19:15 09/05/18 19:06 09/03/18 06:33 Acetaminophen/ Hydrocodone Bitart ([place] 5/325) 1 tab Q6H PRN ORAL Moderate Pain (Pain Scale 4-6) 08/29/18 19:07 09/04/18 19:06 08/31/18 02:35 Albuterol/ Ipratropium (Albuterol/ Ipratropium) 3 ml Q4H PRN HHN DYSPNEA 09/02/18 20:15 09/07/18 20:14 Aztreonam 1 gm/ Dextrose 55 ml @ 110 mls/hr Q8HR IVPB 08/29/18 22:00 09/05/18 13:59 09/03/18 05:43 Bupropion HCl (Wellbutrin XL) 150 mg DAILY ORAL 08/30/18 09:00 09/28/18 08:59 09/03/18 09:42 Clonidine HCl (Catapres Tab) 0.1 mg Q6H PRN ORAL For High Blood Pressure 09/02/18 11:45 10/02/18 11:44 09/02/18 12:26 Dextrose (Dextrose 50%) 25 ml Q30M PRN IV Hypoglycemia 08/29/18 19:30 09/27/18 11:29 Dextrose (Dextrose 50%) 50 ml Q30M PRN IV Hypoglycemia 08/29/18 19:30 09/27/18 11:29 Diltiazem HCl (Cardizem) 30 mg Q8HR ORAL 08/29/18 22:00 09/27/18 13:59 09/03/18 05:44 Gabapentin (Neurontin) 300 mg Q8HR ORAL 08/29/18 22:00 09/27/18 13:59 09/03/18 05:43 Heparin Sodium (Porcine) (Heparin 5000 units/ml) 5,000 units EVERY 12 HOURS SUBQ 08/29/18 21:00 09/27/18 20:59 09/03/18 09:37 Ketorolac Tromethamine (Toradol 30mg) 30 mg Q8H PRN IV Breakthrough Pain 09/02/18 20:15 09/07/18 20:14 09/03/18 07:40 Lamotrigine (LaMICtal) 100 mg DAILY ORAL 08/30/18 09:00 09/28/18 08:59 09/03/18 09:41 Levofloxacin (Levaquin) 750 mg DAILY ORAL 08/30/18 09:00 09/05/18 11:59 09/03/18 09:41 Lisinopril (Prinivil) 20 mg DAILY ORAL 08/30/18 09:00 09/28/18 08:59 09/03/18 09:41 Lorazepam (Ativan 2mg/ml 1ml) 0.5 mg Q4H PRN IV For Anxiety 08/29/18 19:30 09/04/18 11:29 Methocarbamol (Robaxin) 500 mg Q6H PRN ORAL Muscle spasms 08/29/18 19:08 09/27/18 19:07 Nitroglycerin (Ntg) 0.4 mg Q5MIN X 3 DOSES PRN SL Prn Chest Pain 08/29/18 19:00 09/27/18 11:29 Ondansetron HCl (Zofran) 4 mg Q4H PRN IVP Nausea & Vomiting 08/29/18 19:08 09/27/18 19:07 Oseltamivir Phosphate (Tamiflu) 75 mg TWICE A DAY ORAL 09/02/18 15:00 09/07/18 14:59 09/03/18 09:42 Pantoprazole (Protonix) 40 mg DAILY ORAL 08/30/18 09:00 09/28/18 08:59 09/03/18 09:40 Prednisone (predniSONE) 20 mg DAILY ORAL 09/01/18 09:00 09/29/18 14:14 09/03/18 09:42 Promethazine HCl/ Codeine (Phenergan with Codeine) 5 ml Q6H PRN ORAL cough 08/29/18 19:08 09/27/18 19:07 08/31/18 23:42 Temazepam (Restoril) 15 mg HSPRN PRN ORAL Insomnia 08/29/18 21:00 09/04/18 20:59 Theophylline (Papito-Dur) 100 mg EVERY 12 HOURS ORAL 08/29/18 21:00 09/27/18 20:59 09/03/18 09:42 Mila Almonte MD Sep 03, 2018 12:08
--- NOTE | 2018-09-03 12:23 | Diagnostic Imaging Report ---
Indication: Liver mass Technique: Grayscale and duplex Doppler imaging of the abdomen performed. Comparison: None Findings: In the lateral segment the left lobe of the liver there is a mass present which by CT was initially noted. The mass is solid and relatively isoechoic to the liver parenchyma having approximate measurement of 3 cm on this examination. There are vessels clearly running through the mass on this examination. As recommended on the prior CT, the appropriate examination for follow-up would be a dynamic multiphase CT or MR. The current ultrasound is helpful in many respects but especially that this does not appear to be a hemangioma which was a consideration based on the earlier study. There is apparent thickening of the wall the urinary bladder. Cystitis suspected. Correlate clinically. There is no ascites. There is no hydronephrosis. Accessory spleen noted. Portal vein is patent by Doppler. The gallbladder is unremarkable. The CBD is 5 mm. Demonstrated part of the pancreas is unremarkable. Aorta appears normal. IMPRESSION: Isoechoic 3 cm lesion within the liver in the lateral segment the left lobe. The mass does not appear to be a hemangioma and is clearly solid. Further evaluation is recommended as described above. Accessory spleen. Thickening of the wall the urinary bladder. Correlate for cystitis
--- NOTE | 2018-09-03 12:38 | Infectious Diseases Prog Note ---
Assessment/Plan Assessment/Plan Assessment: Sepsis 2ry to PNA, ?atypical vs viral (ie INfluenza, M. pna) Extensive R lung ground glass opacities -CT abd/p: Extensive infiltrate within the right lung as described above. Finding likely due to pneumonia. Please correlate clinically. Hepatomegaly. 4.3 cm liver lesion, nonspecific on this examination. Recommend ultrasound correlation. Follow-up triphasic CT may be needed. Hiatal hernia. Status post right total hip replacement. Accessory spleen. Mild free fluid within the pelvis nonspecific. Atherosclerotic disease -CXR: : Bilateral right greater than left perihilar consolidation. Most likely representing pneumonia. Pulmonary edema also a possibility -influenza sc neg -sp cx normal resp harriet -HIV ab sc neg CONS bacteremia- likely contaminant -08/27 Bcx / GPC CONS; 08/28 Bcx NTD Fever, SP Leukocytosis, persistent w/ left shift (steroids, PNA contributing)- r/o lymphoproliferative disorder -u/a neg Liver lesion- hx dating back to 2014- per pt had biopsy i n the past with benign results -09/02/18 Abds US: Isoechoic 3 cm lesion within the liver in the lateral segment the left lobe. The mass does not appear to be a hemangioma and is clearly solid. Further evaluation is recommended as described above. Accessory spleen.Thickening of the wall the urinary bladder. Correlate for cystitis -MRI abd 2014:Very subtle lesion of the lateral left hepatic lobe, as described on recent CT scans. Note that it is evident in retrospect on the 2013 exam, minimally change since that time. Most likely differential consideration is focal nodular hyperplasia. Other possibilities include hepatic adenoma, much less likely hepatocellular carcinoma. Consider MRI with liver specific agent as this may suggest the diagnosis of focal nodular hyperplasia. COPD psychosis anxiety moderate pHTN lumbar disc disease/spondylosis R hip OA s/p R hip replacement HTN sickle cell disease Plan: -Continue LEvaquin #11/23 for PNA , concern for atypical infection -Resume Tamiflu abx d #10/20 ; concern for viral infection given CT (despite neg influenza sc test; did had symptoms suggestive ofit) -09/03 SP Aztreonam #5 -09/01 SP IV Vancomycin #4 -08/31 SP Tamiflu #3 -08/27 SP IV Vancomycin and CEfepime x1 -f/u legionella ag urine (re-ordered), Cocci ab, CrAg, M. pna ab am -f/u cx -Monitor CBC/CMP, temperatures -aspiration precautions -Cdiff if diarrhea -Consider Repeat CT chest in 6 months -GI eval for liver lesions -f./u flow cytometry Thank you for this consultation. Will continue to follow along with you. Discussed with RN and with Dr Almonte Subjective Allergies: Coded Allergies: PENICILLINS (Verified Allergy, Unknown, 10/09/12) Subjective afebrile wbc improved; no cbc today at improved repeat Bcx NTD Objective Vital Signs Last 24 Hour Vital Signs Date Time Temp Pulse Resp B/P (MAP) Pulse Ox O2 Delivery O2 Flow Rate FiO2 09/03/18 09:41 133/72 09/03/18 09:00 Room Air 09/03/18 08:06 Room Air 21 09/03/18 08:06 98 Room Air 21 09/03/18 08:00 98.8 96 20 133/72 (92) 95 09/03/18 05:44 84 131/80 09/03/18 04:00 98.8 82 20 131/80 (97) 95 09/03/18 00:00 98.1 90 20 131/90 (104) 95 09/02/18 21:49 89 139/84 09/02/18 21:00 Room Air 09/02/18 20:36 95 Room Air 21 09/02/18 20:36 Room Air 21 09/02/18 20:00 98.4 95 20 112/70 (84) 95 09/02/18 19:06 98.2 09/02/18 16:19 98.2 91 18 131/77 (95) 95 09/02/18 16:08 98.4 09/02/18 14:56 104 165/107 09/02/18 14:00 98.4 91 18 129/78 (95) 97 09/02/18 12:42 98.4 104 18 165/107 (126) 95 Height (Feet): 5 Height (Inches): 6.00 Weight (Pounds): 163 Objective GENERAL: The patient is awake and responsive, in no acute distress, but feeling weak and tired. HEAD AND NECK: Pupils are reactive to light. Extraocular movements intact. NECK: Supple. No JVD. LUNGS: Good air entry. Occasional crackles in the bases. No wheeze or rhonchi. HEART: S1 and S2. Tachycardic. No murmurs or gallops. ABDOMEN: Soft, nondistended, and nontender. Positive bowel sounds. EXTREMITIES: No cyanosis, clubbing, or edema. NEUROLOGIC: Cranial nerves II through XII grossly intact. Motor is 5/5 in all extremities. Gait is intact. RECTAL/GENITOURINARY: Refused and deferred. PSYCHIATRIC: Mood and affect are anxious. Laboratory Tests Test 09/02/18 12:50 09/02/18 21:03 09/03/18 06:36 HIV (1&2) Antibody Rapid Negative (NEGATIVE) Urine Legionella Antigen Pending White Blood Count 27.4 K/UL (4.8-10.8) *H Red Blood Count 3.32 M/UL (4.20-5.40) L Hemoglobin 9.7 G/DL (12.0-16.0) L Hematocrit 29.9 % (37.0-47.0) L Mean Corpuscular Volume 90 FL (80-99) Mean Corpuscular Hemoglobin 29.3 PG (27.0-31.0) Mean Corpuscular Hemoglobin Concent 32.5 G/DL (32.0-36.0) Red Cell Distribution Width 11.5 % (11.6-14.8) L Platelet Count 382 K/UL (150-450) Mean Platelet Volume 5.1 FL (6.5-10.1) L Neutrophils (%) (Auto) % (45.0-75.0) Lymphocytes (%) (Auto) % (20.0-45.0) Monocytes (%) (Auto) % (1.0-10.0) Eosinophils (%) (Auto) % (0.0-3.0) Basophils (%) (Auto) % (0.0-2.0) Differential Total Cells Counted 100 Neutrophils % (Manual) 62 % (45-75) Lymphocytes % (Manual) 19 % (20-45) L Monocytes % (Manual) 1 % (1-10) Eosinophils % (Manual) 1 % (0-3) Basophils % (Manual) 0 % (0-2) Metamyelocytes % 7 % (0-0) H Myelocytes % 8 % (0-0) H Band Neutrophils 2 % (0-8) Platelet Estimate Adequate Platelet Morphology Normal Target Cells 1+ Erythrocyte Sedimentation Rate 82 MM/HR (0-30) H Sodium Level 139 MMOL/L (136-145) Potassium Level 3.7 MMOL/L (3.5-5.1) Chloride Level 100 MMOL/L (98-107) Carbon Dioxide Level 31 MMOL/L (21-32) Anion Gap 8 mmol/L (5-15) Blood Urea Nitrogen 17 mg/dL (7-18) Creatinine 1.0 MG/DL (0.55-1.30) Estimat Glomerular Filtration Rate > 60 mL/min (>60) Glucose Level 89 MG/DL (74-106) Calcium Level 9.5 MG/DL (8.5-10.1) Phosphorus Level 2.6 MG/DL (2.5-4.9) Magnesium Level 1.8 MG/DL (1.8-2.4) Total Bilirubin 0.3 MG/DL (0.2-1.0) Aspartate Amino Transf (AST/SGOT) 47 U/L (15-37) H Alanine Aminotransferase (ALT/SGPT) 60 U/L (12-78) Alkaline Phosphatase 231 U/L (46-116) H C-Reactive Protein, Quantitative 33.0 mg/dL (0.00-0.90) H Total Protein 6.5 G/DL (6.4-8.2) Albumin 2.1 G/DL (3.4-5.0) L Globulin 4.4 g/dL Albumin/Globulin Ratio 0.5 (1.0-2.7) L Coccidioides Antibody (Comp Fix) Pending Cryptococcus Antigen Pending Mycoplasma pneumoniae IgG Antibody Pending Mycoplasma pneumoniae IgM Ab Titer Pending Current Medications Medications (Trade) Dose Ordered Sig/Yadira Route PRN Reason Start Time Stop Time Status Last Admin Dose Admin Acetaminophen (Tylenol) 650 mg Q6H PRN ORAL Mild Pain/Temp > 100.5 08/29/18 19:15 09/28/18 07:14 Acetaminophen/ Hydrocodone Bitart ([place] 10/325) 1 tab Q6H PRN ORAL Pain Scale (7-10) 08/29/18 19:15 09/05/18 19:06 09/03/18 06:33 Acetaminophen/ Hydrocodone Bitart ([place] 5/325) 1 tab Q6H PRN ORAL Moderate Pain (Pain Scale 4-6) 08/29/18 19:07 09/04/18 19:06 08/31/18 02:35 Albuterol/ Ipratropium (Albuterol/ Ipratropium) 3 ml Q4H PRN HHN DYSPNEA 09/02/18 20:15 09/07/18 20:14 Aztreonam 1 gm/ Dextrose 55 ml @ 110 mls/hr Q8HR IVPB 08/29/18 22:00 09/05/18 13:59 09/03/18 05:43 Bupropion HCl (Wellbutrin XL) 150 mg DAILY ORAL 08/30/18 09:00 09/28/18 08:59 09/03/18 09:42 Clonidine HCl (Catapres Tab) 0.1 mg Q6H PRN ORAL For High Blood Pressure 09/02/18 11:45 10/02/18 11:44 09/02/18 12:26 Dextrose (Dextrose 50%) 25 ml Q30M PRN IV Hypoglycemia 08/29/18 19:30 09/27/18 11:29 Dextrose (Dextrose 50%) 50 ml Q30M PRN IV Hypoglycemia 08/29/18 19:30 09/27/18 11:29 Diltiazem HCl (Cardizem) 30 mg Q8HR ORAL 08/29/18 22:00 09/27/18 13:59 09/03/18 05:44 Gabapentin (Neurontin) 300 mg Q8HR ORAL 08/29/18 22:00 09/27/18 13:59 09/03/18 05:43 Heparin Sodium (Porcine) (Heparin 5000 units/ml) 5,000 units EVERY 12 HOURS SUBQ 08/29/18 21:00 09/27/18 20:59 09/03/18 09:37 Ketorolac Tromethamine (Toradol 30mg) 30 mg Q8H PRN IV Breakthrough Pain 09/02/18 20:15 09/07/18 20:14 09/03/18 07:40 Lamotrigine (LaMICtal) 100 mg DAILY ORAL 08/30/18 09:00 09/28/18 08:59 09/03/18 09:41 Levofloxacin (Levaquin) 750 mg DAILY ORAL 08/30/18 09:00 09/05/18 11:59 09/03/18 09:41 Lisinopril (Prinivil) 20 mg DAILY ORAL 08/30/18 09:00 09/28/18 08:59 09/03/18 09:41 Lorazepam (Ativan 2mg/ml 1ml) 0.5 mg Q4H PRN IV For Anxiety 08/29/18 19:30 09/04/18 11:29 Methocarbamol (Robaxin) 500 mg Q6H PRN ORAL Muscle spasms 08/29/18 19:08 09/27/18 19:07 Nitroglycerin (Ntg) 0.4 mg Q5MIN X 3 DOSES PRN SL Prn Chest Pain 08/29/18 19:00 09/27/18 11:29 Ondansetron HCl (Zofran) 4 mg Q4H PRN IVP Nausea & Vomiting 08/29/18 19:08 09/27/18 19:07 Oseltamivir Phosphate (Tamiflu) 75 mg TWICE A DAY ORAL 09/02/18 15:00 09/07/18 14:59 09/03/18 09:42 Pantoprazole (Protonix) 40 mg DAILY ORAL 08/30/18 09:00 09/28/18 08:59 09/03/18 09:40 Prednisone (predniSONE) 20 mg DAILY ORAL 09/01/18 09:00 09/29/18 14:14 09/03/18 09:42 Promethazine HCl/ Codeine (Phenergan with Codeine) 5 ml Q6H PRN ORAL cough 08/29/18 19:08 09/27/18 19:07 08/31/18 23:42 Temazepam (Restoril) 15 mg HSPRN PRN ORAL Insomnia 08/29/18 21:00 09/04/18 20:59 Theophylline (Papito-Dur) 100 mg EVERY 12 HOURS ORAL 08/29/18 21:00 09/27/18 20:59 09/03/18 09:42 Angela Lott M.D. Sep 03, 2018 12:38
--- NOTE | 2018-09-03 12:49 | NUR ---
CASE MANAGEMENT:REVIEW 09/03/18 SI: SEPSIS. PNA. BACTEREMIA. COPD 98.8 96 20 133/72 95% ON RA WBC+27.4 IS: TAMIFLU PO BID CLONIDINE PO Q6HRS PRN PREDNISONE PO QD LEVAQUIN PO QD LAMICTAL PO QD CARDIZEM PO Q8HRS HEPARIN SQ Q12 THEOPHYLLINE PO Q12 : MED/SURG STATUS 3 EAST DCP: FROM HOME
--- NOTE | 2018-09-03 14:05 | GI Initial Consult Note ---
History of Present Illness General Date patient seen: Sep 03, 2018 Time patient seen: 14:01 Reason for Hospitalization: Overdose Referring physician: ROCCO TAM Reason for Consultation: LIVER MASS Present Illness HPI Patient was altered for 2 days. She's complaining about a cough. She feels like she's been hit by a truck. Paramedics suggests that she's taken multiple medications recently and might have overdosed. The patient denies any suicidal or homicidal ideation. She denies any nausea, vomiting or diarrhea. She denies dysuria. She does complain of a productive cough. She states she feels like she was hit by a truck. C/O total body pain but will not rate (initially denies pain with RNs). No NVD, dysuria,. Chronic hip pain. Patient denies any drug use or abuse. Not answering many questions. GI consulted for liver mass. The patient seen, awake alert and oriented x4 no apparent distress. Denies any abdominal pain, constipation or diarrhea. Denies any nausea or vomiting. Abdominal ultrasound reviewed noted that the patient had an isoechoic 3 cm lesion within the liver. Labs reviewed; WBC 27.4 , hemoglobin is at 9.7, alkaline phosphatase of 231. No known history of endoscopic colonoscopy at this time. Patient last discharged 07/08/18 with these d/c diagnoses: Acute asthma exacerbation Acute Viral tracheobronchitis Sickle cell disease Intermittent facial swelling Anxiety Hypertension Lumbar disc disease Lumbar spondylosis Right hip osteoarthritis with history of right hip replacement Moderate pulmonary hypertension Home Meds Active Scripts Pantoprazole* (PROTONIX*) 40 Mg Tablet., 40 MG PO DAILY, #20 TAB Prov:Nahum Hansen DO 10/09/12 Reported Medications Methocarbamol* (METHOCARBAMOL*) 500 Mg Tablet, 500 MG ORAL QID PRN for For Pain , #20 TAB 0 Refills 08/28/18 Vitamin E Mixed (VITAMIN E) 400 Unit Capsule, 400 UNIT PO, CAP 08/28/18 Lamotrigine (LAMOTRIGINE) 100 Mg Tablet, 100 MG PO, TAB 08/28/18 Lisinopril (LISINOPRIL*) 20 Mg Tablet, 20 MG ORAL DAILY, TAB 08/27/18 Aspirin* (ASPIR 81*) 81 Mg Tablet., 81 MG ORAL DAILY, TAB 08/27/18 Buspirone Hcl* (BUSPAR*) 10 Mg Tablet, 10 MG ORAL THREE TIMES A DAY, #15 TAB 0 Refills 08/27/18 Quetiapine Fumarate (QUETIAPINE FUMARATE) 300 Mg Tablet, 300 MG ORAL DAILY, TAB 08/27/18 Prednisone* (PREDNISONE*) 20 Mg Tablet, 40 MG ORAL DAILY, TAB PREDNISONE 40MG DAILY X1 DAY, THEN 30MG DAILY X1DAY, THEN 20MG DAILY X1DAY, THEN 10MG DAILY X1 DAY. 07/08/18 Albuterol Sulfate* (ALBUTEROL SULFATE MDI*) 8.5 Gm Hfa.aer.ad, 2 PUFF INH Q4H PRN for Shortness of Breath, #1 INH 0 Refills 07/08/18 Fluticasone/Salmeterol (Advair 250-50 Diskus) 1 Each Blst.w.dev, 1 PUFF INH EVERY 12 HOURS, EA 07/08/18 Bupropion Hcl* (WELLBUTRIN*) 300 Mg Tab.er.24h, 150 MG ORAL DAILY, #30 TAB 0 Refills 07/08/18 Diltiazem Hcl* (CARDIZEM*) 30 Mg Tablet, 30 MG PO TID, TAB 07/08/18 Folic Acid* (FOLIC ACID*) 1 Mg Tablet, 1 MG ORAL DAILY, TAB 06/30/18 Ferrous Sulfate* (FERROUS SULFATE*) 325 Mg Tablet, 325 MG ORAL DAILY, #10 TAB 10/09/12 Ranitidine Hcl* (RANITIDINE HCL*) 50 Mg/2 Ml Vial, 150 MG IV BID 10/09/12 Gabapentin* (GABAPENTIN*) 300 Mg Capsule, 300 MG PO TID, #21 CAP 10/09/12 Docusate Sodium* (DOCUSATE SODIUM*) 100 Mg Capsule, 100 MG PO BID 10/09/12 Med list reviewed/reconciled: Yes Allergies: Coded Allergies: PENICILLINS (Verified Allergy, Unknown, 10/09/12) Patient History PMH Narrative Limited by: medical condition Past Medical History: see triage record, old chart reviewed Past Surgical History: other - L hip surgery Social History: Reports: smoking, drug use - opiates/benzodiazepines Social History Narrative lives with 3 sons Last Menstrual Period: Jul 16 2018 Now: No Reviewed Nursing Documentation: PMH: Agreed; PSxH: Agreed Nursing Documentation-PMH Hx Cardiac Problems: Yes Hx Hypertension: Yes Hx Pacemaker: No Hx Asthma: Yes Hx COPD: Yes Hx Diabetes: No Hx Cancer: No Hx Gastrointestinal Problems: No Hx Dialysis: No Hx Neurological Problems: No Hx Cerebrovascular Accident: No Hx Encephalitis: No Hx Seizures: No Social History: Reports: drug use Review of Systems All Other Systems: negative except mentioned in HPI Physical Exam Vital Signs Date Time Temp Pulse Resp B/P (MAP) Pulse Ox O2 Delivery O2 Flow Rate FiO2 08/30/18 07:30 97 Nasal Cannula 3.0 32 08/30/18 08:00 98.2 91 18 117/72 (87) Sp02 EP Interpretation: reviewed, normal Labs Laboratory Tests Test 09/02/18 21:03 09/03/18 06:36 Urine Legionella Antigen Pending White Blood Count 27.4 K/UL (4.8-10.8) *H Red Blood Count 3.32 M/UL (4.20-5.40) L Hemoglobin 9.7 G/DL (12.0-16.0) L Hematocrit 29.9 % (37.0-47.0) L Mean Corpuscular Volume 90 FL (80-99) Mean Corpuscular Hemoglobin 29.3 PG (27.0-31.0) Mean Corpuscular Hemoglobin Concent 32.5 G/DL (32.0-36.0) Red Cell Distribution Width 11.5 % (11.6-14.8) L Platelet Count 382 K/UL (150-450) Mean Platelet Volume 5.1 FL (6.5-10.1) L Neutrophils (%) (Auto) % (45.0-75.0) Lymphocytes (%) (Auto) % (20.0-45.0) Monocytes (%) (Auto) % (1.0-10.0) Eosinophils (%) (Auto) % (0.0-3.0) Basophils (%) (Auto) % (0.0-2.0) Differential Total Cells Counted 100 Neutrophils % (Manual) 62 % (45-75) Lymphocytes % (Manual) 19 % (20-45) L Monocytes % (Manual) 1 % (1-10) Eosinophils % (Manual) 1 % (0-3) Basophils % (Manual) 0 % (0-2) Metamyelocytes % 7 % (0-0) H Myelocytes % 8 % (0-0) H Band Neutrophils 2 % (0-8) Platelet Estimate Adequate Platelet Morphology Normal Target Cells 1+ Erythrocyte Sedimentation Rate 82 MM/HR (0-30) H Sodium Level 139 MMOL/L (136-145) Potassium Level 3.7 MMOL/L (3.5-5.1) Chloride Level 100 MMOL/L (98-107) Carbon Dioxide Level 31 MMOL/L (21-32) Anion Gap 8 mmol/L (5-15) Blood Urea Nitrogen 17 mg/dL (7-18) Creatinine 1.0 MG/DL (0.55-1.30) Estimat Glomerular Filtration Rate > 60 mL/min (>60) Glucose Level 89 MG/DL (74-106) Calcium Level 9.5 MG/DL (8.5-10.1) Phosphorus Level 2.6 MG/DL (2.5-4.9) Magnesium Level 1.8 MG/DL (1.8-2.4) Total Bilirubin 0.3 MG/DL (0.2-1.0) Aspartate Amino Transf (AST/SGOT) 47 U/L (15-37) H Alanine Aminotransferase (ALT/SGPT) 60 U/L (12-78) Alkaline Phosphatase 231 U/L (46-116) H C-Reactive Protein, Quantitative 33.0 mg/dL (0.00-0.90) H Total Protein 6.5 G/DL (6.4-8.2) Albumin 2.1 G/DL (3.4-5.0) L Globulin 4.4 g/dL Albumin/Globulin Ratio 0.5 (1.0-2.7) L Coccidioides Antibody (Comp Fix) Pending Cryptococcus Antigen Pending Mycoplasma pneumoniae IgG Antibody Pending Mycoplasma pneumoniae IgM Ab Titer Pending General Appearance: well appearing, no apparent distress, alert Head: normocephalic EENT: PERRL/EOMI, normal ENT inspection Neck: supple Respiratory: normal breath sounds, no respiratory distress Cardiovascular: normal rate Gastrointestinal: normal inspection, non tender, soft, normal bowel sounds, non -distended Rectal: deferred Genitourinary: no CVA tenderness Musculoskeletal: normal inspection, back normal Neurologic: normal inspection, alert, oriented x3, responsive Psychiatric: normal inspection, judgement/insight normal, memory normal Skin: normal inspection, normal color, no rash, warm/dry, palpation normal, well hydrated Lymphatic: normal inspection, no adenopathy Current Medications Current Medications Medications (Trade) Dose Ordered Sig/Yadira Route PRN Reason Start Time Stop Time Status Last Admin Dose Admin Acetaminophen (Tylenol) 650 mg Q6H PRN ORAL Mild Pain/Temp > 100.5 08/29/18 19:15 09/28/18 07:14 Acetaminophen/ Hydrocodone Bitart ([place] 10/325) 1 tab Q6H PRN ORAL Pain Scale (7-10) 08/29/18 19:15 09/05/18 19:06 09/03/18 12:52 Acetaminophen/ Hydrocodone Bitart ([place] 5/325) 1 tab Q6H PRN ORAL Moderate Pain (Pain Scale 4-6) 08/29/18 19:07 09/04/18 19:06 08/31/18 02:35 Albuterol/ Ipratropium (Albuterol/ Ipratropium) 3 ml Q4H PRN HHN DYSPNEA 09/02/18 20:15 09/07/18 20:14 Bupropion HCl (Wellbutrin XL) 150 mg DAILY ORAL 08/30/18 09:00 09/28/18 08:59 09/03/18 09:42 Clonidine HCl (Catapres Tab) 0.1 mg Q6H PRN ORAL For High Blood Pressure 09/02/18 11:45 10/02/18 11:44 09/02/18 12:26 Dextrose (Dextrose 50%) 25 ml Q30M PRN IV Hypoglycemia 08/29/18 19:30 09/27/18 11:29 Dextrose (Dextrose 50%) 50 ml Q30M PRN IV Hypoglycemia 08/29/18 19:30 09/27/18 11:29 Diltiazem HCl (Cardizem) 30 mg Q8HR ORAL 08/29/18 22:00 09/27/18 13:59 09/03/18 05:44 Gabapentin (Neurontin) 300 mg Q8HR ORAL 08/29/18 22:00 09/27/18 13:59 09/03/18 05:43 Heparin Sodium (Porcine) (Heparin 5000 units/ml) 5,000 units EVERY 12 HOURS SUBQ 08/29/18 21:00 09/27/18 20:59 09/03/18 09:37 Ketorolac Tromethamine (Toradol 30mg) 30 mg Q8H PRN IV Breakthrough Pain 09/02/18 20:15 09/07/18 20:14 09/03/18 07:40 Lamotrigine (LaMICtal) 100 mg DAILY ORAL 08/30/18 09:00 09/28/18 08:59 09/03/18 09:41 Levofloxacin (Levaquin) 750 mg DAILY ORAL 08/30/18 09:00 09/05/18 11:59 09/03/18 09:41 Lisinopril (Prinivil) 20 mg DAILY ORAL 08/30/18 09:00 09/28/18 08:59 09/03/18 09:41 Lorazepam (Ativan 2mg/ml 1ml) 0.5 mg Q4H PRN IV For Anxiety 08/29/18 19:30 09/04/18 11:29 Methocarbamol (Robaxin) 500 mg Q6H PRN ORAL Muscle spasms 08/29/18 19:08 09/27/18 19:07 Nitroglycerin (Ntg) 0.4 mg Q5MIN X 3 DOSES PRN SL Prn Chest Pain 08/29/18 19:00 09/27/18 11:29 Ondansetron HCl (Zofran) 4 mg Q4H PRN IVP Nausea & Vomiting 08/29/18 19:08 09/27/18 19:07 Oseltamivir Phosphate (Tamiflu) 75 mg TWICE A DAY ORAL 09/02/18 15:00 09/07/18 14:59 09/03/18 09:42 Pantoprazole (Protonix) 40 mg DAILY ORAL 08/30/18 09:00 09/28/18 08:59 09/03/18 09:40 Prednisone (predniSONE) 20 mg DAILY ORAL 09/01/18 09:00 09/29/18 14:14 09/03/18 09:42 Promethazine HCl/ Codeine (Phenergan with Codeine) 5 ml Q6H PRN ORAL cough 08/29/18 19:08 09/27/18 19:07 08/31/18 23:42 Temazepam (Restoril) 15 mg HSPRN PRN ORAL Insomnia 08/29/18 21:00 09/04/18 20:59 Theophylline (Papito-Dur) 100 mg EVERY 12 HOURS ORAL 08/29/18 21:00 09/27/18 20:59 09/03/18 09:42 GI: Plan Problems: (1) Anemia (2) Liver mass Plan Abdominal ultrasound reviewed noted to see an isoechoic 3 cm liver mass. Will obtain liver biopsy Regular diet anemia work up OB stool r/o GI bleed monitor H&H, prn transfusions bowel regime ppi fu labs, AFP, hepatitis panel Discussed with Dr. Avina. Thank you for this patient referral, we will follow. The patient was seen and examined at bedside and all new and available data was reviewed in the patients chart. I agree with the above findings, impression and plan. (Patient seen earlier today. Signature stamp does not reflect patient encounter time.). - MD Emily An,[facility] LANTIGUA Sep 03, 2018 14:05
[2018-09-03] MEDS ORDERED: Tubing IV Secondary IV ONE (14:48)
[2018-09-03 16:00] VITALS: BP 154/86
--- NOTE | 2018-09-03 18:23 | Internal Med Progress Note ---
Subjective Date of Service: Sep 03, 2018 Physician Name SaludRay Attending Physician Carlos Madden MD Current Medications Medications (Trade) Dose Ordered Sig/Yadira Route PRN Reason Start Time Stop Time Status Last Admin Dose Admin Acetaminophen (Tylenol) 650 mg Q6H PRN ORAL Mild Pain/Temp > 100.5 08/29/18 19:15 09/28/18 07:14 Acetaminophen/ Hydrocodone Bitart ([place] 10/325) 1 tab Q6H PRN ORAL Pain Scale (7-10) 08/29/18 19:15 09/05/18 19:06 09/03/18 12:52 Acetaminophen/ Hydrocodone Bitart ([place] 5/325) 1 tab Q6H PRN ORAL Moderate Pain (Pain Scale 4-6) 08/29/18 19:07 09/04/18 19:06 08/31/18 02:35 Albuterol/ Ipratropium (Albuterol/ Ipratropium) 3 ml Q4H PRN HHN DYSPNEA 09/02/18 20:15 09/07/18 20:14 Bupropion HCl (Wellbutrin XL) 150 mg DAILY ORAL 08/30/18 09:00 09/28/18 08:59 09/03/18 09:42 Clonidine HCl (Catapres Tab) 0.1 mg Q6H PRN ORAL For High Blood Pressure 09/02/18 11:45 10/02/18 11:44 09/02/18 12:26 Dextrose (Dextrose 50%) 25 ml Q30M PRN IV Hypoglycemia 08/29/18 19:30 09/27/18 11:29 Dextrose (Dextrose 50%) 50 ml Q30M PRN IV Hypoglycemia 08/29/18 19:30 09/27/18 11:29 Diltiazem HCl (Cardizem) 30 mg Q8HR ORAL 08/29/18 22:00 09/27/18 13:59 09/03/18 14:53 Gabapentin (Neurontin) 300 mg Q8HR ORAL 08/29/18 22:00 09/27/18 13:59 09/03/18 14:53 Heparin Sodium (Porcine) (Heparin 5000 units/ml) 5,000 units EVERY 12 HOURS SUBQ 08/29/18 21:00 09/27/18 20:59 09/03/18 09:37 Ketorolac Tromethamine (Toradol 30mg) 30 mg Q8H PRN IV Breakthrough Pain 09/02/18 20:15 09/07/18 20:14 09/03/18 16:51 Lamotrigine (LaMICtal) 100 mg DAILY ORAL 08/30/18 09:00 09/28/18 08:59 09/03/18 09:41 Levofloxacin (Levaquin) 750 mg DAILY ORAL 08/30/18 09:00 09/05/18 11:59 09/03/18 09:41 Lisinopril (Prinivil) 20 mg DAILY ORAL 08/30/18 09:00 09/28/18 08:59 09/03/18 09:41 Lorazepam (Ativan 2mg/ml 1ml) 0.5 mg Q4H PRN IV For Anxiety 08/29/18 19:30 09/04/18 11:29 Methocarbamol (Robaxin) 500 mg Q6H PRN ORAL Muscle spasms 08/29/18 19:08 09/27/18 19:07 Nitroglycerin (Ntg) 0.4 mg Q5MIN X 3 DOSES PRN SL Prn Chest Pain 08/29/18 19:00 09/27/18 11:29 Ondansetron HCl (Zofran) 4 mg Q4H PRN IVP Nausea & Vomiting 08/29/18 19:08 09/27/18 19:07 Oseltamivir Phosphate (Tamiflu) 75 mg TWICE A DAY ORAL 09/02/18 15:00 09/07/18 14:59 09/03/18 17:04 Pantoprazole (Protonix) 40 mg DAILY ORAL 08/30/18 09:00 09/28/18 08:59 09/03/18 09:40 Prednisone (predniSONE) 20 mg DAILY ORAL 09/01/18 09:00 09/29/18 14:14 09/03/18 09:42 Promethazine HCl/ Codeine (Phenergan with Codeine) 5 ml Q6H PRN ORAL cough 08/29/18 19:08 09/27/18 19:07 08/31/18 23:42 Temazepam (Restoril) 15 mg HSPRN PRN ORAL Insomnia 08/29/18 21:00 09/04/18 20:59 Theophylline (Papito-Dur) 100 mg EVERY 12 HOURS ORAL 08/29/18:00 09/27/18 20:59 09/03/18 09:42 Allergies: Coded Allergies: PENICILLINS (Verified Allergy, Unknown, 10/09/12) ROS Limited/Unobtainable: No Constitutional: Reports: no symptoms HEENT: Reports: no symptoms Cardiovascular: Reports: no symptoms Respiratory: Reports: shortness of breath Gastrointestinal/Abdominal: Reports: no symptoms Genitourinary: Reports: no symptoms Neurologic/Psychiatric: Reports: no symptoms Subjective 53 YO F with sickle cell dis admitted with shortness of breath. Now pneumonia. Cover for Int Med-Dr Madden Objective Last Vital Signs Date Time Temp Pulse Resp B/P (MAP) Pulse Ox O2 Delivery O2 Flow Rate FiO2 09/03/18 16:00 98.7 94 18 154/86 (108) 09/03/18 12:00 93 09/03/18 09:00 Room Air 09/03/18 08:06 21 08/31/18 09:00 2.0 Laboratory Tests Test 09/02/18 21:03 09/03/18 06:36 Urine Legionella Antigen Pending White Blood Count 27.4 K/UL (4.8-10.8) *H Red Blood Count 3.32 M/UL (4.20-5.40) L Hemoglobin 9.7 G/DL (12.0-16.0) L Hematocrit 29.9 % (37.0-47.0) L Mean Corpuscular Volume 90 FL (80-99) Mean Corpuscular Hemoglobin 29.3 PG (27.0-31.0) Mean Corpuscular Hemoglobin Concent 32.5 G/DL (32.0-36.0) Red Cell Distribution Width 11.5 % (11.6-14.8) L Platelet Count 382 K/UL (150-450) Mean Platelet Volume 5.1 FL (6.5-10.1) L Neutrophils (%) (Auto) % (45.0-75.0) Lymphocytes (%) (Auto) % (20.0-45.0) Monocytes (%) (Auto) % (1.0-10.0) Eosinophils (%) (Auto) % (0.0-3.0) Basophils (%) (Auto) % (0.0-2.0) Differential Total Cells Counted 100 Neutrophils % (Manual) 62 % (45-75) Lymphocytes % (Manual) 19 % (20-45) L Monocytes % (Manual) 1 % (1-10) Eosinophils % (Manual) 1 % (0-3) Basophils % (Manual) 0 % (0-2) Metamyelocytes % 7 % (0-0) H Myelocytes % 8 % (0-0) H Band Neutrophils 2 % (0-8) Other Cell Type Pathologist comment Platelet Estimate Adequate Platelet Morphology Normal Target Cells 1+ Erythrocyte Sedimentation Rate 82 MM/HR (0-30) H Sodium Level 139 MMOL/L (136-145) Potassium Level 3.7 MMOL/L (3.5-5.1) Chloride Level 100 MMOL/L (98-107) Carbon Dioxide Level 31 MMOL/L (21-32) Anion Gap 8 mmol/L (5-15) Blood Urea Nitrogen 17 mg/dL (7-18) Creatinine 1.0 MG/DL (0.55-1.30) Estimat Glomerular Filtration Rate > 60 mL/min (>60) Glucose Level 89 MG/DL (74-106) Calcium Level 9.5 MG/DL (8.5-10.1) Phosphorus Level 2.6 MG/DL (2.5-4.9) Magnesium Level 1.8 MG/DL (1.8-2.4) Total Bilirubin 0.3 MG/DL (0.2-1.0) Aspartate Amino Transf (AST/SGOT) 47 U/L (15-37) H Alanine Aminotransferase (ALT/SGPT) 60 U/L (12-78) Alkaline Phosphatase 231 U/L (46-116) H C-Reactive Protein, Quantitative 33.0 mg/dL (0.00-0.90) H Total Protein 6.5 G/DL (6.4-8.2) Albumin 2.1 G/DL (3.4-5.0) L Globulin 4.4 g/dL Albumin/Globulin Ratio 0.5 (1.0-2.7) L Coccidioides Antibody (Comp Fix) Pending Cryptococcus Antigen Pending Mycoplasma pneumoniae IgG Antibody Pending Mycoplasma pneumoniae IgM Ab Titer Pending Intake and Output 09/02/18 09/03/18 19:00 07:00 Intake Total 255 ml 110 ml Balance 255 ml 110 ml Intake Oral 200 ml IV Total 55 ml 110 ml # Voids 2 2 Objective Objective GENERAL: The patient is awake and responsive, in no acute distress. HEAD AND NECK: Pupils are reactive to light. Extraocular movements intact. NECK: Supple. No JVD. LUNGS: Good air entry. Less crackles in the bases. No Expiratory wheeze, No rhonchi. HEART: S1 and S2. RR No murmurs or gallops. ABDOMEN: Soft, nondistended, and nontender. Positive bowel sounds. EXTREMITIES: No cyanosis, clubbing, or edema. NEUROLOGIC: Cranial nerves II through XII grossly intact. Motor is 5/5 in all extremities. Gait is intact. PSYCHIATRIC: Mood and affect are anxious. Assessment/Plan Assessment/Plan Assessment/Plan Assessment/Plan Assessment/Plan ASSESSMENT: 1. Acute pneumonia. 2. History of asthma. 3. COPD. 4. Sepsis with bandemia / Bacteremia. 5. Sickle cell disease. 6. History of severe hip osteoarthritis, status post arthroplasty. 7. Spinal spondylolisthesis. 8. Question of lumbar spine spondylosis. 9. Hypertension. 10. Anemia. 11. 4.3 cm liver lesion. PLAN: 1. in Medical floor. 2. We will follow up with the laboratory and cultures. 3. DC IV hydration. 4. Prednisone 20mg 5. The patient has penicillin allergy. 6. Levaquin. 7. Code status is Full Code. 8. DVT prophylaxis, heparin subcutaneous. 9. We will follow up with Dr. Almonte for Pulmonary Critical Care consultation and DR. Lott for ID consultation. 10. DC home soon. Ray Brannon MD Sep 03, 2018 18:23
--- NOTE | 2018-09-03 19:50 | NUR ---
HAND-OFF: Report given to Karlos Sadler RN.
--- NOTE | 2018-09-03 19:50 | NUR ---
NURSE NOTES: Received report from ARIANA Duffy. Received pt sitting up in bed, AOX4, pain level 7/10, pain medication not yet due. Pt is aware and verbalized understanding. No distress noted. IV R wrist # 22 patent and intact. Bed in lowest position and locked, side rails up x 2, call light within reach. Will continue to monitor.
[2018-09-03 20:00] VITALS: BP 145/89
[2018-09-04] VITALS: BP 140/90
[2018-09-04 04:00] VITALS: BP 139/79
[2018-09-04] MEDS: dilTIAZem HCl 30mg tab ORAL SCH ×2 (05:25→13:24)
[2018-09-04 07:45] LABS: HEMATOCRIT 29.9 % (37.0-47.0); HEMOGLOBIN 9.7 G/DL (12.0-16.0); MEAN CORPUSCULAR VOLUME 89 FL (80-99); PLATELET COUNT 475 K/UL (150-450); RED BLOOD COUNT 3.35 M/UL (4.20-5.40); RED CELL DISTRIBUTION WIDTH 12.2 % (11.6-14.8)
--- NOTE | 2018-09-04 07:47 | NUR ---
HAND-OFF: Report given to ARIANA Duffy. Pt in stable condition.
--- NOTE | 2018-09-04 07:55 | NUR ---
NURSE NOTES: Report received from outgoing RN, rounds made. Patient sitting in high fowlers position in bed. No SOB on RA, NV. Requesting pain medication for generalized body ache, will medicate as ordered. Right wrist heplock, intact, asymptomatic. Call light in reach, bed in lowest position, will continue to monitor.
[2018-09-04 08:00] VITALS: BP 124/70
--- NOTE | 2018-09-04 08:00 | NUR ---
NURSE NOTES: Dr. Madden notified of WBC critical value 24.0 (reported from laboratory at this time), no further orders received.
[2018-09-04] MEDS: BuPROPion XL 150mg tab ORAL SCH (08:33)
[2018-09-04] MEDS: Oseltamivir 75mg cap ORAL SCH (08:33)
[2018-09-04] MEDS: Heparin 5000 units/ml inj SUBQ SCH (08:34)
[2018-09-04] MEDS: Lisinopril 20mg tab ORAL SCH (08:34)
[2018-09-04] MEDS: Theophylline ER 100mg ORAL SCH (08:35)
[2018-09-04] MEDS: HYDROcodone/Acetamin 10/325 tab ORAL PRN ×2 (08:36→14:54)
[2018-09-04 08:46] LABS: ALANINE AMINOTRANSFERASE 83 U/L (12-78); ALBUMIN 2.1 G/DL (3.4-5.0); ALBUMIN/GLOBULIN RATIO 0.5 (1.0-2.7); ALKALINE PHOSPHATASE 259 U/L (46-116); ANION GAP 7 mmol/L (5-15); ASPARTATE AMINO TRANSFERASE 57 U/L (15-37); BILIRUBIN,TOTAL 0.2 MG/DL (0.2-1.0); BLOOD UREA NITROGEN 14 mg/dL (7-18); CALCIUM 9.3 MG/DL (8.5-10.1); CARBON DIOXIDE 31 MMOL/L (21-32); CHLORIDE 102 MMOL/L (98-107); FERRITIN 1468 NG/ML (8-388); POTASSIUM 3.6 MMOL/L (3.5-5.1); SODIUM 140 MMOL/L (136-145)
[2018-09-04] MEDS: Ketorolac 30mg Inj IV PRN (09:19)
[2018-09-04 09:21] LABS: % IRON SATURATION 49 % (15-50); IRON 80 ug/dL (50-175); TOTAL IRON BINDING CAPACITY 162 ug/dL (250-450)
--- NOTE | 2018-09-04 10:13 | NUR ---
RD ASSESSMENT & RECOMMENDATIONS SEE CARE ACTIVITY FOR COMPLETE ASSESSMENT DAILY ESTIMATED NEEDS: Needs based on Sepsis, 61kg 25-30 kcals/kg 6466-3016 total kcals 1-2 g protein/kg 61-122 g total protein 25-30 mL/kg 2597-8372 total fluid mLs NUTRITION DIAGNOSIS: Altered nutrition related lab values R/T sepsis as evidenced by critically elev wbc (24.0*), now afebrile, LA normalized. CURRENT DIET: Regular PO DIET RECOMMENDATIONS: Maintain Regular diet ADDITIONAL RECOMMENDATIONS: * Standing wt as able for accurate CBW * Monitor for continued fair-good PO intake. .
--- NOTE | 2018-09-04 10:24 | General Progress Note ---
Assessment/Plan Assessment/Plan ASSESSMENT: 1. Acute pneumonia. 2. History of asthma. 3. COPD. 4. Sepsis with bandemia / Bacteremia. 5. Sickle cell disease. 6. History of severe hip osteoarthritis, status post arthroplasty. 7. Spinal spondylolisthesis. 8. Question of lumbar spine spondylosis. 9. Hypertension. 10. Anemia. 11. 4.3 cm liver lesion 12.Anemia 13. Hiatal hernia 14. 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 Subjective ROS Limited/Unobtainable: Yes Allergies: Coded Allergies: PENICILLINS (Verified Allergy, Unknown, 10/09/12) Objective Last 24 Hour Vital Signs Date Time Temp Pulse Resp B/P (MAP) Pulse Ox O2 Delivery O2 Flow Rate FiO2 09/04/18 08:34 139/79 09/04/18 08:00 98.7 93 18 124/70 (88) 98 09/04/18 05:25 89 139/79 09/04/18 04:00 98.8 89 18 139/79 (99) 98 09/04/18 00:00 99.1 88 18 140/90 (107) 94 09/03/18 21:11 96 145/89 09/03/18 21:00 Room Air 09/03/18 20:00 99.2 96 18 145/89 (107) 95 09/03/18 19:57 97 Room Air 21 09/03/18 19:57 Room Air 21 09/03/18 16:00 98.7 94 18 154/86 (108) 09/03/18 14:53 98 136/93 09/03/18 12:00 98.1 98 18 136/93 (107) 93 Intake and Output 09/03/18 09/04/18 19:00 07:00 Intake Total 1000 ml 360 ml Balance 1000 ml 360 ml Intake Oral 360 ml Other 1000 ml # Voids 2 Laboratory Tests 09/04/18 06:52: White Blood Count 24.0*H, Red Blood Count 3.35L, Hemoglobin 9.7L, Hematocrit 29.9L, Mean Corpuscular Volume 89, Mean Corpuscular Hemoglobin 29.1, Mean Corpuscular Hemoglobin Concent 32.6, Red Cell Distribution Width 12.2, Platelet Count 475H, Mean Platelet Volume 5.2L, Neutrophils (%) (Auto) , Lymphocytes (%) (Auto) , Monocytes (%) (Auto) , Eosinophils (%) (Auto) , Basophils (%) (Auto) , Neutrophils % (Manual) [Pending], Lymphocytes % (Manual) [Pending], Platelet Estimate [Pending], Platelet Morphology [Pending], Reticulocyte Count [Pending] , Prothrombin Time 10.5, Prothromb Time International Ratio 1.0, Activated Partial Thromboplast Time 32, Sodium Level 140, Potassium Level 3.6, Chloride Level 102, Carbon Dioxide Level 31, Anion Gap 7, Blood Urea Nitrogen 14, Creatinine 1.0, Estimat Glomerular Filtration Rate > 60, Glucose Level 83, Calcium Level 9.3, Iron Level 80, Total Iron Binding Capacity 162L, Percent Iron Saturation 49, Unsaturated Iron Binding 82L, Ferritin 1468H, Total Bilirubin 0.2, Aspartate Amino Transf (AST/SGOT) 57H, Alanine Aminotransferase ( ALT/SGPT) 83H, Alkaline Phosphatase 259H, Total Protein 6.6, Albumin 2.1L, Globulin 4.5, Albumin/Globulin Ratio 0.5L, Alpha Fetoprotein [Pending], Carcinoembryonic Antigen [Pending], Vitamin B12 Level 779, Folate 18.5, Thyroid Stimulating Hormone (TSH) 2.462, Free Thyroxine 1.18, Hepatitis A IgM Antibody [ Pending], Hepatitis B Surface Antigen [Pending], Hepatitis B Core IgM Antibody [ Pending], Hepatitis C Antibody [Pending] Height (Feet): 5 Height (Inches): 6.00 Weight (Pounds): 163 General Appearance: no apparent distress EENT: normal ENT inspection Neck: supple Cardiovascular: normal rate Respiratory/Chest: decreased breath sounds Abdomen: normal bowel sounds, non tender, soft Extremities: non-tender Daniel Avina MD Sep 04, 2018 10:24
[2018-09-04 12:00] VITALS: BP 125/83
--- NOTE | 2018-09-04 12:35 | Pulmonology Progress Note ---
Assessment/Plan Problems: (1) Multilobar lung infiltrate (2) Bacteremia (3) Sepsis (4) COPD (chronic obstructive pulmonary disease) (5) Sickle cell disease (6) Hip osteoarthritis Assessment/Plan d/w pathologist, will send to flow cytometry turned out abnormal but not specific. needs to follow up wbc if remains abnormal needs more studies afebrile now wbc still high HIV testing negative CT chest reviewed, extensive infiltrate new sputum negative 09/02 check Blood cultures, so far positive for GPC Heart rate better, check sputum continue abx titrate fio2 to sat of 92% med/surg repeat cxr in am Subjective ROS Limited/Unobtainable: No Constitutional: Reports: no symptoms HEENT: Repors: no symptoms Respiratory: Reports: no symptoms Allergies: Coded Allergies: PENICILLINS (Verified Allergy, Unknown, 10/09/12) Objective Last 24 Hour Vital Signs Date Time Temp Pulse Resp B/P (MAP) Pulse Ox O2 Delivery O2 Flow Rate FiO2 09/04/18 11:30 Room Air 21 09/04/18 11:30 98 Room Air 21 09/04/18 08:34 139/79 09/04/18 08:00 98.7 93 18 124/70 (88) 98 09/04/18 05:25 89 139/79 09/04/18 04:00 98.8 89 18 139/79 (99) 98 09/04/18 00:00 99.1 88 18 140/90 (107) 94 09/03/18 21:11 96 145/89 09/03/18 21:00 Room Air 09/03/18 20:00 99.2 96 18 145/89 (107) 95 09/03/18 19:57 97 Room Air 21 09/03/18 19:57 Room Air 21 09/03/18 16:00 98.7 94 18 154/86 (108) 09/03/18 14:53 98 136/93 Intake and Output 09/03/18 09/04/18 19:00 07:00 Intake Total 1000 ml 360 ml Balance 1000 ml 360 ml Intake Oral 360 ml Other 1000 ml # Voids 2 Objective General Appearance: WD/WN HEENT: normocephalic, anicteric Respiratory/Chest: chest wall non-tender, rhonchi Breasts: no masses Cardiovascular: normal rate Abdomen: soft, non tender, non distended Extremities: no clubbing Skin: no rash Neurologic/Psychiatric: refinisher II-XII grossly normal Lymphatic: no neck adenopathy Microbiology Date/Time Source Procedure Growth Status 09/02/18 15:15 Sputum Gram Stain - Final Complete 09/02/18 15:15 Sputum Sputum Culture - Final NORMAL UPPER RESPIRATORY EFFIE PRESENT Complete Laboratory Tests 09/04/18 06:52: White Blood Count 24.0*H, Red Blood Count 3.35L, Hemoglobin 9.7L, Hematocrit 29.9L, Mean Corpuscular Volume 89, Mean Corpuscular Hemoglobin 29.1, Mean Corpuscular Hemoglobin Concent 32.6, Red Cell Distribution Width 12.2, Platelet Count 475H, Mean Platelet Volume 5.2L, Neutrophils (%) (Auto) , Lymphocytes (%) (Auto) , Monocytes (%) (Auto) , Eosinophils (%) (Auto) , Basophils (%) (Auto) , Neutrophils % (Manual) [Pending], Lymphocytes % (Manual) [Pending], Platelet Estimate [Pending], Platelet Morphology [Pending], Reticulocyte Count [Pending] , Prothrombin Time 10.5, Prothromb Time International Ratio 1.0, Activated Partial Thromboplast Time 32, Sodium Level 140, Potassium Level 3.6, Chloride Level 102, Carbon Dioxide Level 31, Anion Gap 7, Blood Urea Nitrogen 14, Creatinine 1.0, Estimat Glomerular Filtration Rate > 60, Glucose Level 83, Calcium Level 9.3, Iron Level 80, Total Iron Binding Capacity 162L, Percent Iron Saturation 49, Unsaturated Iron Binding 82L, Ferritin 1468H, Total Bilirubin 0.2, Aspartate Amino Transf (AST/SGOT) 57H, Alanine Aminotransferase ( ALT/SGPT) 83H, Alkaline Phosphatase 259H, Total Protein 6.6, Albumin 2.1L, Globulin 4.5, Albumin/Globulin Ratio 0.5L, Alpha Fetoprotein [Pending], Carcinoembryonic Antigen [Pending], Vitamin B12 Level 779, Folate 18.5, Thyroid Stimulating Hormone (TSH) 2.462, Free Thyroxine 1.18, Hepatitis A IgM Antibody [ Pending], Hepatitis B Surface Antigen [Pending], Hepatitis B Core IgM Antibody [ Pending], Hepatitis C Antibody [Pending] Current Medications Medications (Trade) Dose Ordered Sig/Yadira Route PRN Reason Start Time Stop Time Status Last Admin Dose Admin Acetaminophen (Tylenol) 650 mg Q6H PRN ORAL Mild Pain/Temp > 100.5 08/29/18 19:15 09/28/18 07:14 Acetaminophen/ Hydrocodone Bitart ([place] 10/325) 1 tab Q6H PRN ORAL Pain Scale (7-10) 08/29/18 19:15 09/05/18 19:06 09/04/18 08:36 Acetaminophen/ Hydrocodone Bitart ([place] 5/325) 1 tab Q6H PRN ORAL Moderate Pain (Pain Scale 4-6) 08/29/18 19:07 09/04/18 19:06 08/31/18 02:35 Albuterol/ Ipratropium (Albuterol/ Ipratropium) 3 ml Q4H PRN HHN DYSPNEA 09/02/18 20:15 09/07/18 20:14 Bupropion HCl (Wellbutrin XL) 150 mg DAILY ORAL 08/30/18 09:00 09/28/18 08:59 09/04/18 08:33 Clonidine HCl (Catapres Tab) 0.1 mg Q6H PRN ORAL For High Blood Pressure 09/02/18 11:45 10/02/18 11:44 09/02/18 12:26 Dextrose (Dextrose 50%) 25 ml Q30M PRN IV Hypoglycemia 08/29/18 19:30 09/27/18 11:29 Dextrose (Dextrose 50%) 50 ml Q30M PRN IV Hypoglycemia 08/29/18 19:30 09/27/18 11:29 Diltiazem HCl (Cardizem) 30 mg Q8HR ORAL 08/29/18 22:00 09/27/18 13:59 09/04/18 05:25 Gabapentin (Neurontin) 300 mg Q8HR ORAL 08/29/18 22:00 09/27/18 13:59 09/04/18 05:24 Heparin Sodium (Porcine) (Heparin 5000 units/ml) 5,000 units EVERY 12 HOURS SUBQ 08/29/18 21:00 09/27/18 20:59 09/04/18 08:34 Ketorolac Tromethamine (Toradol 30mg) 30 mg Q8H PRN IV Breakthrough Pain 09/02/18 20:15 09/07/18 20:14 09/04/18 09:19 Lamotrigine (LaMICtal) 100 mg DAILY ORAL 08/30/18 09:00 09/28/18 08:59 09/04/18 08:35 Levofloxacin (Levaquin) 750 mg DAILY ORAL 08/30/18 09:00 09/05/18 11:59 09/04/18 08:35 Lisinopril (Prinivil) 20 mg DAILY ORAL 08/30/18 09:00 09/28/18 08:59 09/04/18 08:34 Methocarbamol (Robaxin) 500 mg Q6H PRN ORAL Muscle spasms 08/29/18 19:08 09/27/18 19:07 Nitroglycerin (Ntg) 0.4 mg Q5MIN X 3 DOSES PRN SL Prn Chest Pain 08/29/18 19:00 09/27/18 11:29 Ondansetron HCl (Zofran) 4 mg Q4H PRN IVP Nausea & Vomiting 08/29/18 19:08 09/27/18 19:07 Oseltamivir Phosphate (Tamiflu) 75 mg TWICE A DAY ORAL 09/02/18 15:00 09/07/18 14:59 09/04/18 08:33 Pantoprazole (Protonix) 40 mg DAILY ORAL 08/30/18 09:00 09/28/18 08:59 09/04/18 08:34 Prednisone (predniSONE) 20 mg DAILY ORAL 09/01/18 09:00 09/29/18 14:14 09/04/18 08:33 Promethazine HCl/ Codeine (Phenergan with Codeine) 5 ml Q6H PRN ORAL cough 08/29/18 19:08 09/27/18 19:07 08/31/18 23:42 Temazepam (Restoril) 15 mg HSPRN PRN ORAL Insomnia 08/29/18 21:00 09/04/18 20:59 Theophylline (Papito-Dur) 100 mg EVERY 12 HOURS ORAL 08/29/18 21:00 09/27/18 20:59 09/04/18 08:35 Mila Almonte MD Sep 04, 2018 12:35
--- NOTE | 2018-09-04 12:41 | NUR ---
*-* INSURANCE *-* CLINICALS AND REVIEWS HAVE JOAN FAXED TO: [facility] AND [facility] CONTACT:SHWETHA P:[phone] F:[phone] [facility]# [id number]
[2018-09-04] MEDS ORDERED: Levofloxacin 250mg ORAL (12:42)
[2018-09-04] MEDS ORDERED: LISINOPRIL20 MG ORAL (12:42)
[2018-09-04] MEDS ORDERED: CARDIZEM30 MG ORAL (12:42)
[2018-09-04] MEDS ORDERED: THEOPHYLLINE A100 MG ORAL (12:42)
[2018-09-04 13:24] VITALS: BP 125/83
--- NOTE | 2018-09-04 14:50 | Internal Med Progress Note ---
Subjective Physician Name Carlos Madden Attending Physician Carlos Madden MD Current Medications Medications (Trade) Dose Ordered Sig/Yadira Route PRN Reason Start Time Stop Time Status Last Admin Dose Admin Acetaminophen (Tylenol) 650 mg Q6H PRN ORAL Mild Pain/Temp > 100.5 08/29/18 19:15 09/28/18 07:14 Acetaminophen/ Hydrocodone Bitart ([place] 10/325) 1 tab Q6H PRN ORAL Pain Scale (7-10) 08/29/18 19:15 09/05/18 19:06 09/04/18 08:36 Acetaminophen/ Hydrocodone Bitart ([place] 5/325) 1 tab Q6H PRN ORAL Moderate Pain (Pain Scale 4-6) 08/29/18 19:07 09/04/18 19:06 08/31/18 02:35 Albuterol/ Ipratropium (Albuterol/ Ipratropium) 3 ml Q4H PRN HHN DYSPNEA 09/02/18 20:15 09/07/18 20:14 Bupropion HCl (Wellbutrin XL) 150 mg DAILY ORAL 08/30/18 09:00 09/28/18 08:59 09/04/18 08:33 Clonidine HCl (Catapres Tab) 0.1 mg Q6H PRN ORAL For High Blood Pressure 09/02/18 11:45 10/02/18 11:44 09/02/18 12:26 Dextrose (Dextrose 50%) 25 ml Q30M PRN IV Hypoglycemia 08/29/18 19:30 09/27/18 11:29 Dextrose (Dextrose 50%) 50 ml Q30M PRN IV Hypoglycemia 08/29/18 19:30 09/27/18 11:29 Diltiazem HCl (Cardizem) 30 mg Q8HR ORAL 08/29/18 22:00 09/27/18 13:59 09/04/18 13:24 Gabapentin (Neurontin) 300 mg Q8HR ORAL 08/29/18 22:00 09/27/18 13:59 09/04/18 13:24 Heparin Sodium (Porcine) (Heparin 5000 units/ml) 5,000 units EVERY 12 HOURS SUBQ 08/29/18 21:00 09/27/18 20:59 09/04/18 08:34 Ketorolac Tromethamine (Toradol 30mg) 30 mg Q8H PRN IV Breakthrough Pain 09/02/18 20:15 09/07/18 20:14 09/04/18 09:19 Lamotrigine (LaMICtal) 100 mg DAILY ORAL 08/30/18 09:00 09/28/18 08:59 09/04/18 08:35 Levofloxacin (Levaquin) 750 mg DAILY ORAL 08/30/18 09:00 09/05/18 11:59 09/04/18 08:35 Lisinopril (Prinivil) 20 mg DAILY ORAL 08/30/18 09:00 09/28/18 08:59 09/04/18 08:34 Methocarbamol (Robaxin) 500 mg Q6H PRN ORAL Muscle spasms 08/29/18 19:08 09/27/18 19:07 Nitroglycerin (Ntg) 0.4 mg Q5MIN X 3 DOSES PRN SL Prn Chest Pain 08/29/18 19:00 09/27/18 11:29 Ondansetron HCl (Zofran) 4 mg Q4H PRN IVP Nausea & Vomiting 08/29/18 19:08 09/27/18 19:07 Oseltamivir Phosphate (Tamiflu) 75 mg TWICE A DAY ORAL 09/02/18 15:00 09/07/18 14:59 09/04/18 08:33 Pantoprazole (Protonix) 40 mg DAILY ORAL 08/30/18 09:00 09/28/18 08:59 09/04/18 08:34 Prednisone (predniSONE) 20 mg DAILY ORAL 09/01/18 09:00 09/29/18 14:14 09/04/18 08:33 Promethazine HCl/ Codeine (Phenergan with Codeine) 5 ml Q6H PRN ORAL cough 08/29/18 19:08 09/27/18 19:07 08/31/18 23:42 Temazepam (Restoril) 15 mg HSPRN PRN ORAL Insomnia 08/29/18 21:00 09/04/18 20:59 Theophylline (Papito-Dur) 100 mg EVERY 12 HOURS ORAL 08/29/18 21:00 09/27/18 20:59 09/04/18 08:35 Allergies: Coded Allergies: PENICILLINS (Verified Allergy, Unknown, 10/09/12) Subjective awake, alert, responsive, NAD, No SOB, Not coughing, feeling good. Objective Last Vital Signs Date Time Temp Pulse Resp B/P (MAP) Pulse Ox O2 Delivery O2 Flow Rate FiO2 09/04/18 13:24 73 125/83 09/04/18 12:00 98.9 18 99 09/04/18 11:30 Room Air 21 08/31/18 09:00 2.0 Laboratory Tests Test 09/04/18 06:52 White Blood Count 24.0 K/UL (4.8-10.8) *H Red Blood Count 3.35 M/UL (4.20-5.40) L Hemoglobin 9.7 G/DL (12.0-16.0) L Hematocrit 29.9 % (37.0-47.0) L Mean Corpuscular Volume 89 FL (80-99) Mean Corpuscular Hemoglobin 29.1 PG (27.0-31.0) Mean Corpuscular Hemoglobin Concent 32.6 G/DL (32.0-36.0) Red Cell Distribution Width 12.2 % (11.6-14.8) Platelet Count 475 K/UL (150-450) H Mean Platelet Volume 5.2 FL (6.5-10.1) L Neutrophils (%) (Auto) % (45.0-75.0) Lymphocytes (%) (Auto) % (20.0-45.0) Monocytes (%) (Auto) % (1.0-10.0) Eosinophils (%) (Auto) % (0.0-3.0) Basophils (%) (Auto) % (0.0-2.0) Differential Total Cells Counted 100 Neutrophils % (Manual) 72 % (45-75) Lymphocytes % (Manual) 20 % (20-45) Monocytes % (Manual) 5 % (1-10) Eosinophils % (Manual) 3 % (0-3) Basophils % (Manual) 0 % (0-2) Band Neutrophils 0 % (0-8) Platelet Estimate Adequate Platelet Morphology Normal Hypochromasia 2+ Anisocytosis 1+ Spherocytes 1+ Reticulocyte Count 1.8 % (0.0-2.0) Prothrombin Time 10.5 SEC (9.30-11.50) Prothromb Time International Ratio 1.0 (0.9-1.1) Activated Partial Thromboplast Time 32 SEC (23-33) Sodium Level 140 MMOL/L (136-145) Potassium Level 3.6 MMOL/L (3.5-5.1) Chloride Level 102 MMOL/L (98-107) Carbon Dioxide Level 31 MMOL/L (21-32) Anion Gap 7 mmol/L (5-15) Blood Urea Nitrogen 14 mg/dL (7-18) Creatinine 1.0 MG/DL (0.55-1.30) Estimat Glomerular Filtration Rate > 60 mL/min (>60) Glucose Level 83 MG/DL (74-106) Calcium Level 9.3 MG/DL (8.5-10.1) Iron Level 80 ug/dL (50-175) Total Iron Binding Capacity 162 ug/dL (250-450) L Percent Iron Saturation 49 % (15-50) Unsaturated Iron Binding 82 ug/dL (112-346) L Ferritin 1468 NG/ML (8-388) H Total Bilirubin 0.2 MG/DL (0.2-1.0) Aspartate Amino Transf (AST/SGOT) 57 U/L (15-37) H Alanine Aminotransferase (ALT/SGPT) 83 U/L (12-78) H Alkaline Phosphatase 259 U/L (46-116) H Total Protein 6.6 G/DL (6.4-8.2) Albumin 2.1 G/DL (3.4-5.0) L Globulin 4.5 g/dL Albumin/Globulin Ratio 0.5 (1.0-2.7) L Alpha Fetoprotein Pending Carcinoembryonic Antigen Pending Vitamin B12 Level 779 PG/ML (193-986) Folate 18.5 NG/ML (8.6-58.9) Thyroid Stimulating Hormone (TSH) 2.462 uiU/mL (0.358-3.740) Free Thyroxine 1.18 NG/DL (0.76-1.46) Hepatitis A IgM Antibody Pending Hepatitis B Surface Antigen Pending Hepatitis B Core IgM Antibody Pending Hepatitis C Antibody Pending Microbiology Date/Time Source Procedure Growth Status 09/02/18 15:15 Sputum Gram Stain - Final Complete 09/02/18 15:15 Sputum Sputum Culture - Final NORMAL UPPER RESPIRATORY EFFIE PRESENT Complete Intake and Output 09/03/18 09/04/18 18:59 06:59 Intake Total 1000 ml 360 ml Balance 1000 ml 360 ml Intake Oral 360 ml Other 1000 ml # Voids 2 Objective GENERAL: The patient is awake and responsive, in no acute distress. HEAD AND NECK: Pupils are reactive to light. Extraocular movements intact. NECK: Supple. No JVD. LUNGS: Good air entry. No crackles in the bases. No Expiratory wheeze, No rhonchi. HEART: S1 and S2. RR No murmurs or gallops. ABDOMEN: Soft, nondistended, and nontender. Positive bowel sounds. EXTREMITIES: No cyanosis, clubbing, or edema. NEUROLOGIC: Cranial nerves II through XII grossly intact. Motor is 5/5 in all extremities. Gait is intact. PSYCHIATRIC: Mood and affect are anxious. Assessment/Plan Assessment/Plan ASSESSMENT: 1. Acute pneumonia. 2. History of asthma. 3. COPD. 4. Sepsis with bandemia / Bacteremia. 5. Sickle cell disease. 6. History of severe hip osteoarthritis, status post arthroplasty. 7. Spinal spondylolisthesis. 8. Question of lumbar spine spondylosis. 9. Hypertension. 10. Anemia. 11. 4.3 cm liver lesion. PLAN: 1. in Medical floor. 2. We will follow up with the laboratory and cultures. 3. DC IV hydration. 4. Prednisone 20mg 5. The patient has penicillin allergy. 6. Levaquin. 7. Code status is Full Code. 8. DVT prophylaxis, heparin subcutaneous. 9. We will follow up with Dr. Almonte for Pulmonary Critical Care consultation and DR. Lott for ID consultation. 10. DC home today 11. Consider liver biopsy as outpatient, discussed with the patient extensively regard to the liver biopsy and the necessity to be done soon. CT scan of the abdomen/chest/pelvic: Extensive infiltrate within the right lung as described above. Finding likely due to pneumonia. Please correlate clinically. Hepatomegaly. 4.3 cm liver lesion, nonspecific on this examination. Recommend ultrasound correlation. Follow-up triphasic CT may be needed. Hiatal hernia Status post right total hip replacement. Accessory spleen Mild free fluid within the pelvis nonspecific Atherosclerotic disease. Antonietta Muniz Payam MD Sep 04, 2018 14:50
--- NOTE | 2018-09-04 15:16 | Infectious Diseases Prog Note ---
Assessment/Plan Assessment/Plan Assessment: Sepsis 2ry to PNA, ?atypical vs viral (ie INfluenza, M. pna) Extensive R lung ground glass opacities -CT abd/p: Extensive infiltrate within the right lung as described above. Finding likely due to pneumonia. Please correlate clinically. Hepatomegaly. 4.3 cm liver lesion, nonspecific on this examination. Recommend ultrasound correlation. Follow-up triphasic CT may be needed. Hiatal hernia. Status post right total hip replacement. Accessory spleen. Mild free fluid within the pelvis nonspecific. Atherosclerotic disease -CXR: : Bilateral right greater than left perihilar consolidation. Most likely representing pneumonia. Pulmonary edema also a possibility -influenza sc neg -sp cx normal resp harriet -HIV ab sc neg CONS bacteremia- likely contaminant -08/27 Bcx / GPC CONS; 08/28 Bcx NTD Fever, SP Leukocytosis, persistent w/ left shift (steroids, PNA contributing)- r/o lymphoproliferative disorder -abnormal flow cytometry -u/a neg Liver lesion- hx dating back to 2014- per pt had biopsy i n the past with benign results -09/02/18 Abds US: Isoechoic 3 cm lesion within the liver in the lateral segment the left lobe. The mass does not appear to be a hemangioma and is clearly solid. Further evaluation is recommended as described above. Accessory spleen.Thickening of the wall the urinary bladder. Correlate for cystitis -MRI abd 2014:Very subtle lesion of the lateral left hepatic lobe, as described on recent CT scans. Note that it is evident in retrospect on the 2013 exam, minimally change since that time. Most likely differential consideration is focal nodular hyperplasia. Other possibilities include hepatic adenoma, much less likely hepatocellular carcinoma. Consider MRI with liver specific agent as this may suggest the diagnosis of focal nodular hyperplasia. COPD psychosis anxiety moderate pHTN lumbar disc disease/spondylosis R hip OA s/p R hip replacement HTN sickle cell disease Plan: -Continue Levaquin #12/23 for PNA , concern for atypical infection -Resume Tamiflu abx d #11/20 ; concern for viral infection given CT (despite neg influenza sc test; did had symptoms suggestive ofit) -09/03 SP Aztreonam #5 -09/01 SP IV Vancomycin #4 -08/31 SP Tamiflu #3 -08/27 SP IV Vancomycin and CEfepime x1 -f/u legionella ag urine (re-ordered), Cocci ab, CrAg, M. pna ab am -f/u cx -Monitor CBC/CMP, temperatures -aspiration precautions -Cdiff if diarrhea -GI f/u -Consider Heme onc eval Thank you for this consultation. Will continue to follow along with you. Discussed with RN and with Dr Almonte Subjective Allergies: Coded Allergies: PENICILLINS (Verified Allergy, Unknown, 10/09/12) Subjective afebrile wbc improved; no cbc today at improved repeat Bcx NTD Objective Vital Signs Last 24 Hour Vital Signs Date Time Temp Pulse Resp B/P (MAP) Pulse Ox O2 Delivery O2 Flow Rate FiO2 09/04/18 13:24 73 125/83 09/04/18 12:00 98.9 73 18 125/83 (97) 99 09/04/18 11:30 Room Air 21 09/04/18 11:30 98 Room Air 21 09/04/18 09:00 Room Air 09/04/18 08:34 139/79 09/04/18 08:00 98.7 93 18 124/70 (88) 98 09/04/18 05:25 89 139/79 09/04/18 04:00 98.8 89 18 139/79 (99) 98 09/04/18 00:00 99.1 88 18 140/90 (107) 94 09/03/18 21:11 96 145/89 09/03/18 21:00 Room Air 09/03/18 20:00 99.2 96 18 145/89 (107) 95 09/03/18 19:57 97 Room Air 21 09/03/18 19:57 Room Air 21 09/03/18 16:00 98.7 94 18 154/86 (108) Height (Feet): 5 Height (Inches): 6.00 Weight (Pounds): 163 Objective GENERAL: The patient is awake and responsive, in no acute distress, but feeling weak and tired. HEAD AND NECK: Pupils are reactive to light. Extraocular movements intact. NECK: Supple. No JVD. LUNGS: Good air entry. Occasional crackles in the bases. No wheeze or rhonchi. HEART: S1 and S2. Tachycardic. No murmurs or gallops. ABDOMEN: Soft, nondistended, and nontender. Positive bowel sounds. EXTREMITIES: No cyanosis, clubbing, or edema. NEUROLOGIC: Cranial nerves II through XII grossly intact. Motor is 5/5 in all extremities. Gait is intact. RECTAL/GENITOURINARY: Refused and deferred. PSYCHIATRIC: Mood and affect are anxious. Microbiology Date/Time Source Procedure Growth Status 09/02/18 15:15 Sputum Gram Stain - Final Complete 09/02/18 15:15 Sputum Sputum Culture - Final NORMAL UPPER RESPIRATORY HARRIET PRESENT Complete Laboratory Tests Test 09/04/18 06:52 White Blood Count 24.0 K/UL (4.8-10.8) *H Red Blood Count 3.35 M/UL (4.20-5.40) L Hemoglobin 9.7 G/DL (12.0-16.0) L Hematocrit 29.9 % (37.0-47.0) L Mean Corpuscular Volume 89 FL (80-99) Mean Corpuscular Hemoglobin 29.1 PG (27.0-31.0) Mean Corpuscular Hemoglobin Concent 32.6 G/DL (32.0-36.0) Red Cell Distribution Width 12.2 % (11.6-14.8) Platelet Count 475 K/UL (150-450) H Mean Platelet Volume 5.2 FL (6.5-10.1) L Neutrophils (%) (Auto) % (45.0-75.0) Lymphocytes (%) (Auto) % (20.0-45.0) Monocytes (%) (Auto) % (1.0-10.0) Eosinophils (%) (Auto) % (0.0-3.0) Basophils (%) (Auto) % (0.0-2.0) Differential Total Cells Counted 100 Neutrophils % (Manual) 72 % (45-75) Lymphocytes % (Manual) 20 % (20-45) Monocytes % (Manual) 5 % (1-10) Eosinophils % (Manual) 3 % (0-3) Basophils % (Manual) 0 % (0-2) Band Neutrophils 0 % (0-8) Platelet Estimate Adequate Platelet Morphology Normal Hypochromasia 2+ Anisocytosis 1+ Spherocytes 1+ Reticulocyte Count 1.8 % (0.0-2.0) Prothrombin Time 10.5 SEC (9.30-11.50) Prothromb Time International Ratio 1.0 (0.9-1.1) Activated Partial Thromboplast Time 32 SEC (23-33) Sodium Level 140 MMOL/L (136-145) Potassium Level 3.6 MMOL/L (3.5-5.1) Chloride Level 102 MMOL/L (98-107) Carbon Dioxide Level 31 MMOL/L (21-32) Anion Gap 7 mmol/L (5-15) Blood Urea Nitrogen 14 mg/dL (7-18) Creatinine 1.0 MG/DL (0.55-1.30) Estimat Glomerular Filtration Rate > 60 mL/min (>60) Glucose Level 83 MG/DL (74-106) Calcium Level 9.3 MG/DL (8.5-10.1) Iron Level 80 ug/dL (50-175) Total Iron Binding Capacity 162 ug/dL (250-450) L Percent Iron Saturation 49 % (15-50) Unsaturated Iron Binding 82 ug/dL (112-346) L Ferritin 1468 NG/ML (8-388) H Total Bilirubin 0.2 MG/DL (0.2-1.0) Aspartate Amino Transf (AST/SGOT) 57 U/L (15-37) H Alanine Aminotransferase (ALT/SGPT) 83 U/L (12-78) H Alkaline Phosphatase 259 U/L (46-116) H Total Protein 6.6 G/DL (6.4-8.2) Albumin 2.1 G/DL (3.4-5.0) L Globulin 4.5 g/dL Albumin/Globulin Ratio 0.5 (1.0-2.7) L Alpha Fetoprotein Pending Carcinoembryonic Antigen Pending Vitamin B12 Level 779 PG/ML (193-986) Folate 18.5 NG/ML (8.6-58.9) Thyroid Stimulating Hormone (TSH) 2.462 uiU/mL (0.358-3.740) Free Thyroxine 1.18 NG/DL (0.76-1.46) Hepatitis A IgM Antibody Pending Hepatitis B Surface Antigen Pending Hepatitis B Core IgM Antibody Pending Hepatitis C Antibody Pending Current Medications Medications (Trade) Dose Ordered Sig/Yadira Route PRN Reason Start Time Stop Time Status Last Admin Dose Admin Acetaminophen (Tylenol) 650 mg Q6H PRN ORAL Mild Pain/Temp > 100.5 08/29/18 19:15 09/28/18 07:14 Acetaminophen/ Hydrocodone Bitart ([place] 10/325) 1 tab Q6H PRN ORAL Pain Scale (7-10) 08/29/18 19:15 09/05/18 19:06 09/04/18 14:54 Acetaminophen/ Hydrocodone Bitart ([place] 5/325) 1 tab Q6H PRN ORAL Moderate Pain (Pain Scale 4-6) 08/29/18 19:07 09/04/18 19:06 08/31/18 02:35 Albuterol/ Ipratropium (Albuterol/ Ipratropium) 3 ml Q4H PRN HHN DYSPNEA 09/02/18 20:15 09/07/18 20:14 Bupropion HCl (Wellbutrin XL) 150 mg DAILY ORAL 08/30/18 09:00 09/28/18 08:59 09/04/18 08:33 Clonidine HCl (Catapres Tab) 0.1 mg Q6H PRN ORAL For High Blood Pressure 09/02/18 11:45 10/02/18 11:44 09/02/18 12:26 Dextrose (Dextrose 50%) 25 ml Q30M PRN IV Hypoglycemia 08/29/18 19:30 09/27/18 11:29 Dextrose (Dextrose 50%) 50 ml Q30M PRN IV Hypoglycemia 08/29/18 19:30 09/27/18 11:29 Diltiazem HCl (Cardizem) 30 mg Q8HR ORAL 08/29/18 22:00 09/27/18 13:59 09/04/18 13:24 Gabapentin (Neurontin) 300 mg Q8HR ORAL 08/29/18 22:00 09/27/18 13:59 09/04/18 13:24 Heparin Sodium (Porcine) (Heparin 5000 units/ml) 5,000 units EVERY 12 HOURS SUBQ 08/29/18 21:00 09/27/18 20:59 09/04/18 08:34 Ketorolac Tromethamine (Toradol 30mg) 30 mg Q8H PRN IV Breakthrough Pain 09/02/18 20:15 09/07/18 20:14 09/04/18 09:19 Lamotrigine (LaMICtal) 100 mg DAILY ORAL 08/30/18 09:00 09/28/18 08:59 09/04/18 08:35 Levofloxacin (Levaquin) 750 mg DAILY ORAL 08/30/18 09:00 09/05/18 11:59 09/04/18 08:35 Lisinopril (Prinivil) 20 mg DAILY ORAL 08/30/18 09:00 09/28/18 08:59 09/04/18 08:34 Methocarbamol (Robaxin) 500 mg Q6H PRN ORAL Muscle spasms 08/29/18 19:08 09/27/18 19:07 Nitroglycerin (Ntg) 0.4 mg Q5MIN X 3 DOSES PRN SL Prn Chest Pain 08/29/18 19:00 09/27/18 11:29 Ondansetron HCl (Zofran) 4 mg Q4H PRN IVP Nausea & Vomiting 08/29/18 19:08 09/27/18 19:07 Oseltamivir Phosphate (Tamiflu) 75 mg TWICE A DAY ORAL 09/02/18 15:00 09/07/18 14:59 09/04/18 08:33 Pantoprazole (Protonix) 40 mg DAILY ORAL 08/30/18 09:00 09/28/18 08:59 09/04/18 08:34 Prednisone (predniSONE) 20 mg DAILY ORAL 09/01/18 09:00 09/29/18 14:14 09/04/18 08:33 Promethazine HCl/ Codeine (Phenergan with Codeine) 5 ml Q6H PRN ORAL cough 08/29/18 19:08 09/27/18 19:07 08/31/18 23:42 Temazepam (Restoril) 15 mg HSPRN PRN ORAL Insomnia 08/29/18 21:00 09/04/18 20:59 Theophylline (Papito-Dur) 100 mg EVERY 12 HOURS ORAL 08/29/18 21:00 09/27/18 20:59 09/04/18 08:35 Angela Lott M.D. Sep 04, 2018 15:16
--- NOTE | 2018-09-04 17:30 | NUR ---
NURSE NOTES: All discharge instructions and prescriptions reviewed with patient, verbalized understanding. 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 All belongings, home medications (from admission that were held in pharmacy) and prescriptions sent with patient. Patient completed an authorization to release her medical records to herself, RN sent documents to Medical Records office. IV heplock discontinued, no active bleeding noted. Patient discharged home at 1730, RN walked patient down to [facility], in stable condition, patient will take the bus home.
--- NOTE | 2018-09-06 14:44 | Discharge Summary ---
Discharge Summary Discharge Summary _ DATE OF ADMISSION: 08/27/2018 DATE OF DISCHARGE: 09/04/2018 DISCHARGED BY: Dr. Madden REASON FOR ADMISSION: 53 years old female with past medical history of asthma, sickle cell disease, hypertension, anxiety, lumbar spondylosis, lumbar disc disease, right hip osteoarthritis, status post right hip replacement, moderate pulmonary hypertension, presented with complaint of cough and chest congestion over the past few days, which was getting progressively worse. patient reported feeling very weak and tired with generalized weakness. She complained of productive cough. No hemoptysis. Patient reported that it had been going for a while, and she might have overdosed on her medication. She denied any history of suicidal homicidal ideation. She denied nausea, vomiting, and diarrhea. She denied dysuria . Vital signs revealed l fever, tachycardia, and low blood pressure. Pulse oximetry was stable on room air. Laboratory workup revealed significant leukocytosis WBC 22.3. Lactic acid 3.9 Hemoglobin hemoglobin 12.7 hematocrit 39.9. Potassium 3.4. BUN 18 creatinine 1.7. Glucose 82 Troponin negative. EKG revealed sinus tachycardia, no acute ischemic changes. Pro BNP 955. Serum alcohol, Tylenol and salicylate were all negative. Urinalysis revealed no evidence of UTI. Urine toxicology screen was positive for benzodiazepine. Chest x-ray revealed bilateral, right greater than left, perihilar consolidation , most likely representing pneumonia. Pulmonary edema was also a possibility. CT of the head revealed no evidence of acute intracranial pathology. Patient subsequently was admitted for further management. CONSULTANTS: pulmonary Dr. Almonte ID specialist Dr. Ansari GI specialist Dr. Avina [facility] COURSE: Patient admitted to monitored floor. Patient started on the IV fluids and broad-spectrum antibiotics, keeping in mind penicillin allergy. ID specialist and steel engraver closely followed. Initial blood culture 1 out of 4 revealed Staphylococcus coagulase negative. Repeated blood culture on 08/29 were negative. Rapid influenza screen test was negative. Sputum culture revealed Tameka. Repeated sputum culture was negative. Initial blood culture was likely contaminant, as per ID specialist. Serology for cryptococci negative. HIV test was nonreactive. Urine Legionella antigen was negative. Hepatitis panel was negative. Serology for cocci, mycoplasma pneumonia still pending at the time of this dictation. Supplemental oxygen provided as needed to keep oximetry above 92%. Pulmonary toilet provided as needed. Patient started on trial of theophylline. Antitussive provided as needed. DVT prophylaxis provided. Patient started on steroids with gradual tapering down. Antibiotic regimen was optimized as per ID specialist recommendation. CT of the chest revealed extensive infiltrate within the right lung. Findings were likely due to pneumonia. Tamiflu was continued due to concern for viral infection , given CT scan results ,despite negative influenza screen test , since patient had symptoms suggestive of it. Leukocytosis persisted. Fever resolved. Patient had abnormal flow cytometry with abnormal myeloid maturation pattern. Persistent leukocytosis with left shift could be possibly due to pneumonia along with steroids use. However, patient will need to rule out a lymphoproliferative disorder, given abnormal flow cytometry. Per pathologist, flow cytometry was abnormal, but nonspecific. Patient will need to follow-up with WBC as outpatient, and if remains abnormal , then she will need further testing. Hemoglobin and hematocrit were closely monitored with goal to keep hemoglobin above 7, remained at baseline. Anemia workup consistent with anemia of chronic disease. Ferritin 1468. CT of the abdomen and pelvis revealed 4.3 cm liver lesion . Per patient, she had a liver lesion dating back to 2014 and had biopsy in the past with benign results. Patient was recommended to consider another liver biopsy as outpatient, which was discussed with patient extensively and necessity to do it. CEA and alpha-fetoprotein within normal limits. GI specialist followed. GI procedure was on hold. Bowel regimen instituted. LFT initially stable , then with trend up. Monitor LFTs as outpatient. Renal parameters and electrolytes were closely monitored. Electrolytes corrected as needed. Creatinine from initial 1.7 down to 1.0 and BUN remained stable. Acute kidney injury was possibly due to dehydration. Patient was recommended to maintain adequate hydration. Blood pressure was managed with FAUZIA inhibitor. Clonidine was on used on as- needed basis. Pain management was addressed Supportive care provided. Patient clinically stabilized and was ready for discharge home. Follow-up with CBC and LFT, liver biopsy recommended. FINAL DIAGNOSES: Sepsis secondary to pneumonia, atypical versus viral Acute pneumonia COPD/asthma Persistent leukocytosis Abnormal flow cytometry Sickle cell disease Hypertension Anemia of sickle cell disease. Spinal spondylolisthesis Possible lumbar spine spondylosis History of severe hip osteoarthritis status post arthroplasty 4.3 cm liver lesion. Hiatal hernia Elevated LFT Acute kidney injury - resolved DISCHARGE MEDICATIONS: See Medication Reconciliation list. DISCHARGE INSTRUCTIONS: Patient was discharged home . Follow up with primary care provider in one week. I have been assigned to dictate discharge summary for this account. I was not involved in the patient's management. Shana Toussaint NP Sep 06, 2018 14:44
== END 2018-09-04 17:35 | disposition home or self-care (01) | DRG 871 ==
LOC: EDBD 19:50 → EMR 20:28 → 2E 22:43 → EDBEDREQSVC 23:11 → EDBEDREQ 23:11 → 3E 08-29 18:45
DX: A41.9 Sepsis, unspecified organism (principal); J18.9 Pneumonia, unspecified organism; N17.9 Acute kidney failure, unspecified; I10 Essential (primary) hypertension; D57.1 Sickle-cell disease without crisis; J44.9 Chronic obstructive pulmonary disease, unspecified; D63.8 Anemia in other chronic diseases classified elsewhere; M47.896 Other spondylosis, lumbar region; K76.9 Liver disease, unspecified; Z88.0 Allergy status to penicillin; F29 Unspecified psychosis not due to a substance or known physiological condition; F41.9 Anxiety disorder, unspecified; I27.20 Pulmonary hypertension, unspecified; Z96.641 Presence of right artificial hip joint; M16.11 Unilateral primary osteoarthritis, right hip
CPT/HCPCS: 36415; 70450; 71045; 71260; 74177; 76604; 76700; 80048; 80053; 80202; 80307; 80329; 81003; 82105; 82164; 82378; 82607; 82728; 82746; 83540; 83550; 83605; 83735; 83880; 84100; 84439; 84443; 84484; 85007; 85025; 85044; 85610; 85651; 85730; 86140; 86635; 86703; 86705; 86709; 86710; 86738; 86803; 87040; 87070; 87181; 87205; 87340; 87449; 93005; 94640; 94664; 94760; 96361; 96365; 96368; 99285; J2405; J7620; J8499

== ENCOUNTER 2018-12-26 22:03 | Emergency (ER) | payer MEDICARE, MEDICAID ==
[~2018-12-26] VITALS: Ht 162.6 cm; Wt 61.2 kg
[~2018-12-26 22:03] MED LIST changes: +ASPIR 8181 MG ORAL; +BUSPAR10 MG ORAL; +CARDIZEM30 MG ORAL; +LAMOTRIGINE100 M1 PO; +LISINOPRIL20 MG ORAL; +Levofloxacin 250mg ORAL; +METHOCARBAMOL500 MG ORAL; +QUETIAPINE FUM300 MG ORAL; +THEOPHYLLINE A100 MG ORAL; +VITAMIN E400 UNI5 PO
[2018-12-26 22:12] VITALS: BP 128/76
--- NOTE | 2018-12-26 22:12 | NUR ---
ED Nurse Note: pt walked in c/o left side facial pain, pt reports she just woke up with the pain. noted swelling and tenderness on left mandibular area, will cont monitor, resp even and unlabored on RA, airway intact.
[2018-12-26] MEDS ORDERED: Clindamycin 150mg cap ORAL ONE (22:45)
[2018-12-26] MEDS ORDERED: HYDROcodone/Acetamin 5/325 tab ORAL ONE (22:45)
[2018-12-26] MEDS ORDERED: HYDROCODON-ACE1 EA15 ORAL (22:46)
[2018-12-26] MEDS ORDERED: CLINDAMYCIN HC300 MG ORAL (22:46)
--- NOTE | 2018-12-26 22:46 | Emergency Room Report ---
History of Present Illness General Chief Complaint: Pain Source: Patient Present Illness HPI This is a 53-year-old female with multiple dental extraction recently. She presents with swelling to the left lower jaw. Onset for 2 days. Painful. Worse with eating. 9 out of 10. No nausea no vomiting. No fever chills. No drainage. Allergies: Coded Allergies: PENICILLINS (Verified Allergy, Unknown, 10/09/12) Patient History Past Medical History: see triage record, old chart reviewed, HTN Past Surgical History: other Pertinent Family History: none Social History: Reports: smoking Now: No Immunizations: other Reviewed Nursing Documentation: PMH: Agreed; PSxH: Agreed Nursing Documentation-PMH Hx Cardiac Problems: Yes Hx Hypertension: Yes Hx Pacemaker: No Hx Asthma: Yes Hx COPD: Yes Hx Diabetes: No Hx Cancer: No Hx Gastrointestinal Problems: No Hx Dialysis: No Hx Neurological Problems: No Hx Cerebrovascular Accident: No Hx Encephalitis: No Hx Seizures: No Review of Systems Eye: Denies: eye pain, blurred vision ENT: Denies: ear pain, nose congestion, throat swelling Respiratory: Denies: cough, shortness of breath Cardiovascular: Denies: chest pain, palpitations Gastrointestinal: Denies: abdominal pain, diarrhea, nausea, vomiting Musculoskeletal: Denies: back pain, joint pain Skin: Denies: rash Neurological: Denies: headache, numbness Endocrine: Denies: increased thirst, increased urine Hematologic/Lymphatic: Denies: easy bruising All Other Systems: negative except mentioned in HPI Physical Exam Vital Signs Date Time Temp Pulse Resp B/P (MAP) Pulse Ox O2 Delivery O2 Flow Rate FiO2 12/26/18 21:59 99.3 78 18 142/107 (119) 98 Room Air Vitals with high blood pressure Sp02 EP Interpretation: reviewed, normal General Appearance: well appearing, no apparent distress, alert Head: normocephalic, atraumatic Eyes: bilateral eye PERRL, bilateral eye EOMI ENT: hearing grossly normal, normal pharynx, other - Poor dentition. Left lower jaw with swelling to the angle of the mandible. Tender to palpation. Neck: full range of motion, supple, no meningismus Respiratory: chest non-tender, lungs clear, normal breath sounds Cardiovascular #1: regular rate, rhythm, no murmur Gastrointestinal: normal bowel sounds, non tender, no mass, no organomegaly, no bruit, non-distended Musculoskeletal: back normal, gait/station normal, normal range of motion Psychiatric: mood/affect normal Procedures Incision and Drainage Incision and Drainage : Consent: Verbal Site: Left jaw Blade Size: 11 Anesthesia: 1% Lidocaine Volume Anesthetic (ccs): 2 Patient Tolerated: Well Complications: None Progress I did an inferior alveolar block and a local block. I made a 1 cm incision over the most fluctuant area. There was small amount of purulent discharge. Patient tolerated procedure without any problem. Medical Decision Making Diagnostic Impression: Primary Impression: Dental abscess ER Course Presents with a dental abscess. No evidence of drainage. Will discharge home. Last Vital Signs Date Time Temp Pulse Resp B/P (MAP) Pulse Ox O2 Delivery O2 Flow Rate FiO2 12/26/18 21:59 99.3 78 18 142/107 (119) 98 Room Air Status: improved Disposition: HOME, SELF-CARE Condition: Stable Scripts Hydrocodone/Acetaminophen 5-325* (HYDROCODONE/ACETAMINOPHEN 5-325*) 1 Each Tablet 1 TAB ORAL Q6H PRN for For Pain, #15 TAB 0 Refills Prov: Harjit Diaz MD 12/26/18 Clindamycin Hcl (CLINDAMYCIN HCL) 300 Mg Capsule 300 MG ORAL THREE TIMES A DAY, #21 CAP Prov: Harjit Diaz MD 12/26/18 Additional Instructions: Follow-up your your dentist in 2 days as scheduled. Return if symptoms worsen. Harjit Diaz MD Dec 26, 2018 22:46
--- NOTE | 2018-12-26 22:57 | NUR ---
ED Nurse Note: pt cleared to be d/c per ER provider, pt discharge and aftercare instruction provided w/ prescription, pt education done via discussion and handout, pt advised to follow up with pcp or return to ed if changes in condition, vss, ambulatory w/ steady gait, left w/ all belongings.
== END 2018-12-26 22:57 | disposition home or self-care (01) ==
LOC: EDBD 22:03 → EMR 22:41
DX: K04.7 Periapical abscess without sinus (principal); I10 Essential (primary) hypertension; J45.909 Unspecified asthma, uncomplicated; J44.9 Chronic obstructive pulmonary disease, unspecified; Z88.0 Allergy status to penicillin
CPT/HCPCS: 10060; 99282